=== PATIENT | male | born 1970 | race African-American/Black ===

== ENCOUNTER 2021-01-07 22:30 | Emergency (ER) | payer MEDICAID, SELFPAY ==
--- NOTE | ~2021-01-07 | XR_ITS ---
EXAMINATION: XR ABDOMEN KUB CLINICAL INDICATION: Fecal impaction status post disimpaction COMPARISON: None TECHNIQUE: AP view of the abdomen. FINDINGS: Nonobstructive bowel gas pattern. There is a large amount of stool throughout the colon extending to the rectum. Stool significantly distends the rectum. No suspicious calcifications. No acute osseous abnormality. Ossification seen adjacent to the right acetabulum and greater trochanter. XR/XR KUB IMPRESSION: Large colonic stool burden with stool significantly distending the rectum.
[2021-01-07 22:39] VITALS: BP 112/64; BP 120/78; PULSE 93; PULSE 97; RESP 20; TEMP 37; O2SAT 98; O2SAT 99; BMI 33.0
--- NOTE | 2021-01-07 22:41 | ED_ITS ---
HPI - General Adult General Chief complaint: General Medical Stated complaint: failure to thrive Time Seen by Provider: 01/07/21 22:41 Source: RN notes reviewed Mode of arrival: EMS Limitations: altered mental status History of Present Illness HPI narrative: [facility] of schizophrenia encephalopathy generalized weakness and chronic constipation taking antibiotic Augmentin for UTI for last 5 days constipated not moving his bowels for last 4 days did the KUB x-ray today and showed lots of air and stool no vomiting no fever patient is at baseline patient is full code Related Data Previous Rx's Medication Instructions Recorded polyethylene glycol 3350 [Miralax] 17 g PO DAILY #510 g 01/08/21 Allergies Allergy/AdvReac Type Severity Reaction Status Date / Time No Known Allergies Allergy Verified 01/07/21 22:39 [No Known Allergies*] wool Allergy Unknown Unknown Uncoded 01/07/21 22:39 Review of Systems Review of Systems: Yes Unobtainable due to mental status Neurologic: Reports confusion Psychiatric: Psychiatric: Reports confusion PMFSH Past Medical History Medical History Chronic constipation Depressive disorder Encephalopathy Hyperlipidemia Hypertension Muscle weakness Parkinson disease Schizophrenia Seizures Toxic encephalitis Social History Social History Alcohol intake: never Smoking Status: Never smoker Use of substances other than those prescribed or required for medical reasons: No Advance Directives: No Advance Directives Information Provided: No Physical Exam Vital Signs: Vital Signs: Last Vital Signs Temp 98.5 F 01/08/21 01:16 Pulse 87 01/08/21 01:16 Resp 18 01/08/21 01:16 BP 134/83 01/08/21 01:16 Pulse Ox 100 01/08/21 01:16 Body Mass Index 33.0 Const: General: no acute distress and confusion Nutritional Appearance: thin Orientation/consciousness: oriented to person and confusion HENMT: Head: Yes normocephalic and Yes atraumatic Eyes: General: appearance normal, both eyes and all related structures Neck: Neck: Yes normal visual inspection Resp: Effort & Inspection: normal respiratory effort Auscultation: clear to auscultation bilaterally, no crackles, no rales and no rhonchi Cardio: Palpation: normal PMI Rate: regular rate Rhythm: regular rhythm Heart sounds: S1 normal heart sound present and S2 normal heart sound present Peripheral pulses: Peripheral pulses 2+ throughout GI: Inspection: Yes distended (Gaseous) Palpation (GI): Soft to palpation, no guarding and not rigid Auscultation: normal bowel sounds Rectal Exam - Male: Yes Abnormal stool present and Yes fecal impaction Skin: General skin exam: no rashes or lesions noted Neuro: Other: Limited movements of all 4 extremities with involuntary tremors in upper extremity General: oriented to person, moves all extremities and confusion Medical Decision Making MDM Narrative Medical decision making narrative: Patient with chronic constipation with fecal impaction, manual disimpaction was done will start him on soapsuds enema . Patient had a good bowel movement after soapsuds enema repeat KUB was done which showed still lots of stool without any obstruction per RN at correction patient not eating drinking much lately. Will give him IV fluids p.o. Mag citrate and Dulcolax and watch for some time if patient unable to have good bowel movement in the ER will admit Imaging Data Abdominal x-ray: Attestation: I personally reviewed and interpreted this imaging study as follows: Radiologist's impression: [address] [id number] ReportSigned Patient: Edson HinkleMR#: [id number]: [id number]:[id number]/Sex: 50 / MADM Date: 01/08/21Loc: HO.EDAttending Dr: Ordering Physician: Sidney Santillan MD Date of Service: 01/08/21 Procedure(s): XR KUB Accession Number(s): [id number] cc: Sidney Santillan MD~ EXAMINATION: XR ABDOMEN KUB CLINICAL INDICATION: Fecal impaction status post disimpaction COMPARISON: None TECHNIQUE: AP view of the abdomen. FINDINGS: Nonobstructive bowel gas pattern. There is a large amount of stool throughout the colon extending to the rectum. Stool significantly distends the rectum. No suspicious calcifications. No acute osseous abnormality. Ossification seen adjacent to the right acetabulum and greater trochanter. XR/XR KUB IMPRESSION: Large colonic stool burden with stool significantly distending the rectum. Discharge Plan Discharge Clinical Impression: Fecal impaction Additional Instructions: Drink plenty of fluid take MiraLax daily along with Dulcolax Prescriptions: New polyethylene glycol 3350 [Miralax] 17 gram/dose powder 17 g PO DAILY Qty: 510 RF: 0
[2021-01-07 22:45] VITALS: BP 118/86; PULSE 93; RESP 18; TEMP 36.9; O2SAT 99
[2021-01-07 23:37] VITALS: BP 121/79; PULSE 91; RESP 18; TEMP 36.6; O2SAT 100
[2021-01-08 01:16] VITALS: BP 134/83; PULSE 87; RESP 18; TEMP 36.9; O2SAT 100
[2021-01-08] MEDS: 0.9 % Sodium Chloride 1,000 ML 999 ML IVCONT (01:19)
[2021-01-08] MEDS: bisacodyL 5 MG TABLET.DR 10 MG PO (01:48)
[2021-01-08] MEDS: Magnesium Citrate 300 ML SOLUTION PO (01:49)
[2021-01-08 02:04] LABS: MANUAL DIFF FLAG NO
[2021-01-08 02:17] LABS: Basophils Absolute Auto 0.1 X10*3/uL (0.0-0.2); Basophils Percent Auto 0.7 % (0-2); Eosinophils Absolute Auto 0.3 X10*3/uL (0.0-0.4); Eosinophils Percent Auto 3.1 % (0-4); Hematocrit 45.7 % (42-52); Hemoglobin 14.4 g/dl (14.0-18.0); Imm Gran Abs Auto 0.04 X10*3/uL (0.00-0.03); Imm Gran Pct Auto 0.4 % (0.0-0.4); Lymphocytes Absolute Auto 1.9 X10*3/uL (1.2-4.9); Lymphocytes Percent Auto 19.7 % (20-40); Mean Corpuscular HGB Conc 31.5 g/dl (31.0-36.0); Mean Corpuscular Hemoglobin 28.2 pg (27.0-33.0); Mean Corpuscular Volume 89.6 fL (80-98); Mean Platelet Volume 11.6 fL (9.4-12.4); Monocytes Absolute Auto 0.8 X10*3/uL (0.1-1.2); Monocytes Percent Auto 7.7 % (2-11); Neutrophils Absolute Auto 6.7 X10*3/uL (2.0-8.3); Neutrophils Percent Auto 68.4 % (45-73); Platelet Count 272 X10*3/uL (160-400); Red Cell Distribution Width 14.6 % (11.0-16.0); White Blood Count 9.7 X10*3/uL (4.8-10.8)
[2021-01-08 02:23] LABS: COVID-19 Test Negative (Negative); IDNOW Serial# 9DD0AD1C
[2021-01-08 03:56] LABS: Alanine Aminotransferase 9 U/L (0-40); Albumin Level 3.5 g/dL (3.5-5.0); Alkaline Phosphatase 77 U/L (39-117); Anion Gap 12 (12-20); Aspartate Amino Transferase 20 U/L (5-37); Bilirubin Direct 0.2 mg/dL (0.0-0.5); Bilirubin Total 0.5 mg/dL (0.0-1.0); Blood Urea Nitrogen 20 mg/dL (9-16); Calcium 8.8 mg/dL (8.4-10.2); Carbon Dioxide 24 mmol/L (22-29); Chloride 113 mmol/L (96-108); Creatinine Clr Calc Pharmacy 100.8; Estimated Glomerular Filt Rate > 60; Glucose Random 89 mg/dL (60-115); Potassium 4.4 mmol/L (3.3-5.1); Sodium 145 mmol/L (135-145); Total Protein 6.9 g/dL (6.5-8.0)
[2021-01-08 04:00] VITALS: BP 130/84; PULSE 75; RESP 15; TEMP 36.9; O2SAT 100
[2021-01-08 06:06] VITALS: BP 128/82; PULSE 84; RESP 15
== END 2021-01-08 07:03 | disposition other institution (70) ==
PROVIDERS: Emergency Medicine; Emergency Provider Internal Medicine; PCP Hospitalist
DX: K56.41 Fecal impaction (principal); Z79.2 Long term (current) use of antibiotics; Z79.899 Other long term (current) drug therapy; Z20.822 Contact with and (suspected) exposure to COVID-19
CPT/HCPCS: 36415; 74018; 80048; 80076; 85025; 87635; 99284

== ENCOUNTER 2021-01-09 12:35 | Emergency (ER) | payer MEDICAID, SELFPAY ==
--- NOTE | ~2021-01-09 | CT_ITS ---
EXAMINATION: HEAD CT AND CERVICAL SPINE CT WITHOUT CONTRAST CLINICAL INFORMATION: Unwitnessed falls COMPARISON: Previous CT and brain MRI August 2015 TECHNIQUE: Axial images through the head and cervical spine without contrast. Sagittal and coronal reconstructions on the technologist workstation were performed. Patient dose 720+3 4 6 mg/cm. This CT examination was performed using dose optimization techniques as appropriate, variously including the following: *Automated exposure control *Adjustment of mA and/or kV according to patient size (this includes techniques or standardized protocols for targeted exams where dose is matched to indication/reason for exam; i.e. extremities or head) *Use of iterative reconstruction technique FINDINGS: Head CT: There is no evidence of an extra-axial collection. There is no evidence of intra-axial or extra-axial hemorrhage. The ventricles and extra-axial CSF spaces are prominent suggestive of generalized atrophy. There is nonspecific periventricular white matter disease. No mass, mass effect or infarct is seen. Review of bone windows is normal. No skull fracture is seen. Visualized paranasal sinuses, mastoid air cells and middle ears are clear. Cervical spine: Bone alignment is normal. No fracture or dislocation is seen. There is evidence of multilevel degenerative spondylosis and degenerative disc disease from C3-C4 to C6-C7. Prevertebral soft tissues are normal. There is evidence of paraseptal emphysema. CT/CT head/brain wo con IMPRESSION: Head CT: No acute findings. Generalized atrophy and nonspecific periventricular white matter disease. Cervical spine: Degenerative changes. No fracture seen.
--- NOTE | ~2021-01-09 | CT_ITS ---
EXAMINATION: HEAD CT AND CERVICAL SPINE CT WITHOUT CONTRAST CLINICAL INFORMATION: Unwitnessed falls COMPARISON: Previous CT and brain MRI August 2015 TECHNIQUE: Axial images through the head and cervical spine without contrast. Sagittal and coronal reconstructions on the technologist workstation were performed. Patient dose 720+3 4 6 mg/cm. This CT examination was performed using dose optimization techniques as appropriate, variously including the following: *Automated exposure control *Adjustment of mA and/or kV according to patient size (this includes techniques or standardized protocols for targeted exams where dose is matched to indication/reason for exam; i.e. extremities or head) *Use of iterative reconstruction technique FINDINGS: Head CT: There is no evidence of an extra-axial collection. There is no evidence of intra-axial or extra-axial hemorrhage. The ventricles and extra-axial CSF spaces are prominent suggestive of generalized atrophy. There is nonspecific periventricular white matter disease. No mass, mass effect or infarct is seen. Review of bone windows is normal. No skull fracture is seen. Visualized paranasal sinuses, mastoid air cells and middle ears are clear. Cervical spine: Bone alignment is normal. No fracture or dislocation is seen. There is evidence of multilevel degenerative spondylosis and degenerative disc disease from C3-C4 to C6-C7. Prevertebral soft tissues are normal. There is evidence of paraseptal emphysema. CT/CT cervical spine wo con IMPRESSION: Head CT: No acute findings. Generalized atrophy and nonspecific periventricular white matter disease. Cervical spine: Degenerative changes. No fracture seen.
--- NOTE | 2021-01-09 12:40 | ECG_ITS ---
Test Reason : GENERAL MEDICAL Blood Pressure : / mmHG Vent. Rate : 090 BPM Atrial Rate : 090 BPM P-R Int : 134 ms QRS Dur : 090 ms QT Int : 388 ms P-R-T Axes : 077 049 025 degrees QTc Int : 474 ms Normal sinus rhythm Nonspecific T wave abnormality Abnormal ECG When compared with ECG of 12-SEP-2015 16:33, T wave inversion now evident in Inferior leads Nonspecific T wave abnormality now evident in Lateral leads QT has lengthened Referred By: Shauna Chapman Electronically Signed By:VAMSI PAYAN MD
[2021-01-09 12:50] VITALS: BP 115/71; BP 123/79; PULSE 77; PULSE 84; RESP 18; TEMP 37.2; O2SAT 100; O2SAT 98; BMI 19.0
--- NOTE | 2021-01-09 13:08 | ED_ITS ---
HPI - General Adult General Chief complaint: General Medical <GALO Sinha - Last Filed: 01/09/21 17:00> Stated complaint: WEAKNESS W/3 FALLS IN PAST WEEK <GALO Sinha - Last Filed: 01/09/21 17:00> Time Seen by Provider: 01/09/21 12:39 <GALO Sinha - Last Filed: 01/09/21 17:00> Source: patient, EMS, RN notes reviewed and old records reviewed <GALO Sinha - Last Filed: 01/09/21 17:00> Mode of arrival: EMS <GALO Sinha - Last Filed: 01/09/21 17:00> Limitations: altered mental status <GALO Sinha - Last Filed: 01/09/21 17:00> History of Present Illness HPI narrative: 50 y/o male with history of schizophrenia, seizures, encephalitis, Parkinson's disease, hemiplegia, bilateral cataracts, HTN, HLD, autonomic dysfunction, anemia, hx recent UTI currently on Augmentin with recent visit here for fecal impaction on 01/07 who [facility] worsening weakness, increase in altered mental status, and 3 reported unwitnessed falls this week. Patient was reportedly hypotensive there 80/50. He reportedly had fixed pupils but was oriented to self. He was normotensive for EMS. He offers no complaints on arrival, denies any pain. He is exhibiting bilateral UE spastic movements, liekly chronic with his hx Parkinson's and known hx of extra pyramadial symptoms. <GALO Sinha - Last Filed: 01/09/21 17:00> MD complaint: multiple falls <GALO Sinha - Last Filed: 01/09/21 17:00> Onset (ago): day(s) <GALO Sinha - Last Filed: 01/09/21 17:00> Associated symptoms: denies other symptoms <GALO Sinha - Last Filed: 01/09/21 17:00> Treatments prior to arrival: none <GALO Sinha Last Filed: 01/09/21 17:00> Related Data Home medications: Home Medications Medication Instructions Recorded Confirmed Lorazepam 2 Mg/Ml 1 mg IM Q5M PRN MDD 2 01/09/21 acetaminophen 650 mg PO Q4H PRN 01/09/21 01/09/21 ascorbic acid (vitamin C) [Vitamin 500 mg PO DAILY 01/09/21 01/09/21 C] aspirin 81 mg PO DAILY 01/09/21 01/09/21 benztropine 1 mg PO BID 01/09/21 01/09/21 bisacodyl 10 mg MI DAILY 01/09/21 01/09/21 dantrolene 50 mg PO BID 01/09/21 01/09/21 docusate sodium 100 mg PO BEDTIME 01/09/21 01/09/21 docusate sodium 200 mg PO DAILY 01/09/21 01/09/21 ferrous sulfate 325 mg PO DAILY 01/09/21 01/09/21 lithium carbonate 300 mg PO BEDTIME 01/09/21 01/09/21 multivitamin 1 tab PO DAILY 01/09/21 01/09/21 sennosides [senna] 8.6 mg PO DAILY PRN 01/09/21 01/09/21 sennosides [senna] 17.2 mg PO BEDTIME 01/09/21 01/09/21 simvastatin 20 mg PO BEDTIME 01/09/21 01/09/21 trihexyphenidyl 2 mg PO BID 01/09/21 01/09/21 vitamin E 800 unit PO BID 01/09/21 01/09/21 Previous Rx's Medication Instructions Recorded polyethylene glycol 3350 [Miralax] 17 g PO DAILY #510 g 01/08/21 cefuroxime axetil 500 mg PO Q12H 7 Days #14 tab 01/09/21 <GAOL Sinha - Last Filed: 01/09/21 17:00> Allergies/adverse reactions: Allergies Allergy/AdvReac Type Severity Reaction Status Date / Time No Known Allergies Allergy Verified 01/07/21 22:39 [No Known Allergies*] wool Allergy Unknown Unknown Uncoded 01/07/21 22:39 <GALO Sinha - Last Filed: 01/09/21 17:00> Review of Systems Review of Systems: Yes Unobtainable due to mental condition and Unobtainable due to mental status <GAOL Sinha - Last Filed: 01/09/21 17:00> [facility] Past Medical History Attestation statement: The following information was validated with the patient. <GALO Sinha - Last Filed: 01/09/21 17:00> Medical History: Medical History Anemia Astigmatism, bilateral Bilateral cataracts Chronic constipation Depressive disorder Disorder of the autonomic nervous system, unspecified Dysarthria and anarthria Encephalopathy Essential (primary) hypertension Extrapyramidal and movement disorder Hemiplegia Hyperlipidemia Hypertension MDD (major depressive disorder) Muscle weakness Myopia, bilateral Parkinson disease Presbyopia Schizophrenia Seizures Toxic encephalitis Toxic encephalopathy <GALO Sinha - Last Filed: 01/09/21 17:00> Social History Social History: Social History Alcohol intake: never Smoking Status: Never smoker Smoked in Last 30 Days: No Use of substances other than those prescribed or required for medical reasons: No Advance Directives: No Advance Directives Information Provided: No <GALO Sinha - Last Filed: 01/09/21 17:00> Physical Exam Vital Signs: Vital Signs: Last Vital Signs Temp 98.9 F 01/09/21 12:50 Pulse 96 01/09/21 18:07 Resp 01/09/21 20:24 BP 106/69 01/09/21 18:07 Pulse Ox 100 01/09/21 18:07 Body Mass Index 19.0 Appearance: Alert. Oriented X1. No acute distress. Upper extremity spastic movements. Eyes: Pupils equal, round and non-reactive to light. ENT: poor dentition throughout Neck: Normal inspection. Neck supple. CVS: Normal heart rate and rhythm. Pulses normal. Respiratory: No respiratory distress. Breath sounds normal. Abdomen: Softly distended and nontender. +BS x4 Skin: Skin warm and dry. Normal skin color. Normal skin turgor. No rashes. Extremities: No lower extremity edema. Neuro: Oriented X 1. Upper extremity involuntary movements, <GALO Sinha - Last Filed: 01/09/21 17:00> Vital Signs: Last Vital Signs Temp 98.9 F 01/09/21 12:50 Pulse 96 01/09/21 18:07 Resp 17 01/09/21 20:24 BP 106/69 01/09/21 18:07 Pulse Ox 100 01/09/21 18:07 Body Mass Index 19.0 <Car Broussard MD - Last Filed: 01/31/21 06:47> Course Course Course Narrative: 50 y/o male with multiple comorbidities presenting from [facility] with 3 unwitnessed falls, reports of increased weakness and altered mental status. Given reports of hypotension will get septic workup and cultures. Will check lithium level, basic labs to assess for metabolic derangements as well as CT head given falls. <GALO Sinha - Last Filed: 01/09/21 17:00> I have reviewed the chart <Car Broussard MD - Last Filed: 01/31/21 06:47> Reevaluation(s) Reevaluation #1: Lab workup shows mild hypernatremia with sodium 147, normal renal function. CT head showed no acute findings. UA is pending. Staff member who also works at [facility] assessed the patient and states this is his baseline mental status. He reportedly has been declining for the last few months and has had several falls due to his Parkinsonism and movement disorder. <GALO Sinha - Last Filed: 01/09/21 17:00> Reevaluation #2: COVID/Flu/RSV negative. UA is the only thing pending and then he can be discharged back to [facility]. Signed out to Lindsay DE LEON who will f/u pending results and coordinate d/c back to SNF. <GALO Sinha - Last Filed: 01/09/21 17:00> Medical Decision Making Lab Data Result diagrams: : 01/09/21 14:31 01/09/21 14:31 <GALO Sinha - Last Filed: 01/09/21 17:00> Labs: Lab Results 01/09/21 01/09/21 01/09/21 Range/Units 14:31 14:31 14:31 WBC 10.0 (4.8-10.8) X10*3/uL RBC 5.07 (4.60-5.80) X10*6/uL Hgb 14.3 (14.0-18.0) g/dl Hct 46.1 (42-52) % MCV 90.9 (80-98) fL MCH 28.2 (27.0-33.0) pg MCHC 31.0 (31.0-36.0) g/dl RDW 15.0 (11.0-16.0) % Plt Count 268 (160-400) X10*3/uL MPV 12.0 (9.4-12.4) fL Immature Gran % (Auto) 0.4 (0.0-0.4) % Neut % (Auto) 73.3 H (45-73) % Lymph % (Auto) 17.8 L (20-40) % [place] % (Auto) 4.9 (2-11) % Eos % (Auto) 3.0 (0-4) % Baso % (Auto) 0.6 (0-2) % Lymph # (Auto) 1.8 (1.2-4.9) X10*3/uL [place] # (Auto) 0.5 (0.1-1.2) X10*3/uL Eos # (Auto) 0.3 (0.0-0.4) X10*3/uL Baso # (Auto) 0.1 (0.0-0.2) X10*3/uL Abs Immat Gran (auto) 0.04 H (0.00-0.03) X10*3/uL Absolute Neuts (auto) 7.3 (2.0-8.3) X10*3/uL Absolute Nucleated RBC 0.000 (0.0-0.012) X10*3/uL Nucleated RBC % (auto) 0.0 (0.0-0.2) /100WBC Hold Blue Top SEE NOTE Sodium 147 H (135-145) mmol/L Potassium 4.1 (3.3-5.1) mmol/L Chloride 111 H (96-108) mmol/L Carbon Dioxide 24 (22-29) mmol/L Anion Gap 16 (12-20) BUN 18 H (9-16) mg/dL Creatinine 1.12 (0.5-1.4) mg/dL Estim Creat Clear Calc 67.0 Estimated GFR > 60 Random Glucose 85 (60-115) mg/dL Lactic Acid (0.5-2.0) mmol/L Calcium 9.8 D (8.4-10.2) mg/dL Magnesium 2.3 (1.6-2.6) mg/dL Total Bilirubin 0.5 (0.0-1.0) mg/dL Direct Bilirubin 0.2 (0.0-0.5) mg/dL AST 18 (5-37) U/L ALT 14 (0-40) U/L Alkaline Phosphatase 113 D (39-117) U/L Ammonia (13-55) umol/L Troponin I High Sens (<3.5-35.0) ng/L Total Protein 8.5 H D (6.5-8.0) g/dL Albumin 4.4 D (3.5-5.0) g/dL Procalcitonin ng/mL Urine Color Urine Appearance Urine pH (5.0-8.0) Ur Specific [place] (1.005-1.025) Urine Protein (NEG-TRACE) MG/DL Urine Glucose (UA) (NEG) MG/DL Urine Ketones (NEG) MG/DL Urine Blood (NEG) Urine Nitrite (NEG) Ur Leukocyte Esterase (NEG) Urine RBC (0) /HPF Urine WBC (0-4) /HPF Ur Squamous Epith Cells /LPF Urine Bacteria /LPF Urine Opiates Screen (Not Detect) Ur Barbiturates Screen (Not Detect) Ur Phencyclidine Scrn (Not Detect) Ur Amphetamines Screen (Not Detect) U Benzodiazepines Scrn (Not Detect) [place] Urine Cocaine Screen (Not Detect) U Marijuana (THC) Screen (Not Detect) Ethyl Alcohol mg/dL Coronavirus (PCR) (Negative) Influenza Type A (PCR) (Negative) Influenza Type B (PCR) (Negative) RSV RNA Qual (PCR) (Negative) 01/09/21 01/09/21 01/09/21 Range/Units 14:31 14:31 14:31 WBC (4.8-10.8) X10*3/uL RBC (4.60-5.80) X10*6/uL Hgb (14.0-18.0) g/dl Hct (42-52) % MCV (80-98) fL MCH (27.0-33.0) pg MCHC (31.0-36.0) g/dl RDW (11.0-16.0) % Plt Count (160-400) X10*3/uL MPV (9.4-12.4) fL Immature Gran % (Auto) (0.0-0.4) % Neut % (Auto) (45-73) % Lymph % (Auto) (20-40) % [place] % (Auto) (2-11) % Eos % (Auto) (0-4) % Baso % (Auto) (0-2) % Lymph # (Auto) (1.2-4.9) X10*3/uL [place] # (Auto) (0.1-1.2) X10*3/uL Eos # (Auto) (0.0-0.4) X10*3/uL Baso # (Auto) (0.0-0.2) X10*3/uL Abs Immat Gran (auto) (0.00-0.03) X10*3/uL Absolute Neuts (auto) (2.0-8.3) X10*3/uL Absolute Nucleated RBC (0.0-0.012) X10*3/uL Nucleated RBC % (auto) (0.0-0.2) /100WBC Hold Blue Top Sodium (135-145) mmol/L Potassium (3.3-5.1) mmol/L Chloride (96-108) mmol/L Carbon Dioxide (22-29) mmol/L Anion Gap (12-20) BUN (9-16) mg/dL Creatinine (0.5-1.4) mg/dL Estim Creat Clear Calc Estimated GFR Random Glucose (60-115) mg/dL Lactic Acid 0.8 (0.5-2.0) mmol/L Calcium (8.4-10.2) mg/dL Magnesium (1.6-2.6) mg/dL Total Bilirubin (0.0-1.0) mg/dL Direct Bilirubin (0.0-0.5) mg/dL AST (5-37) U/L ALT (0-40) U/L Alkaline Phosphatase (39-117) U/L Ammonia 22 (13-55) umol/L Troponin I High Sens (<3.5-35.0) ng/L Total Protein (6.5-8.0) g/dL Albumin (3.5-5.0) g/dL Procalcitonin ng/mL Urine Color Urine Appearance Urine pH (5.0-8.0) Ur Specific [place] (1.005-1.025) Urine Protein (NEG-TRACE) MG/DL Urine Glucose (UA) (NEG) MG/DL Urine Ketones (NEG) MG/DL Urine Blood (NEG) Urine Nitrite (NEG) Ur Leukocyte Esterase (NEG) Urine RBC (0) /HPF Urine WBC (0-4) /HPF Ur Squamous Epith Cells /LPF Urine Bacteria /LPF Urine Opiates Screen (Not Detect) Ur Barbiturates Screen (Not Detect) Ur Phencyclidine Scrn (Not Detect) Ur Amphetamines Screen (Not Detect) U Benzodiazepines Scrn (Not Detect) [place] Urine Cocaine Screen (Not Detect) U Marijuana (THC) Screen (Not Detect) Ethyl Alcohol < 10 mg/dL Coronavirus (PCR) (Negative) Influenza Type A (PCR) (Negative) Influenza Type B (PCR) (Negative) RSV RNA Qual (PCR) (Negative) 01/09/21 01/09/21 01/09/21 Range/Units 14:31 14:31 15:37 WBC (4.8-10.8) X10*3/uL RBC (4.60-5.80) X10*6/uL Hgb (14.0-18.0) g/dl Hct (42-52) % MCV (80-98) fL MCH (27.0-33.0) pg MCHC (31.0-36.0) g/dl RDW (11.0-16.0) % Plt Count (160-400) X10*3/uL MPV (9.4-12.4) fL Immature Gran % (Auto) (0.0-0.4) % Neut % (Auto) (45-73) % Lymph % (Auto) (20-40) % [place] % (Auto) (2-11) % Eos % (Auto) (0-4) % Baso % (Auto) (0-2) % Lymph # (Auto) (1.2-4.9) X10*3/uL [place] # (Auto) (0.1-1.2) X10*3/uL Eos # (Auto) (0.0-0.4) X10*3/uL Baso # (Auto) (0.0-0.2) X10*3/uL Abs Immat Gran (auto) (0.00-0.03) X10*3/uL Absolute Neuts (auto) (2.0-8.3) X10*3/uL Absolute Nucleated RBC (0.0-0.012) X10*3/uL Nucleated RBC % (auto) (0.0-0.2) /100WBC Hold Blue Top Sodium (135-145) mmol/L Potassium (3.3-5.1) mmol/L Chloride (96-108) mmol/L Carbon Dioxide (22-29) mmol/L Anion Gap (12-20) BUN (9-16) mg/dL Creatinine (0.5-1.4) mg/dL Estim Creat Clear Calc Estimated GFR Random Glucose (60-115) mg/dL Lactic Acid (0.5-2.0) mmol/L Calcium (8.4-10.2) mg/dL Magnesium (1.6-2.6) mg/dL Total Bilirubin (0.0-1.0) mg/dL Direct Bilirubin (0.0-0.5) mg/dL AST (5-37) U/L ALT (0-40) U/L Alkaline Phosphatase (39-117) U/L Ammonia (13-55) umol/L Troponin I High Sens < 3.5 (<3.5-35.0) ng/L Total Protein (6.5-8.0) g/dL Albumin (3.5-5.0) g/dL Procalcitonin 0.02 ng/mL Urine Color Urine Appearance Urine pH (5.0-8.0) Ur Specific [place] (1.005-1.025) Urine Protein (NEG-TRACE) MG/DL Urine Glucose (UA) (NEG) MG/DL Urine Ketones (NEG) MG/DL Urine Blood (NEG) Urine Nitrite (NEG) Ur Leukocyte Esterase (NEG) Urine RBC (0) /HPF Urine WBC (0-4) /HPF Ur Squamous Epith Cells /LPF Urine Bacteria /LPF Urine Opiates Screen (Not Detect) Ur Barbiturates Screen (Not Detect) Ur Phencyclidine Scrn (Not Detect) Ur Amphetamines Screen (Not Detect) U Benzodiazepines Scrn (Not Detect) [place] Urine Cocaine Screen (Not Detect) U Marijuana (THC) Screen (Not Detect) Ethyl Alcohol mg/dL Coronavirus (PCR) NEGATIVE (Negative) Influenza Type A (PCR) NEGATIVE (Negative) Influenza Type B (PCR) NEGATIVE (Negative) RSV RNA Qual (PCR) NEGATIVE (Negative) 01/09/21 01/09/21 01/09/21 Range/Units 16:41 16:41 Unknown WBC (4.8-10.8) X10*3/uL RBC (4.60-5.80) X10*6/uL Hgb (14.0-18.0) g/dl Hct (42-52) % MCV (80-98) fL MCH (27.0-33.0) pg MCHC (31.0-36.0) g/dl RDW (11.0-16.0) % Plt Count (160-400) X10*3/uL MPV (9.4-12.4) fL Immature Gran % (Auto) (0.0-0.4) % Neut % (Auto) (45-73) % Lymph % (Auto) (20-40) % [place] % (Auto) (2-11) % Eos % (Auto) (0-4) % Baso % (Auto) (0-2) % Lymph # (Auto) (1.2-4.9) X10*3/uL [place] # (Auto) (0.1-1.2) X10*3/uL Eos # (Auto) (0.0-0.4) X10*3/uL Baso # (Auto) (0.0-0.2) X10*3/uL Abs Immat Gran (auto) (0.00-0.03) X10*3/uL Absolute Neuts (auto) (2.0-8.3) X10*3/uL Absolute Nucleated RBC (0.0-0.012) X10*3/uL Nucleated RBC % (auto) (0.0-0.2) /100WBC Hold Blue Top Sodium (135-145) mmol/L Potassium (3.3-5.1) mmol/L Chloride (96-108) mmol/L Carbon Dioxide (22-29) mmol/L Anion Gap (12-20) BUN (9-16) mg/dL Creatinine (0.5-1.4) mg/dL Estim Creat Clear Calc Estimated GFR Random Glucose (60-115) mg/dL Lactic Acid (0.5-2.0) mmol/L Calcium (8.4-10.2) mg/dL Magnesium (1.6-2.6) mg/dL Total Bilirubin (0.0-1.0) mg/dL Direct Bilirubin (0.0-0.5) mg/dL AST (5-37) U/L ALT (0-40) U/L Alkaline Phosphatase (39-117) U/L Ammonia (13-55) umol/L Troponin I High Sens (<3.5-35.0) ng/L Total Protein (6.5-8.0) g/dL Albumin (3.5-5.0) g/dL Procalcitonin ng/mL Urine Color YELLOW Urine Appearance CLOUDY Urine pH 6.5 (5.0-8.0) Ur Specific [place] 1.025 (1.005-1.025) Urine Protein 2+ H (NEG-TRACE) MG/DL Urine Glucose (UA) NEG (NEG) MG/DL Urine Ketones 5 (NEG) MG/DL Urine Blood 2+ H (NEG) Urine Nitrite NEG (NEG) Ur Leukocyte Esterase 1+ H (NEG) Urine RBC 30-49 H (0) /HPF Urine WBC 50-75 H (0-4) /HPF Ur Squamous Epith Cells TRACE /LPF Urine Bacteria NONE /LPF Urine Opiates Screen Not Detected (Not Detect) Ur Barbiturates Screen Not Detected (Not Detect) Ur Phencyclidine Scrn Not Detected (Not Detect) Ur Amphetamines Screen Not Detected (Not Detect) U Benzodiazepines Scrn Not Detected (Not Detect) [place] Cancelled Urine Cocaine Screen Not Detected (Not Detect) U Marijuana (THC) Screen Not Detected (Not Detect) Ethyl Alcohol mg/dL Coronavirus (PCR) (Negative) Influenza Type A (PCR) (Negative) Influenza Type B (PCR) (Negative) RSV RNA Qual (PCR) (Negative) <GALO Sinha - Last Filed: 01/09/21 17:00> Lab Results 01/09/21 01/09/21 01/09/21 Range/Units 14:31 14:31 14:31 WBC 10.0 (4.8-10.8) X10*3/uL RBC 5.07 (4.60-5.80) X10*6/uL Hgb 14.3 (14.0-18.0) g/dl Hct 46.1 (42-52) % MCV 90.9 (80-98) fL MCH 28.2 (27.0-33.0) pg MCHC 31.0 (31.0-36.0) g/dl RDW 15.0 (11.0-16.0) % Plt Count 268 (160-400) X10*3/uL MPV 12.0 (9.4-12.4) fL Immature Gran % (Auto) 0.4 (0.0-0.4) % Neut % (Auto) 73.3 H (45-73) % Lymph % (Auto) 17.8 L (20-40) % [place] % (Auto) 4.9 (2-11) % Eos % (Auto) 3.0 (0-4) % Baso % (Auto) 0.6 (0-2) % Lymph # (Auto) 1.8 (1.2-4.9) X10*3/uL [place] # (Auto) 0.5 (0.1-1.2) X10*3/uL Eos # (Auto) 0.3 (0.0-0.4) X10*3/uL Baso # (Auto) 0.1 (0.0-0.2) X10*3/uL Abs Immat Gran (auto) 0.04 H (0.00-0.03) X10*3/uL Absolute Neuts (auto) 7.3 (2.0-8.3) X10*3/uL Absolute Nucleated RBC 0.000 (0.0-0.012) X10*3/uL Nucleated RBC % (auto) 0.0 (0.0-0.2) /100WBC Hold Blue Top SEE NOTE Sodium 147 H (135-145) mmol/L Potassium 4.1 (3.3-5.1) mmol/L Chloride 111 H (96-108) mmol/L Carbon Dioxide 24 (22-29) mmol/L Anion Gap 16 (12-20) BUN 18 H (9-16) mg/dL Creatinine 1.12 (0.5-1.4) mg/dL Estim Creat Clear Calc 67.0 Estimated GFR > 60 Random Glucose 85 (60-115) mg/dL Lactic Acid (0.5-2.0) mmol/L Calcium 9.8 D (8.4-10.2) mg/dL Magnesium 2.3 (1.6-2.6) mg/dL Total Bilirubin 0.5 (0.0-1.0) mg/dL Direct Bilirubin 0.2 (0.0-0.5) mg/dL AST 18 (5-37) U/L ALT 14 (0-40) U/L Alkaline Phosphatase 113 D (39-117) U/L Ammonia (13-55) umol/L Troponin I High Sens (<3.5-35.0) ng/L Total Protein 8.5 H D (6.5-8.0) g/dL Albumin 4.4 D (3.5-5.0) g/dL Procalcitonin ng/mL Urine Color Urine Appearance Urine pH (5.0-8.0) Ur Specific [place] (1.005-1.025) Urine Protein (NEG-TRACE) MG/DL Urine Glucose (UA) (NEG) MG/DL Urine Ketones (NEG) MG/DL Urine Blood (NEG) Urine Nitrite (NEG) Ur Leukocyte Esterase (NEG) Urine RBC (0) /HPF Urine WBC (0-4) /HPF Ur Squamous Epith Cells /LPF Urine Bacteria /LPF Urine Opiates Screen (Not Detect) Ur Barbiturates Screen (Not Detect) Ur Phencyclidine Scrn (Not Detect) Ur Amphetamines Screen (Not Detect) U Benzodiazepines Scrn (Not Detect) [place] Urine Cocaine Screen (Not Detect) U Marijuana (THC) Screen (Not Detect) Ethyl Alcohol mg/dL Coronavirus (PCR) (Negative) Influenza Type A (PCR) (Negative) Influenza Type B (PCR) (Negative) RSV RNA Qual (PCR) (Negative) 01/09/21 01/09/21 01/09/21 Range/Units 14:31 14:31 14:31 WBC (4.8-10.8) X10*3/uL RBC (4.60-5.80) X10*6/uL Hgb (14.0-18.0) g/dl Hct (42-52) % MCV (80-98) fL MCH (27.0-33.0) pg MCHC (31.0-36.0) g/dl RDW (11.0-16.0) % Plt Count (160-400) X10*3/uL MPV (9.4-12.4) fL Immature Gran % (Auto) (0.0-0.4) % Neut % (Auto) (45-73) % Lymph % (Auto) (20-40) % [place] % (Auto) (2-11) % Eos % (Auto) (0-4) % Baso % (Auto) (0-2) % Lymph # (Auto) (1.2-4.9) X10*3/uL [place] # (Auto) (0.1-1.2) X10*3/uL Eos # (Auto) (0.0-0.4) X10*3/uL Baso # (Auto) (0.0-0.2) X10*3/uL Abs Immat Gran (auto) (0.00-0.03) X10*3/uL Absolute Neuts (auto) (2.0-8.3) X10*3/uL Absolute Nucleated RBC (0.0-0.012) X10*3/uL Nucleated RBC % (auto) (0.0-0.2) /100WBC Hold Blue Top Sodium (135-145) mmol/L Potassium (3.3-5.1) mmol/L Chloride (96-108) mmol/L Carbon Dioxide (22-29) mmol/L Anion Gap (12-20) BUN (9-16) mg/dL Creatinine (0.5-1.4) mg/dL Estim Creat Clear Calc Estimated GFR Random Glucose (60-115) mg/dL Lactic Acid 0.8 (0.5-2.0) mmol/L Calcium (8.4-10.2) mg/dL Magnesium (1.6-2.6) mg/dL Total Bilirubin (0.0-1.0) mg/dL Direct Bilirubin (0.0-0.5) mg/dL AST (5-37) U/L ALT (0-40) U/L Alkaline Phosphatase (39-117) U/L Ammonia 22 (13-55) umol/L Troponin I High Sens (<3.5-35.0) ng/L Total Protein (6.5-8.0) g/dL Albumin (3.5-5.0) g/dL Procalcitonin ng/mL Urine Color Urine Appearance Urine pH (5.0-8.0) Ur Specific [place] (1.005-1.025) Urine Protein (NEG-TRACE) MG/DL Urine Glucose (UA) (NEG) MG/DL Urine Ketones (NEG) MG/DL Urine Blood (NEG) Urine Nitrite (NEG) Ur Leukocyte Esterase (NEG) Urine RBC (0) /HPF Urine WBC (0-4) /HPF Ur Squamous Epith Cells /LPF Urine Bacteria /LPF Urine Opiates Screen (Not Detect) Ur Barbiturates Screen (Not Detect) Ur Phencyclidine Scrn (Not Detect) Ur Amphetamines Screen (Not Detect) U Benzodiazepines Scrn (Not Detect) [place] Urine Cocaine Screen (Not Detect) U Marijuana (THC) Screen (Not Detect) Ethyl Alcohol < 10 mg/dL Coronavirus (PCR) (Negative) Influenza Type A (PCR) (Negative) Influenza Type B (PCR) (Negative) RSV RNA Qual (PCR) (Negative) 01/09/21 01/09/21 01/09/21 Range/Units 14:31 14:31 15:37 WBC (4.8-10.8) X10*3/uL RBC (4.60-5.80) X10*6/uL Hgb (14.0-18.0) g/dl Hct (42-52) % MCV (80-98) fL MCH (27.0-33.0) pg MCHC (31.0-36.0) g/dl RDW (11.0-16.0) % Plt Count (160-400) X10*3/uL MPV (9.4-12.4) fL Immature Gran % (Auto) (0.0-0.4) % Neut % (Auto) (45-73) % Lymph % (Auto) (20-40) % [place] % (Auto) (2-11) % Eos % (Auto) (0-4) % Baso % (Auto) (0-2) % Lymph # (Auto) (1.2-4.9) X10*3/uL [place] # (Auto) (0.1-1.2) X10*3/uL Eos # (Auto) (0.0-0.4) X10*3/uL Baso # (Auto) (0.0-0.2) X10*3/uL Abs Immat Gran (auto) (0.00-0.03) X10*3/uL Absolute Neuts (auto) (2.0-8.3) X10*3/uL Absolute Nucleated RBC (0.0-0.012) X10*3/uL Nucleated RBC % (auto) (0.0-0.2) /100WBC Hold Blue Top Sodium (135-145) mmol/L Potassium (3.3-5.1) mmol/L Chloride (96-108) mmol/L Carbon Dioxide (22-29) mmol/L Anion Gap (12-20) BUN (9-16) mg/dL Creatinine (0.5-1.4) mg/dL Estim Creat Clear Calc Estimated GFR Random Glucose (60-115) mg/dL Lactic Acid (0.5-2.0) mmol/L Calcium (8.4-10.2) mg/dL Magnesium (1.6-2.6) mg/dL Total Bilirubin (0.0-1.0) mg/dL Direct Bilirubin (0.0-0.5) mg/dL AST (5-37) U/L ALT (0-40) U/L Alkaline Phosphatase (39-117) U/L Ammonia (13-55) umol/L Troponin I High Sens < 3.5 (<3.5-35.0) ng/L Total Protein (6.5-8.0) g/dL Albumin (3.5-5.0) g/dL Procalcitonin 0.02 ng/mL Urine Color Urine Appearance Urine pH (5.0-8.0) Ur Specific [place] (1.005-1.025) Urine Protein (NEG-TRACE) MG/DL Urine Glucose (UA) (NEG) MG/DL Urine Ketones (NEG) MG/DL Urine Blood (NEG) Urine Nitrite (NEG) Ur Leukocyte Esterase (NEG) Urine RBC (0) /HPF Urine WBC (0-4) /HPF Ur Squamous Epith Cells /LPF Urine Bacteria /LPF Urine Opiates Screen (Not Detect) Ur Barbiturates Screen (Not Detect) Ur Phencyclidine Scrn (Not Detect) Ur Amphetamines Screen (Not Detect) U Benzodiazepines Scrn (Not Detect) [place] Urine Cocaine Screen (Not Detect) U Marijuana (THC) Screen (Not Detect) Ethyl Alcohol mg/dL Coronavirus (PCR) NEGATIVE (Negative) Influenza Type A (PCR) NEGATIVE (Negative) Influenza Type B (PCR) NEGATIVE (Negative) RSV RNA Qual (PCR) NEGATIVE (Negative) 01/09/21 01/09/21 01/09/21 Range/Units 16:41 16:41 Unknown WBC (4.8-10.8) X10*3/uL RBC (4.60-5.80) X10*6/uL Hgb (14.0-18.0) g/dl Hct (42-52) % MCV (80-98) fL MCH (27.0-33.0) pg MCHC (31.0-36.0) g/dl RDW (11.0-16.0) % Plt Count (160-400) X10*3/uL MPV (9.4-12.4) fL Immature Gran % (Auto) (0.0-0.4) % Neut % (Auto) (45-73) % Lymph % (Auto) (20-40) % [place] % (Auto) (2-11) % Eos % (Auto) (0-4) % Baso % (Auto) (0-2) % Lymph # (Auto) (1.2-4.9) X10*3/uL [place] # (Auto) (0.1-1.2) X10*3/uL Eos # (Auto) (0.0-0.4) X10*3/uL Baso # (Auto) (0.0-0.2) X10*3/uL Abs Immat Gran (auto) (0.00-0.03) X10*3/uL Absolute Neuts (auto) (2.0-8.3) X10*3/uL Absolute Nucleated RBC (0.0-0.012) X10*3/uL Nucleated RBC % (auto) (0.0-0.2) /100WBC Hold Blue Top Sodium (135-145) mmol/L Potassium (3.3-5.1) mmol/L Chloride (96-108) mmol/L Carbon Dioxide (22-29) mmol/L Anion Gap (12-20) BUN (9-16) mg/dL Creatinine (0.5-1.4) mg/dL Estim Creat Clear Calc Estimated GFR Random Glucose (60-115) mg/dL Lactic Acid (0.5-2.0) mmol/L Calcium (8.4-10.2) mg/dL Magnesium (1.6-2.6) mg/dL Total Bilirubin (0.0-1.0) mg/dL Direct Bilirubin (0.0-0.5) mg/dL AST (5-37) U/L ALT (0-40) U/L Alkaline Phosphatase (39-117) U/L Ammonia (13-55) umol/L Troponin I High Sens (<3.5-35.0) ng/L Total Protein (6.5-8.0) g/dL Albumin (3.5-5.0) g/dL Procalcitonin ng/mL Urine Color YELLOW Urine Appearance CLOUDY Urine pH 6.5 (5.0-8.0) Ur Specific [place] 1.025 (1.005-1.025) Urine Protein 2+ H (NEG-TRACE) MG/DL Urine Glucose (UA) NEG (NEG) MG/DL Urine Ketones 5 (NEG) MG/DL Urine Blood 2+ H (NEG) Urine Nitrite NEG (NEG) Ur Leukocyte Esterase 1+ H (NEG) Urine RBC 30-49 H (0) /HPF Urine WBC 50-75 H (0-4) /HPF Ur Squamous Epith Cells TRACE /LPF Urine Bacteria NONE /LPF Urine Opiates Screen Not Detected (Not Detect) Ur Barbiturates Screen Not Detected (Not Detect) Ur Phencyclidine Scrn Not Detected (Not Detect) Ur Amphetamines Screen Not Detected (Not Detect) U Benzodiazepines Scrn Not Detected (Not Detect) [place] Cancelled Urine Cocaine Screen Not Detected (Not Detect) U Marijuana (THC) Screen Not Detected (Not Detect) Ethyl Alcohol mg/dL Coronavirus (PCR) (Negative) Influenza Type A (PCR) (Negative) Influenza Type B (PCR) (Negative) RSV RNA Qual (PCR) (Negative) <Car Broussard MD - Last Filed: 01/31/21 06:47> ECG Data Attestation: I personally reviewed and interpreted this ECG as follows: <GALO Sinha - Last Filed: 01/09/21 17:00> Interpretation: normal sinus rhythm, HR 91 bpm, normal MI interval, normal QTc, artifact present <GALO Sinha Last Filed: 01/09/21 17:00> Discharge Plan Discharge Clinical Impression: Falls, Hypernatremia <GALO Sinha - Last Filed: 01/09/21 17:00> Patient Disposition: Xfer SNF <GALO Sinha - Last Filed: 01/09/21 17:00> Instructions: Fall Prevention (ED), Hypernatremia (ED) <GALO Sinha - Last Filed: 01/09/21 17:00> Additional Instructions: Your CT scan of your head and neck were unremarkable. Your sodium level was very mildly elevated - recommend increasing your water intake. Recommend only getting up with assistance to help prevent future falls. Please discontinue your Augmentin. Start cefuroxime 500 mg by mouth every 12 hours for the next 7 days. Repeat urinalysis in 10 days. Thank you for choosing this emergency department for evaluation. Please follow-up with primary care physician as needed. Return to the emergency department for any new, concerning, or worsening symptoms. <GALO Sinha - Last Filed: 01/09/21 17:00> Prescriptions: New cefuroxime axetil 500 mg tablet 500 mg PO Q12H 7 Days Qty: 14 RF: 0 No Action polyethylene glycol 3350 [Miralax] 17 gram/dose powder 17 g PO DAILY Qty: 510 RF: 0 sennosides [senna] 8.6 mg Tablet 8.6 mg PO DAILY PRN (Reason: Constipation) RF: 0 Lorazepam 2 Mg/Ml 2 mg/ml 1 mg IM Q5M MDD 2 PRN (Reason: TONIC CLONIC SEIZURE > 5 MIN) RF: 0 acetaminophen 325 mg Tablet 650 mg PO Q4H PRN (Reason: Fever Or Pain) RF: 0 bisacodyl 10 mg Suppository 10 mg MI DAILY RF: 0 vitamin E 400 unit Capsule 800 unit PO BID RF: 0 dantrolene 50 mg Capsule 50 mg PO BID RF: 0 trihexyphenidyl 2 mg Tablet 2 mg PO BID RF: 0 ascorbic acid (vitamin C) [Vitamin C] 500 mg Tablet 500 mg PO DAILY RF: 0 benztropine 1 mg Tablet 1 mg PO BID RF: 0 multivitamin Tablet 1 tab PO DAILY RF: 0 sennosides [senna] 8.6 mg Tablet 17.2 mg PO BEDTIME RF: 0 simvastatin 20 mg Tablet 20 mg PO BEDTIME RF: 0 aspirin 81 mg Tablet,Delayed Release (Dr/Ec) 81 mg PO DAILY RF: 0 docusate sodium 100 mg Capsule 100 mg PO BEDTIME RF: 0 docusate sodium 100 mg Capsule 200 mg PO DAILY RF: 0 ferrous sulfate 325 mg (65 mg iron) Tablet 325 mg PO DAILY RF: 0 lithium carbonate 300 mg Capsule 300 mg PO BEDTIME RF: 0 <GALO Sinha - Last Filed: 01/09/21 17:00> Interventions: ED Discharge Assessment Last Done: 01/09/21 20:35 <GALO Sinha - Last Filed: 01/09/21 17:00> Discharge Date/Time: 01/09/21 20:43 <GALO Sinha - Last Filed: 01/09/21 17:00>
[2021-01-09 14:38] LABS: MANUAL DIFF FLAG NO
[2021-01-09 14:40] LABS: Basophils Absolute Auto 0.1 X10*3/uL (0.0-0.2); Basophils Percent Auto 0.6 % (0-2); Eosinophils Absolute Auto 0.3 X10*3/uL (0.0-0.4); Hematocrit 46.1 % (42-52); Hemoglobin 14.3 g/dl (14.0-18.0); Imm Gran Abs Auto 0.04 X10*3/uL (0.00-0.03); Imm Gran Pct Auto 0.4 % (0.0-0.4); Lymphocytes Absolute Auto 1.8 X10*3/uL (1.2-4.9); Lymphocytes Percent Auto 17.8 % (20-40); Mean Corpuscular Hemoglobin 28.2 pg (27.0-33.0); Mean Corpuscular Volume 90.9 fL (80-98); Monocytes Absolute Auto 0.5 X10*3/uL (0.1-1.2); Monocytes Percent Auto 4.9 % (2-11); Neutrophils Absolute Auto 7.3 X10*3/uL (2.0-8.3); Neutrophils Percent Auto 73.3 % (45-73); Platelet Count 268 X10*3/uL (160-400); Red Blood Count 5.07 X10*6/uL (4.60-5.80)
[2021-01-09 14:55] LABS: Ammonia 22 umol/L (13-55)
[2021-01-09 14:58] LABS: Lactic Acid 0.8 mmol/L (0.5-2.0)
[2021-01-09 15:05] LABS: Ethanol < 10 mg/dL
--- NOTE | 2021-01-09 15:05 | PC.NURSE ---
labs were drawn, iv infiltrated- will notify provider, staff will attempt new site via ultrasound.
[2021-01-09 15:06] LABS: Alanine Aminotransferase 14 U/L (0-40); Albumin Level 4.4 g/dL (3.5-5.0); Alkaline Phosphatase 113 U/L (39-117); Anion Gap 16 (12-20); Aspartate Amino Transferase 18 U/L (5-37); Bilirubin Direct 0.2 mg/dL (0.0-0.5); Bilirubin Total 0.5 mg/dL (0.0-1.0); Blood Urea Nitrogen 18 mg/dL (9-16); Calcium 9.8 mg/dL (8.4-10.2); Carbon Dioxide 24 mmol/L (22-29); Chloride 111 mmol/L (96-108); Estimated Glomerular Filt Rate > 60; Glucose Random 85 mg/dL (60-115); Magnesium 2.3 mg/dL (1.6-2.6); Potassium 4.1 mmol/L (3.3-5.1); Sodium 147 mmol/L (135-145); Total Protein 8.5 g/dL (6.5-8.0)
[2021-01-09 15:09] LABS: Troponin-I High Sensitivity < 3.5 ng/L (<3.5-35.0)
[2021-01-09 15:24] LABS: Procalcitonin 0.02 ng/mL
--- NOTE | 2021-01-09 15:41 | PC.NURSE ---
NS not given to patient as iv site infiltrated, no new access could be obtained with US, provider is aware
[2021-01-09 16:21] LABS: Influenza A PCR NEGATIVE (Negative); Influenza B PCR NEGATIVE (Negative); Resp Syncy Virus RNA Qual PCR NEGATIVE (Negative); SARS COV2 PCR INHOUSE NEGATIVE (Negative)
[2021-01-09 16:51] LABS: Glucose Urine UA NEG (NEG); Leukocyte Esterase Urine 1+ (NEG); Nitrite Urine NEG (NEG); PH 6.5 (5.0-8.0); Specific Gravity - Urine 1.025 (1.005-1.025); UACC Culture Trigger YES; Urine Blood 2+ (NEG); Urine Ketones 5 MG/DL (NEG); Urine Protein 2+ MG/DL (NEG-TRACE)
[2021-01-09 16:52] LABS: Appearance Urine CLOUDY; Color Urine YELLOW
[2021-01-09 17:05] LABS: RBC Urine 30-49 /HPF (0); Squamous Epithelial Cell Urine TRACE /LPF; WBC Urine 50-75 /HPF (0-4)
[2021-01-09 17:21] LABS: Amphetamine Screen Urine Not Detected (Not Detect); Barbiturates, Urine Not Detected (Not Detect); Cannabinoid Screen Urine Not Detected (Not Detect); Cocaine Screen Urine Not Detected (Not Detect); Opiate Screen Urine Not Detected (Not Detect); Phencyclidine Screen Urine Not Detected (Not Detect)
[2021-01-09 17:25] LABS: Benzodiazepines Screen Urine Not Detected (Not Detect)
[2021-01-09 18:07] VITALS: BP 106/69; PULSE 96; RESP 18; O2SAT 100
--- NOTE | 2021-01-09 18:25 | PC.NURSE ---
patient medicated per order, vss, will continue to monitor.
[2021-01-09 20:24] VITALS: RESP 17
--- NOTE | 2021-01-09 20:25 | PC.NURSE ---
patient currently sleeping, awaiting ambulance to transport [facility] to [facility], report was called to jade at [facility].
== END 2021-01-09 20:43 | disposition skilled nursing facility (03) ==
PROVIDERS: Physician Assistant; Emergency Provider Emergency Medicine; PCP Hospitalist
DX: E87.0 Hyperosmolality and hypernatremia (principal); G20 Parkinson's disease; I10 Essential (primary) hypertension; Z87.440 Personal history of urinary (tract) infections; Z20.822 Contact with and (suspected) exposure to COVID-19; Z91.81 History of falling
CPT/HCPCS: 0241U; 36415; 70450; 72125; 80048; 80076; 80307; 80320; 81001; 81003; 82140; 83605; 83735; 84145; 84484; 85025; 87040; 87086; 93005; 96360; 99284

== ENCOUNTER 2021-04-19 18:49 | Inpatient (IN) | payer MEDICAID, SELFPAY ==
--- NOTE | ~2021-04-19 | CT_ITS ---
EXAMINATION: CT HEAD WITHOUT CONTRAST CLINICAL INFORMATION: Encephalopathy, seizure and fever COMPARISON: None TECHNIQUE: Contiguous axial imaging was performed from the skull base to vertex without intravenous administration of contrast. This CT examination was performed using dose optimization techniques as appropriate, variously including the following: *Automated exposure control *Adjustment of mA and/or kV according to patient size (this includes techniques or standardized protocols for targeted exams where dose is matched to indication/reason for exam; i.e. extremities or head) *Use of iterative reconstruction technique DLP: 673 mGy-cm FINDINGS: There is no evidence of acute intracranial hemorrhage or territorial infarction. No abnormal mass effect or midline shift is seen. Deleon to white matter differentiation is well preserved. No extra-axial fluid collections are identified. The lateral ventricles are enlarged and so are the cortical sulci. There is mild periventricular hypodensity in both cerebral hemispheres. The osseous structures and soft tissues are normal. The mastoid air cells and visualized portions of the paranasal sinuses are well aerated. CT/CT head/brain wo con IMPRESSION: No acute intracranial process seen. 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
--- NOTE | ~2021-04-19 | CT_ITS ---
EXAMINATION: CT ABDOMEN AND PELVIS WITHOUT CONTRAST CLINICAL INFORMATION: Sepsis COMPARISON: 11/11/2016 TECHNIQUE: Multidetector volumetric imaging was performed from the superior aspect of the liver through the pubic symphysis. Sagittal and coronal reformatted images were obtained on the technologist's workstation. This CT examination was performed using dose optimization techniques as appropriate, variously including the following: *Automated exposure control *Adjustment of mA and/or kV according to patient size (this includes techniques or standardized protocols for targeted exams where dose is matched to indication/reason for exam; i.e. extremities or head) *Use of iterative reconstruction technique DLP: 858 mGy-cm FINDINGS: Suboptimal assessment in some regions due to motion artifact. LUNG BASES: The visualized lung bases demonstrate dependent opacities suggesting atelectasis. LIVER, GALLBLADDER, AND BILIARY TREE: Suboptimal assessment of the liver without intravenous contrast. Small hypodensity near the junction of the right and left hepatic lobes is too small to characterize. No appreciable intrahepatic biliary ductal dilatation. The gallbladder is grossly unremarkable. PANCREAS: Grossly unremarkable though not well assessed. SPLEEN: Unremarkable. ADRENAL GLANDS: Unremarkable. KIDNEYS AND URETERS: The kidneys are normal in size, shape, and attenuation. No hydronephrosis, hydroureter, or calculi seen. No perinephric stranding. BLADDER: Mildly distended and grossly unremarkable. GASTROINTESTINAL TRACT: Large amount of stool is present in the colon and especially in the rectum which is significantly distended and demonstrates some associated wall thickening concerning for stercoral colitis. No significant small bowel dilation is seen, though assessment is suboptimal given the paucity of intra-abdominal fat. Small focus of intraluminal gas in the right lower quadrant on image 67/113 may represent the appendix. There is suggestion of trace free fluid in the anterior left lower quadrant. No free air is seen. ABDOMINAL WALL: No significant hernia is appreciated. LYMPH NODES: No lymphadenopathy is identified, though assessment is limited in the absence of intravenous contrast. VASCULAR: Scattered vascular calcifications noted. PELVIC VISCERA: Grossly unremarkable. OSSEOUS STRUCTURES: Unremarkable. CT/CT abdomen pelvis wo con IMPRESSION: Limited evaluation due to motion artifact, lack of intravenous contrast, and paucity of intra-abdominal fat. Large volume of stool is present in the colon and rectum, and there is associated rectal wall thickening which is concerning for stercoral colitis in this setting.
--- NOTE | ~2021-04-19 | XR_ITS ---
EXAMINATION: XR CHEST CLINICAL INFORMATION: Fever. COMPARISON: Chest x-ray 09/12/2015 TECHNIQUE: Frontal view of the chest was obtained. 8:02 PM FINDINGS: No significant abnormality is noted involving the heart, lungs, mediastinum, bony thorax or soft tissues. XR/XR chest 1V IMPRESSION: Unremarkable examination.
--- NOTE | ~2021-04-19 | XR_ITS ---
EXAMINATION: XR CHEST CLINICAL INFORMATION: Pneumonia, follow-up. COMPARISON: 04/19/2021 portable chest. TECHNIQUE: 2 views of the chest were obtained. FINDINGS: There is minimal blunting of the left costophrenic angle and sulcus. The lungs otherwise clear. The heart and mediastinal structures are unremarkable. XR/XR chest 2V IMPRESSION: Minimal blunting of the left costophrenic angle and sulcus suggests the very small left pleural effusion. No definitive infiltrate.
--- NOTE | 2021-04-19 07:38 | ECG_ITS ---
Test Reason : OD Blood Pressure : / mmHG Vent. Rate : 106 BPM Atrial Rate : 106 BPM P-R Int : 108 ms QRS Dur : 088 ms QT Int : 310 ms P-R-T Axes : 010 023 077 degrees QTc Int : 411 ms Sinus tachycardia with short WA Nonspecific T wave abnormality Abnormal ECG When compared with ECG of 09-JAN-2021 13:18, Non-specific change in ST segment in Lateral leads Nonspecific T wave abnormality, worse in Lateral leads QT has shortened Referred By: Sidney Santillan Electronically Signed By:Logan Toure
[2021-04-19 19:15] VITALS: BP 134/88; PULSE 110
[2021-04-19 19:17] VITALS: BP 138/86; PULSE 109; RESP 22; TEMP 39.1; O2SAT 98; BMI 21.7
--- NOTE | 2021-04-19 19:51 | ED_ITS ---
HPI - General Adult General Chief complaint: Weakness Stated complaint: SEPSIS ALERT Time Seen by Provider: 04/19/21 19:51 Source: EMS Mode of arrival: EMS Limitations: language barrier History of Present Illness HPI narrative: Patient with history of schizophrenia, encephalitis extrapyramidal movement disorder nonambulatory sent from [facility] for fever temperature of 99.6 degrees increased lethargic and pain in right leg. On arrival patient temperature was 102.4 rectally pulse rate 109 respiratory rate 22 patient is alert with poor communication Related Data Home Medications Medication Instructions Recorded Confirmed Lorazepam 2 Mg/Ml 1 mg IM Q5M PRN MDD 2 01/09/21 acetaminophen 650 mg PO Q4H PRN 01/09/21 01/09/21 ascorbic acid (vitamin C) [Vitamin 500 mg PO DAILY 01/09/21 01/09/21 C] aspirin 81 mg PO DAILY 01/09/21 01/09/21 benztropine 1 mg PO BID 01/09/21 01/09/21 bisacodyl 10 mg MD DAILY 01/09/21 01/09/21 dantrolene 50 mg PO BID 01/09/21 01/09/21 docusate sodium 100 mg PO BEDTIME 01/09/21 01/09/21 docusate sodium 200 mg PO DAILY 01/09/21 01/09/21 ferrous sulfate 325 mg PO DAILY 01/09/21 01/09/21 lithium carbonate 300 mg PO BEDTIME 01/09/21 01/09/21 multivitamin 1 tab PO DAILY 01/09/21 01/09/21 sennosides [senna] 8.6 mg PO DAILY PRN 01/09/21 01/09/21 sennosides [senna] 17.2 mg PO BEDTIME 01/09/21 01/09/21 simvastatin 20 mg PO BEDTIME 01/09/21 01/09/21 trihexyphenidyl 2 mg PO BID 01/09/21 01/09/21 vitamin E 800 unit PO BID 01/09/21 01/09/21 Previous Rx's Medication Instructions Recorded polyethylene glycol 3350 [Miralax] 17 g PO DAILY #510 g 01/08/21 cefuroxime axetil 500 mg PO Q12H 7 Days #14 tab 01/09/21 Allergies Allergy/AdvReac Type Severity Reaction Status Date / Time wool Allergy Unknown Unknown Uncoded 04/19/21 23:44 Review of Systems Review of Systems: Yes Unobtainable due to mental condition [facility] Past Medical History Medical History Anemia Astigmatism, bilateral Bilateral cataracts Chronic constipation Depressive disorder Disorder of the autonomic nervous system, unspecified Dysarthria and anarthria Encephalopathy Essential (primary) hypertension Extrapyramidal and movement disorder Hemiplegia Hyperlipidemia Hypertension MDD (major depressive disorder) Muscle weakness Myopia, bilateral Parkinson disease Presbyopia Schizophrenia Seizures Toxic encephalitis Toxic encephalopathy Social History Social History Alcohol intake: unknown Patient Tobacco Use Status: Tobacco use Unknown Use of substances other than those prescribed or required for medical reasons: Unknown Advance Directives: No Physical Exam Vital Signs: Vital Signs: Last Vital Signs Temp 99.6 F 04/19/21 23:08 Pulse 91 04/19/21 22:29 Resp 18 04/19/21 22:29 BP 153/61 H 04/19/21 22:29 Pulse Ox 96 04/19/21 22:29 Oxygen Flow Rate 2 04/19/21 19:17 Body Mass Index 21.7 Const: General: no acute distress Nutritional Appearance: thin Orientation/consciousness: oriented to person HENMT: Head: Yes normocephalic and Yes atraumatic Eyes: General: appearance normal, both eyes and all related structures Neck: Neck: Yes normal visual inspection, Yes full ROM and No midline deformity Chest: Chest palpation & inspection: normal inspection of the chest Resp: Effort & Inspection: normal respiratory effort Auscultation: clear to auscultation bilaterally, no crackles, no rales and no rhonchi Cardio: Palpation: normal PMI Rate: regular rate Rhythm: regular rhythm Heart sounds: S1 normal heart sound present and S2 normal heart sound present GI: Inspection: Yes normal to inspection Palpation (GI): Soft to palpation Percussion: Yes normal to percussion Auscultation: normal bowel sounds : General: Yes no CVA tenderness Back/Spine/Pelvis: Back: no CVA tenderness Thoracic/Lumbar Spine: thoracic and lumbar spine normal to inspection Skin: Other: Superficially cube right gluteal area without significant pus discharge /redness or swelling Neuro: General: oriented to person and moves all extremities Extrem: Other: Contracted lower extremity Medical Decision Making MDM Narrative Medical decision making narrative: Patient tachycardia fever lethargic increased RR with leukocytosis meeting the criteria for SIRS without a source of infection right gluteal decubitus ulcer is very superficial no deep induration Lab Data Lab results reviewed: Yes I reviewed the patient's lab results. Result diagrams: 04/19/21 20:42 04/19/21 20:42 Labs: Lab Results 04/19/21 04/19/21 04/19/21 Range/Units 20:42 20:42 20:42 WBC 13.9 H (4.8-10.8) X10*3/uL RBC 4.49 L (4.60-5.80) X10*6/uL Hgb 12.9 L (14.0-18.0) g/dl Hct 40.4 L (42-52) % MCV 90.0 (80-98) fL MCH 28.7 (27.0-33.0) pg MCHC 31.9 (31.0-36.0) g/dl RDW 13.3 (11.0-16.0) % Plt Count 141 L D (160-400) X10*3/uL MPV 12.0 (9.4-12.4) fL Immature Gran % (Auto) 0.4 (0.0-0.4) % Neut % (Auto) 84.8 H (45-73) % Lymph % (Auto) 8.3 L (20-40) % [facility] % (Auto) 6.1 (2-11) % Eos % (Auto) 0.1 (0-4) % Baso % (Auto) 0.3 (0-2) % Lymph # (Auto) 1.2 (1.2-4.9) X10*3/uL [facility] # (Auto) 0.9 (0.1-1.2) X10*3/uL Eos # (Auto) 0.0 (0.0-0.4) X10*3/uL Baso # (Auto) 0.0 (0.0-0.2) X10*3/uL Abs Immat Gran (auto) 0.06 H (0.00-0.03) X10*3/uL Absolute Neuts (auto) 11.8 H (2.0-8.3) X10*3/uL Absolute Nucleated RBC 0.000 (0.0-0.012) X10*3/uL Nucleated RBC % (auto) 0.0 (0.0-0.2) /100WBC ESR (0-15) MM/HR PT 16.1 H (10.8-13.0) SEC INR 1.4 H (0.9-1.1) APTT 35.8 (24.1-38.0) SEC Sodium 138 (135-145) mmol/L Potassium 3.8 (3.3-5.1) mmol/L Chloride 106 (96-108) mmol/L Carbon Dioxide 23 (22-29) mmol/L Anion Gap 13 (12-20) BUN 16 (9-16) mg/dL Creatinine 0.87 (0.5-1.4) mg/dL Estim Creat Clear Calc 92.9 Estimated GFR > 60 Random Glucose 107 (60-115) mg/dL Lactic Acid (0.5-2.0) mmol/L Calcium 9.5 (8.4-10.2) mg/dL Total Bilirubin 0.4 (0.0-1.0) mg/dL Direct Bilirubin 0.2 (0.0-0.5) mg/dL AST 12 (5-37) U/L ALT 12 (0-40) U/L Alkaline Phosphatase 106 (39-117) U/L C-Reactive Protein 9.61 H (< or = 0.50) mg/dL Total Protein 7.8 (6.5-8.0) g/dL Albumin 3.9 (3.5-5.0) g/dL Urine Color Urine Appearance Urine pH (5.0-8.0) Ur Specific [place] (1.005-1.025) Urine Protein (NEG-TRACE) MG/DL Urine Glucose (UA) (NEG) MG/DL Urine Ketones (NEG) MG/DL Urine Blood (NEG) Urine Nitrite (NEG) Ur Leukocyte Esterase (NEG) COVID-19 (VINICIO) (Negative) COVID-19 Clin Com 04/19/21 04/19/21 04/19/21 Range/Units 20:42 20:45 21:12 WBC (4.8-10.8) X10*3/uL RBC (4.60-5.80) X10*6/uL Hgb (14.0-18.0) g/dl Hct (42-52) % MCV (80-98) fL MCH (27.0-33.0) pg MCHC (31.0-36.0) g/dl RDW (11.0-16.0) % Plt Count (160-400) X10*3/uL MPV (9.4-12.4) fL Immature Gran % (Auto) (0.0-0.4) % Neut % (Auto) (45-73) % Lymph % (Auto) (20-40) % [facility] % (Auto) (2-11) % Eos % (Auto) (0-4) % Baso % (Auto) (0-2) % Lymph # (Auto) (1.2-4.9) X10*3/uL [facility] # (Auto) (0.1-1.2) X10*3/uL Eos # (Auto) (0.0-0.4) X10*3/uL Baso # (Auto) (0.0-0.2) X10*3/uL Abs Immat Gran (auto) (0.00-0.03) X10*3/uL Absolute Neuts (auto) (2.0-8.3) X10*3/uL Absolute Nucleated RBC (0.0-0.012) X10*3/uL Nucleated RBC % (auto) (0.0-0.2) /100WBC ESR 54 H (0-15) MM/HR PT (10.8-13.0) SEC INR (0.9-1.1) APTT (24.1-38.0) SEC Sodium (135-145) mmol/L Potassium (3.3-5.1) mmol/L Chloride (96-108) mmol/L Carbon Dioxide (22-29) mmol/L Anion Gap (12-20) BUN (9-16) mg/dL Creatinine (0.5-1.4) mg/dL Estim Creat Clear Calc Estimated GFR Random Glucose (60-115) mg/dL Lactic Acid 0.7 (0.5-2.0) mmol/L Calcium (8.4-10.2) mg/dL Total Bilirubin (0.0-1.0) mg/dL Direct Bilirubin (0.0-0.5) mg/dL AST (5-37) U/L ALT (0-40) U/L Alkaline Phosphatase (39-117) U/L C-Reactive Protein (< or = 0.50) mg/dL Total Protein (6.5-8.0) g/dL Albumin (3.5-5.0) g/dL Urine Color Urine Appearance Urine pH (5.0-8.0) Ur Specific [place] (1.005-1.025) Urine Protein (NEG-TRACE) MG/DL Urine Glucose (UA) (NEG) MG/DL Urine Ketones (NEG) MG/DL Urine Blood (NEG) Urine Nitrite (NEG) Ur Leukocyte Esterase (NEG) COVID-19 (VINICIO) Negative (Negative) COVID-19 Clin Com See Note 04/19/21 Range/Units 22:29 WBC (4.8-10.8) X10*3/uL RBC (4.60-5.80) X10*6/uL Hgb (14.0-18.0) g/dl Hct (42-52) % MCV (80-98) fL MCH (27.0-33.0) pg MCHC (31.0-36.0) g/dl RDW (11.0-16.0) % Plt Count (160-400) X10*3/uL MPV (9.4-12.4) fL Immature Gran % (Auto) (0.0-0.4) % Neut % (Auto) (45-73) % Lymph % (Auto) (20-40) % [facility] % (Auto) (2-11) % Eos % (Auto) (0-4) % Baso % (Auto) (0-2) % Lymph # (Auto) (1.2-4.9) X10*3/uL [facility] # (Auto) (0.1-1.2) X10*3/uL Eos # (Auto) (0.0-0.4) X10*3/uL Baso # (Auto) (0.0-0.2) X10*3/uL Abs Immat Gran (auto) (0.00-0.03) X10*3/uL Absolute Neuts (auto) (2.0-8.3) X10*3/uL Absolute Nucleated RBC (0.0-0.012) X10*3/uL Nucleated RBC % (auto) (0.0-0.2) /100WBC ESR (0-15) MM/HR PT (10.8-13.0) SEC INR (0.9-1.1) APTT (24.1-38.0) SEC Sodium (135-145) mmol/L Potassium (3.3-5.1) mmol/L Chloride (96-108) mmol/L Carbon Dioxide (22-29) mmol/L Anion Gap (12-20) BUN (9-16) mg/dL Creatinine (0.5-1.4) mg/dL Estim Creat Clear Calc Estimated GFR Random Glucose (60-115) mg/dL Lactic Acid (0.5-2.0) mmol/L Calcium (8.4-10.2) mg/dL Total Bilirubin (0.0-1.0) mg/dL Direct Bilirubin (0.0-0.5) mg/dL AST (5-37) U/L ALT (0-40) U/L Alkaline Phosphatase (39-117) U/L C-Reactive Protein (< or = 0.50) mg/dL Total Protein (6.5-8.0) g/dL Albumin (3.5-5.0) g/dL Urine Color YELLOW Urine Appearance CLEAR Urine pH 5.5 (5.0-8.0) Ur Specific [place] 1.025 (1.005-1.025) Urine Protein TRACE (NEG-TRACE) MG/DL Urine Glucose (UA) NEG (NEG) MG/DL Urine Ketones 15 (NEG) MG/DL Urine Blood NEG (NEG) Urine Nitrite NEG (NEG) Ur Leukocyte Esterase NEG (NEG) COVID-19 (VINICIO) (Negative) COVID-19 Clin Com Discharge Plan Discharge Clinical Impression: SIRS (systemic inflammatory response syndrome) Fever Qualifiers: Fever type: unspecified Qualified Code(s): R50.9 - Fever, unspecified Patient Disposition: Admitted As Inpatient
[2021-04-19 20:00] VITALS: PULSE 98; RESP 19; TEMP 38.6
[2021-04-19] MEDS: Acetaminophen 325 MG TABLET 650 MG PO (20:17)
[2021-04-19] MEDS: cefTRIAXone sodium 1 GM in 0.9 % Sodium Chloride 50 ML IV (20:19)
[2021-04-19] MEDS: 0.9 % Sodium Chloride 2,000 ML 2000 ML IV (20:26)
--- NOTE | 2021-04-19 20:43 | PC.NURSE ---
Delay in labs due to patient being a difficult stick. Blood cultures were able to be obtained by staff but multiple staff members failed at obtaining the remaining labs ordered. Phlebotomy to bedside to draw patient with success.
[2021-04-19 20:49] LABS: Basophils Percent Auto 0.3 % (0-2); Eosinophils Percent Auto 0.1 % (0-4); Hematocrit 40.4 % (42-52); Hemoglobin 12.9 g/dl (14.0-18.0); Imm Gran Abs Auto 0.06 X10*3/uL (0.00-0.03); Imm Gran Pct Auto 0.4 % (0.0-0.4); Lymphocytes Absolute Auto 1.2 X10*3/uL (1.2-4.9); Lymphocytes Percent Auto 8.3 % (20-40); Mean Corpuscular HGB Conc 31.9 g/dl (31.0-36.0); Mean Corpuscular Hemoglobin 28.7 pg (27.0-33.0); Monocytes Absolute Auto 0.9 X10*3/uL (0.1-1.2); Monocytes Percent Auto 6.1 % (2-11); Neutrophils Absolute Auto 11.8 X10*3/uL (2.0-8.3); Neutrophils Percent Auto 84.8 % (45-73); Platelet Count 141 X10*3/uL (160-400); Red Blood Count 4.49 X10*6/uL (4.60-5.80); Red Cell Distribution Width 13.3 % (11.0-16.0); White Blood Count 13.9 X10*3/uL (4.8-10.8)
[2021-04-19 20:54] LABS: INTERNATIONAL NORM RATIO 1.4 (0.9-1.1); Prothrombin Time 16.1 SEC (10.8-13.0)
[2021-04-19 20:56] LABS: Partial Thromboplastin Time 35.8 SEC (24.1-38.0)
[2021-04-19 20:57] LABS: MANUAL DIFF FLAG NO
[2021-04-19 21:17] LABS: Lactic Acid 0.7 mmol/L (0.5-2.0)
[2021-04-19 21:21] LABS: Alanine Aminotransferase 12 U/L (0-40); Albumin Level 3.9 g/dL (3.5-5.0); Alkaline Phosphatase 106 U/L (39-117); Anion Gap 13 (12-20); Aspartate Amino Transferase 12 U/L (5-37); Bilirubin Direct 0.2 mg/dL (0.0-0.5); Bilirubin Total 0.4 mg/dL (0.0-1.0); Blood Urea Nitrogen 16 mg/dL (9-16); Calcium 9.5 mg/dL (8.4-10.2); Carbon Dioxide 23 mmol/L (22-29); Chloride 106 mmol/L (96-108); Creatinine Clr Calc Pharmacy 92.9; Estimated Glomerular Filt Rate > 60; Glucose Random 107 mg/dL (60-115); Potassium 3.8 mmol/L (3.3-5.1); Sodium 138 mmol/L (135-145); Total Protein 7.8 g/dL (6.5-8.0)
[2021-04-19 21:32] LABS: COVID-19 Test Negative (Negative)
--- NOTE | 2021-04-19 21:32 | PC.NURSE ---
Patient was incontinent upon arrival to the ED. Pt has not urinated since then despite having a [place] catheter. This RN bladder scanned the patient with a result of <100mL in the bladder.
[2021-04-19 22:00] VITALS: BP 137/76; PULSE 89; RESP 15
[2021-04-19] MEDS: Ketorolac Tromethamine 30 MG/ML VIAL IVPUSH (22:06)
[2021-04-19 22:29] VITALS: BP 153/61; PULSE 91; RESP 18; O2SAT 96
[2021-04-19 22:34] LABS: Appearance Urine CLEAR; Color Urine YELLOW; Glucose Urine UA NEG (NEG); Leukocyte Esterase Urine NEG (NEG); Nitrite Urine NEG (NEG); PH 5.5 (5.0-8.0); Specific Gravity - Urine 1.025 (1.005-1.025); Urine Blood NEG (NEG); Urine Ketones 15 MG/DL (NEG); Urine Protein TRACE MG/DL (NEG-TRACE)
[2021-04-19 23:08] VITALS: TEMP 37.6
[2021-04-19 23:34] LABS: C Reactive Protein 9.61 mg/dL (< or = 0.50)
[2021-04-20] VITALS (10 sets, daily range): BP systolic 110–140; BP diastolic 66–75; PULSE 76–110; RESP 14–20; TEMP 37.1–37.9; O2SAT 96–99; BMI 21.7
--- NOTE | 2021-04-20 | PM.IMHP ---
History of Present Illness Date of Service: 04/19/21 Chief Complaint: weakness This is a 50-year-old male with a past medical history of HTN, HLD, Parkinson's, schizophrenia, seizure disorder, toxic encephalopathy, among others who presents to the hospital from retirement for fever and tachycardia. Patient was awake but refusing to open his eyes for me, refusing to answer any of my questions, I asked the nurse to help me talk to him but he has also been refusing to talk to the nurses and the ED physician. Unable to obtain any review of systems patient is not responding or being cooperative On arrival to the ED to have a temperature of 102.4?, heart rate of 109, respiratory rate of 22, blood pressure of 138/86 Labs are significant for hemoglobin of 12.9, PT of 16, INR of 1.4, CRP of 9.61, ESR of 54, UA negative for any infection Chest x-ray shows unremarkable exam, abdominal CT limited by motion artifact, there is large volume of stool present in the colon and rectum, there is also concerning stercoral colitis Review of Systems Review of Systems: Yes Unobtainable due to mental status [facility] Medical History Anemia Astigmatism, bilateral Bilateral cataracts Chronic constipation Depressive disorder Disorder of the autonomic nervous system, unspecified Dysarthria and anarthria Encephalopathy Essential (primary) hypertension Extrapyramidal and movement disorder Hemiplegia Hyperlipidemia Hypertension MDD (major depressive disorder) Muscle weakness Myopia, bilateral Parkinson disease Presbyopia Schizophrenia Seizures Toxic encephalitis Toxic encephalopathy Social History Household Members: Other Housing: Skilled Nursing Do you presently have visiting nurse or other home services: No Alcohol intake: unknown Patient Tobacco Use Status: Current everyday Tobacco user Tobacco use type: Cigarette Cigarettes Per Day: 20 Smoked in Last 30 Days: No Patient Interested in Nicotine Replacement: No Use of substances other than those prescribed or required for medical reasons: No Have you been hit, kicked, punched, or otherwise hurt by someone within the past year? If so, by whom?: No Do you feel safe in your current relationship?: Yes Is there a partner from a previous relationship who is making you feel unsafe now?: No Are you made to feel afraid or neglected: No Advance Directives: No Do you have thoughts of harming others: None Do you have a plan to hurt others: No Plan Recently lost weight without trying: No Nutrition Risks: Difficulty chewing Poor oral hygiene: No Meds Allergies Allergy/AdvReac Type Severity Reaction Status Date / Time wool Allergy Unknown Unknown Uncoded 04/19/21 23:44 Home Medications Medication Instructions Recorded Confirmed Last Taken Type acetaminophen 650 mg PO Q4H PRN 01/09/21 04/20/21 Unknown History ascorbic acid (vitamin C) [Vitamin 500 mg PO DAILY 01/09/21 04/20/21 04/19/21 History C] aspirin 81 mg PO DAILY 01/09/21 04/20/21 04/19/21 History benztropine 1 mg PO BID 01/09/21 04/20/21 04/19/21 History bisacodyl 10 mg SD DAILY 01/09/21 04/20/21 04/19/21 History dantrolene 50 mg PO BID 01/09/21 04/20/21 04/19/21 History docusate sodium 100 mg PO BEDTIME 01/09/21 04/20/21 04/18/21 History docusate sodium 200 mg PO DAILY 01/09/21 04/20/21 04/19/21 History ferrous sulfate 325 mg PO DAILY 01/09/21 04/20/21 04/19/21 History lithium carbonate 300 mg PO BEDTIME 01/09/21 04/20/21 04/18/21 History multivitamin 1 tab PO DAILY 01/09/21 04/20/21 04/19/21 History sennosides [senna] 8.6 mg PO DAILY PRN 01/09/21 04/20/21 01/07/21 History sennosides [senna] 17.2 mg PO BEDTIME 01/09/21 04/20/21 04/18/21 History simvastatin 20 mg PO BEDTIME 01/09/21 04/20/21 04/18/21 History trihexyphenidyl 2 mg PO BID 01/09/21 04/20/21 04/19/21 History vitamin E 800 unit PO BID 01/09/21 04/20/21 04/19/21 History lanolin [id number]-ke-u.pet-ceres 1 appl TOPICAL QPM 04/20/21 04/20/21 04/18/21 History [Minerin Creme] sodium phosphates [Fleet Enema] 118 ml SD DAILY PRN 04/20/21 04/20/21 Unknown History zinc oxide-vitamin B5-vit E 1 appl TOPICAL Q8H 04/20/21 04/20/21 04/19/21 History [Balmex Adult Care] Physical Exam Vital Signs and Narrative: Vital Signs: Last Vital Signs Temp 99.6 F 04/19/21 23:08 Pulse 91 04/19/21 22:29 Resp 18 04/19/21 22:29 BP 153/61 H 04/19/21 22:29 Pulse Ox 96 04/19/21 22:29 Oxygen Flow Rate 2 04/19/21 19:17 Body Mass Index 21.7 Const: Other: awake, but not cooperating General: no acute distress Eyes: General: appearance normal, both eyes and all related structures Resp: Effort & Inspection: normal respiratory effort and able to speak in complete sentences Cardio: Rate: regular rate Rhythm: regular rhythm GI: Palpation (GI): Soft to palpation Auscultation: normal bowel sounds Skin: Other: Has a 5 cm skin lesion in the lateral right decubitus area, no erythema, no drainage, clean base, with no evidence of infection, no other skin infection or ulcers Neuro: Cognition (Neuro): normal cognition Extrem: General: Yes normal to inspection and Yes no pedal edema Results Labs CBC and Chem 7: 04/19/21 20:42 04/19/21 20:42 Labs: Laboratory Results - last 24 hr 04/19/21 04/19/21 04/19/21 20:42 20:42 20:42 MCV 90.0 MCH 28.7 MCHC 31.9 RDW 13.3 Plt Count 141 L D MPV 12.0 Immature Gran % (Auto) 0.4 Neut % (Auto) 84.8 H Lymph % (Auto) 8.3 L [place] % (Auto) 6.1 Eos % (Auto) 0.1 Baso % (Auto) 0.3 Lymph # (Auto) 1.2 [place] # (Auto) 0.9 Eos # (Auto) 0.0 Baso # (Auto) 0.0 Abs Immat Gran (auto) 0.06 H Absolute Neuts (auto) 11.8 H Absolute Nucleated RBC 0.000 Nucleated RBC % (auto) 0.0 PT 16.1 H INR 1.4 H APTT 35.8 Anion Gap 13 Estim Creat Clear Calc 92.9 Estimated GFR > 60 Random Glucose 107 Lactic Acid Calcium 9.5 Total Bilirubin 0.4 Direct Bilirubin 0.2 AST 12 ALT 12 Alkaline Phosphatase 106 C-Reactive Protein 9.61 H Total Protein 7.8 Albumin 3.9 Urine Color Urine Appearance Urine pH Ur Specific Neal Urine Protein Urine Glucose (UA) Urine Ketones Urine Blood Urine Nitrite Ur Leukocyte Esterase COVID-19 (VINICOI) COVID-19 Clin Com 04/19/21 04/19/21 04/19/21 20:42 21:12 22:29 MCV MCH MCHC RDW Plt Count MPV Immature Gran % (Auto) Neut % (Auto) Lymph % (Auto) [place] % (Auto) Eos % (Auto) Baso % (Auto) Lymph # (Auto) [place] # (Auto) Eos # (Auto) Baso # (Auto) Abs Immat Gran (auto) Absolute Neuts (auto) Absolute Nucleated RBC Nucleated RBC % (auto) PT INR APTT Anion Gap Estim Creat Clear Calc Estimated GFR Random Glucose Lactic Acid 0.7 Calcium Total Bilirubin Direct Bilirubin AST ALT Alkaline Phosphatase C-Reactive Protein Total Protein Albumin Urine Color YELLOW Urine Appearance CLEAR Urine pH 5.5 Ur Specific [place] 1.025 Urine Protein TRACE Urine Glucose (UA) NEG Urine Ketones 15 Urine Blood NEG Urine Nitrite NEG Ur Leukocyte Esterase NEG COVID-19 (VINICIO) Negative COVID-19 Clin Com See Note Imaging Radiologist's Impressions: Impressions Chest X-Ray 04/19/21 19:52 IMPRESSION: Unremarkable examination. Assessment and Plan (1) SIRS (systemic inflammatory response syndrome): Status: Acute (2) Constipation: Status: Acute this is a 50 yo m with hx as mentioned above found to have fever, and sirs with no source # sepsis - has tachycardia, tachypnea, fever, leukocytosis - unable to find any source - CXR, UA and Abd negative - no evidence of soft tissue infection - will cover with broad-spectrum antibiotics - follow cultures - consulting Infectious Disease # constipation - start him on Fleet enema - MiraLax, senna, as well as Colace All other chronic meds will be resumed DVT prophylaxis:heparin subq
[2021-04-20 00:04] LABS: Erythrocyte Sedimentation Rate 54 MM/HR (0-15)
[2021-04-20] MEDS: Heparin Sodium,Porcine 5,000 UNIT/ML VIAL 5000 UNIT SUBCUT ×2 (04:53→17:27)
[2021-04-20] MEDS: cefEPime HCl 1 GM in 0.9 % Sodium Chloride 50 ML IV ×2 (04:53→14:17)
[2021-04-20] MEDS: 0.9 % Sodium Chloride Flush 3 ML SYRINGE IVFLUSH ×4 (04:54→20:26)
[2021-04-20] MEDS: vancomycin HCL 1,000 MG in 0.9 % Sodium Chloride 250 ML 270 MG IV ×2 (06:05→17:29)
[2021-04-20] MEDS: Sodium Phosphate,Mono-Dibasic 133 ML ENEMA 118 ML PR (07:12)
[2021-04-20 07:15] LABS: MANUAL DIFF FLAG NO
[2021-04-20 07:21] LABS: Basophils Percent Auto 0.3 % (0-2); Eosinophils Absolute Auto 0.1 X10*3/uL (0.0-0.4); Eosinophils Percent Auto 0.8 % (0-4); Hematocrit 36.7 % (42-52); Hemoglobin 11.5 g/dl (14.0-18.0); Imm Gran Abs Auto 0.04 X10*3/uL (0.00-0.03); Imm Gran Pct Auto 0.3 % (0.0-0.4); Lymphocytes Absolute Auto 2.3 X10*3/uL (1.2-4.9); Lymphocytes Percent Auto 19.2 % (20-40); Mean Corpuscular HGB Conc 31.3 g/dl (31.0-36.0); Mean Corpuscular Hemoglobin 27.9 pg (27.0-33.0); Mean Corpuscular Volume 89.1 fL (80-98); Mean Platelet Volume 11.6 fL (9.4-12.4); Monocytes Percent Auto 8.5 % (2-11); Neutrophils Absolute Auto 8.4 X10*3/uL (2.0-8.3); Neutrophils Percent Auto 70.9 % (45-73); Platelet Count 211 X10*3/uL (160-400); Red Blood Count 4.12 X10*6/uL (4.60-5.80); Red Cell Distribution Width 13.3 % (11.0-16.0); White Blood Count 11.8 X10*3/uL (4.8-10.8)
[2021-04-20 08:02] LABS: Anion Gap 12 (12-20); Blood Urea Nitrogen 15 mg/dL (9-16); Carbon Dioxide 22 mmol/L (22-29); Chloride 110 mmol/L (96-108); Creatinine Clr Calc Pharmacy 106.4; Estimated Glomerular Filt Rate > 60; Glucose Random 90 mg/dL (60-115); Potassium 3.9 mmol/L (3.3-5.1); Sodium 140 mmol/L (135-145)
[2021-04-20 08:13] LABS: Calcium 8.6 mg/dL (8.4-10.2)
[2021-04-20] MEDS: Aspirin Enteric Coated 81 MG TABLET.DR PO (09:16)
[2021-04-20] MEDS: Trihexyphenidyl HCL 2 MG TABLET PO ×2 (09:16→20:26)
[2021-04-20] MEDS: Multivitamin TABLET 1 TAB PO (09:17)
[2021-04-20] MEDS: Benztropine Mesylate 1 MG TABLET PO ×2 (09:56→20:25)
--- NOTE | 2021-04-20 10:18 | MHC.CM.PN ---
MALE 50 DX SEPSIS He lives at [facility]. He is dependent ADLs. HCP and Guardianship on file from a previous visit.DP return to [facility] via BLS.
--- NOTE | 2021-04-20 11:57 | W.PM.IDCN ---
History of Present Illness Data of Consult Service Date: 04/20/21 Requesting physician: [facility] Primary Care Provider: Edson Meredith DO HPI Reason for consult: fever of unknown origin He presents to hospital from [facility] with fever and lethargy and tachycardia. He has increased respiratory rate No one else is ill there He has no COVID positivity He has small gluteal ulcer Review of Systems Review of Systems: Yes Unobtainable due to mental status PMFSH Past Medical History Medical History (Updated 04/20/21 @ 12:02 by Mily Zhong MD) Anemia Astigmatism, bilateral Bilateral cataracts Chronic constipation Depressive disorder Disorder of the autonomic nervous system, unspecified Dysarthria and anarthria Encephalopathy Essential (primary) hypertension Extrapyramidal and movement disorder Fever Hemiplegia Hyperlipidemia Hypertension MDD (major depressive disorder) Muscle weakness Myopia, bilateral Parkinson disease Presbyopia Schizophrenia Seizures Toxic encephalitis Toxic encephalopathy Social History Social History Household Members: Other Housing: Intermediate Do you presently have visiting nurse or other home services: No Alcohol intake: unknown Patient Tobacco Use Status: Current everyday Tobacco user Tobacco use type: Cigarette Cigarettes Per Day: 20 Smoked in Last 30 Days: No Patient Interested in Nicotine Replacement: No Use of substances other than those prescribed or required for medical reasons: No Have you been hit, kicked, punched, or otherwise hurt by someone within the past year? If so, by whom?: No Do you feel safe in your current relationship?: Yes Is there a partner from a previous relationship who is making you feel unsafe now?: No Are you made to feel afraid or neglected: No Advance Directives: No Do you have thoughts of harming others: None Do you have a plan to hurt others: No Plan Recently lost weight without trying: No Nutrition Risks: Difficulty chewing Poor oral hygiene: No service: No Current occupational status: disabled Meds Allergies Allergy/AdvReac Type Severity Reaction Status Date / Time wool Allergy Unknown Unknown Uncoded 04/19/21 23:44 Active Medications: Current Medications Generic Name Dose Route Start Last Admin Trade Name Freq PRN Reason Stop Dose Admin Acetaminophen 650 mg 04/20/21 02:51 Acetaminophen 325 Mg Tablet PO Q6H PRN Pain, Mild (Pain Scale 1-3) Aspirin 81 mg 04/20/21 09:00 06/03/21 09:16 Aspirin Enteric Coated 81 Mg Tablet.Dr PO 81 mg DAILY CHRISTELLE Administration Atorvastatin Calcium 10 mg 04/20/21 21:00 Atorvastatin Calcium 10 Mg Tablet PO BEDTIME [facility] Benztropine Mesylate 1 mg 04/20/21 09:00 04/20/21 09:56 Benztropine Mesylate 1 Mg Tablet PO 1 mg BID CHRISTELLE Administration Bisacodyl 10 mg 04/20/21 09:00 04/20/21 09:17 Bisacodyl 10 Mg Supp.Rect PA Not Given DAILY [facility] Docusate Sodium 100 mg 04/20/21 21:00 Docusate Sodium 100 Mg Capsule PO BEDTIME [facility] Docusate Sodium 200 mg 04/20/21 09:00 04/20/21 09:17 Docusate Sodium 100 Mg Capsule PO Not Given DAILY [facility] Heparin Sodium (Porcine) 5,000 unit 04/20/21 04:00 04/20/21 04:53 Heparin Sodium,Porcine 5,000 Unit/Ml Vial SUBCUT 5,000 unit Q12H [facility] Administration Vancomycin HCl 1,000 mg/ 270 mls @ 270 mls/hr 04/20/21 18:00 Sodium Chloride IV Q12H CHRISTELLE Cefepime HCl 1 gm/ Sodium 50 mls @ 100 mls/hr 04/20/21 14:00 Chloride IV Q8H [facility] Jermyn Carbonate 300 mg 04/20/21 21:00 [place] Carbonate 300 Mg Capsule PO BEDTIME [facility] Multivitamins/Vitamin C 1 tab 04/20/21 09:00 04/20/21 09:17 Multivitamin Tablet PO 1 tab DAILY [facility] Administration Ondansetron HCl 4 mg 04/20/21 02:51 Ondansetron Hcl 4 Mg/2 Ml Vial IVPUSH Q8H PRN Nausea and Vomiting Pharmacy Consult 1 each 04/20/21 02:51 Consult Rx Vancomycin Dosing MISCELLANE DAILY PRN Consult order Polyethylene Glycol 17 gm 04/20/21 09:00 04/20/21 09:17 Polyethylene Glycol 3350 17 Gm Powd.Pack PO Not Given DAILY [facility] Senna 17.2 mg 04/20/21 21:00 Sennosides 8.6 Mg Tablet PO BEDTIME [facility] Sodium Biphosphate/Sodium Phosphate 118 ml 04/20/21 02:51 04/20/21 07:12 Sodium Phosphate,[place]-Dibasic 133 Ml Enema PA 118 ml DAILY PRN Administration Constipation Sodium Chloride 3 ml 04/20/21 02:51 04/20/21 09:16 0.9 % Sodium Chloride Flush 3 Ml Syringe IVFLUSH 3 ml QSHIFT CHRISTELLE Administration Trihexyphenidyl HCl 2 mg 04/20/21 09:00 04/20/21 09:16 Trihexyphenidyl Hcl 2 Mg Tablet PO 2 mg BID CHRISTELLE Administration Home Medications Medication Instructions Recorded Confirmed Last Taken Type acetaminophen 650 mg PO Q4H PRN 01/09/21 04/20/21 Unknown History ascorbic acid (vitamin C) [Vitamin 500 mg PO DAILY 01/09/21 04/20/21 04/19/21 History C] aspirin 81 mg PO DAILY 01/09/21 04/20/21 04/19/21 History benztropine 1 mg PO BID 01/09/21 04/20/21 04/19/21 History bisacodyl 10 mg PA DAILY 01/09/21 04/20/21 04/19/21 History dantrolene 50 mg PO BID 01/09/21 04/20/21 04/19/21 History docusate sodium 100 mg PO BEDTIME 01/09/21 04/20/21 04/18/21 History docusate sodium 200 mg PO DAILY 01/09/21 04/20/21 04/19/21 History ferrous sulfate 325 mg PO DAILY 01/09/21 04/20/21 04/19/21 History lithium carbonate 300 mg PO BEDTIME 01/09/21 04/20/21 04/18/21 History multivitamin 1 tab PO DAILY 01/09/21 04/20/21 04/19/21 History sennosides [senna] 8.6 mg PO DAILY PRN 01/09/21 04/20/21 01/07/21 History sennosides [senna] 17.2 mg PO BEDTIME 01/09/21 04/20/21 04/18/21 History simvastatin 20 mg PO BEDTIME 01/09/21 04/20/21 04/18/21 History trihexyphenidyl 2 mg PO BID 01/09/21 04/20/21 04/19/21 History vitamin E 800 unit PO BID 01/09/21 04/20/21 04/19/21 History lanolin ksljnsb-es-h.pet-ceres 1 appl TOPICAL QPM 04/20/21 04/20/21 04/18/21 History [Minerin Creme] sodium phosphates [Fleet Enema] 118 ml PA DAILY PRN 04/20/21 04/20/21 Unknown History zinc oxide-vitamin B5-vit E 1 appl TOPICAL Q8H 04/20/21 04/20/21 04/19/21 History [Balmex Adult Care] Physical Exam Vital Signs: Vital Signs: Last Vital Signs Temp 99.8 F 04/20/21 11:03 Pulse 94 04/20/21 11:03 Resp 19 04/20/21 11:03 BP 121/75 04/20/21 11:03 Pulse Ox 97 04/20/21 11:03 Oxygen Flow Rate 2 04/19/21 19:17 Body Mass Index 21.7 Const: General: cooperative HENMT: Head: Yes normal to inspection Mouth: Normal oral and palatal mucosa present Resp: Effort & Inspection: normal respiratory effort Cardio: Rate: regular rate Rhythm: regular rhythm GI: Palpation (GI): Soft to palpation and nontender : General: Yes no CVA tenderness Back/Spine/Pelvis: Back: no CVA tenderness Skin: General skin exam: no rashes or lesions noted Neuro: Other: chronic spasticity and facial grimacing Extrem: General: Yes normal to inspection Results Labs CBC & Chem 7: 04/20/21 06:29 04/20/21 06:29 Labs: Short CBC 04/19/21 04/20/21 Range/Units 20:42 06:29 WBC 13.9 H 11.8 H (4.8-10.8) X10*3/uL Hgb 12.9 L 11.5 L (14.0-18.0) g/dl Hct 40.4 L 36.7 L (42-52) % Plt Count 141 L D 211 D (160-400) X10*3/uL BMP 04/19/21 04/20/21 20:42 06:29 Sodium 138 140 Potassium 3.8 3.9 Chloride 106 110 H Carbon Dioxide 23 22 BUN 16 15 Creatinine 0.87 0.76 Calcium 9.5 8.6 D Liver Function 04/19/21 Range/Units 20:42 Total Bilirubin 0.4 (0.0-1.0) mg/dL Direct Bilirubin 0.2 (0.0-0.5) mg/dL AST 12 (5-37) U/L ALT 12 (0-40) U/L Alkaline Phosphatase 106 (39-117) U/L Albumin 3.9 (3.5-5.0) g/dL Urine 04/19/21 Range/Units 22:29 Urine Color YELLOW Urine Appearance CLEAR Urine pH 5.5 (5.0-8.0) Ur Specific [place] 1.025 (1.005-1.025) Urine Protein TRACE (NEG-TRACE) MG/DL Urine Glucose (UA) NEG (NEG) MG/DL Assessment and Plan (1) Fever: Qualifiers: Fever type: unspecified Qualified Code(s): R50.9 - Fever, unspecified Status: Acute He has fever and unremarkable urine He has blood cultures pending He has possible bacteremia,doubt osteomyelitis or pneumonia developing but possible Also there is possible viral syndrome Would continue Vancomycin and Cefepime for now awaiting above. Await cultures
--- NOTE | 2021-04-20 13:22 | MHC.CM.PN ---
Received a phone call from [employer]. Update provided. CM will follow.
--- NOTE | 2021-04-20 13:59 | HO.PM.IMPN ---
Subjective Subjective Date of Service: 04/20/21 <GALO Lopez - Last Filed: 04/20/21 14:19> 04/20/21 <Victorino Corona MD - Last Filed: 04/20/21 18:35> Interval History: awake and alert this morning, answer questions appropriately no complaints at this time <GALO Lopez - Last Filed: 04/20/21 14:19> Review of Systems Review of Systems: Yes all other systems are reviewed and are negative <GALO Lopez - Last Filed: 04/20/21 14:19> Constitutional Constitutional: Denies chills and Denies fever(s) <GALO Lopez - Last Filed: 04/20/21 14:19> Cardiovascular Cardiovascular: Denies chest pain <GALO Lopez - Last Filed: 04/20/21 14:19> Respiratory Respiratory: Denies cough <GALO Lopez - Last Filed: 04/20/21 14:19> Gastrointestinal Gastrointestinal: Denies abdominal pain <GALO Lopez - Last Filed: 04/20/21 14:19> Physical Exam Vital Signs: Vital Signs: Last Vital Signs Temp 99.8 F 04/20/21 11:03 Pulse 94 04/20/21 11:03 Resp 19 04/20/21 11:03 BP 121/75 04/20/21 11:03 Pulse Ox 97 04/20/21 11:03 Oxygen Flow Rate 2 04/19/21 19:17 Body Mass Index 21.7 <GALO Lopez - Last Filed: 04/20/21 14:19> Const: General: comfortable, no acute distress and alert <GALO Lopez - Last Filed: 04/20/21 14:19> Nutritional Appearance: well nourished <GALO Lopez - Last Filed: 04/20/21 14:19> HENMT: Head: Yes normocephalic and Yes atraumatic <GALO Lopez - Last Filed: 04/20/21 14:19> Eyes: Sclerae: sclerae normal <GALO Lopez - Last Filed: 04/20/21 14:19> Resp: Effort & Inspection: normal respiratory effort and no respiratory distress <AGLO Lopez - Last Filed: 04/20/21 14:19> Cardio: Rate: regular rate <GALO Lopez - Last Filed: 04/20/21 14:19> Rhythm: regular rhythm <GALO Lopez - Last Filed: 04/20/21 14:19> GI: Palpation (GI): Soft to palpation and nontender <GALO Lopez - Last Filed: 04/20/21 14:19> Skin: Other: <GALO Lopez - Last Filed: 04/20/21 14:19> Neuro: Cranial nerves: Yes CN's II-XII intact bilaterally and Yes Bilaterally intact EOM present <GALO Lopez Last Filed: 04/20/21 14:19> Objective Data Current Medications Generic Name Dose Route Start Last Admin Trade Name Liuq PRN Reason Stop Dose Admin Acetaminophen 650 mg 04/20/21 02:51 Acetaminophen 325 Mg Tablet PO Q6H PRN Pain, Mild (Pain Scale 1-3) Aspirin 81 mg 04/20/21 09:00 04/20/21 09:16 Aspirin Enteric Coated 81 Mg Tablet.Dr PO 81 mg DAILY CHRISTELLE Administration Atorvastatin Calcium 10 mg 04/20/21 21:00 Atorvastatin Calcium 10 Mg Tablet PO BEDTIME [facility] Benztropine Mesylate 1 mg 04/20/21 09:00 04/20/21 09:56 Benztropine Mesylate 1 Mg Tablet PO 1 mg BID CHRISTELLE Administration Bisacodyl 10 mg 04/20/21 09:00 04/20/21 09:17 Bisacodyl 10 Mg Supp.Rect SD Not Given DAILY [facility] Docusate Sodium 100 mg 04/20/21 21:00 Docusate Sodium 100 Mg Capsule PO BEDTIME [facility] Docusate Sodium 200 mg 04/20/21 09:00 04/20/21 09:17 Docusate Sodium 100 Mg Capsule PO Not Given DAILY [facility] Heparin Sodium (Porcine) 5,000 unit 04/20/21 04:00 04/20/21 04:53 Heparin Sodium,Porcine 5,000 Unit/Ml Vial SUBCUT 5,000 unit Q12H CHRISTELLE Administration Vancomycin HCl 1,000 mg/ 270 mls @ 270 mls/hr 04/20/21 18:00 Sodium Chloride IV Q12H CHRISTELLE Cefepime HCl 1 gm/ Sodium 50 mls @ 100 mls/hr 04/20/21 14:00 Chloride IV Q8H CHRISTELLE [place] Carbonate 300 mg 04/20/21 21:00 [place] Carbonate 300 Mg Capsule PO BEDTIME CHRISTELLE Multivitamins/Vitamin C 1 tab 04/20/21 09:00 04/20/21 09:17 Multivitamin Tablet PO 1 tab DAILY [facility]RISTELLE Administration Ondansetron HCl 4 mg 04/20/21 02:51 Ondansetron Hcl 4 Mg/2 Ml Vial IVPUSH Q8H PRN Nausea and Vomiting Pharmacy Consult 1 each 04/20/21 02:51 Consult Rx Vancomycin Dosing MISCELLANE DAILY PRN Consult order Polyethylene Glycol 17 gm 04/20/21 09:00 04/20/21 09:17 Polyethylene Glycol 3350 17 Gm Powd.Pack PO Not Given DAILY CHRISTELLE Senna 17.2 mg 04/20/21 21:00 Sennosides 8.6 Mg Tablet PO BEDTIME CHRISTELLE Sodium Biphosphate/Sodium Phosphate 118 ml 04/20/21 02:51 04/20/21 07:12 Sodium Phosphate,[place]-Dibasic 133 Ml Enema SD 118 ml DAILY PRN Administration Constipation Sodium Chloride 3 ml 04/20/21 02:51 04/20/21 09:16 0.9 % Sodium Chloride Flush 3 Ml Syringe IVFLUSH 3 ml QSHIFT CHRISTELLE Administration Trihexyphenidyl HCl 2 mg 04/20/21 09:00 04/20/21 09:16 Trihexyphenidyl Hcl 2 Mg Tablet PO 2 mg BID CHRISTELLE Administration <GALO Lopez - Last Filed: 04/20/21 14:19> Labs CBC & Chem 7: : 04/20/21 06:29 04/20/21 06:29 <GALO Lopez - Last Filed: 04/20/21 14:19> Assessment and Plan (1) Fever: Status: Acute <GALO Lopez Last Filed: 04/20/21 14:19> (2) Constipation: Status: Acute <GALO Lopez Last Filed: 04/20/21 14:19> (3) SIRS (systemic inflammatory response syndrome): Status: Acute <GALO Lopez - Last Filed: 04/20/21 14:19> Assessment and Plan: this is a 50 yo m from [facility] who presents with fever found to have SIRS, no source of infection identified SIRS tachycardia, tachypnea, fever,l leukocytosis on admission. leukocytosis trending down No obvious source of infection. CXR, UA and Abdominal CT negative & no evidence of soft tissue infection - continue broad-spectrum antibiotics for now - follow blood cultures - ID following constipation Good effect with fleet enema - Continue MiraLax, senna, as well as Colace Coccyx Ulcer. POA -does not appear to be infected -continue local wound care HLD -continue atorvastatin Mood/parkinsons -continue lithium, Cogentin, artane DVT prophylaxis:heparin subq Attending. Dr. Corona <GALO Lopez - Last Filed: 04/20/21 14:19> I have seen and evaluated this patient. I have discussed the case and its management with the PA and I agree with the findings and plan as documented in the PA's note--Has SIRS no source of infection to make it sepsis, decub ulcer doesn't look infected, continue empric Abx for now and await cultures. <Victorino Corona MD - Last Filed: 04/20/21 18:35>
[2021-04-20] MEDS: Acetaminophen 325 MG TABLET 650 MG PO (17:35)
[2021-04-20] MEDS: Atorvastatin Calcium 10 MG TABLET PO (20:25)
[2021-04-20] MEDS: Lithium Carbonate 300 MG CAPSULE PO (20:25)
[2021-04-20] MEDS: Docusate Sodium 100 MG CAPSULE PO (20:25)
[2021-04-20] MEDS: Sennosides 8.6 MG TABLET 17.2 MG PO (20:26)
[2021-04-21] VITALS (7 sets, daily range): BP systolic 123–132; BP diastolic 64–79; PULSE 96–104; RESP 18–20; TEMP 36.6–38.7; O2SAT 95–98
[2021-04-21] MEDS: Heparin Sodium,Porcine 5,000 UNIT/ML VIAL 5000 UNIT SUBCUT ×2 (03:39→16:36)
[2021-04-21] MEDS: cefEPime HCl 1 GM in 0.9 % Sodium Chloride 50 ML IV ×2 (05:39)
[2021-04-21 07:01] LABS: Hematocrit 35.7 % (42-52); Hemoglobin 11.5 g/dl (14.0-18.0); Mean Corpuscular HGB Conc 32.2 g/dl (31.0-36.0); Mean Corpuscular Hemoglobin 28.7 pg (27.0-33.0); Mean Platelet Volume 11.8 fL (9.4-12.4); Platelet Count 206 X10*3/uL (160-400); Red Blood Count 4.01 X10*6/uL (4.60-5.80); Red Cell Distribution Width 13.4 % (11.0-16.0); White Blood Count 10.2 X10*3/uL (4.8-10.8)
[2021-04-21] MEDS: vancomycin HCL 1,000 MG in 0.9 % Sodium Chloride 250 ML 270 MG IV (07:18)
[2021-04-21 07:20] LABS: Anion Gap 11 (12-20); Blood Urea Nitrogen 16 mg/dL (9-16); Calcium 8.5 mg/dL (8.4-10.2); Carbon Dioxide 23 mmol/L (22-29); Chloride 111 mmol/L (96-108); Creatinine Clr Calc Pharmacy 103.6; Estimated Glomerular Filt Rate > 60; Glucose Random 92 mg/dL (60-115); Potassium 3.8 mmol/L (3.3-5.1); Sodium 141 mmol/L (135-145)
[2021-04-21] MEDS: Benztropine Mesylate 1 MG TABLET PO ×2 (08:28→19:58)
[2021-04-21] MEDS: Multivitamin TABLET 1 TAB PO (08:28)
[2021-04-21] MEDS: Docusate Sodium 100 MG CAPSULE 200 MG PO (08:28)
[2021-04-21] MEDS: Aspirin Enteric Coated 81 MG TABLET.DR PO (08:28)
[2021-04-21] MEDS: Trihexyphenidyl HCL 2 MG TABLET PO ×2 (08:28→19:57)
[2021-04-21] MEDS: polyethylene glycoL 3350 17 GM POWD.PACK PO (08:28)
--- NOTE | 2021-04-21 12:20 | P.PNIM_ITS ---
Subjective Subjective Date of Service: 04/21/21 <GALO Lopez - Last Filed: 04/21/21 12:38> 04/21/21 <Victorino Corona MD - Last Filed: 04/21/21 17:56> Interval History: seen and examined this morning. Resting in bed comfortably, offers no complaints <GALO Lopez - Last Filed: 04/21/21 12:38> Review of Systems Review of Systems: Yes all other systems are reviewed and are negative <GALO Lopez - Last Filed: 04/21/21 12:38> Constitutional Constitutional: Denies chills and Denies fever(s) <GALO Lopez - Last Filed: 04/21/21 12:38> Cardiovascular Cardiovascular: Denies chest pain <GALO Lopez - Last Filed: 04/21/21 12:38> Respiratory Respiratory: Denies cough <GALO Lopez - Last Filed: 04/21/21 12:38> Gastrointestinal Gastrointestinal: Denies abdominal pain <GALO Lopez - Last Filed: 04/21/21 12:38> Physical Exam Vital Signs: Vital Signs: Last Vital Signs Temp 98 F 04/21/21 11:13 Pulse 98 04/21/21 11:13 Resp 20 04/21/21 11:13 BP 132/64 04/21/21 11:13 Pulse Ox 96 04/21/21 11:13 Oxygen Flow Rate 2 04/19/21 19:17 Body Mass Index 21.7 <GALO Lopez - Last Filed: 04/21/21 12:38> Const: General: comfortable, no acute distress and alert <GALO Lopez - Last Filed: 04/21/21 12:38> Nutritional Appearance: well nourished <GALO Lopez - Last Filed: 04/21/21 12:38> HENMT: Head: Yes normocephalic and Yes atraumatic <GALO Lopez Last Filed: 04/21/21 12:38> Eyes: Sclerae: sclerae normal <GALO Lopez Last Filed: 03/08 12:38> Resp: Effort & Inspection: normal respiratory effort and no respiratory distress <GALO Lopez Last Filed: 04/21/21 12:38> Cardio: Rate: regular rate <GALO Lopez Last Filed: 04/21/21 12:38> Rhythm: regular rhythm <GALO Lopez Last Filed: 04/21/21 12:38> GI: Palpation (GI): Soft to palpation and nontender <GALO Lopez Last Filed: 04/21/21 12:38> Skin: Other: no change from yesterday. coccyx wound with no erythema <GALO Lopez Last Filed: 04/21/21 12:38> Neuro: Cranial nerves: Yes CN's II-XII intact bilaterally and Yes Bilaterally intact EOM present <GALO Lopez Last Filed: 04/21/21 12:38> Objective Data Current Medications Generic Name Dose Route Start Last Admin Trade Name Freq PRN Reason Stop Dose Admin Acetaminophen 650 mg 04/20/21 02:51 04/20/21 17:35 Acetaminophen 325 Mg Tablet PO 650 mg Q6H PRN Administration Pain, Mild (Pain Scale 1-3) Aspirin 81 mg 04/20/21 09:00 04/21/21 08:28 Aspirin Enteric Coated 81 Mg Tablet.Dr PO 81 mg DAILY [facility]ELLE Administration Atorvastatin Calcium 10 mg 04/20/21 21:00 04/20/21 20:25 Atorvastatin Calcium 10 Mg Tablet PO 10 mg BEDTIME [facility]ELLE Administration Benztropine Mesylate 1 mg 04/20/21 09:00 04/21/21 08:28 Benztropine Mesylate 1 Mg Tablet PO 1 mg BID [facility]STELLE Administration Bisacodyl 10 mg 04/20/21 09:00 04/21/21 08:28 Bisacodyl 10 Mg Supp.Rect OK Not Given DAILY [facility]STELLE Docusate Sodium 100 mg 04/20/21 21:00 04/20/21 20:25 Docusate Sodium 100 Mg Capsule PO 100 mg BEDTIME CH[facility]STELLE Administration Docusate Sodium 200 mg 04/20/21 09:00 04/21/21 08:28 Docusate Sodium 100 Mg Capsule PO 200 mg DAILY [facility]STELLE Administration Heparin Sodium (Porcine) 5,000 unit 04/20/21 04:00 04/21/21 03:39 Heparin Sodium,Porcine 5,000 Unit/Ml Vial SUBCUT 5,000 unit Q12H [facility] Administration Vancomycin HCl 1,000 mg/ 270 mls @ 270 mls/hr 04/20/21 18:00 04/21/21 08:21 Sodium Chloride IV Infused Q12H [facility] Infusion Cefepime HCl 1 gm/ Sodium 50 mls @ 100 mls/hr 04/20/21 14:00 04/21/21 07:19 Chloride IV Infused Q8H [facility] Infusion [place] Carbonate 300 mg 04/20/21 21:00 04/20/21 20:25 [place] Carbonate 300 Mg Capsule PO 300 mg BEDTIME [facility]STELLE Administration Multivitamins/Vitamin C 1 tab 04/20/21 09:00 04/21/21 08:28 Multivitamin Tablet PO 1 tab DAILY [facility]ELLE Administration Ondansetron HCl 4 mg 04/20/21 02:51 Ondansetron Hcl 4 Mg/2 Ml Vial IVPUSH Q8H PRN Nausea and Vomiting Pharmacy Consult 1 each 04/20/21 02:51 Consult Rx Vancomycin Dosing MISCELLANE DAILY PRN Consult order Polyethylene Glycol 17 gm 04/20/21 09:00 04/21/21 08:28 Polyethylene Glycol 3350 17 Gm Powd.Pack PO 17 gm DAILY [facility]ELLE Administration Senna 17.2 mg 04/20/21 21:00 04/20/21 20:26 Sennosides 8.6 Mg Tablet PO 17.2 mg BEDTIME [facility]STELLE Administration Sodium Biphosphate/Sodium Phosphate 118 ml 04/20/21 02:51 04/20/21 07:12 Sodium Phosphate,[place]-Dibasic 133 Ml Enema [place] 118 ml DAILY PRN Administration Constipation Sodium Chloride 3 ml 04/20/21 02:51 04/21/21 07:30 0.9 % Sodium Chloride Flush 3 Ml Syringe IVFLUSH Not Given QSHIFT [facility] Trihexyphenidyl HCl 2 mg 04/20/21 09:00 04/21/21 08:28 Trihexyphenidyl Hcl 2 Mg Tablet PO 2 mg BID CH[facility]STELLE Administration <GALO Lopez - Last Filed: 04/21/21 12:38> Labs CBC & Chem 7: : 04/21/21 05:11 04/21/21 05:12 <GALO Lopez - Last Filed: 04/21/21 12:38> Microbiology Microbiology Results: Microbiology 04/19/21 20:06 Blood - Venous Blood Culture - Preliminary No growth after 24 hours. 04/19/21 19:56 Blood - Venous Blood Culture - Preliminary No growth after 24 hours. <GALO Lopez - Last Filed: 04/21/21 12:38> Assessment and Plan (1) Fever: Status: Acute <GALO Lopez - Last Filed: 04/21/21 12:38> (2) Constipation: Status: Acute <GALO Lopez - Last Filed: 04/21/21 12:38> (3) Encephalopathy: Status: Acute <GALO Lopez - Last Filed: 04/21/21 12:38> Assessment and Plan: this is a 50 yo m from [facility] who presents with fever found to have SIRS, no source of infection identified SIRS tachycardia, tachypnea, fever, leukocytosis on admission. leukocytosis resolved. still intermittent low-grade fever No obvious source of infection. CXR, UA and Abdominal CT negative - continue cefepime/vanco for now - BCx negative x 24 hours - ID following constipation Good effect with fleet enema, bowel regimen - Continue MiraLax, senna, as well as Colace Coccyx Ulcer. POA -does not appear to be infected -continue local wound care HLD -continue atorvastatin Mood/parkinsons -continue lithium, Cogentin, artane Disposition: [facility] when medically stable DVT prophylaxis:heparin subq Attending. Dr. Corona <GALO Lopez - Last Filed: 04/21/21 12:38> Seen and examined, discussed with GALO and Keyanna with above, periods of unrepsonsiveness, concerning for seizures with posti ictal state and possibly causing transient aspiration causing fever. Start Keppra, EEG, Neuro eval <Victorino Corona MD - Last Filed: 04/21/21 17:56>
[2021-04-21] MEDS: levETIRAcetam 500 MG TABLET PO ×2 (14:44→19:57)
--- NOTE | 2021-04-21 15:39 | P.CNNE_ITS ---
History of Present Illness Data of Consult Service Date: 04/21/21 Primary Care Provider: Edson Meredith, DO HPI Reason for consult: Altered mental status , ? SZ This is a 50-year-old male [place] resident with a history of HTN, HLD, Parkinson's, schizophrenia, seizure disorder, toxic encephalopathy, presented to the hospital from assisted for fever and tachycardia. Patient was awake but uncooperative, refusing to open his eyes, refusing to answer any of my questions Review of Systems Eyes: Eyes: Reports no additional eye complaints ENT: Reports system reviewed and no additional complaints, except as documented Cardiovascular: Cardiovascular: Reports no additional cardiovascular complaints Respiratory: Respiratory: Reports no additional respiratory complaints Gastrointestinal: Gastrointestinal: Reports no additional gastrointestinal complaints Genitourinary: Genitourinary: Reports no additional male genitourinary c omplaints Musculoskeletal: Musculoskeletal: Reports no additional musculoskeletal complaints Integumentary/Breasts: Skin/Breast: Reports system reviewed and no additional complaints, except as docu Neurologic: Reports as per HPI Psychiatric: Psychiatric: Reports as per HPI Endocrine: Endocrine: Reports no additional endocrine complaints Hematologic/Lymphatic: Hematologic/Lymphatic: Reports no additional hematologic/lymphatic complaints Allergic/Immunologic: Allergic/Immunologic: Reports no additional allergic/immunologic complaints PMF Past Medical History Medical History (Updated 04/21/21 @ 15:47 by Yassine Dean MD) Anemia Astigmatism, bilateral Bilateral cataracts Chronic constipation Depressive disorder Disorder of the autonomic nervous system, unspecified Dysarthria and anarthria Encephalopathy Essential (primary) hypertension Extrapyramidal and movement disorder Fever Hemiplegia Hyperlipidemia Hypertension MDD (major depressive disorder) Muscle weakness Myopia, bilateral Parkinson disease Presbyopia Schizophrenia Seizures Toxic encephalitis Toxic encephalopathy Social History Social History Household Members: Other Housing: [facility] Do you presently have visiting nurse or other home services: No Alcohol intake: unknown Patient Tobacco Use Status: Current everyday Tobacco user Tobacco use type: Cigarette Cigarettes Per Day: 20 Smoked in Last 30 Days: No Patient Interested in Nicotine Replacement: No Use of substances other than those prescribed or required for medical reasons: No Currently Displaying Signs/Symptoms of Drug Intoxication Withdrawal: No Have you been hit, kicked, punched, or otherwise hurt by someone within the past year? If so, by whom?: No Do you feel safe in your current relationship?: Yes Is there a partner from a previous relationship who is making you feel unsafe now?: No Are you made to feel afraid or neglected: No Advance Directives: No Do you have thoughts of harming others: None Do you have a plan to hurt others: No Plan Recently lost weight without trying: No Nutrition Risks: Difficulty chewing Poor oral hygiene: No service: No Current occupational status: disabled Meds Allergies Allergy/AdvReac Type Severity Reaction Status Date / Time wool Allergy Unknown Unknown Uncoded 04/19/21 23:44 Active Medications: Current Medications Generic Name Dose Route Start Last Admin Trade Name Freq PRN Reason Stop Dose Admin Acetaminophen 650 mg 04/20/21 02:51 04/20/21 17:35 Acetaminophen 325 Mg Tablet PO 650 mg Q6H PRN Administration Pain, Mild (Pain Scale 1-3) Amoxicillin/Clavulanate Potassium 875 mg 04/21/21 21:23 Amoxicillin/Potassium Clav 875 Mg Tablet PO Q12H [facility] Aspirin 81 mg 04/20/21 09:00 04/21/21 08:28 Aspirin Enteric Coated 81 Mg Tablet.Dr PO 81 mg DAILY CHRISTELLE Administration Atorvastatin Calcium 10 mg 04/20/21 21:00 04/20/21 20:25 Atorvastatin Calcium 10 Mg Tablet PO 10 mg BEDTIME CHRISTELLE Administration Benztropine Mesylate 1 mg 04/20/21 09:00 04/21/21 08:28 Benztropine Mesylate 1 Mg Tablet PO 1 mg BID CHRISTELLE Administration Bisacodyl 10 mg 04/20/21 09:00 04/21/21 08:28 Bisacodyl 10 Mg Supp.Rect IN Not Given DAILY [facility] Docusate Sodium 100 mg 04/20/21 21:00 04/20/21 20:25 Docusate Sodium 100 Mg Capsule PO 100 mg BEDTIME CHRISTELLE Administration Docusate Sodium 200 mg 04/20/21 09:00 04/21/21 08:28 Docusate Sodium 100 Mg Capsule PO 200 mg DAILY [facility] Administration Doxycycline Hyclate 100 mg 04/21/21 20:45 Doxycycline Hyclate 100 Mg Tablet PO Q12H [facility] Heparin Sodium (Porcine) 5,000 unit 04/20/21 04:00 04/21/21 03:39 Heparin Sodium,Porcine 5,000 Unit/Ml Vial SUBCUT 5,000 unit Q12H [facility] Administration Levetiracetam 500 mg 04/21/21 13:45 04/21/21 14:44 Levetiracetam 500 Mg Tablet PO 500 mg BID CHRISTELLE Administration [place] Carbonate 300 mg 04/20/21 21:00 04/20/21 20:25 [place] Carbonate 300 Mg Capsule PO 300 mg BEDTIME CHRISTELLE Administration Multivitamins/Vitamin C 1 tab 04/20/21 09:00 04/21/21 08:28 Multivitamin Tablet PO 1 tab DAILY [facility]STELLE Administration Ondansetron HCl 4 mg 04/20/21 02:51 Ondansetron Hcl 4 Mg/2 Ml Vial IVPUSH Q8H PRN Nausea and Vomiting Polyethylene Glycol 17 gm 04/20/21 09:00 04/21/21 08:28 Polyethylene Glycol 3350 17 Gm Powd.Pack PO 17 gm DAILY [facility]STELLE Administration Senna 17.2 mg 04/20/21 21:00 04/20/21 20:26 Sennosides 8.6 Mg Tablet PO 17.2 mg BEDTIME CHRISTELLE Administration Sodium Biphosphate/Sodium Phosphate 118 ml 04/20/21 02:51 04/20/21 07:12 Sodium Phosphate,[place]-Dibasic 133 Ml Enema [place] 118 ml DAILY PRN Administration Constipation Sodium Chloride 3 ml 04/20/21 02:51 04/21/21 07:30 0.9 % Sodium Chloride Flush 3 Ml Syringe IVFLUSH Not Given QSHIFT [facility] Trihexyphenidyl HCl 2 mg 04/20/21 09:00 04/21/21 08:28 Trihexyphenidyl Hcl 2 Mg Tablet PO 2 mg BID CHRISTELLE Administration Home Medications Medication Instructions Recorded Confirmed Last Taken Type acetaminophen 650 mg PO Q4H PRN 01/09/21 04/20/21 Unknown History ascorbic acid (vitamin C) [Vitamin 500 mg PO DAILY 01/09/21 04/20/21 04/19/21 History C] aspirin 81 mg PO DAILY 01/09/21 04/20/21 04/19/21 History benztropine 1 mg PO BID 01/09/21 04/20/21 04/19/21 History bisacodyl 10 mg IN DAILY 01/09/21 04/20/21 04/19/21 History dantrolene 50 mg PO BID 01/09/21 04/20/21 04/19/21 History docusate sodium 100 mg PO BEDTIME 01/09/21 04/20/21 04/18/21 History docusate sodium 200 mg PO DAILY 01/09/21 04/20/21 04/19/21 History ferrous sulfate 325 mg PO DAILY 01/09/21 04/20/21 04/19/21 History lithium carbonate 300 mg PO BEDTIME 01/09/21 04/20/21 04/18/21 History multivitamin 1 tab PO DAILY 01/09/21 04/20/21 04/19/21 History sennosides [senna] 8.6 mg PO DAILY PRN 01/09/21 04/20/21 01/07/21 History sennosides [senna] 17.2 mg PO BEDTIME 01/09/21 04/20/21 04/18/21 History simvastatin 20 mg PO BEDTIME 01/09/21 04/20/21 04/18/21 History trihexyphenidyl 2 mg PO BID 01/09/21 04/20/21 04/19/21 History vitamin E 800 unit PO BID 01/09/21 04/20/21 04/19/21 History lanolin [id number] 1 appl TOPICAL QPM 04/20/21 04/20/21 04/18/21 History [Minerin Creme] sodium phosphates [Fleet Enema] 118 ml IN DAILY PRN 04/20/21 04/20/21 Unknown History zinc oxide-vitamin B5-vit E 1 appl TOPICAL Q8H 04/20/21 04/20/21 04/19/21 History [Balmex Adult [facility]] Physical Exam Vital Signs: Vital Signs: Last Vital Signs Temp 98.9 F 04/21/21 15:16 Pulse 100 04/21/21 15:16 Resp 20 04/21/21 15:16 BP 130/73 04/21/21 15:16 Pulse Ox 95 04/21/21 15:16 Oxygen Flow Rate 2 04/19/21 19:17 Body Mass Index 21.7 Const: General: no acute distress and awake Nutritional Appearance: well nourished Orientation/consciousness: oriented to person Limitations: no limitations HENMT: Head: Yes normal to inspection, Yes normocephalic and Yes atraumatic Ears: hearing grossly normal bilaterally General nose exam: Normal external nose present Face and sinus: Yes normal facial exam Eyes: General: appearance normal, both eyes and all related structures Alignment and Position: alignment normal Periorbital: periorbital findings normal Eyelids: Yes eyelids normal Conjunctivae: conjunctivae normal Sclerae: sclerae normal Corneas: corneas normal Pupils: Equal, round and reactive pupils present and Pupil accommodation reflex normal EOM: EOMs intact bilaterally Direct Ophthalmoscopy: normal light reflex Neck: Neck: Yes normal visual inspection, Yes full ROM and Yes no meningeal signs Thyroid: Thyroid normal Carotids: normal carotid upstroke and bounding pulses Chest: Chest palpation & inspection: normal inspection of the chest Resp: Effort & Inspection: normal respiratory effort Cardio: Rate: regular rate Rhythm: regular rhythm Heart sounds: S1 normal heart sound present and S2 normal heart sound present Peripheral pulses: Peripheral pulses 2+ throughout GI: Inspection: Yes normal to inspection Percussion: Yes normal to percussion Auscultation: normal bowel sounds Rectal Exam - Male: Yes deferred Back/Spine/Pelvis: Cervical Spine: normal cervical lordosis and cervical ROM normal Thoracic/Lumbar Spine: thoracic and lumbar spine normal to inspection Skin: General skin exam: no rashes or lesions noted Neuro: General: oriented to person, moves all extremities, no meningeal signs, no focal motor deficits, CN's II-XI intact bilaterally and deep tendon reflexes 2+ bilaterally Cranial nerves: Yes CN's II-XII intact bilaterally, Yes Equal, round and reactive pupils present, Yes Nystagmus not present and Yes Normal facial strength present Speech: Other speech findings present (Neuro) Motor exam (neuro): no tremor noted, no asterixis, Motor fasciculations not present, Normal motor muscle tone present throughout and Motor abnormalities not present Deep tendon reflexes (DTR's): Right triceps reflex intensity grade: 1+, Left triceps reflex intensity grade: 1+, Rt Biceps (C5, C6): 1+, Left biceps reflex intensity grade: 1+, Right brachioradialis reflex intensity grade: 1+, Left brachioradialis reflex intensity grade: 1+, Right patellar reflex intensity grade: 1+, Left patellar reflex intensity grade: 1+, Right ankle reflex intensity grade: 1+ and Left ankle reflex intensity grade: 1+ Plantar Reflex Responses: downgoing: right, left and bilateral Pupils: Normal pupillary reactivity/response: bilateral Extrem: General: Yes normal to inspection, Yes normal exam except as noted and Yes no pedal edema Psych: Appearance: grossly normal Mental Status: mental status grossly norm al Speech and movement: Normal speech and movement present and Clear speech present Affect: normal affect Attitude: cooperative Thought process: Normal thought process present Results Labs CBC & Chem 7: 04/21/21 05:11 04/21/21 05:12 Labs: Short CBC 04/21/21 Range/Units 05:11 WBC 10.2 (4.8-10.8) X10*3/uL Hgb 11.5 L (14.0-18.0) g/dl Hct 35.7 L (42-52) % Plt Count 206 (160-400) X10*3/uL BMP 04/21/21 05:12 Sodium 141 Potassium 3.8 Chloride 111 H Carbon Dioxide 23 BUN 16 Creatinine 0.78 Calcium 8.5 Microbiology Microbiology Results: Microbiology 04/19/21 20:06 Blood - Venous Blood Culture - Preliminary No growth after 24 hours. 04/19/21 19:56 Blood - Venous Blood Culture - Preliminary No growth after 24 hours. Assessment and Plan (1) Seizure: Status: Acute Repeat CT brain , EEG, Check for infections and metabolic abnormalities (2) Encephalopathy: Status: Acute Procedures Date of Service Date of Service: 04/21/21
--- NOTE | 2021-04-21 15:49 | P.CNNE_ITS ---
History of Present Illness Data of Consult Primary Care Provider: Edson Meredith DO [facility] Past Medical History Medical History (Updated 04/21/21 @ 15:47 by Yassine Dean MD) Anemia Astigmatism, bilateral Bilateral cataracts Chronic constipation Depressive disorder Disorder of the autonomic nervous system, unspecified Dysarthria and anarthria Encephalopathy Essential (primary) hypertension Extrapyramidal and movement disorder Fever Hemiplegia Hyperlipidemia Hypertension MDD (major depressive disorder) Muscle weakness Myopia, bilateral Parkinson disease Presbyopia Schizophrenia Seizures Toxic encephalitis Toxic encephalopathy Social History Social History Household Members: Other Housing: [facility] Do you presently have visiting nurse or other home services: No Alcohol intake: unknown Patient Tobacco Use Status: Current everyday Tobacco user Tobacco use type: Cigarette Cigarettes Per Day: 20 Smoked in Last 30 Days: No Patient Interested in Nicotine Replacement: No Use of substances other than those prescribed or required for medical reasons: No Currently Displaying Signs/Symptoms of Drug Intoxication Withdrawal: No Have you been hit, kicked, punched, or otherwise hurt by someone within the past year? If so, by whom?: No Do you feel safe in your current relationship?: Yes Is there a partner from a previous relationship who is making you feel unsafe now?: No Are you made to feel afraid or neglected: No Advance Directives: No Do you have thoughts of harming others: None Do you have a plan to hurt others: No Plan Recently lost weight without trying: No Nutrition Risks: Difficulty chewing Poor oral hygiene: No service: No Current occupational status: disabled Meds Allergies Allergy/AdvReac Type Severity Reaction Status Date / Time wool Allergy Unknown Unknown Uncoded 04/19/21 23:44 Active Medications: Current Medications Generic Name Dose Route Start Last Admin Trade Name Freq PRN Reason Stop Dose Admin Acetaminophen 650 mg 04/20/21 02:51 04/20/21 17:35 Acetaminophen 325 Mg Tablet PO 650 mg Q6H PRN Administration Pain, Mild (Pain Scale 1-3) Amoxicillin/Clavulanate Potassium 875 mg 04/21/21 21:23 Amoxicillin/Potassium Clav 875 Mg Tablet PO Q12H CHRISTELLE Aspirin 81 mg 04/20/21 09:00 04/21/21 08:28 Aspirin Enteric Coated 81 Mg Tablet. PO 81 mg DAILY CHRISTELLE Administration Atorvastatin Calcium 10 mg 04/20/21 21:00 04/20/21 20:25 Atorvastatin Calcium 10 Mg Tablet PO 10 mg BEDTIME CHRISTELLE Administration Benztropine Mesylate 1 mg 04/20/21 09:00 04/21/21 08:28 Benztropine Mesylate 1 Mg Tablet PO 1 mg BID CHRISTELLE Administration Bisacodyl 10 mg 04/20/21 09:00 04/21/21 08:28 Bisacodyl 10 Mg Supp.Rect MI Not Given DAILY CHRISTELLE Docusate Sodium 100 mg 04/20/21 21:00 04/20/21 20:25 Docusate Sodium 100 Mg Capsule PO 100 mg BEDTIME CHRISTELLE Administration Docusate Sodium 200 mg 04/20/21 09:00 04/21/21 08:28 Docusate Sodium 100 Mg Capsule PO 200 mg DAILY CHRISTELLE Administration Doxycycline Hyclate 100 mg 04/21/21 20:45 Doxycycline Hyclate 100 Mg Tablet PO Q12H [facility] Heparin Sodium (Porcine) 5,000 unit 04/20/21 04:00 04/21/21 03:39 Heparin Sodium,Porcine 5,000 Unit/Ml Vial SUBCUT 5,000 unit Q12H CHRISTELLE Administration Levetiracetam 500 mg 04/21/21 13:45 04/21/21 14:44 Levetiracetam 500 Mg Tablet PO 500 mg BID CHRISTELLE Administration [place] Carbonate 300 mg 04/20/21 21:00 04/20/21 20:25 [place] Carbonate 300 Mg Capsule PO 300 mg BEDTIME CHRISTELLE Administration Multivitamins/Vitamin C 1 tab 04/20/21 09:00 04/21/21 08:28 Multivitamin Tablet PO 1 tab DAILY CHRISTELLE Administration Ondansetron HCl 4 mg 04/20/21 02:51 Ondansetron Hcl 4 Mg/2 Ml Vial IVPUSH Q8H PRN Nausea and Vomiting Polyethylene Glycol 17 gm 04/20/21 09:00 04/21/21 08:28 Polyethylene Glycol 3350 17 Gm Powd.Pack PO 17 gm DAILY CHRISTELLE Administration Senna 17.2 mg 04/20/21 21:00 04/20/21 20:26 Sennosides 8.6 Mg Tablet PO 17.2 mg BEDTIME CHRISTELLE Administration Sodium Biphosphate/Sodium Phosphate 118 ml 04/20/21 02:51 04/20/21 07:12 Sodium Phosphate,[place]-Dibasic 133 Ml Enema [place] 118 ml DAILY PRN Administration Constipation Sodium Chloride 3 ml 04/20/21 02:51 04/21/21 07:30 0.9 % Sodium Chloride Flush 3 Ml Syringe IVFLUSH Not Given QSHIFT CHRISTELLE Trihexyphenidyl HCl 2 mg 04/20/21 09:00 04/21/21 08:28 Trihexyphenidyl Hcl 2 Mg Tablet PO 2 mg BID CHRISTELLE Administration Home Medications Medication Instructions Recorded Confirmed Last Taken Type acetaminophen 650 mg PO Q4H PRN 01/09/21 04/20/21 Unknown History ascorbic acid (vitamin C) [Vitamin 500 mg PO DAILY 01/09/21 04/20/21 04/19/21 History C] aspirin 81 mg PO DAILY 01/09/21 04/20/21 04/19/21 History benztropine 1 mg PO BID 01/09/21 04/20/21 04/19/21 History bisacodyl 10 mg [place] DAILY 01/09/21 04/20/21 04/19/21 History dantrolene 50 mg PO BID 01/09/21 04/20/21 04/19/21 History docusate sodium 100 mg PO BEDTIME 01/09/21 04/20/21 04/18/21 History docusate sodium 200 mg PO DAILY 01/09/21 04/20/21 04/19/21 History ferrous sulfate 325 mg PO DAILY 01/09/21 04/20/21 04/19/21 History lithium carbonate 300 mg PO BEDTIME 01/09/21 04/20/21 04/18/21 History multivitamin 1 tab PO DAILY 01/09/21 04/20/21 04/19/21 History sennosides [senna] 8.6 mg PO DAILY PRN 01/09/21 04/20/21 01/07/21 History sennosides [senna] 17.2 mg PO BEDTIME 01/09/21 04/20/21 04/18/21 History simvastatin 20 mg PO BEDTIME 01/09/21 04/20/21 04/18/21 History trihexyphenidyl 2 mg PO BID 01/09/21 04/20/21 04/19/21 History vitamin E 800 unit PO BID 01/09/21 04/20/21 04/19/21 History lanolin [id number]-[id number]-r.pet-ceres 1 appl TOPICAL QPM 04/20/21 04/20/21 04/18/21 History [Minerin Creme] sodium phosphates [Fleet Enema] 118 ml [place] DAILY PRN 04/20/21 04/20/21 Unknown History zinc oxide-vitamin B5-vit E 1 appl TOPICAL Q8H 04/20/21 04/20/21 04/19/21 Hi story [[facility]] Physical Exam Vital Signs: Vital Signs: Last Vital Signs Temp 98.9 F 04/21/21 15:16 Pulse 100 04/21/21 15:16 Resp 20 04/21/21 15:16 BP 130/73 04/21/21 15:16 Pulse Ox 95 04/21/21 15:16 Oxygen Flow Rate 2 04/19/21 19:17 Body Mass Index 21.7 Results Labs CBC & Chem 7: 04/21/21 05:11 04/21/21 05:12 Labs: Short CBC 04/21/21 Range/Units 05:11 WBC 10.2 (4.8-10.8) X10*3/uL Hgb 11.5 L (14.0-18.0) g/dl Hct 35.7 L (42-52) % Plt Count 206 (160-400) X10*3/uL BMP 04/21/21 05:12 Sodium 141 Potassium 3.8 Chloride 111 H Carbon Dioxide 23 BUN 16 Creatinine 0.78 Calcium 8.5 Microbiology Microbiology Results: Microbiology 04/19/21 20:06 Blood - Venous Blood Culture - Preliminary No growth after 24 hours. 04/19/21 19:56 Blood - Venous Blood Culture - Preliminary No growth after 24 hours.
--- NOTE | 2021-04-21 16:31 | PM.IDPN ---
Subjective Subjective Date of Service: 04/21/21 Critical Care Time (minutes): 15 Comment: he is alert and oriented today he tells me he has seizure history Objective Data Labs CBC & Chem 7: 04/21/21 05:11 04/21/21 05:12 Labs: Laboratory Results - last 24 hr 04/21/21 04/21/21 05:11 05:12 WBC 10.2 RBC 4.01 L Hgb 11.5 L Hct 35.7 L MCV 89.0 MCH 28.7 MCHC 32.2 RDW 13.4 Plt Count 206 MPV 11.8 Absolute Nucleated RBC 0.000 Nucleated RBC % (auto) 0.0 Sodium 141 Potassium 3.8 Chloride 111 H Carbon Dioxide 23 Anion Gap 11 L BUN 16 Creatinine 0.78 Estim Creat Clear Calc 103.6 Estimated GFR > 60 Random Glucose 92 Calcium 8.5 Microbiology Microbiology Results: Microbiology 04/19/21 20:06 Blood - Venous Blood Culture - Preliminary No growth after 24 hours. 04/19/21 19:56 Blood - Venous Blood Culture - Preliminary No growth after 24 hours. Physical Exam Vital Signs: Vital Signs: Last Vital Signs Temp 98.9 F 04/21/21 15:16 Pulse 100 04/21/21 15:16 Resp 20 04/21/21 15:16 BP 130/73 04/21/21 15:16 Pulse Ox 95 04/21/21 15:16 Oxygen Flow Rate 2 04/19/21 19:17 Body Mass Index 21.7 Const: General: cooperative HENMT: Head: Yes normal to inspection Mouth: Normal oral and palatal mucosa present Resp: Effort & Inspection: normal respiratory effort Cardio: Rate: regular rate Rhythm: regular rhythm GI: Palpation (GI): Soft to palpation and nontender Skin: General skin exam: no rashes or lesions noted Assessment and Plan Assessment and plan (1) Encephalopathy: Problem details: Encephalopathy with seizure history concern over seizure ?postictal Status: Acute Assessment and Plan: Would get EEG and involve Neurology Cover possible aspiration pneumonia with Doxycycline and Augmentin for a week (2) Fever: Status: Acute Time Spent With Patient Time: Total time spent is greater than 50% in coordination of care (as documented) at patient's floor/unit and/or counseling patient: Time with patient: 15 - 24 minutes
[2021-04-21] MEDS: 0.9 % Sodium Chloride Flush 3 ML SYRINGE IVFLUSH ×2 (16:36→19:58)
[2021-04-21 17:22] LABS: Vancomycin Trough 10.1 mcg/mL (10.0-20.0)
[2021-04-21] MEDS: Amoxicillin/Potassium Clav 875 MG TABLET PO (19:56)
[2021-04-21] MEDS: Atorvastatin Calcium 10 MG TABLET PO (19:57)
[2021-04-21] MEDS: Lithium Carbonate 300 MG CAPSULE PO (19:57)
[2021-04-21] MEDS: Docusate Sodium 100 MG CAPSULE PO (19:57)
[2021-04-21] MEDS: Sennosides 8.6 MG TABLET 17.2 MG PO (19:57)
[2021-04-21] MEDS: Acetaminophen 325 MG TABLET 650 MG PO (19:58)
[2021-04-22 03:15] VITALS: BP 134/79; PULSE 97; RESP 20; TEMP 36.5; O2SAT 96
[2021-04-22] MEDS: Heparin Sodium,Porcine 5,000 UNIT/ML VIAL 5000 UNIT SUBCUT ×2 (05:03→16:18)
[2021-04-22 07:10] VITALS: BP 122/64; PULSE 72; RESP 18; TEMP 36.1; O2SAT 96
[2021-04-22] MEDS: 0.9 % Sodium Chloride Flush 3 ML SYRINGE IVFLUSH ×3 (08:18→20:42)
[2021-04-22] MEDS: Amoxicillin/Potassium Clav 875 MG TABLET PO ×2 (08:18→20:42)
[2021-04-22] MEDS: Docusate Sodium 100 MG CAPSULE 200 MG PO (08:19)
[2021-04-22] MEDS: levETIRAcetam 500 MG TABLET PO ×2 (08:19→20:42)
[2021-04-22] MEDS: Trihexyphenidyl HCL 2 MG TABLET PO ×2 (08:19→20:42)
[2021-04-22] MEDS: Aspirin Enteric Coated 81 MG TABLET.DR PO (08:20)
[2021-04-22] MEDS: Benztropine Mesylate 1 MG TABLET PO ×2 (08:20→20:42)
[2021-04-22] MEDS: Multivitamin TABLET 1 TAB PO (08:20)
[2021-04-22] MEDS: polyethylene glycoL 3350 17 GM POWD.PACK PO (08:20)
[2021-04-22 09:14] LABS: C Reactive Protein 14.33 mg/dL (< or = 0.50)
[2021-04-22 10:15] LABS: Lithium 0.33 mmol/L (0.60-1.20)
[2021-04-22 10:59] VITALS: BP 133/86; PULSE 98; RESP 19; TEMP 36; O2SAT 96
--- NOTE | 2021-04-22 14:21 | P.PNIM_ITS ---
Subjective Subjective Date of Service: 04/22/21 Interval History: Fever of 101.2 yesterday evening Pt denies headache, neck stiffness, cough, abd pain, or diarrhea Physical Exam Vital Signs: Vital Signs: Last Vital Signs Temp 96.8 F 04/22/21 10:59 Pulse 98 04/22/21 10:59 Resp 19 04/22/21 10:59 BP 133/86 04/22/21 10:59 Pulse Ox 96 04/22/21 10:59 Oxygen Flow Rate 2 04/19/21 19:17 Body Mass Index 21.7 Gen: in no acute distress, orobuccolingual tardive dyskinesia present HEENT: sclera anicteric, moist mucus membranes Neck: supple Lungs: clear to auscultation bilaterally Heart: regular rate and rhythm, no murmurs Abd: soft, non-tender, non-distended Ext: no edema Skin: warm/well-perfused Neuro: alert Psych: impaired insight Objective Data Current Medications Generic Name Dose Route Start Last Admin Trade Name Freq PRN Reason Stop Dose Admin Acetaminophen 650 mg 04/20/21 02:51 04/21/21 19:58 Acetaminophen 325 Mg Tablet PO 650 mg Q6H PRN Administration Pain, Mild (Pain Scale 1-3) Amoxicillin/Clavulanate Potassium 875 mg 04/21/21 21:23 04/22/21 08:18 Amoxicillin/Potassium Clav 875 Mg Tablet PO 875 mg Q12H [facility]STELLE Administration Aspirin 81 mg 04/20/21 09:00 04/22/21 08:20 Aspirin Enteric Coated 81 Mg Tablet.Dr PO 81 mg DAILY CHRISTELLE Administration Atorvastatin Calcium 10 mg 04/20/21 21:00 04/21/21 19:57 Atorvastatin Calcium 10 Mg Tablet PO 10 mg BEDTIME CH[facility]STELLE Administration Benztropine Mesylate 1 mg 04/20/21 09:00 04/22/21 08:20 Benztropine Mesylate 1 Mg Tablet PO 1 mg BID CH[facility]STELLE Administration Bisacodyl 10 mg 04/20/21 09:00 04/22/21 09:21 Bisacodyl 10 Mg Supp.Rect CA Not Given DAILY CHRISTELLE Docusate Sodium 100 mg 04/20/21 21:00 04/21/21 19:57 Docusate Sodium 100 Mg Capsule PO 100 mg BEDTIME CH[facility]STELLE Administration Docusate Sodium 200 mg 04/20/21 09:00 04/22/21 08:19 Docusate Sodium 100 Mg Capsule PO 200 mg DAILY CHRISTELLE Administration Doxycycline Hyclate 100 mg 04/21/21 20:45 04/22/21 08:18 Doxycycline Hyclate 100 Mg Tablet PO 100 mg Q12H [facility]ELLE Administration Heparin Sodium (Porcine) 5,000 unit 04/20/21 04:00 04/22/21 05:03 Heparin Sodium,Porcine 5,000 Unit/Ml Vial SUBCUT 5,000 unit Q12H [facility]STELLE Administration Levetiracetam 500 mg 04/21/21 13:45 04/22/21 08:19 Levetiracetam 500 Mg Tablet PO 500 mg BID CHRISTELLE Administration [place] Carbonate 300 mg 04/20/21 21:00 04/21/21 19:57 [place] Carbonate 300 Mg Capsule PO 300 mg BEDTIME CHRISTELLE Administration Multivitamins/Vitamin C 1 tab 04/20/21 09:00 04/22/21 08:20 Multivitamin Tablet PO 1 tab DAILY CH[facility]STELLE Administration Ondansetron HCl 4 mg 04/20/21 02:51 Ondansetron Hcl 4 Mg/2 Ml Vial IVPUSH Q8H PRN Nausea and Vomiting Polyethylene Glycol 17 gm 04/20/21 09:00 04/22/21 08:20 Polyethylene Glycol 3350 17 Gm Powd.Pack PO 17 gm DAILY CHRISTELLE Administration Senna 17.2 mg 04/20/21 21:00 04/21/21 19:57 Sennosides 8.6 Mg Tablet PO 17.2 mg BEDTIME CH[facility]STELLE Administration Sodium Biphosphate/Sodium Phosphate 118 ml 04/20/21 02:51 04/20/21 07:12 Sodium Phosphate,[place]-Dibasic 133 Ml Enema [place] 118 ml DAILY PRN Administration Constipation Sodium Chloride 3 ml 04/20/21 02:51 04/22/21 08:18 0.9 % Sodium Chloride Flush 3 Ml Syringe IVFLUSH 3 ml QSHIFT CHRISTELLE Administration Trihexyphenidyl HCl 2 mg 04/20/21 09:00 04/22/21 08:19 Trihexyphenidyl Hcl 2 Mg Tablet PO 2 mg BID CHRISTELLE Administration Labs CBC & Chem 7: 04/21/21 05:11 04/21/21 05:12 Labs: Laboratory Results - last 24 hr 04/21/21 04/21/21 04/22/21 05:12 16:35 09:49 C-Reactive Protein 14.33 H Vancomycin Trough 10.1 [place] 0.[address] 04/22/21 09:35 IMPRESSION: No acute intracranial process seen. 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 Microbiology Microbiology Results: Microbiology 04/19/21 20:06 Blood - Venous Blood Culture - Preliminary No growth after 48 hours. 04/19/21 19:56 Blood - Venous Blood Culture - Preliminary No growth after 48 hours. Assessment and Plan (1) Encephalopathy: Status: Acute Assessment and Plan: hospital d#3 50yo M [facility] resident sent in with fever/SIRS, unclear source of infection # SIRS/sepsis - UA negative, BCx negative, COVID-19 negative - per ID treat for aspiration pneumonia, doxycycline + amox/clav d#2 [was previously on cefepime + vanco] - will check CXR, PCT, HIV, Lyme # question of seizure - Neurology consulted, EEG pending, continue levetiracetam # constipation - continue MiraLax, senna, docusate, bisacodyl # coccyx ulcer POA - not infected, continue local wound care # HLD - continue atrovastatin # schizoaffective disorder - continue trihexyphenidyl, lithium [check level], benztropine # HLD - continue statin # VTE ppx - UFH
[2021-04-22 15:01] LABS: Procalcitonin 0.05 ng/mL
--- NOTE | 2021-04-22 15:23 | P.PNID_ITS ---
Subjective Subjective Date of Service: 04/22/21 Interval History: he had first fever in 2 calendar days,101 overnight he has just had CXR Critical Care Time (minutes): 15 Objective Data Labs CBC & Chem 7: 04/21/21 05:11 04/21/21 05:12 Labs: Laboratory Results - last 24 hr 04/21/21 04/21/21 04/22/21 05:12 16:35 09:49 C-Reactive Protein 14.33 H Procalcitonin Vancomycin Trough 10.1 [place] 0.33 L 04/22/21 09:49 C-Reactive Protein Procalcitonin 0.05 Vancomycin Trough [place] Microbiology Microbiology Results: Microbiology 04/19/21 20:06 Blood - Venous Blood Culture - Preliminary No growth after 48 hours. 04/19/21 19:56 Blood - Venous Blood Culture - Preliminary No growth after 48 hours. Physical Exam Vital Signs: Vital Signs: Last Vital Signs Temp 96.8 F 04/22/21 10:59 Pulse 98 04/22/21 10:59 Resp 19 04/22/21 10:59 BP 133/86 04/22/21 10:59 Pulse Ox 96 04/22/21 10:59 Oxygen Flow Rate 2 04/19/21 19:17 Body Mass Index 21.7 Const: General: cooperative Resp: Effort & Inspection: normal respiratory effort Cardio: Rate: regular rate Rhythm: regular rhythm GI: Palpation (GI): nontender Assessment and Plan Assessment and plan (1) Encephalopathy: Problem details: Encephalopathy with seizure history concern over seizure ?postictal CXR some air bronchograms right middle/lower lobe,maybe bronchiectasis as well Status: Acute Assessment and Plan: Continue antibiotics Await Neurology eval If fever again consider LP ?HSV encephalitis (2) Fever: Status: Acute Time Spent With Patient Time: Total time spent is greater than 50% in coordination of care (as documented) at patient's floor/unit and/or counseling patient: Time with patient: less than 15 minutes
[2021-04-22 15:36] VITALS: BP 126/78; PULSE 100; RESP 18; TEMP 36.7; O2SAT 96
[2021-04-22 20:00] VITALS: BP 134/84; PULSE 100; RESP 18; TEMP 37.2; O2SAT 95
[2021-04-22] MEDS: Lithium Carbonate 300 MG CAPSULE PO (20:42)
[2021-04-22] MEDS: Atorvastatin Calcium 10 MG TABLET PO (20:42)
[2021-04-22] MEDS: Docusate Sodium 100 MG CAPSULE PO (20:42)
[2021-04-22] MEDS: Sennosides 8.6 MG TABLET 17.2 MG PO (20:42)
[2021-04-23] VITALS (7 sets, daily range): BP systolic 122–151; BP diastolic 58–90; PULSE 88–110; RESP 16–19; TEMP 36–37.5; O2SAT 93–100
[2021-04-23] MEDS: Heparin Sodium,Porcine 5,000 UNIT/ML VIAL 5000 UNIT SUBCUT ×2 (04:25→17:07)
[2021-04-23 07:22] LABS: Hematocrit 36.6 % (42-52); Hemoglobin 11.8 g/dl (14.0-18.0); Mean Corpuscular HGB Conc 32.2 g/dl (31.0-36.0); Mean Corpuscular Hemoglobin 28.6 pg (27.0-33.0); Mean Corpuscular Volume 88.6 fL (80-98); Mean Platelet Volume 10.9 fL (9.4-12.4); Platelet Count 190 X10*3/uL (160-400); Red Blood Count 4.13 X10*6/uL (4.60-5.80); Red Cell Distribution Width 13.2 % (11.0-16.0); White Blood Count 9.3 X10*3/uL (4.8-10.8)
[2021-04-23 07:48] LABS: Anion Gap 14 (12-20); Blood Urea Nitrogen 17 mg/dL (9-16); Carbon Dioxide 23 mmol/L (22-29); Chloride 108 mmol/L (96-108); Creatinine Clr Calc Pharmacy 110.7; Estimated Glomerular Filt Rate > 60; Glucose Random 91 mg/dL (60-115); Potassium 3.7 mmol/L (3.3-5.1); Sodium 141 mmol/L (135-145)
[2021-04-23] MEDS: Amoxicillin/Potassium Clav 875 MG TABLET PO ×2 (08:26→21:06)
[2021-04-23] MEDS: Multivitamin TABLET 1 TAB PO (08:26)
[2021-04-23] MEDS: Trihexyphenidyl HCL 2 MG TABLET PO ×2 (08:27→21:06)
[2021-04-23] MEDS: Docusate Sodium 100 MG CAPSULE 200 MG PO (08:27)
[2021-04-23] MEDS: Benztropine Mesylate 1 MG TABLET PO ×2 (08:27→21:06)
[2021-04-23] MEDS: Aspirin Enteric Coated 81 MG TABLET.DR PO (08:27)
[2021-04-23] MEDS: levETIRAcetam 500 MG TABLET PO ×2 (08:27→21:06)
[2021-04-23] MEDS: polyethylene glycoL 3350 17 GM POWD.PACK PO (08:28)
[2021-04-23] MEDS: 0.9 % Sodium Chloride Flush 3 ML SYRINGE IVFLUSH ×3 (08:40→21:07)
--- NOTE | 2021-04-23 13:10 | HO.PM.IMPN ---
Subjective Subjective Date of Service: 04/23/21 Interval History: Fever resolved No complaints Physical Exam Vital Signs: Vital Signs: Last Vital Signs Temp 97 F 04/23/21 11:09 Pulse 110 H 04/23/21 11:09 Resp 18 04/23/21 11:09 BP 142/78 H 04/23/21 11:09 Pulse Ox 96 04/23/21 11:09 Oxygen Flow Rate 2 04/19/21 19:17 Body Mass Index 21.7 Gen: in no acute distress, orobuccolingual tardive dyskinesia present HEENT: sclera anicteric, moist mucus membranes Neck: supple Lungs: clear to auscultation bilaterally Heart: regular rate and rhythm, no murmurs Abd: soft, non-tender, non-distended Ext: no edema Skin: warm/well-perfused Neuro: alert Psych: impaired insight Objective Data Current Medications Generic Name Dose Route Start Last Admin Trade Name Freq PRN Reason Stop Dose Admin Acetaminophen 650 mg 04/20/21 02:51 04/21/21 19:58 Acetaminophen 325 Mg Tablet PO 650 mg Q6H PRN Administration Pain, Mild (Pain Scale 1-3) Amoxicillin/Clavulanate Potassium 875 mg 04/21/21 21:23 04/23/21 08:26 Amoxicillin/Potassium Clav 875 Mg Tablet PO 875 mg Q12H CHRISTELLE Administration Aspirin 81 mg 04/20/21 09:00 04/23/21 08:27 Aspirin Enteric Coated 81 Mg Tablet.Dr PO 81 mg DAILY CHRISTELLE Administration Atorvastatin Calcium 10 mg 04/20/21 21:00 04/22/21 20:42 Atorvastatin Calcium 10 Mg Tablet PO 10 mg BEDTIME CHRISTELLE Administration Benztropine Mesylate 1 mg 04/20/21 09:00 04/23/21 08:27 Benztropine Mesylate 1 Mg Tablet PO 1 mg BID CHRISTELLE Administration Bisacodyl 10 mg 04/20/21 09:00 04/23/21 08:27 Bisacodyl 10 Mg Supp.Rect SD Not Given DAILY CHRISTELLE Docusate Sodium 100 mg 04/20/21 21:00 04/22/21 20:42 Docusate Sodium 100 Mg Capsule PO 100 mg BEDTIME CHRISTELLE Administration Docusate Sodium 200 mg 04/20/21 09:00 04/23/21 08:27 Docusate Sodium 100 Mg Capsule PO 200 mg DAILY CHRISTELLE Administration Doxycycline Hyclate 100 mg 04/21/21 20:45 04/23/21 08:26 Doxycycline Hyclate 100 Mg Tablet PO 100 mg Q12H CH[facility]STELLE Administration Heparin Sodium (Porcine) 5,000 unit 04/20/21 04:00 04/23/21 04:25 Heparin Sodium,Porcine 5,000 Unit/Ml Vial SUBCUT 5,000 unit Q12H CH[facility]STELLE Administration Levetiracetam 500 mg 04/21/21 13:45 04/23/21 08:27 Levetiracetam 500 Mg Tablet PO 500 mg BID CHRISTELLE Administration [place] Carbonate 300 mg 04/20/21 21:00 04/22/21 20:42 [place] Carbonate 300 Mg Capsule PO 300 mg BEDTIME CHRISTELLE Administration Multivitamins/Vitamin C 1 tab 04/20/21 09:00 04/23/21 08:26 Multivitamin Tablet PO 1 tab DAILY [facility]STELLE Administration Ondansetron HCl 4 mg 04/20/21 02:51 Ondansetron Hcl 4 Mg/2 Ml Vial IVPUSH Q8H PRN Nausea and Vomiting Polyethylene Glycol 17 gm 04/20/21 09:00 04/23/21 08:28 Polyethylene Glycol 3350 17 Gm Powd.Pack PO 17 gm DAILY CHRISTELLE Administration Senna 17.2 mg 04/20/21 21:00 04/22/21 20:42 Sennosides 8.6 Mg Tablet PO 17.2 mg BEDTIME CHRISTELLE Administration Sodium Biphosphate/Sodium Phosphate 118 ml 04/20/21 02:51 04/20/21 07:12 Sodium Phosphate,[place]-Dibasic 133 Ml Enema [place] 118 ml DAILY PRN Administration Constipation Sodium Chloride 3 ml 04/20/21 02:51 04/23/21 08:40 0.9 % Sodium Chloride Flush 3 Ml Syringe IVFLUSH 3 ml QSHIFT CHRISTELLE Administration Trihexyphenidyl HCl 2 mg 04/20/21 09:00 04/23/21 08:27 Trihexyphenidyl Hcl 2 Mg Tablet PO 2 mg BID CHRISTELLE Administration Labs CBC & Chem 7: 04/23/21 06:58 04/23/21 06:58 Labs: Laboratory Results - last 24 hr 04/22/21 04/23/21 04/23/21 09:49 06:58 06:58 WBC 9.3 RBC 4.13 L Hgb 11.8 L Hct 36.6 L MCV 88.6 MCH 28.6 MCHC 32.2 RDW 13.2 Plt Count 190 MPV 10.9 Absolute Nucleated RBC 0.000 Nucleated RBC % (auto) 0.0 Sodium 141 Potassium 3.7 Chloride 108 Carbon Dioxide 23 Anion Gap 14 BUN 17 H Creatinine 0.73 Estim Creat Clear Calc 110.7 Estimated GFR > 60 Random Glucose 91 Calcium 9.0 Procalcitonin 0.05 Microbiology Microbiology Results: Microbiology 04/19/21 20:06 Blood - Venous Blood Culture - Preliminary No growth after 48 hours. 04/19/21 19:56 Blood - Venous Blood Culture - Preliminary No growth after 48 hours. Assessment and Plan (1) Encephalopathy: Status: Acute Assessment and Plan: hospital d#4 50yo M [facility] resident sent in with fever/SIRS, unclear source of infection # SIRS/sepsis - UA negative, BCx negative, COVID-19 negative - per ID treat for aspiration pneumonia, doxycycline + amox/clav d#3 [was previously on cefepime + vanco]; however, if fever recurs, will perform LP and r/o HSV encephalitis. Last fever 04/21/21 at 19:12 - HIV + Lyme pending # question of seizure - Neurology consulted, EEG pending, continue levetiracetam in the meanwhile # constipation - continue MiraLax, senna, docusate, bisacodyl # coccyx ulcer POA - not infected, continue local wound care # HLD - continue atrovastatin # schizoaffective disorder - continue trihexyphenidyl, lithium, benztropine # HLD - continue statin # VTE ppx - UFH # dispo - eventual return to [facility]
[2021-04-23] MEDS: Lithium Carbonate 300 MG CAPSULE PO (21:06)
[2021-04-23] MEDS: Docusate Sodium 100 MG CAPSULE PO (21:06)
[2021-04-23] MEDS: Atorvastatin Calcium 10 MG TABLET PO (21:07)
[2021-04-23] MEDS: Sennosides 8.6 MG TABLET 17.2 MG PO (21:07)
--- NOTE | 2021-04-24 | EEG_ITS ---
This is a 16-channel EEG with an EKG lead. The patient is reported awake and restless during the tracing. Background EEG rhythm is contaminated by movement and muscle artifact. When it was better seen, it was medium amplitude mixed theta and beta with no obvious asymmetry or paroxysmal tendency. Photic stimulation does not produce any significant abnormality. Hyperventilation is not performed. No obvious sharp wave spikes or paroxysmal tendencies noted. No asymmetry noted. Cardiac lead did not reveal any significant abnormality. IMPRESSION: No significant abnormality noted on this EEG to suggest seizure disorder. MD ALVIN Wilkerson/DEBORAH / [phone]
[2021-04-24 03:00] VITALS: BP 129/80; PULSE 91; RESP 18; TEMP 36.9; O2SAT 98
[2021-04-24] MEDS: Heparin Sodium,Porcine 5,000 UNIT/ML VIAL 5000 UNIT SUBCUT ×2 (04:21→16:00)
[2021-04-24 06:14] LABS: Hematocrit 35.1 % (42-52); Hemoglobin 11.4 g/dl (14.0-18.0); Mean Corpuscular HGB Conc 32.5 g/dl (31.0-36.0); Mean Corpuscular Hemoglobin 28.7 pg (27.0-33.0); Mean Corpuscular Volume 88.4 fL (80-98); Platelet Count 218 X10*3/uL (160-400); Red Blood Count 3.97 X10*6/uL (4.60-5.80); White Blood Count 8.1 X10*3/uL (4.8-10.8)
[2021-04-24 06:42] LABS: Anion Gap 13 (12-20); Blood Urea Nitrogen 19 mg/dL (9-16); C Reactive Protein 8.24 mg/dL (< or = 0.50); Carbon Dioxide 23 mmol/L (22-29); Chloride 110 mmol/L (96-108); Creatinine Clr Calc Pharmacy 112.3; Estimated Glomerular Filt Rate > 60; Glucose Random 96 mg/dL (60-115); Potassium 4.1 mmol/L (3.3-5.1); Sodium 142 mmol/L (135-145)
[2021-04-24 07:00] LABS: Procalcitonin 0.04 ng/mL
[2021-04-24 08:00] VITALS: BP 113/57; PULSE 93; RESP 20; TEMP 37; O2SAT 96
[2021-04-24 08:32] LABS: HIV AB/AG Nonreactive (Nonreactive); HIV Num 1 0.05 S/CO (0.00-0.99)
[2021-04-24] MEDS: Multivitamin TABLET 1 TAB PO (09:00)
[2021-04-24] MEDS: Docusate Sodium 100 MG CAPSULE 200 MG PO (09:00)
[2021-04-24] MEDS: levETIRAcetam 500 MG TABLET PO ×2 (09:01→20:43)
[2021-04-24] MEDS: Benztropine Mesylate 1 MG TABLET PO ×2 (09:01→20:43)
[2021-04-24] MEDS: polyethylene glycoL 3350 17 GM POWD.PACK PO (09:01)
[2021-04-24] MEDS: Aspirin Enteric Coated 81 MG TABLET.DR PO (09:01)
[2021-04-24] MEDS: 0.9 % Sodium Chloride Flush 3 ML SYRINGE IVFLUSH ×3 (09:01→20:44)
[2021-04-24] MEDS: Trihexyphenidyl HCL 2 MG TABLET PO ×2 (09:01→20:43)
[2021-04-24] MEDS: Amoxicillin/Potassium Clav 875 MG TABLET PO ×2 (09:01→20:43)
[2021-04-24 12:00] VITALS: BP 156/70; PULSE 93; RESP 18; TEMP 37; O2SAT 95
--- NOTE | 2021-04-24 12:09 | MHC.CM.PN ---
Male 50 DX Fever work up in progross DP return to [facility] via BLS.
--- NOTE | 2021-04-24 15:08 | HO.PM.IMPN ---
Subjective Subjective Date of Service: 04/24/21 Interval History: Offers no acute complaints, no issues overnight, had low-grade fever 99.5 otherwise no significant fevers since April 21. GEN no chills no fevers RESP cough no sputum GI no nausea, no vomiting. Skin no rash Physical Exam Vital Signs: Vital Signs: Last Vital Signs Temp 98.6 F 04/24/21 12:00 Pulse 93 04/24/21 12:00 Resp 18 04/24/21 12:00 BP 156/70 H 04/24/21 12:00 Pulse Ox 95 04/24/21 12:00 Oxygen Flow Rate 2 04/19/21 19:17 Body Mass Index 21.7 Gen: in no acute distress, orobuccolingual tardive dyskinesia present Neck: supple Lungs: clear to auscultation bilaterally Heart: regular rate and rhythm, no murmurs Abd: soft, non-tender, bowel sounds audible, non-distended Ext: no edema, right lower extremity flexed at hip and knee Skin: right buttock ulcer not infected Neuro: alert Psych: impaired insight Objective Data Current Medications Generic Name Dose Route Start Last Admin Trade Name Freq PRN Reason Stop Dose Admin Acetaminophen 650 mg 04/20/21 02:51 04/21/21 19:58 Acetaminophen 325 Mg Tablet PO 650 mg Q6H PRN Administration Pain, Mild (Pain Scale 1-3) Amoxicillin/Clavulanate Potassium 875 mg 04/21/21 21:23 04/24/21 09:01 Amoxicillin/Potassium Clav 875 Mg Tablet PO 875 mg Q12H CHRISTELLE Administration Aspirin 81 mg 04/20/21 09:00 04/24/21 09:01 Aspirin Enteric Coated 81 Mg Tablet.Dr PO 81 mg DAILY CHRISTELLE Administration Atorvastatin Calcium 10 mg 04/20/21 21:00 04/23/21 21:07 Atorvastatin Calcium 10 Mg Tablet PO 10 mg BEDTIME CHRISTELLE Administration Benztropine Mesylate 1 mg 04/20/21 09:00 04/24/21 09:01 Benztropine Mesylate 1 Mg Tablet PO 1 mg BID CHRISTELLE Administration Bisacodyl 10 mg 04/20/21 09:00 04/24/21 09:01 Bisacodyl 10 Mg Supp.Rect WV Not Given DAILY CHRISTELLE Docusate Sodium 100 mg 04/20/21 21:00 04/23/21 21:06 Docusate Sodium 100 Mg Capsule PO 100 mg BEDTIME CHRISTELLE Administration Docusate Sodium 200 mg 04/20/21 09:00 04/24/21 09:00 Docusate Sodium 100 Mg Capsule PO 200 mg DAILY CHRISTELLE Administration Doxycycline Hyclate 100 mg 04/21/21 20:45 04/24/21 09:00 Doxycycline Hyclate 100 Mg Tablet PO 100 mg Q12H CHRISTELLE Administration Heparin Sodium (Porcine) 5,000 unit 04/20/21 04:00 04/24/21 04:21 Heparin Sodium,Porcine 5,000 Unit/Ml Vial SUBCUT 5,000 unit Q12H CHRISTELLE Administration Levetiracetam 500 mg 04/21/21 13:45 04/24/21 09:01 Levetiracetam 500 Mg Tablet PO 500 mg BID CHRISTELLE Administration [place] Carbonate 300 mg 04/20/21 21:00 04/23/21 21:06 [place] Carbonate 300 Mg Capsule PO 300 mg BEDTIME CHRISTELLE Administration Multivitamins/Vitamin C 1 tab 04/20/21 09:00 04/24/21 09:00 Multivitamin Tablet PO 1 tab DAILY CHRISTELLE Administration Ondansetron HCl 4 mg 04/20/21 02:51 Ondansetron Hcl 4 Mg/2 Ml Vial IVPUSH Q8H PRN Nausea and Vomiting Polyethylene Glycol 17 gm 04/20/21 09:00 04/24/21 09:01 Polyethylene Glycol 3350 17 Gm Powd.Pack PO 17 gm DAILY CHRISTELLE Administration Senna 17.2 mg 04/20/21 21:00 04/23/21 21:07 Sennosides 8.6 Mg Tablet PO 17.2 mg BEDTIME CHRISTELLE Administration Sodium Biphosphate/Sodium Phosphate 118 ml 04/20/21 02:51 04/20/21 07:12 Sodium Phosphate,[place]-Dibasic 133 Ml Enema [place] 118 ml DAILY PRN Administration Constipation Sodium Chloride 3 ml 04/20/21 02:51 04/24/21 09:01 0.9 % Sodium Chloride Flush 3 Ml Syringe IVFLUSH 3 ml QSHIFT CHRISTELLE Administration Trihexyphenidyl HCl 2 mg 04/20/21 09:00 04/24/21 09:01 Trihexyphenidyl Hcl 2 Mg Tablet PO 2 mg BID CHRISTELLE Administration Labs CBC & Chem 7: 04/24/21 05:34 04/24/21 05:34 Microbiology Microbiology Results: Microbiology 04/19/21 20:06 Blood - Venous Blood Culture - Preliminary No growth after 48 hours. 04/19/21 19:56 Blood - Venous Blood Culture - Preliminary No growth after 48 hours. Assessment and Plan (1) SIRS (systemic inflammatory response syndrome): Status: Acute (2) Fever: Status: Acute (3) Seizure: Status: Acute (4) Constipation: Status: Acute Assessment and Plan: 50yo M [facility] resident sent in with fever/SIRS, unclear source of infection # SIRS/sepsis UA negative, BCx negative, COVID-19 negative - spoke with Dr. Zhong she rec to treat for aspiration pneumonia, doxycycline + amox/clav d# 02/22 [was previously on cefepime + vanco] no recurrent fevers will hold further w/u # question of seizure - Neurology consulted, no seizure noted since admit ,continue levetiracetam ,follow eeg # constipation - continue MiraLax, senna, docusate, and bisacodyl # coccyx ulcer POA - not infected, continue local wound care # HLD - continue atrovastatin # schizoaffective disorder - continue trihexyphenidyl, lithium, and benztropine # HLD - continue statin # VTE ppx - UFH # dispo - return to [facility] in next 24 hrs
[2021-04-24 16:00] VITALS: BP 123/79; PULSE 93; RESP 18; TEMP 37.3; O2SAT 93
[2021-04-24 17:27] LABS: Lyme Abs Screen <0.90 index
[2021-04-24 20:00] VITALS: BP 119/68; PULSE 72; RESP 18; TEMP 37; O2SAT 100
[2021-04-24] MEDS: Lithium Carbonate 300 MG CAPSULE PO (20:43)
[2021-04-24] MEDS: Atorvastatin Calcium 10 MG TABLET PO (20:43)
[2021-04-24] MEDS: Sennosides 8.6 MG TABLET 17.2 MG PO (20:43)
[2021-04-24] MEDS: Docusate Sodium 100 MG CAPSULE PO (20:43)
[2021-04-24 23:12] VITALS: BP 138/81; PULSE 109; RESP 18; TEMP 36.8; O2SAT 97
[2021-04-25 03:34] VITALS: BP 137/79; PULSE 95; RESP 18; TEMP 36; O2SAT 99
[2021-04-25] MEDS: Heparin Sodium,Porcine 5,000 UNIT/ML VIAL 5000 UNIT SUBCUT (03:56)
[2021-04-25 07:49] VITALS: BP 133/86; PULSE 104; RESP 18; TEMP 37.2; O2SAT 97
[2021-04-25] MEDS: polyethylene glycoL 3350 17 GM POWD.PACK PO (08:25)
[2021-04-25] MEDS: Docusate Sodium 100 MG CAPSULE 200 MG PO (08:25)
[2021-04-25] MEDS: 0.9 % Sodium Chloride Flush 3 ML SYRINGE IVFLUSH (08:26)
[2021-04-25] MEDS: Multivitamin TABLET 1 TAB PO (08:26)
[2021-04-25] MEDS: levETIRAcetam 500 MG TABLET PO (08:26)
[2021-04-25] MEDS: Trihexyphenidyl HCL 2 MG TABLET PO (08:26)
[2021-04-25] MEDS: Amoxicillin/Potassium Clav 875 MG TABLET PO (08:26)
[2021-04-25] MEDS: Benztropine Mesylate 1 MG TABLET PO (08:26)
[2021-04-25] MEDS: Aspirin Enteric Coated 81 MG TABLET.DR PO (08:26)
--- NOTE | 2021-04-25 09:21 | MHC.CDI.CONC ---
CDI Concurrent Query Service Date: 04/25/21 Documentation Clarification: Please clarify if you are treating a probable/suspected/likely or confirmed: Clarity of documentation within medical record: Sepsis treat, rule out, POA, resolved Please specify if known Provider Response: Other Other Diagnosis: Sepsis present on admission due to aspiration pneumonia PLEASE DO NOT DELETE/MODIFY EXISTING CONTENT Additional information is needed in order to code to the highest accuracy and appropriate Severity of Illness (SOI). Please clarify the information noted below in your progress notes and discharge summary. Risk Factors/Clinical Indicators/Treatments ED triage: from [facility], pt at baseline neuro's according to facility, been lethargic, fever and tachycardic, open area right glute. Temp 102.4 HR 109 RR 22 BP 138/86 WBC 13.9 PN: SIRS/SEPSIS - UA neg, Bcx neg, Covid neg, no obvious source of infection. ID: Recommends treatment for aspiration pneumonia with Doxycycline and Amoxcillin. CDS: Geri Morales CCS, CDIS Contact Number: [phone] Please Review the information above and exercise your independent professional judgment in responding to the query. If you concur, pleas document in the PROGRESS NOTES and DISCHARGE SUMMARY. If you do not agree with the query, please document in the query above. THIS QUERY IS PART OF THE PERMANENT MEDICAL RECORD
[2021-04-25 11:15] VITALS: BP 110/68; PULSE 106; RESP 18; TEMP 37.3; O2SAT 95
--- NOTE | 2021-04-25 14:23 | MHC.CLN ---
F/U PO INTAKE VARIABLE DIET RX: REGULAR-APPROPRIATE PT RECEIVING ENSURE BID AND GIO TO PROMOTE WOUND HEALING SUPPLEMENT PROVIDES 860KCALS, 45G PROTEIN MONITOR PO INTAKE CLOSELY
--- NOTE | 2021-04-25 14:42 | P.DS_ITS ---
DS: Providers Provider Date of Service: 04/25/21 Date of admission: 04/20/21 02:30 Primary care physician: Edson Meredith DO Consults: 04/20/21 06:22 Consult to Infectious Diseases Routine Consulting Provider: Mily Zhong Reason for consultation: Sepsis, no source Has provider been notified: No 04/21/21 12:59 Consult to Neurology Routine Consulting Provider: [facility] Reason for consultation: ?seizures; h/o seizures, not currently on meds Has provider been notified: No DS: Diagnosis Discharge Diagnosis (1) SIRS (systemic inflammatory response syndrome): Status: Acute (2) Fever: Status: Acute (3) Seizure: Status: Acute (4) Constipation: Status: Acute DS: Medications Discharge Medications Home Medications: Home Medications Medication Instructions Recorded Confirmed acetaminophen 650 mg PO Q4H PRN 01/09/21 04/20/21 ascorbic acid (vitamin C) [Vitamin 500 mg PO DAILY 01/09/21 04/20/21 C] aspirin 81 mg PO DAILY 01/09/21 04/20/21 benztropine 1 mg PO BID 01/09/21 04/20/21 bisacodyl 10 mg GA DAILY 01/09/21 04/20/21 dantrolene 50 mg PO BID 01/09/21 04/20/21 docusate sodium 100 mg PO BEDTIME 01/09/21 04/20/21 docusate sodium 200 mg PO DAILY 01/09/21 04/20/21 ferrous sulfate 325 mg PO DAILY 01/09/21 04/20/21 lithium carbonate 300 mg PO BEDTIME 01/09/21 04/20/21 multivitamin 1 tab PO DAILY 01/09/21 04/20/21 sennosides [senna] 8.6 mg PO DAILY PRN 01/09/21 04/20/21 sennosides [senna] 17.2 mg PO BEDTIME 01/09/21 04/20/21 simvastatin 20 mg PO BEDTIME 01/09/21 04/20/21 trihexyphenidyl 2 mg PO BID 01/09/21 04/20/21 vitamin E 800 unit PO BID 01/09/21 04/20/21 Balmex Adult Care 1 appl TOPICAL Q8H 04/20/21 04/20/21 Fleet Enema 118 ml GA DAILY PRN 04/20/21 04/20/21 Minerin Creme 1 appl TOPICAL QPM 04/20/21 04/20/21 Previous Rx's Medication Instructions Recorded polyethylene glycol 3350 [Miralax] 17 g PO DAILY #510 g 01/08/21 amoxicillin-pot clavulanate 875 mg PO Q12H #5 tab 04/25/21 doxycycline hyclate 100 mg PO Q12H #5 tab 04/25/21 levetiracetam 500 mg PO BID #60 tab 04/25/21 DS: Summary Hospital Course Hospital Course: Date of Service: 04/19/21 Chief Complaint: weakness This is a 50-year-old male with a past medical history of HTN, HLD, Parkinson's, schizophrenia, seizure disorder, toxic encephalopathy, among others who presents to the hospital from [facility] for fever and tachycardia. Patient was awake but refusing to open his eyes for me, refusing to answer any of my questions, I asked the nurse to help me talk to him but he has also been refusing to talk to the nurses and the ED physician. Unable to obtain any review of systems patient is not responding or being cooperative On arrival to the ED to have a temperature of 102.4?, heart rate of 109, respiratory rate of 22, blood pressure of 138/86 Labs are significant for hemoglobin of 12.9, PT of 16, INR of 1.4, CRP of 9.61, ESR of 54, UA negative for any infection Chest x-ray shows unremarkable exam, abdominal CT limited by motion artifact, there is large volume of stool present in the colon and rectum, there is also concerning stercoral colitis Past medical history Anemia Astigmatism, bilateral Bilateral cataracts Chronic constipation Depressive disorder Disorder of the autonomic nervous system, unspecified Dysarthria and anarthria Encephalopathy Essential (primary) hypertension Extrapyramidal and movement disorder Hemiplegia Hyperlipidemia Hypertension MDD (major depressive disorder) Muscle weakness Myopia, bilateral Parkinson disease Presbyopia Schizophrenia Seizures Toxic encephalitis Toxic encephalopathy Hospital course 50yo M [facility] resident sent in with fever/SIRS, on admission patient was noted to be septic with concern for aspiration pneumonia, initially treated with IV vancomycin and cefepime subsequently antibiotic downgraded to doxycycline and Augmentin, blood cultures and urine cultures remain negative ,COVID-19 is negative, patient is now being discharged to rehab facility to finish total 7 day course of antibiotic, there was concern that patient might be having seizures since noted to be intermittently lethargic likely contributing to aspiration, therefore EEG obtained that showed no seizure-like activity however patient placed on Keppra 500 b.i.d. and since then patient has been more awake alert no confusion noted. In regard to right buttock ulcer POA patient has been continued with local wound care In regard to chronic medical conditions including hyperlipidemia and schizoaffective disorder will continue home medication Time Spent with Patient Time attestation: Total time spent providing and/or coordinating discharge se rvices: Discharge coordination time: Greater than 30 minutes Quality: Stroke Does the patient have a stroke diagnosis?: No Physical Exam Vital Signs: Vital Signs: Last Vital Signs Temp 99.2 F 04/25/21 11:15 Pulse 106 H 04/25/21 11:15 Resp 18 04/25/21 11:15 BP 110/68 04/25/21 11:15 Pulse Ox 95 04/25/21 11:15 Oxygen Flow Rate 2 04/19/21 19:17 Body Mass Index 21.7 Gen: in no acute distress, orobuccolingual tardive dyskinesia present Neck: supple Lungs: clear to auscultation bilaterally Heart: regular rate and rhythm, no murmurs Abd: soft, non-tender, bowel sounds audible, non-distended Ext: no edema, right lower extremity flexed at hip and knee Skin: right buttock ulcer not infected, small ulcer noted on left leg Neuro: alert Psych: impaired insight DS: Data Data Completed and Pending Labs on day of discharge: Laboratory Results - last 24 hr 04/23/21 06:58 Lyme Screen IgG & IgM <0.90 Lyme Progressive Test TNP Discharge Plan Discharge Patient Disposition: Xfer SNF Discharge Diagnosis: Sepsis Aspiration pneumonia Hyperlipidemia Seizure disorder Referrals: Edson Meredith DO [Primary Care Provider] - 1 Week Discharge Medications: New doxycycline hyclate 100 mg Tablet 100 mg PO Q12H Qty: 5 RF: 0 amoxicillin-pot clavulanate 875-125 mg Tablet 875 mg PO Q12H Qty: 5 RF: 0 levetiracetam 500 mg Tablet 500 mg PO BID Qty: 60 RF: 0 Continued polyethylene glycol 3350 [Miralax] 17 gram/dose powder 17 g PO DAILY Qty: 510 RF: 0 sennosides [senna] 8.6 mg Tablet 8.6 mg PO DAILY PRN (Reason: Constipation) RF: 0 acetaminophen 325 mg Tablet 650 mg PO Q4H PRN (Reason: Fever Or Pain) RF: 0 bisacodyl 10 mg Suppository 10 mg GA DAILY RF: 0 vitamin E 400 unit Capsule 800 unit PO BID RF: 0 dantrolene 50 mg Capsule 50 mg PO BID RF: 0 trihexyphenidyl 2 mg Tablet 2 mg PO BID RF: 0 ascorbic acid (vitamin C) [Vitamin C] 500 mg Tablet 500 mg PO DAILY RF: 0 benztropine 1 mg Tablet 1 mg PO BID RF: 0 multivitamin Tablet 1 tab PO DAILY RF: 0 sennosides [senna] 8.6 mg Tablet 17.2 mg PO BEDTIME RF: 0 simvastatin 20 mg Tablet 20 mg PO BEDTIME RF: 0 aspirin 81 mg Tablet,Delayed Release (Dr/Ec) 81 mg PO DAILY RF: 0 docusate sodium 100 mg Capsule 100 mg PO BEDTIME RF: 0 docusate sodium 100 mg Capsule 200 mg PO DAILY RF: 0 ferrous sulfate 325 mg (65 mg iron) Tablet 325 mg PO DAILY RF: 0 lithium carbonate 300 mg Capsule 300 mg PO BEDTIME RF: 0 Fleet Enema 19-7 gram/118 mL Enema 118 ml GA DAILY PRN (Reason: Constipation) RF: 0 Balmex Adult Care 11.3 % Cream 1 appl TOPICAL Q8H RF: 0 Minerin Creme Cream 1 appl TOPICAL QPM RF: 0 Discharge Orders: Discharge Order (Routine); Ordered 04/25/21 Ordered By: Michele Beckett Diet: regular diet Activity on Discharge: As tolerated Stand Alone Forms: Patient Portal Discharge page Care Plan Goals: Toxic encephalopathy resolved likely due to infection, EEG showed no seizure like activity, but since patient has history of seizure therefore placed on Keppra 500 twice daily, due to periods of unresponsiveness concerning for post ictal state, although no seizure-like activity noted. Health Concerns: Fever improved, has right buttock decubiti ulcer need frequent position change and daily dressing Plan of Treatment: Continue all previous medications as prescribed, follow-up with PCP Assessment: As above
[2021-04-25 16:12] LABS: COVID-19 Test Negative (Negative)
== END 2021-04-25 17:00 | disposition skilled nursing facility (03) | DRG 720 ==
LOC: HO.ED 04-20 00:08 → HO.IMC 04-20 04:09
PROVIDERS: Family Medicine; Physician Assistant Medical; Admitting Provider Internal Medicine; Emergency Provider Internal Medicine; PCP Hospitalist; Visit Provider Hospitalist
DX: A41.9 Sepsis, unspecified organism (principal); J69.0 Pneumonitis due to inhalation of food and vomit; G20 Parkinson's disease; L89.159 Pressure ulcer of sacral region, unspecified stage; F20.9 Schizophrenia, unspecified; F17.210 Nicotine dependence, cigarettes, uncomplicated; G40.909 Epilepsy, unspecified, not intractable, without status epilepticus; K59.00 Constipation, unspecified; Z20.822 Contact with and (suspected) exposure to COVID-19; Z71.6 Tobacco abuse counseling; Z79.899 Other long term (current) drug therapy
CPT/HCPCS: 36415; 70450; 71045; 71046; 74176; 80048; 80076; 80178; 80202; 81003; 83605; 84145; 85025; 85027; 85610; 85652; 85730; 86140; 86617; 86618; 87040; 87389; 87635; 93005; 95816; 99285; J0692; J0696; J1885; J3370

== ENCOUNTER 2021-04-26 11:03 | Outpatient (REF) | payer MEDICAID, SELFPAY ==
--- NOTE | ~2021-04-26 | XR_ITS ---
EXAMINATION: XR RIGHT FEMUR XR TIBIA AND FIBULA CLINICAL INFORMATION: Right leg pain with decreased range of motion for one week. COMPARISON: None. TECHNIQUE: AP and lateral views of the right femur and right tibia and fibula. FINDINGS: AP and lateral views of the right femur demonstrate what appears to be an old healed right subcapital impacted fracture. There is also dystrophic calcifications about the left iliac bone and greater trochanter consistent with previous right gluteus muscle or tendon injury. There is some spurring of the right hip joint with some bowing inferiorly. No definite acute fractures appreciated. No right knee effusion is appreciated. No significant degenerative change of the right knee is appreciated. No acute fracture or dislocation of the right tibia or fibula is identified. No destructive bony lesion identified. XR/XR tibia fibula RT 2V IMPRESSION: Evidence for previous right femoral subcapital fracture. Calcification consistent with previous gluteus muscle injury and dystrophic calcifications. No significant bony abnormality of the right tibia or fibula..
--- NOTE | ~2021-04-26 | XR_ITS ---
EXAMINATION: XR RIGHT FEMUR XR TIBIA AND FIBULA CLINICAL INFORMATION: Right leg pain with decreased range of motion for one week. COMPARISON: None. TECHNIQUE: AP and lateral views of the right femur and right tibia and fibula. FINDINGS: AP and lateral views of the right femur demonstrate what appears to be an old healed right subcapital impacted fracture. There is also dystrophic calcifications about the left iliac bone and greater trochanter consistent with previous right gluteus muscle or tendon injury. There is some spurring of the right hip joint with some bowing inferiorly. No definite acute fractures appreciated. No right knee effusion is appreciated. No significant degenerative change of the right knee is appreciated. No acute fracture or dislocation of the right tibia or fibula is identified. No destructive bony lesion identified. XR/XR femur RT 2V IMPRESSION: Evidence for previous right femoral subcapital fracture. Calcification consistent with previous gluteus muscle injury and dystrophic calcifications. No significant bony abnormality of the right tibia or fibula..
== END 2021-04-26 11:04 | disposition home or self-care (01) ==
LOC: HO.XRAY 11:03
PROVIDERS: PCP Hospitalist; Visit Provider Hospitalist
DX: M79.604 Pain in right leg (principal)
CPT/HCPCS: 73552; 73590

== ENCOUNTER 2021-04-29 12:20 | Emergency (ER) | payer MEDICAID, SELFPAY ==
--- NOTE | ~2021-04-29 | CT_ITS ---
EXAMINATION: CT PELVIS WITHOUT CONTRAST CLINICAL INFORMATION: Bilateral hip pain COMPARISON: None TECHNIQUE: Helical scanning was performed with submillimeter collimation through the pelvis. Sagittal and coronal multiplanar 2-D reconstructions were obtained. This CT examination was performed using dose optimization techniques as appropriate, variously including the following: *Automated exposure control *Adjustment of mA and/or kV according to patient size (this includes techniques or standardized protocols for targeted exams where dose is matched to indication/reason for exam; i.e. extremities or head) *Use of iterative reconstruction technique DLP: 298 mGy-cm FINDINGS: PELVIS: The bladder is nondistended. There is large amount of stool, diverticuli in the rectum and the sigmoid colon consistent with constipation. There is moderate thickening of the rectal and sigmoid wall likely proctitis. No free air seen on this limited exam. There is no free fluid OSSEOUS STRUCTURES: There is no visible acute fracture, dislocation or subluxation. SI joints are normal. 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 The left hip joint is normal. No focal lytic process seen. The soft tissues are normal. CT/CT bony pelvis IMPRESSION: Severe constipation with a proctitis. No free air or free fluid seen. Acute anterior medial deformity of the right hip joint with hypertrophic bony changes along the right lateral hip joint. No fracture seen involving the hip joints or the pelvis at this time.
[2021-04-29 12:28] VITALS: BP 125/72; PULSE 130; RESP 18; TEMP 36.9; O2SAT 93; BMI 23.3
[2021-04-29] MEDS: oxyCODONE HCl Immed Release 5 MG TABLET PO (15:03)
--- NOTE | 2021-04-29 16:06 | ED_ITS ---
HPI - Extremity Problem General Chief complaint: Extremity Injury, Lower Stated complaint: leg pain Time Seen by Provider: 04/29/21 13:26 Source: patient, EMS and other ([facility]) Mode of arrival: EMS Limitations: physical limitation History of Present Illness HPI Narrative: 50 y/o male with history of schizophrenia, seizures, encephalitis, Parkinson's disease, hemiplegia, bilateral cataracts, HTN, HLD, autonomic dysfunction and anemia presented via EMS from [facility] where he currently resides with complaints of worsening right hip/right lower extremity and Dr. steinberg sent him in for a CT scan of his right hip and pelvis to evaluate for worsening fracture due to he has had a fracture in the past. Patient has not had any new injuries and he has not fallen. Patient denies any additional complaints or concerns at this time. Related Data Home Medications Medication Instructions Recorded Confirmed acetaminophen 650 mg PO Q4H PRN 01/09/21 04/20/21 ascorbic acid (vitamin C) [Vitamin 500 mg PO DAILY 01/09/21 04/20/21 C] aspirin 81 mg PO DAILY 01/09/21 04/20/21 benztropine 1 mg PO BID 01/09/21 04/20/21 bisacodyl 10 mg PA DAILY 01/09/21 04/20/21 dantrolene 50 mg PO BID 01/09/21 04/20/21 docusate sodium 100 mg PO BEDTIME 01/09/21 04/20/21 docusate sodium 200 mg PO DAILY 01/09/21 04/20/21 ferrous sulfate 325 mg PO DAILY 01/09/21 04/20/21 lithium carbonate 300 mg PO BEDTIME 01/09/21 04/20/21 multivitamin 1 tab PO DAILY 01/09/21 04/20/21 sennosides [senna] 8.6 mg PO DAILY PRN 01/09/21 04/20/21 sennosides [senna] 17.2 mg PO BEDTIME 01/09/21 04/20/21 simvastatin 20 mg PO BEDTIME 01/09/21 04/20/21 trihexyphenidyl 2 mg PO BID 01/09/21 04/20/21 vitamin E 800 unit PO BID 01/09/21 04/20/21 Balmex Adult Care 1 appl TOPICAL Q8H 04/20/21 04/20/21 Fleet Enema 118 ml PA DAILY PRN 04/20/21 04/20/21 Minerin Creme 1 appl TOPICAL QPM 04/20/21 04/20/21 Previous Rx's Medication Instructions Recorded polyethylene glycol 3350 [Miralax] 17 g PO DAILY #510 g 01/08/21 amoxicillin-pot clavulanate 875 mg PO Q12H #5 tab 04/25/21 doxycycline hyclate 100 mg PO Q12H #5 tab 04/25/21 levetiracetam 500 mg PO BID #60 tab 04/25/21 Allergies Allergy/AdvReac Type Severity Reaction Status Date / Time wool Allergy Unknown Unknown Uncoded 04/19/21 23:44 Review of Systems Review of Systems: Constitutional : No changes in activity, No lethargy, No recent prior head injury, No agitation, No increased fussiness ENT/Mouth : No Ear Pain, No Nasal discharge/drainage Eyes: No Eye Pain, No Swelling, No Redness, No Foreign Body, No Vision Changes Cardiovascular : No Chest Pain, No SOB Respiratory : No Cough Gastrointestinal : No Nausea, No Vomiting, No abdominal Pain Genitourinary : No Dysuria, No Urinary Frequency, No Urinary Incontinence, No Urgency, No Flank Pain Musculoskeletal : + joint pain, No neck stiffness, No back pain/injury Skin : No lacerations Neuro : No unsteady gait, No Paresthesias, No Loss of Consciousness, No altered mental status, No Headache Yes all other systems are reviewed and are negative [facility] Past Medical History Attestation statement: The following information was validated with the patient. Medical History Anemia Astigmatism, bilateral Bilateral cataracts Chronic constipation Depressive disorder Disorder of the autonomic nervous system, unspecified Dysarthria and anarthria Encephalopathy Essential (primary) hypertension Extrapyramidal and movement disorder Fever Hemiplegia Hyperlipidemia Hypertension MDD (major depressive disorder) Muscle weakness Myopia, bilateral Parkinson disease Presbyopia Schizophrenia Seizures Toxic encephalitis Toxic encephalopathy Social History Social History Household Members: Other Housing: Care Home Do you presently have visiting nurse or other home services: No Alcohol intake: never Patient Tobacco Use Status: Current everyday Tobacco user Tobacco use type: Cigarette Cigarettes Per Day: 20 Smoked in Last 30 Days: No Use of substances other than those prescribed or required for medical reasons: No Advance Directives: No Advance Directives Information Provided: Yes service: No Current occupational status: disabled Physical Exam Vital Signs: Vital Signs: Last Vital Signs Temp 98.4 F 04/29/21 12:28 Pulse 130 H 04/29/21 12:28 Resp 18 04/29/21 12:28 BP 125/72 04/29/21 12:28 Pulse Ox 93 04/29/21 12:28 Body Mass Index 23.3 vital signs have been reviewed as normal and appeared to be correct. Blood pressure normal. Heart rate normal. Respiration rate normal. Temperature normal. Oxygen saturation normal. Appearance: Alert. Oriented X1. No acute distress. Head: Normal external exam. Normocephalic. Eyes: PERRLA. EOMI. Conjunctiva and sclera normal. Eyelids normal. ENT: Pharynx normal. Uvula midline. Moist mucous membranes. No trismus noted. No drooling noted. No muffled voice noted. Neck: Normal inspection. Neck supple. FROM. No adenopathy. No meningeal signs. CVS: Normal heart rate and rhythm. Heart sound normal. No murmurs noted. Pulses normal throughout. Respiratory: No respiratory distress. Painless inspiration. Breath sounds normal. No wheezes/rales/rhonchi noted. Chest nontender. No accessory muscle usage noted or decreased air movement noted. Abdomen: Soft and nontender. Nondistended. No guarding. No rigidity. Bowel sounds normal in all 4 quadrants. No distention noted. No organomegaly noted. No visible injury noted. No rebound tenderness. Negative Rovsing sign. Negative obturator's sign. Negative psoas sign. Negative Chou sign. Back: Full range of motion noted. Skin: Skin warm and dry. Normal skin color. Normal skin turgor. No rashes/lesions/lacerations noted. Extremities: Patient has his right leg bent over his left leg and when I attempt to the pushes right leg back to a normal position patient reports he has pain although no obvious signs of infection or trauma. Neuro: Oriented X 1. Course Course Course Narrative: 50 y/o male with history of schizophrenia, seizures, encephalitis, Parkinson's disease, hemiplegia, bilateral cataracts, HTN, HLD, autonomic dysfunction and anemia presented via EMS from [facility] where he currently resides with complaints of worsening right hip/right lower extremity and Dr. steinberg sent him in for a CT scan of his right hip and pelvis to evaluate for worsening fracture due to he has had a fracture in the past. Patient has not had any new injuries and he has not fallen. Patient denies any additional complaints or concerns at this time. - therefore obtain a CT scan of his pelvis which included his hips and revealed severe constipation and acute anterior medial deformity of right hip joint with hypertrophic bony changes along the right lateral hip joint. No fracture seen involving the hip joints or the pelvis at this time. - therefore I consulted with Dr. steinberg and he reported that he will take care of the patient's constipation in the patient's pain and that the patient can be sent back to [facility] the patient does not need any labs or any additional care at this time. Therefore patient will be sent via EMS back to [facility]. Patient understands agrees with this plan. MDM - Extremity (Nontraumatic) Imaging Data CT scan of pelvis/bilateral hips: Attestation: I personally reviewed and interpreted this imaging study as follows: Radiologist's impression: FINDINGS: PELVIS: The bladder is nondistended. There is large amount of stool, diverticuli in the rectum and the sigmoid colon consistent with constipation. There is moderate thickening of the rectal and sigmoid wall likely proctitis. No free air seen on this limited exam. There is no free fluid OSSEOUS STRUCTURES: There is no visible acute fracture, dislocation or subluxation. SI joints are normal. 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 The left hip joint is normal. No focal lytic process seen. The soft tissues are normal. CT/CT bony pelvis IMPRESSION: Severe constipation with a proctitis. No free air or free fluid seen. Acute anterior medial deformity of the right hip joint with hypertrophic bony changes along the right lateral hip joint. No fracture seen involving the hip joints or the pelvis at this time. Discharge Plan Discharge Clinical Impression: Constipation, Calcification of muscle Patient Disposition: Home, Self-Care Instructions: Constipation (ED) Prescriptions: No Action polyethylene glycol 3350 [Miralax] 17 gram/dose powder 17 g PO DAILY Qty: 510 RF: 0 sennosides [senna] 8.6 mg Tablet 8.6 mg PO DAILY PRN (Reason: Constipation) RF: 0 acetaminophen 325 mg Tablet 650 mg PO Q4H PRN (Reason: Fever Or Pain) RF: 0 bisacodyl 10 mg Suppository 10 mg PA DAILY RF: 0 vitamin E 400 unit Capsule 800 unit PO BID RF: 0 dantrolene 50 mg Capsule 50 mg PO BID RF: 0 trihexyphenidyl 2 mg Tablet 2 mg PO BID RF: 0 ascorbic acid (vitamin C) [Vitamin C] 500 mg Tablet 500 mg PO DAILY RF: 0 benztropine 1 mg Tablet 1 mg PO BID RF: 0 multivitamin Tablet 1 tab PO DAILY RF: 0 sennosides [senna] 8.6 mg Tablet 17.2 mg PO BEDTIME RF: 0 simvastatin 20 mg Tablet 20 mg PO BEDTIME RF: 0 aspirin 81 mg Tablet,Delayed Release (Dr/Ec) 81 mg PO DAILY RF: 0 docusate sodium 100 mg Capsule 100 mg PO BEDTIME RF: 0 docusate sodium 100 mg Capsule 200 mg PO DAILY RF: 0 ferrous sulfate 325 mg (65 mg iron) Tablet 325 mg PO DAILY RF: 0 lithium carbonate 300 mg Capsule 300 mg PO BEDTIME RF: 0 Fleet Enema 19-7 gram/118 mL Enema 118 ml PA DAILY PRN (Reason: Constipation) RF: 0 Balmex Adult Care 11.3 % Cream 1 appl TOPICAL Q8H RF: 0 Minerin Creme Cream 1 appl TOPICAL QPM RF: 0 doxycycline hyclate 100 mg Tablet 100 mg PO Q12H Qty: 5 RF: 0 amoxicillin-pot clavulanate 875-125 mg Tablet 875 mg PO Q12H Qty: 5 RF: 0 levetiracetam 500 mg Tablet 500 mg PO BID Qty: 60 RF: 0 Referrals: Edson Steinberg DO [Primary Care Provider] - 2 days Print Language: Setswana
== END 2021-04-29 17:54 | disposition home or self-care (01) ==
PROVIDERS: Emergency Provider Emergency Medicine Emergency Medical Services; PCP Hospitalist
DX: M61.9 Calcification and ossification of muscle, unspecified (principal); M25.551 Pain in right hip; K59.00 Constipation, unspecified; G20 Parkinson's disease; I10 Essential (primary) hypertension; G81.90 Hemiplegia, unspecified affecting unspecified side; Z79.899 Other long term (current) drug therapy
CPT/HCPCS: 72192; 99284

== ENCOUNTER 2021-05-06 22:52 | Inpatient (IN) | payer MEDICAID, SELFPAY ==
--- NOTE | ~2021-05-06 | CT_ITS ---
EXAMINATION CT CHEST, ABDOMEN AND PELVIS WITH CONTRAST CLINICAL INFORMATION: Cough fever and abdominal pain. COMPARISON: 04/20/2021 TECHNIQUE: Multidetector volumetric CT imaging of the chest, abdomen and pelvis was obtained after the administration of 95 mL of intravenous Omnipaque 350 without immediate adverse reactions. Coronal and sagittal reformats were reviewed. This CT examination was performed using dose optimization techniques as appropriate, variously including the following: *Automated exposure control *Adjustment of mA and/or kV according to patient size (this includes techniques or standardized protocols for targeted exams where dose is matched to indication/reason for exam; i.e. extremities or head) *Use of iterative reconstruction technique DLP: 891 mGy-cm. FINDINGS: CHEST LUNGS/PLEURA: Secretions present within the right mainstem bronchus and lower lobe bronchials to the medial segment of the right lower lobe associated with atelectasis of the medial basal segment. Mild bronchial wall thickening within the lower lobes bilaterally. Stable 5 mm nodule within right upper lobe (series 7, image 155). There is no pleural effusion. No pleural mass or thickening. MEDIASTINUM/ESTEFANIA: Normal heart size. Coronary calcifications. No mediastinal or hilar adenopathy. CHEST WALL/AXILLA: Unremarkable. ABDOMEN/PELVIS HEPATOBILIARY: Liver normal in size, contour and morphology. There are scattered hepatic cysts predominantly within the left lobe of liver. There is a 1.8 cm focus of arterial enhancement within the right lobe of liver as seen on series 7, image [address] pulmonary angiogram, not evident on the portal venous phase suggestive of focal nodular hyperplasia or a small arterial portal shunt. There is a hemangioma within the anterior subcapsular aspect of the medial segment measuring 1.6 cm. No intra or extrahepatic biliary dilatation. Gallbladder unremarkable. PANCREAS: Unremarkable. SPLEEN: Unremarkable. ADRENAL GLANDS: Unremarkable. KIDNEYS, URETERS AND BLADDER: Kidneys normal in size, axis and morphology demonstrating symmetric enhancement. No suspicious renal cysts or masses. No hydronephrosis or urinary calculi. Ureters normal in course and caliber. Mild bladder wall thickening suspected GASTROINTESTINAL TRACT: Moderate constipation. Again seen is a large amount of stool within the rectum associated with rectal wall thickening suggestive of stercoral colitis. PELVIC VISCERA: Unremarkable. LYMPH NODES: No lymphadenopathy. PERITONEUM/BODY WALL: Unremarkable. VASCULAR STRUCTURES: Aorta is atherosclerotic but normal caliber. Patent venous structures. OSSEOUS STRUCTURES There is a calcification redemonstrated about the right hip joint. Small right hip joint effusion associated with synovial hyperenhancement/synovitis. Windswept pelvis. CT/CT abdomen pelvis w con IMPRESSION: CHEST: * Secretions present within the right mainstem bronchus associated with atelectasis of the medial basal segment of the right lower lobe. Recommend pulmonary lavage. * Mild lower lobe bronchial wall thickening without bronchiectasis. * Stable 4 mm nodule within right upper lobe. ABDOMEN/PELVIS: * Moderate constipation with large rectal stool burden and associated rectal wall thickening suggestive of stercoral colitis as seen previously. * Small right hip joint effusion associated with synovial thickening and hyperenhancement. This could be compatible with synovitis. No imaging evidence of osteomyelitis. * Questionable bladder wall thickening versus spurious thickening related to underdistention. Please correlate with urinalysis. * There are couple of hepatic lesions, one of which represents a hemangioma, the other less specific and favored to represent focal nodular hyperplasia or an arterioportal shunt as described.
--- NOTE | ~2021-05-06 | XR_ITS ---
EXAMINATION: XR CHEST CLINICAL INFORMATION: Follow-up pneumonia COMPARISON: Previous chest CT April 2021 and chest x-ray 04/22/2021 TECHNIQUE: 2 views of the chest were obtained. Exam is limited due to patient rotation, particularly the lateral view FINDINGS: The cardiac and mediastinal contours are stable. There is question of a small infiltrate at the right lung base on the AP view. This appears improved from previous exams. The lungs are otherwise clear. There is no pleural effusion or pneumothorax. Bony structures are unremarkable. XR/XR chest 2V IMPRESSION: Question small residual infiltrate at the right lung base. This appears improved compared to recent exams.
--- NOTE | ~2021-05-06 | FL_ITS ---
EXAMINATION: XR LUMBAR PUNCTURE CLINICAL INFORMATION: Fever encephalopathy. COMPARISON: None TECHNIQUE: Following explaining procedure, benefits and risk by phone to the [facility] a written consent was obtained on the day before the procedure in presence of [facility] nursing. Patient was placed in left lateral decubitus view and low back area was cleaned and draped in usual sterile manner. 1% lidocaine was injected at puncture site. A 22-gauge spinal needle was inserted from right para midline approach intrathecally at the L3-L4 disc level. Approximately 5.5 mm CSF was collected in 3 test tubes. Postprocedure needle with stylet was removed and complete hemostasis achieved at puncture site. Patient tolerated procedure extremely well. Simple banded was placed at the puncture site. FINDINGS: On the visualized images there is loss of L5-S1 disc height. The L4-L5 L3-L4 disc heights and the vertebral heights are maintained normal. Approximately 5.5 mL of clear CSF fluid was collected in 3 test tubes and sent to lab for further evaluation. FLUOROSCOPY TIME: 1.8 minutes DOSE AREA PRODUCT: 302 uGy-m2 (microgray-meter squared) FL/FL guided lumbar puncture LP IMPRESSION: Successful CT fluoroscopy-guided lumbar puncture performed in left lateral decubitus view.
[2021-05-06 23:17] VITALS: BP 116/97; PULSE 118; RESP 16; TEMP 36.9; O2SAT 96; BMI 23.8
[2021-05-07] VITALS (11 sets, daily range): BP systolic 125–155; BP diastolic 75–90; PULSE 102–114; RESP 16–18; TEMP 36.4–38.9; O2SAT 92–99
--- NOTE | 2021-05-07 | ECG_ITS ---
Test Reason : FAILURE TO THRIVE Blood Pressure : / mmHG Vent. Rate : 115 BPM Atrial Rate : 115 BPM P-R Int : 142 ms QRS Dur : 096 ms QT Int : 322 ms P-R-T Axes : 068 051 052 degrees QTc Int : 445 ms Sinus tachycardia Moderate voltage criteria for LVH, may be normal variant Nonspecific T wave abnormality Abnormal ECG When compared with ECG of 19-APR-2021 19:19, No significant changes seen Referred By: Taya Mills Electronically Signed By:MAMADOU CORONEL
--- NOTE | 2021-05-07 00:50 | ED.GENADULT ---
HPI - General Adult General Chief complaint: General Medical Stated complaint: IRRATIC BEHAVIOR,FEVER 99.6 Time Seen by Provider: 05/06/21 23:59 Source: patient and other Mode of arrival: EMS History of Present Illness HPI narrative: This is a 50-year-old male who arrives via ambulance from [facility] and there they are complaining that patient is not eating for 2-3 days since getting discharge from this facility. Patient is a poor historian and appears to be denying evidence of pain, although he is rubbing his abdomen. Related Data Home Medications Medication Instructions Recorded Confirmed acetaminophen 650 mg PO Q4H PRN 01/09/21 04/20/21 ascorbic acid (vitamin C) [Vitamin 500 mg PO DAILY 01/09/21 04/20/21 C] aspirin 81 mg PO DAILY 01/09/21 04/20/21 benztropine 1 mg PO BID 01/09/21 04/20/21 bisacodyl 10 mg MD DAILY 01/09/21 04/20/21 dantrolene 50 mg PO BID 01/09/21 04/20/21 docusate sodium 100 mg PO BEDTIME 01/09/21 04/20/21 docusate sodium 200 mg PO DAILY 01/09/21 04/20/21 ferrous sulfate 325 mg PO DAILY 01/09/21 04/20/21 lithium carbonate 300 mg PO BEDTIME 01/09/21 04/20/21 multivitamin 1 tab PO DAILY 01/09/21 04/20/21 sennosides [senna] 8.6 mg PO DAILY PRN 01/09/21 04/20/21 sennosides [senna] 17.2 mg PO BEDTIME 01/09/21 04/20/21 simvastatin 20 mg PO BEDTIME 01/09/21 04/20/21 trihexyphenidyl 2 mg PO BID 01/09/21 04/20/21 vitamin E 800 unit PO BID 01/09/21 04/20/21 Balmex Adult Care 1 appl TOPICAL Q8H 04/20/21 04/20/21 Fleet Enema 118 ml MD DAILY PRN 04/20/21 04/20/21 Minerin Creme 1 appl TOPICAL QPM 04/20/21 04/20/21 Previous Rx's Medication Instructions Recorded polyethylene glycol 3350 [Miralax] 17 g PO DAILY #510 g 01/08/21 amoxicillin-pot clavulanate 875 mg PO Q12H #5 tab 04/25/21 doxycycline hyclate 100 mg PO Q12H #5 tab 04/25/21 levetiracetam 500 mg PO BID #60 tab 04/25/21 Allergies Allergy/AdvReac Type Severity Reaction Status Date / Time wool Allergy Unknown Unknown Uncoded 04/19/21 23:44 Review of Systems Review of Systems: Yes Unobtainable due to mental condition PMFSH Past Medical History Source: nursing notes reviewed Medical History Anemia Astigmatism, bilateral Bilateral cataracts Chronic constipation Constipation Depressive disorder Disorder of the autonomic nervous system, unspecified Dysarthria and anarthria Encephalopathy Essential (primary) hypertension Extrapyramidal and movement disorder Fever Hemiplegia Hyperlipidemia Hypertension MDD (major depressive disorder) Muscle weakness Myopia, bilateral Parkinson disease Presbyopia Schizophrenia Seizure Seizures SIRS (systemic inflammatory response syndrome) Toxic encephalitis Toxic encephalopathy Social History Social History Household Members: Other Housing: Jail Do you presently have visiting nurse or other home services: No Alcohol intake: never Patient Tobacco Use Status: Current everyday Tobacco user Tobacco use type: Cigarette Cigarettes Per Day: 20 Advance Directives: No Advance Directives Information Provided: No service: No Current occupational status: disabled Physical Exam Vital Signs: Vital Signs: Last Vital Signs Temp 98.5 F 05/06/21 23:17 Pulse 118 H 05/06/21 23:17 Resp 16 05/06/21 23:17 BP 116/97 H 05/06/21 23:17 Pulse Ox 96 05/06/21 23:17 Body Mass Index 23.8 VITAL SIGNS: Reviewed. GENERAL: Well developed, well nourished, in no acute distress. HEAD: Normocephalic/atraumatic EYES: PERRLA, EOMI OROPHARYNX: no oral lesions noted, posterior pharynx clear, moist mucosa, gingival hyperplasia noted NECK: Supple, no adenopathy LUNGS: Normal breath sounds. No adventitious sounds or accessory muscle use. SpO2<96> CARDIOVASCULAR: Regular rate and rhythm without noted murmurs, no JVD or lower extremity edema. ABDOMEN: Soft, tenderness on palpation without rebound, non-distended with bowel sounds. SKIN: Inspection of the skin reveals no rashes, multiple sources appear to be secondary to pressure and contracture NEUROLOGIC: Alert, Patient with chronic contractures of the bilateral lower extremities Course Course Course Narrative: 2359: 50-year-old male with history and clinical presentation concerning for possible intra-abdominal cause for poor oral intake and given noticeable discomfort on palpation of the abdomen and is noted to have a 102 rectal temperature. On review of all investigations patient has sepsis with pulmonary changes with secretions in the right mainstem bronchus that are likely contributing to fever and leukocytosis as well as a small right hip joint effusion. Case was discussed with inpatient hospitalist who is accepting admission. Medical Decision Making Lab Data Result diagrams: 05/07/21 01:18 05/07/21 01:18 Labs: Lab Results 05/07/21 05/07/21 05/07/21 Range/Units 01:18 01:18 01:18 WBC 21.7 H (4.8-10.8) X10*3/uL RBC 4.91 D (4.60-5.80) X10*6/uL Hgb 13.7 L D (14.0-18.0) g/dl Hct 43.2 D (42-52) % MCV 88.0 (80-98) fL MCH 27.9 (27.0-33.0) pg MCHC 31.7 (31.0-36.0) g/dl RDW 13.3 (11.0-16.0) % Plt Count 370 D (160-400) X10*3/uL MPV 11.0 (9.4-12.4) fL Immature Gran % (Auto) 0.4 (0.0-0.4) % Neut % (Auto) 89.4 H (45-73) % Lymph % (Auto) 4.7 L (20-40) % [place] % (Auto) 5.4 (2-11) % Eos % (Auto) 0.0 (0-4) % Baso % (Auto) 0.1 (0-2) % Lymph # (Auto) 1.0 L (1.2-4.9) X10*3/uL [place] # (Auto) 1.2 (0.1-1.2) X10*3/uL Eos # (Auto) 0.0 (0.0-0.4) X10*3/uL Baso # (Auto) 0.0 (0.0-0.2) X10*3/uL Abs Immat Gran (auto) 0.09 H (0.00-0.03) X10*3/uL Absolute Neuts (auto) 19.4 H (2.0-8.3) X10*3/uL Absolute Nucleated RBC 0.000 (0.0-0.012) X10*3/uL Nucleated RBC % (auto) 0.0 (0.0-0.2) /100WBC Sodium 142 (135-145) mmol/L Potassium 4.3 (3.3-5.1) mmol/L Chloride 104 (96-108) mmol/L Carbon Dioxide 26 (22-29) mmol/L Anion Gap 16 (12-20) BUN 23 H (9-16) mg/dL Creatinine 0.93 (0.5-1.4) mg/dL Estim Creat Clear Calc 82.6 Estimated GFR > 60 Random Glucose 113 (60-115) mg/dL Lactic Acid (0.5-2.0) mmol/L Calcium 9.9 D (8.4-10.2) mg/dL Total Bilirubin 0.5 (0.0-1.0) mg/dL AST 17 D (5-37) U/L ALT 31 (0-40) U/L Alkaline Phosphatase 131 H D (39-117) U/L Ammonia 24 (13-55) umol/L Total Protein 8.7 H (6.5-8.0) g/dL Albumin 4.2 (3.5-5.0) g/dL Lipase (8-78) U/L Urine Color Urine Appearance Urine pH (5.0-8.0) Ur Specific [place] (1.005-1.025) Urine Protein (NEG-TRACE) MG/DL Urine Glucose (UA) (NEG) MG/DL Urine Ketones (NEG) MG/DL Urine Blood (NEG) Urine Nitrite (NEG) Ur Leukocyte Esterase (NEG) Urine RBC (0) /HPF Urine WBC (0-4) /HPF Ur Squamous Epith Cells /LPF Urine Bacteria /LPF Hyaline Casts /LPF Urine Mucus /LPF Urine Opiates Screen (Not Detect) Ur Barbiturates Screen (Not Detect) Ur Phencyclidine Scrn (Not Detect) Ur Amphetamines Screen (Not Detect) U Benzodiazepines Scrn (Not Detect) [place] (0.60-1.20) mmol/L Urine Cocaine Screen (Not Detect) U Marijuana (THC) Screen (Not Detect) Ethyl Alcohol mg/dL 05/07/21 05/07/21 05/07/21 Range/Units 01:18 01:18 01:18 WBC (4.8-10.8) X10*3/uL RBC (4.60-5.80) X10*6/uL Hgb (14.0-18.0) g/dl Hct (42-52) % MCV (80-98) fL MCH (27.0-33.0) pg MCHC (31.0-36.0) g/dl RDW (11.0-16.0) % Plt Count (160-400) X10*3/uL MPV (9.4-12.4) fL Immature Gran % (Auto) (0.0-0.4) % Neut % (Auto) (45-73) % Lymph % (Auto) (20-40) % [place] % (Auto) (2-11) % Eos % (Auto) (0-4) % Baso % (Auto) (0-2) % Lymph # (Auto) (1.2-4.9) X10*3/uL [place] # (Auto) (0.1-1.2) X10*3/uL Eos # (Auto) (0.0-0.4) X10*3/uL Baso # (Auto) (0.0-0.2) X10*3/uL Abs Immat Gran (auto) (0.00-0.03) X10*3/uL Absolute Neuts (auto) (2.0-8.3) X10*3/uL Absolute Nucleated RBC (0.0-0.012) X10*3/uL Nucleated RBC % (auto) (0.0-0.2) /100WBC Sodium (135-145) mmol/L Potassium (3.3-5.1) mmol/L Chloride (96-108) mmol/L Carbon Dioxide (22-29) mmol/L Anion Gap (12-20) BUN (9-16) mg/dL Creatinine (0.5-1.4) mg/dL Estim Creat Clear Calc Estimated GFR Random Glucose (60-115) mg/dL Lactic Acid (0.5-2.0) mmol/L Calcium (8.4-10.2) mg/dL Total Bilirubin (0.0-1.0) mg/dL AST (5-37) U/L ALT (0-40) U/L Alkaline Phosphatase (39-117) U/L Ammonia (13-55) umol/L Total Protein (6.5-8.0) g/dL Albumin (3.5-5.0) g/dL Lipase 4 L (8-78) U/L Urine Color Urine Appearance Urine pH (5.0-8.0) Ur Specific [place] (1.005-1.025) Urine Protein (NEG-TRACE) MG/DL Urine Glucose (UA) (NEG) MG/DL Urine Ketones (NEG) MG/DL Urine Blood (NEG) Urine Nitrite (NEG) Ur Leukocyte Esterase (NEG) Urine RBC (0) /HPF Urine WBC (0-4) /HPF Ur Squamous Epith Cells /LPF Urine Bacteria /LPF Hyaline Casts /LPF Urine Mucus /LPF Urine Opiates Screen (Not Detect) Ur Barbiturates Screen (Not Detect) Ur Phencyclidine Scrn (Not Detect) Ur Amphetamines Screen (Not Detect) U Benzodiazepines Scrn (Not Detect) [place] 0.29 L (0.60-1.20) mmol/L Urine Cocaine Screen (Not Detect) U Marijuana (THC) Screen (Not Detect) Ethyl Alcohol < 10 mg/dL 05/07/21 05/07/21 05/07/21 Range/Units 01:18 01:53 01:53 WBC (4.8-10.8) X10*3/uL RBC (4.60-5.80) X10*6/uL Hgb (14.0-18.0) g/dl Hct (42-52) % MCV (80-98) fL MCH (27.0-33.0) pg MCHC (31.0-36.0) g/dl RDW (11.0-16.0) % Plt Count (160-400) X10*3/uL MPV (9.4-12.4) fL Immature Gran % (Auto) (0.0-0.4) % Neut % (Auto) (45-73) % Lymph % (Auto) (20-40) % [place] % (Auto) (2-11) % Eos % (Auto) (0-4) % Baso % (Auto) (0-2) % Lymph # (Auto) (1.2-4.9) X10*3/uL [place] # (Auto) (0.1-1.2) X10*3/uL Eos # (Auto) (0.0-0.4) X10*3/uL Baso # (Auto) (0.0-0.2) X10*3/uL Abs Immat Gran (auto) (0.00-0.03) X10*3/uL Absolute Neuts (auto) (2.0-8.3) X10*3/uL Absolute Nucleated RBC (0.0-0.012) X10*3/uL Nucleated RBC % (auto) (0.0-0.2) /100WBC Sodium (135-145) mmol/L Potassium (3.3-5.1) mmol/L Chloride (96-108) mmol/L Carbon Dioxide (22-29) mmol/L Anion Gap (12-20) BUN (9-16) mg/dL Creatinine (0.5-1.4) mg/dL Estim Creat Clear Calc Estimated GFR Random Glucose (60-115) mg/dL Lactic Acid 1.2 (0.5-2.0) mmol/L Calcium (8.4-10.2) mg/dL Total Bilirubin (0.0-1.0) mg/dL AST (5-37) U/L ALT (0-40) U/L Alkaline Phosphatase (39-117) U/L Ammonia (13-55) umol/L Total Protein (6.5-8.0) g/dL Albumin (3.5-5.0) g/dL Lipase (8-78) U/L Urine Color ALETHEA Urine Appearance CLEAR Urine pH 6.0 (5.0-8.0) Ur Specific [place] >= 1.030 H (1.005-1.025) Urine Protein 1+ H (NEG-TRACE) MG/DL Urine Glucose (UA) NEG (NEG) MG/DL Urine Ketones 15 (NEG) MG/DL Urine Blood NEG (NEG) Urine Nitrite NEG (NEG) Ur Leukocyte Esterase NEG (NEG) Urine RBC 1-4 (0) /HPF Urine WBC 0-2 (0-4) /HPF Ur Squamous Epith Cells TRACE /LPF Urine Bacteria NONE /LPF Hyaline Casts 0-2 /LPF Urine Mucus 3+ /LPF Urine Opiates Screen Not Detected (Not Detect) Ur Barbiturates Screen Not Detected (Not Detect) Ur Phencyclidine Scrn Not Detected (Not Detect) Ur Amphetamines Screen Not Detected (Not Detect) U Benzodiazepines Scrn Not Detected (Not Detect) [place] (0.60-1.20) mmol/L Urine Cocaine Screen Not Detected (Not Detect) U Marijuana (THC) Screen Not Detected (Not Detect) Ethyl Alcohol mg/dL ECG Data Attestation: I personally reviewed and interpreted this ECG as follows: Prior ECG tracings: available for review (04/19/2021 ) Interpretation: Sinus tachycardia, HR -115, no evidence of acute ischemia, MD/QRS/QTC are within normal limits. Discharge Plan Discharge Clinical Impression: Sepsis, Pneumonia, Effusion of hip joint, right, Dehydration, Constipation Patient Disposition: Admitted As Inpatient Prescriptions: No Action polyethylene glycol 3350 [Miralax] 17 gram/dose powder 17 g PO DAILY Qty: 510 RF: 0 sennosides [senna] 8.6 mg Tablet 8.6 mg PO DAILY PRN (Reason: Constipation) RF: 0 acetaminophen 325 mg Tablet 650 mg PO Q4H PRN (Reason: Fever Or Pain) RF: 0 bisacodyl 10 mg Suppository 10 mg MD DAILY RF: 0 vitamin E 400 unit Capsule 800 unit PO BID RF: 0 dantrolene 50 mg Capsule 50 mg PO BID RF: 0 trihexyphenidyl 2 mg Tablet 2 mg PO BID RF: 0 ascorbic acid (vitamin C) [Vitamin C] 500 mg Tablet 500 mg PO DAILY RF: 0 benztropine 1 mg Tablet 1 mg PO BID RF: 0 multivitamin Tablet 1 tab PO DAILY RF: 0 sennosides [senna] 8.6 mg Tablet 17.2 mg PO BEDTIME RF: 0 simvastatin 20 mg Tablet 20 mg PO BEDTIME RF: 0 aspirin 81 mg Tablet,Delayed Release (Dr/Ec) 81 mg PO DAILY RF: 0 docusate sodium 100 mg Capsule 100 mg PO BEDTIME RF: 0 docusate sodium 100 mg Capsule 200 mg PO DAILY RF: 0 ferrous sulfate 325 mg (65 mg iron) Tablet 325 mg PO DAILY RF: 0 lithium carbonate 300 mg Capsule 300 mg PO BEDTIME RF: 0 Fleet Enema 19-7 gram/118 mL Enema 118 ml MD DAILY PRN (Reason: Constipation) RF: 0 Balmex Adult Care 11.3 % Cream 1 appl TOPICAL Q8H RF: 0 Minerin Creme Cream 1 appl TOPICAL QPM RF: 0 doxycycline hyclate 100 mg Tablet 100 mg PO Q12H Qty: 5 RF: 0 amoxicillin-pot clavulanate 875-125 mg Tablet 875 mg PO Q12H Qty: 5 RF: 0 levetiracetam 500 mg Tablet 500 mg PO BID Qty: 60 RF: 0
[2021-05-07 01:25] LABS: MANUAL DIFF FLAG NO
[2021-05-07 01:26] LABS: Basophils Percent Auto 0.1 % (0-2); Hematocrit 43.2 % (42-52); Hemoglobin 13.7 g/dl (14.0-18.0); Imm Gran Abs Auto 0.09 X10*3/uL (0.00-0.03); Imm Gran Pct Auto 0.4 % (0.0-0.4); Lymphocytes Percent Auto 4.7 % (20-40); Mean Corpuscular HGB Conc 31.7 g/dl (31.0-36.0); Mean Corpuscular Hemoglobin 27.9 pg (27.0-33.0); Monocytes Absolute Auto 1.2 X10*3/uL (0.1-1.2); Monocytes Percent Auto 5.4 % (2-11); Neutrophils Absolute Auto 19.4 X10*3/uL (2.0-8.3); Neutrophils Percent Auto 89.4 % (45-73); Platelet Count 370 X10*3/uL (160-400); Red Blood Count 4.91 X10*6/uL (4.60-5.80); Red Cell Distribution Width 13.3 % (11.0-16.0); White Blood Count 21.7 X10*3/uL (4.8-10.8)
[2021-05-07] MEDS: 0.9 % Sodium Chloride 2,000 ML 999 ML IV (01:40)
[2021-05-07] MEDS: Acetaminophen Supp 650 MG SUPP.RECT PR ×2 (01:40→19:52)
[2021-05-07] MEDS: Piperacillin Sodium/Tazobactam 3.375 GM in 0.9 % Sodium Chloride 50 ML IV (01:40)
[2021-05-07 01:42] LABS: Ammonia 24 umol/L (13-55)
[2021-05-07 01:43] LABS: Lithium 0.29 mmol/L (0.60-1.20)
[2021-05-07 01:48] LABS: Ethanol < 10 mg/dL; Lactic Acid 1.2 mmol/L (0.5-2.0)
[2021-05-07 01:51] LABS: Lipase 4 U/L (8-78)
[2021-05-07 01:53] LABS: Alanine Aminotransferase 31 U/L (0-40); Albumin Level 4.2 g/dL (3.5-5.0); Alkaline Phosphatase 131 U/L (39-117); Anion Gap 16 (12-20); Aspartate Amino Transferase 17 U/L (5-37); Bilirubin Total 0.5 mg/dL (0.0-1.0); Blood Urea Nitrogen 23 mg/dL (9-16); Calcium 9.9 mg/dL (8.4-10.2); Carbon Dioxide 26 mmol/L (22-29); Chloride 104 mmol/L (96-108); Creatinine Clr Calc Pharmacy 82.6; Estimated Glomerular Filt Rate > 60; Glucose Random 113 mg/dL (60-115); Potassium 4.3 mmol/L (3.3-5.1); Sodium 142 mmol/L (135-145); Total Protein 8.7 g/dL (6.5-8.0)
[2021-05-07 02:05] LABS: Glucose Urine UA NEG (NEG); Leukocyte Esterase Urine NEG (NEG); Nitrite Urine NEG (NEG); Specific Gravity - Urine >= 1.030 (1.005-1.025); Urine Blood NEG (NEG); Urine Ketones 15 MG/DL (NEG); Urine Protein 1+ MG/DL (NEG-TRACE)
[2021-05-07 02:06] LABS: Appearance Urine CLEAR; Color Urine AMBER
[2021-05-07] MEDS: iohexoL 350 MG/ML 100 ML INFUS..BTL 85 ML IV (02:30)
[2021-05-07 02:34] LABS: Mucus Urine 3+ /LPF; Squamous Epithelial Cell Urine TRACE /LPF; WBC Urine 0-2 /HPF (0-4)
[2021-05-07 02:35] LABS: Hyaline Casts Urine 0-2 /LPF
[2021-05-07 02:38] LABS: Amphetamine Screen Urine Not Detected (Not Detect); Barbiturates, Urine Not Detected (Not Detect); Benzodiazepines Screen Urine Not Detected (Not Detect); Cannabinoid Screen Urine Not Detected (Not Detect); Cocaine Screen Urine Not Detected (Not Detect); Opiate Screen Urine Not Detected (Not Detect); Phencyclidine Screen Urine Not Detected (Not Detect)
[2021-05-07 04:03] LABS: COVID-19 Test Negative (Negative); IDNOW Serial# 9DD0AD1C
--- NOTE | 2021-05-07 05:12 | MHC.MBSS ---
PT DENIES ANY COMPLAINTS AT THIS TIME. WILL CONTINUE TO MONITOR PT.
--- NOTE | 2021-05-07 05:52 | PM.IMHP ---
History of Present Illness Date of Service: 05/07/21 Chief Complaint: not eating 50-year-old male with past medical history of hypertension, hyperlipidemia, will Parkinson's disease, schizophrenia, as with toxic encephalopathy others abuse to the hospital from [facility] with complaints low oral intake. Patient is a poor historian, abdominal pain, no short new numbness tingling. of note patient has many frequent presentations to the hospital with a most recent discharge on 04/25 after being managed at that time for fever and tachycardia secondary to aspiration pneumonia. He was also found to have a fever on arrival of 102 rectally. On arrival today patient's vitals were significant for for temp of 102, heart rate of 130, respiratory rate of 18, blood pressure 125/72, satting 93% on room air Lab significant for WBC count 21.7, BUN of 23, creatinine of 0.93, alk-phos of 131, UA negative, UDS positive for lithium, with a low level of 0.29, CT of the chest shows secretions present within the right mainstem bronchus associated with atelectasis of the medial basal segment of the right lower lobe, mild lower lobe bronchial wall thickening without bronchiectasis Abdominal pelvic CT shows small right hip joint effusion associated with two view thickening and hyper enhancement which could be synovitis. Couple of hepatic lesions that could represent a hemangioma versus no drug hyperplasia, questionable bladder wall thickening. Moderate constipation with large rectal stool burden and associated rectal wall thickening suggestive of sterocoral colitis Given fever, tachycardia, leukocytosis patient will be admitted for further management and evaluation Review of Systems Review of Systems: Yes all other systems are reviewed and are negative [facility] Medical History Anemia Astigmatism, bilateral Bilateral cataracts Chronic constipation Constipation Depressive disorder Disorder of the autonomic nervous system, unspecified Dysarthria and anarthria Encephalopathy Essential (primary) hypertension Extrapyramidal and movement disorder Fever Hemiplegia Hyperlipidemia Hypertension MDD (major depressive disorder) Muscle weakness Myopia, bilateral Parkinson disease Presbyopia Schizophrenia Seizure Seizures SIRS (systemic inflammatory response syndrome) Toxic encephalitis Toxic encephalopathy Social History Household Members: Other Housing: Long-Term Do you presently have visiting nurse or other home services: No Alcohol intake: never Patient Tobacco Use Status: Current everyday Tobacco user Tobacco use type: Cigarette Cigarettes Per Day: 20 Advance Directives: No Advance Directives Information Provided: No service: No Current occupational status: disabled Meds Allergies Allergy/AdvReac Type Severity Reaction Status Date / Time wool Allergy Unknown Unknown Uncoded 04/19/21 23:44 Home Medications Medication Instructions Recorded Confirmed Last Taken Type acetaminophen 650 mg PO Q4H PRN 01/09/21 04/20/21 Unknown History ascorbic acid (vitamin C) [Vitamin 500 mg PO DAILY 01/09/21 04/20/21 04/19/21 History C] aspirin 81 mg PO DAILY 01/09/21 04/20/21 04/19/21 History benztropine 1 mg PO BID 01/09/21 04/20/21 04/19/21 History bisacodyl 10 mg MA DAILY 01/09/21 04/20/21 04/19/21 History dantrolene 50 mg PO BID 01/09/21 04/20/21 04/19/21 History docusate sodium 100 mg PO BEDTIME 01/09/21 04/20/21 04/18/21 History docusate sodium 200 mg PO DAILY 01/09/21 04/20/21 04/19/21 History ferrous sulfate 325 mg PO DAILY 01/09/21 04/20/21 04/19/21 History lithium carbonate 300 mg PO BEDTIME 01/09/21 04/20/21 04/18/21 History multivitamin 1 tab PO DAILY 01/09/21 04/20/21 04/19/21 History sennosides [senna] 8.6 mg PO DAILY PRN 01/09/21 04/20/21 01/07/21 History sennosides [senna] 17.2 mg PO BEDTIME 01/09/21 04/20/21 04/18/21 History simvastatin 20 mg PO BEDTIME 01/09/21 04/20/21 04/18/21 History trihexyphenidyl 2 mg PO BID 01/09/21 04/20/21 04/19/21 History vitamin E 800 unit PO BID 01/09/21 04/20/21 04/19/21 History Balmex [facility] 1 appl TOPICAL Q8H 04/20/21 04/20/21 04/19/21 History Fleet Enema 118 ml MA DAILY PRN 04/20/21 04/20/21 Unknown History Minerin Creme 1 appl TOPICAL QPM 04/20/21 04/20/21 04/18/21 History Physical Exam Vital Signs and Narrative: Vital Signs: Last Vital Signs Temp 98.5 F 05/06/21 23:17 Pulse 118 H 05/06/21 23:17 Resp 16 05/06/21 23:17 BP 116/97 H 05/06/21 23:17 Pulse Ox 96 05/06/21 23:17 Body Mass Index 23.8 Const: General: cooperative and no acute distress Eyes: General: appearance normal, both eyes and all related structures Resp: Effort & Inspection: normal respiratory effort Cardio: Rate: regular rate Rhythm: regular rhythm GI: Palpation (GI): Soft to palpation Auscultation: normal bowel sounds Skin: General skin exam: no rashes or lesions noted Neuro: Cognition (Neuro): normal cognition Extrem: Other: Chronic contractures General: Yes no pedal edema Results Labs CBC and Chem 7: 05/07/21 01:18 05/07/21 01:18 Labs: Laboratory Results - last 24 hr 05/07/21 05/07/21 05/07/21 01:18 01:18 01:18 MCV 88.0 MCH 27.9 MCHC 31.7 RDW 13.3 Plt Count 370 D MPV 11.0 Immature Gran % (Auto) 0.4 Neut % (Auto) 89.4 H Lymph % (Auto) 4.7 L [place] % (Auto) 5.4 Eos % (Auto) 0.0 Baso % (Auto) 0.1 Lymph # (Auto) 1.0 L [place] # (Auto) 1.2 Eos # (Auto) 0.0 Baso # (Auto) 0.0 Abs Immat Gran (auto) 0.09 H Absolute Neuts (auto) 19.4 H Absolute Nucleated RBC 0.000 Nucleated RBC % (auto) 0.0 Anion Gap 16 Estim Creat Clear Calc 82.6 Estimated GFR > 60 Random Glucose 113 Lactic Acid Calcium 9.9 D Total Bilirubin 0.5 AST 17 D ALT 31 Alkaline Phosphatase 131 H D Ammonia 24 Total Protein 8.7 H Albumin 4.2 Lipase Urine Color Urine Appearance Urine pH Ur Specific [place] Urine Protein Urine Glucose (UA) Urine Ketones Urine Blood Urine Nitrite Ur Leukocyte Esterase Urine RBC Urine WBC Ur Squamous Epith Cells Urine Bacteria Hyaline Casts Urine Mucus Urine Opiates Screen Ur Barbiturates Screen Ur Phencyclidine Scrn Ur Amphetamines Screen U Benzodiazepines Scrn [place] Urine Cocaine Screen U Marijuana (THC) Screen Ethyl Alcohol COVID-19 (VINICIO) COVID-19 [employer] 05/07/21 05/07/21 05/07/21 01:18 01:18 01:18 MCV MCH MCHC RDW Plt Count MPV Immature Gran % (Auto) Neut % (Auto) Lymph % (Auto) [place] % (Auto) Eos % (Auto) Baso % (Auto) Lymph # (Auto) [place] # (Auto) Eos # (Auto) Baso # (Auto) Abs Immat Gran (auto) Absolute Neuts (auto) Absolute Nucleated RBC Nucleated RBC % (auto) Anion Gap Estim Creat Clear Calc Estimated GFR Random Glucose Lactic Acid Calcium Total Bilirubin AST ALT Alkaline Phosphatase Ammonia Total Protein Albumin Lipase 4 L Urine Color Urine Appearance Urine pH Ur Specific [place] Urine Protein Urine Glucose (UA) Urine Ketones Urine Blood Urine Nitrite Ur Leukocyte Esterase Urine RBC Urine WBC Ur Squamous Epith Cells Urine Bacteria Hyaline Casts Urine Mucus Urine Opiates Screen Ur Barbiturates Screen Ur Phencyclidine Scrn Ur Amphetamines Screen U Benzodiazepines Scrn [place] 0.29 L Urine Cocaine Screen U Marijuana (THC) Screen Ethyl Alcohol < 10 COVID-19 (VINICIO) COVID-19 [employer] 05/07/21 05/07/21 05/07/21 01:18 01:53 01:53 MCV MCH MCHC RDW Plt Count MPV Immature Gran % (Auto) Neut % (Auto) Lymph % (Auto) [place] % (Auto) Eos % (Auto) Baso % (Auto) Lymph # (Auto) [place] # (Auto) Eos # (Auto) Baso # (Auto) Abs Immat Gran (auto) Absolute Neuts (auto) Absolute Nucleated RBC Nucleated RBC % (auto) Anion Gap Estim Creat Clear Calc Estimated GFR Random Glucose Lactic Acid 1.2 Calcium Total Bilirubin AST ALT Alkaline Phosphatase Ammonia Total Protein Albumin Lipase Urine Color ALETHEA Urine Appearance CLEAR Urine pH 6.0 Ur Specific [place] >= 1.030 H Urine Protein 1+ H Urine Glucose (UA) NEG Urine Ketones 15 Urine Blood NEG Urine Nitrite NEG Ur Leukocyte Esterase NEG Urine RBC 1-4 Urine WBC 0-2 Ur Squamous Epith Cells TRACE Urine Bacteria NONE Hyaline Casts 0-2 Urine Mucus 3+ Urine Opiates Screen Not Detected Ur Barbiturates Screen Not Detected Ur Phencyclidine Scrn Not Detected Ur Amphetamines Screen Not Detected U Benzodiazepines Scrn Not Detected [place] Urine Cocaine Screen Not Detected U Marijuana (THC) Screen Not Detected Ethyl Alcohol COVID-19 (VINICIO) COVID-19 Clin Com 05/07/21 03:37 MCV MCH MCHC RDW Plt Count MPV Immature Gran % (Auto) Neut % (Auto) Lymph % (Auto) [place] % (Auto) Eos % (Auto) Baso % (Auto) Lymph # (Auto) [place] # (Auto) Eos # (Auto) Baso # (Auto) Abs Immat Gran (auto) Absolute Neuts (auto) Absolute Nucleated RBC Nucleated RBC % (auto) Anion Gap Estim Creat Clear Calc Estimated GFR Random Glucose Lactic Acid Calcium Total Bilirubin AST ALT Alkaline Phosphatase Ammonia Total Protein Albumin Lipase Urine Color Urine Appearance Urine pH Ur Specific [place] Urine Protein Urine Glucose (UA) Urine Ketones Urine Blood Urine Nitrite Ur Leukocyte Esterase Urine RBC Urine WBC Ur Squamous Epith Cells Urine Bacteria Hyaline Casts Urine Mucus Urine Opiates Screen Ur Barbiturates Screen Ur Phencyclidine Scrn Ur Amphetamines Screen U Benzodiazepines Scrn [place] Urine Cocaine Screen U Marijuana (THC) Screen Ethyl Alcohol COVID-19 (VINICIO) Negative COVID-19 Clin Com See Note Imaging Radiologist's Impressions: Impressions Abdomen/Pelvis CT 05/07/21 01:04 IMPRESSION: CHEST: * Secretions present within the right mainstem bronchus associated with atelectasis of the medial basal segment of the right lower lobe. Recommend pulmonary lavage. * Mild lower lobe bronchial wall thickening without bronchiectasis. * Stable 4 mm nodule within right upper lobe. ABDOMEN/PELVIS: * Moderate constipation with large rectal stool burden and associated rectal wall thickening suggestive of stercoral colitis as seen previously. * Small right hip joint effusion associated with synovial thickening and hyperenhancement. This could be compatible with synovitis. No imaging evidence of osteomyelitis. * Questionable bladder wall thickening versus spurious thickening related to underdistention. Please correlate with urinalysis. * There are couple of hepatic lesions, one of which represents a hemangioma, the other less specific and favored to represent focal nodular hyperplasia or an arterioportal shunt as described. Chest CT 05/07/21 01:57 IMPRESSION: CHEST: * Secretions present within the right mainstem bronchus associated with atelectasis of the medial basal segment of the right lower lobe. Recommend pulmonary lavage. * Mild lower lobe bronchial wall thickening without bronchiectasis. * Stable 4 mm nodule within right upper lobe. ABDOMEN/PELVIS: * Moderate constipation with large rectal stool burden and associated rectal wall thickening suggestive of stercoral colitis as seen previously. * Small right hip joint effusion associated with synovial thickening and hyperenhancement. This could be compatible with synovitis. No imaging evidence of osteomyelitis. * Questionable bladder wall thickening versus spurious thickening related to underdistention. Please correlate with urinalysis. * There are couple of hepatic lesions, one of which represents a hemangioma, the other less specific and favored to represent focal nodular hyperplasia or an arterioportal shunt as described. Assessment and Plan (1) Fever: Status: Acute (2) Effusion of hip joint, right: Status: Acute (3) Constipation: Status: Acute (4) Leukocytosis: Status: Acute (5) Tachycardia: Status: Acute (6) Sepsis: Status: Acute This is a 50-year-old male with past medical history as mentioned above who presents to the hospital with reports of not eating well for the past 2-3 days found to have fever, tachycardia, leukocytosis # Sepsis Fever, leukocytosis, tachycardia - unclear etiology possibly secondary to synovitis versus mucous plugging in the setting of atelectasis - UA is negative, chest CT is showing secretions within the right mainstream? Unclear significance - at this time will start him on doxycycline and ceftriaxone - monitor for any recurrence of the fever - follow cultures # severe constipation - has a moderate constipation with large rectal stool burden - will treat with Fleet enema, bowel regimen # effusion of hip - concerning for synovitis - will consult orthopedic surgery Awaiting med rec consolidation by ED team DVT prophylaxis: Heparin subQ Quality Stroke Does the patient have a stroke diagnosis?: No VTE Prior VTE?: No VTE Risk Level:: Medical - moderate - high VTE Device Contraindication: Treatment Not Indicated VTE Drug Contraindication: N/A - Med Ordered
--- NOTE | 2021-05-07 06:50 | PC.NURSE ---
REPORT TO JAKE CHOE.
[2021-05-07] MEDS: cefTRIAXone sodium 1 GM in 0.9 % Sodium Chloride 50 ML IV (06:56)
--- NOTE | 2021-05-07 07:05 | PC.NURSE ---
PT MEDICATED PER EMAR. PT BEING ADMITTED FOR LEUKOCYTOSIS. NO CHG IN PT'S CONDITION. WILL CONTINUE TO MONITOR PT.
[2021-05-07] MEDS: Milk of Magnesia 30 ML ORAL.SUSP PO (07:30)
[2021-05-07] MEDS: Doxycycline Hyclate 100 MG in 0.9 % Sodium Chloride 250 ML 166.67 MG IV ×2 (07:30→18:00)
[2021-05-07] MEDS: Heparin Sodium,Porcine 5,000 UNIT/ML VIAL 5000 UNIT SUBCUT ×2 (07:30→18:01)
[2021-05-07] MEDS: 0.9 % Sodium Chloride Flush 3 ML SYRINGE IVFLUSH ×2 (07:38→16:56)
[2021-05-07 08:12] LABS: C Reactive Protein 13.72 mg/dL (< or = 0.50)
[2021-05-07 09:05] LABS: Procalcitonin 0.04 ng/mL
[2021-05-07] MEDS: polyethylene glycoL 3350 17 GM POWD.PACK PO (09:41)
[2021-05-07] MEDS: metroNIDAZOLE/NS 500 MG/100 ML PIGGYBACK 100 MG IV ×2 (09:42→16:53)
[2021-05-07] MEDS: Sodium Phosphate,Mono-Dibasic 133 ML ENEMA PR (09:43)
--- NOTE | 2021-05-07 15:11 | HO.PM.IMPN ---
Subjective Subjective Date of Service: 05/07/21 Interval History: Denies cough or dyspnea but does not seem to be a reliable historian. Physical Exam Vital Signs: Vital Signs: Last Vital Signs Temp 101.9 F H 05/07/21 14:31 Pulse 106 H 05/07/21 15:01 Resp 16 05/07/21 15:01 BP 144/76 H 05/07/21 15:01 Pulse Ox 99 05/07/21 15:01 Body Mass Index 23.8 Gen: alerst, conversant, in no acute distress, tardive dyskinesia present HEENT: sclera anicteric, moist mucus membranes Neck: supple Lungs: clear to auscultation bilaterally Heart: regular rate and rhythm, no murmurs Abd: soft, non-tender, non-distended Ext: no edema Skin: warm/well-perfused Neuro: alert Psych: impaired insight Objective Data Current Medications Generic Name Dose Route Start Last Admin Trade Name Freq PRN Reason Stop Dose Admin Acetaminophen 650 mg 05/07/21 06:51 Acetaminophen 325 Mg Tablet PO Q6H PRN Pain, Mild (Pain Scale 1-3) Docusate Sodium 100 mg 05/07/21 06:51 Docusate Sodium 100 Mg Capsule PO DAILY PRN Constipation Heparin Sodium (Porcine) 5,000 unit 05/07/21 06:51 05/07/21 07:30 Heparin Sodium,Porcine 5,000 Unit/Ml Vial SUBCUT 5,000 unit Q12H CHRISTELLE Administration Doxycycline Hyclate 100 mg/ 250 mls @ 166.67 mls/hr 05/07/21 06:15 05/07/21 09:15 Sodium Chloride IV Infused Q12H CHRISTELLE Infusion Ceftriaxone Sodium 1 gm/ 50 mls @ 100 mls/hr 05/07/21 06:15 05/07/21 07:25 Sodium Chloride IV Infused Q24H CHRISTELLE Infusion Metronidazole 500 mg in 100 mls @ 100 mls/hr 05/07/21 08:00 05/07/21 10:42 Flagyl IV Infused Q8H CHRISTELLE Infusion Ondansetron HCl 4 mg 05/07/21 06:51 Ondansetron Hcl 4 Mg/2 Ml Vial IVPUSH Q8H PRN Nausea and Vomiting Polyethylene Glycol 17 gm 05/07/21 09:00 05/07/21 09:41 Polyethylene Glycol 3350 17 Gm Powd.Pack PO 17 gm DAILY CHRISTELLE Administration Sodium Chloride 3 ml 05/07/21 08:00 05/07/21 07:38 0.9 % Sodium Chloride Flush 3 Ml Syringe IVFLUSH 3 ml QSHIFT CHRISTELLE Administration Labs CBC & Chem 7: 05/07/21 01:18 05/07/21 01:18 Labs: Laboratory Results - last 24 hr 05/07/21 05/07/21 05/07/21 01:18 01:18 01:18 WBC 21.7 H RBC 4.91 D Hgb 13.7 L D Hct 43.2 D MCV 88.0 MCH 27.9 MCHC 31.7 RDW 13.3 Plt Count 370 D MPV 11.0 Immature Gran % (Auto) 0.4 Neut % (Auto) 89.4 H Lymph % (Auto) 4.7 L [place] % (Auto) 5.4 Eos % (Auto) 0.0 Baso % (Auto) 0.1 Lymph # (Auto) 1.0 L [place] # (Auto) 1.2 Eos # (Auto) 0.0 Baso # (Auto) 0.0 Abs Immat Gran (auto) 0.09 H Absolute Neuts (auto) 19.4 H Absolute Nucleated RBC 0.000 Nucleated RBC % (auto) 0.0 Sodium 142 Potassium 4.3 Chloride 104 Carbon Dioxide 26 Anion Gap 16 BUN 23 H Creatinine 0.93 Estim Creat Clear Calc 82.6 Estimated GFR > 60 Random Glucose 113 Lactic Acid Calcium 9.9 D Total Bilirubin 0.5 AST 17 D ALT 31 Alkaline Phosphatase 131 H D Ammonia 24 C-Reactive Protein 13.72 H Total Protein 8.7 H Albumin 4.2 Lipase Procalcitonin Urine Color Urine Appearance Urine pH Ur Specific [place] Urine Protein Urine Glucose (UA) Urine Ketones Urine Blood Urine Nitrite Ur Leukocyte Esterase Urine RBC Urine WBC Ur Squamous Epith Cells Urine Bacteria Hyaline Casts Urine Mucus Urine Opiates Screen Ur Barbiturates Screen Ur Phencyclidine Scrn Ur Amphetamines Screen U Benzodiazepines Scrn [place] Urine Cocaine Screen U Marijuana (THC) Screen Ethyl Alcohol COVID-19 (VINICIO) COVID-19 Clin Com 05/07/21 05/07/21 05/07/21 01:18 01:18 01:18 WBC RBC Hgb Hct MCV MCH MCHC RDW Plt Count MPV Immature Gran % (Auto) Neut % (Auto) Lymph % (Auto) [place] % (Auto) Eos % (Auto) Baso % (Auto) Lymph # (Auto) [place] # (Auto) Eos # (Auto) Baso # (Auto) Abs Immat Gran (auto) Absolute Neuts (auto) Absolute Nucleated RBC Nucleated RBC % (auto) Sodium Potassium Chloride Carbon Dioxide Anion Gap BUN Creatinine Estim Creat Clear Calc Estimated GFR Random Glucose Lactic Acid Calcium Total Bilirubin AST ALT Alkaline Phosphatase Ammonia C-Reactive Protein Total Protein Albumin Lipase 4 L Procalcitonin Urine Color Urine Appearance Urine pH Ur Specific [place] Urine Protein Urine Glucose (UA) Urine Ketones Urine Blood Urine Nitrite Ur Leukocyte Esterase Urine RBC Urine WBC Ur Squamous Epith Cells Urine Bacteria Hyaline Casts Urine Mucus Urine Opiates Screen Ur Barbiturates Screen Ur Phencyclidine Scrn Ur Amphetamines Screen U Benzodiazepines Scrn [place] 0.29 L Urine Cocaine Screen U Marijuana (THC) Screen Ethyl Alcohol < 10 COVID-19 (VINICIO) COVID-[place] 05/07/21 05/07/21 05/07/21 01:18 01:18 01:53 WBC RBC Hgb Hct MCV MCH MCHC RDW Plt Count MPV Immature Gran % (Auto) Neut % (Auto) Lymph % (Auto) [place] % (Auto) Eos % (Auto) Baso % (Auto) Lymph # (Auto) [place] # (Auto) Eos # (Auto) Baso # (Auto) Abs Immat Gran (auto) Absolute Neuts (auto) Absolute Nucleated RBC Nucleated RBC % (auto) Sodium Potassium Chloride Carbon Dioxide Anion Gap BUN Creatinine Estim Creat Clear Calc Estimated GFR Random Glucose Lactic Acid 1.2 Calcium Total Bilirubin AST ALT Alkaline Phosphatase Ammonia C-Reactive Protein Total Protein Albumin Lipase Procalcitonin 0.04 Urine Color ALETHEA Urine Appearance CLEAR Urine pH 6.0 Ur Specific [place] >= 1.030 H Urine Protein 1+ H Urine Glucose (UA) NEG Urine Ketones 15 Urine Blood NEG Urine Nitrite NEG Ur Leukocyte Esterase NEG Urine RBC 1-4 Urine WBC 0-2 Ur Squamous Epith Cells TRACE Urine Bacteria NONE Hyaline Casts 0-2 Urine Mucus 3+ Urine Opiates Screen Ur Barbiturates Screen Ur Phencyclidine Scrn Ur Amphetamines Screen U Benzodiazepines Scrn [place] Urine Cocaine Screen U Marijuana (THC) Screen Ethyl Alcohol COVID-19 (VINICIO) COVID-[employer] 05/07/21 05/07/21 01:53 03:37 WBC RBC Hgb Hct MCV MCH MCHC RDW Plt Count MPV Immature Gran % (Auto) Neut % (Auto) Lymph % (Auto) [place] % (Auto) Eos % (Auto) Baso % (Auto) Lymph # (Auto) [place] # (Auto) Eos # (Auto) Baso # (Auto) Abs Immat Gran (auto) Absolute Neuts (auto) Absolute Nucleated RBC Nucleated RBC % (auto) Sodium Potassium Chloride Carbon Dioxide Anion Gap BUN Creatinine Estim Creat Clear Calc Estimated GFR Random Glucose Lactic Acid Calcium Total Bilirubin AST ALT Alkaline Phosphatase Ammonia C-Reactive Protein Total Protein Albumin Lipase Procalcitonin Urine Color Urine Appearance Urine pH Ur Specific [place] Urine Protein Urine Glucose (UA) Urine Ketones Urine Blood Urine Nitrite Ur Leukocyte Esterase Urine RBC Urine WBC Ur Squamous Epith Cells Urine Bacteria Hyaline Casts Urine Mucus Urine Opiates Screen Not Detected Ur Barbiturates Screen Not Detected Ur Phencyclidine Scrn Not Detected Ur Amphetamines Screen Not Detected U Benzodiazepines Scrn Not Detected [place] Urine Cocaine Screen Not Detected U Marijuana (THC) Screen Not Detected Ethyl Alcohol COVID-19 (VINICIO) Negative COVID-19 Clin Com See Note Quality Stroke Does the patient have a stroke diagnosis?: No VTE Prior VTE?: No VTE Risk Level:: Medical - moderate - high VTE Device Contraindication: Treatment Not Indicated VTE Drug Contraindication: N/A - Med Ordered Assessment and Plan (1) Sepsis: Status: Acute Assessment and Plan: 50yo M [facility] resident sent in poor PO intake and found to be septic. Recently admitted here 04/21-04/25/21 with sepsis attributed to aspiration pneumonia. This time, he has evidence of RLL secretions/atelectasis as well as possible R hip synovitis # sepsis, recurrent - ?synovitis ?pneumonia. ID consultation. last admission LP was considered but pt defervesced- will order for tomorrow # question of synovitis - Orthopedics consult # pneumonia, ?aspiration - started on doxycycline + ceftriaxone + metronidazole d#1, follow BCx/trend PCT, ANIMAL TECHNICIAN evaluation # severe constipation - enema, oral bowel regimen # seizure disorder - levetiracetam # coccyx ulcer POA - not infected, continue local wound care # schizoaffective disorder - continue trihexyphenidyl, lithium, benztropine # HLD - continue statin # VTE ppx - UFH # dispo - eventual return to [facility]
--- NOTE | 2021-05-07 17:38 | PC.NURSE ---
P patient refusing to take anything by mouth I Dr. Hunter notified E will start IV fluids as ordered
[2021-05-07] MEDS: Dextrose 5 % and 0.45 % NaCl 1,000 ML 100 ML IVCONT (19:36)
[2021-05-07] MEDS: Lithium Carbonate 300 MG CAPSULE PO (20:06)
[2021-05-07] MEDS: traMADoL HCL 50 MG TABLET PO (20:07)
[2021-05-07] MEDS: Benztropine Mesylate 1 MG TABLET PO (20:08)
[2021-05-07] MEDS: Atorvastatin Calcium 10 MG TABLET PO (20:08)
[2021-05-07] MEDS: Famotidine 20 MG TABLET 40 MG PO (20:08)
[2021-05-07] MEDS: levETIRAcetam 500 MG TABLET PO (20:09)
[2021-05-07] MEDS: Vitamin E (Dl,Tocopheryl Acet) 180 MG (400 UNIT) CAPSULE 360 MG PO (20:14)
[2021-05-08] MEDS: 0.9 % Sodium Chloride Flush 3 ML SYRINGE IVFLUSH ×3 (00:29→15:48)
[2021-05-08] MEDS: metroNIDAZOLE/NS 500 MG/100 ML PIGGYBACK 100 MG IV ×3 (00:29→15:48)
[2021-05-08 03:59] VITALS: BP 131/77; PULSE 116; RESP 16; TEMP 37.3; O2SAT 96
[2021-05-08] MEDS: Dextrose 5 % and 0.45 % NaCl 1,000 ML 100 ML IVCONT ×3 (04:14→22:34)
[2021-05-08] MEDS: cefTRIAXone sodium 1 GM in 0.9 % Sodium Chloride 50 ML IV (05:47)
[2021-05-08 06:20] LABS: MANUAL DIFF FLAG NO
[2021-05-08 06:40] LABS: Basophils Percent Auto 0.1 % (0-2); Eosinophils Absolute Auto 0.1 X10*3/uL (0.0-0.4); Eosinophils Percent Auto 0.3 % (0-4); Hemoglobin 11.5 g/dl (14.0-18.0); Imm Gran Abs Auto 0.33 X10*3/uL (0.00-0.03); Imm Gran Pct Auto 1.6 % (0.0-0.4); Lymphocytes Absolute Auto 1.8 X10*3/uL (1.2-4.9); Lymphocytes Percent Auto 8.9 % (20-40); Mean Corpuscular HGB Conc 31.9 g/dl (31.0-36.0); Mean Corpuscular Hemoglobin 27.9 pg (27.0-33.0); Mean Corpuscular Volume 87.4 fL (80-98); Mean Platelet Volume 11.5 fL (9.4-12.4); Monocytes Absolute Auto 1.3 X10*3/uL (0.1-1.2); Monocytes Percent Auto 6.2 % (2-11); Neutrophils Absolute Auto 16.8 X10*3/uL (2.0-8.3); Neutrophils Percent Auto 82.9 % (45-73); Platelet Count 295 X10*3/uL (160-400); Red Blood Count 4.12 X10*6/uL (4.60-5.80); Red Cell Distribution Width 13.4 % (11.0-16.0); White Blood Count 20.2 X10*3/uL (4.8-10.8)
[2021-05-08] MEDS: Heparin Sodium,Porcine 5,000 UNIT/ML VIAL 5000 UNIT SUBCUT (06:44)
[2021-05-08] MEDS: Doxycycline Hyclate 100 MG in 0.9 % Sodium Chloride 250 ML 166.67 MG IV ×2 (06:46→17:34)
[2021-05-08 06:50] LABS: Prothrombin Time 24.1 SEC (10.8-13.0)
[2021-05-08 06:53] LABS: Partial Thromboplastin Time 36.5 SEC (24.1-38.0)
[2021-05-08 06:58] LABS: Anion Gap 11 (12-20); Blood Urea Nitrogen 19 mg/dL (9-16); Calcium 8.8 mg/dL (8.4-10.2); Carbon Dioxide 25 mmol/L (22-29); Chloride 110 mmol/L (96-108); Creatinine Clr Calc Pharmacy 108.2; Estimated Glomerular Filt Rate > 60; Glucose Random 114 mg/dL (60-115); Potassium 3.7 mmol/L (3.3-5.1); Sodium 142 mmol/L (135-145)
[2021-05-08 08:00] VITALS: BP 145/90; PULSE 115; RESP 17; TEMP 37.3; O2SAT 99
[2021-05-08] MEDS: traMADoL HCL 50 MG TABLET PO ×2 (08:03→21:06)
[2021-05-08] MEDS: Ferrous Sulfate 324 MG TABLET.DR PO (08:04)
[2021-05-08] MEDS: Ascorbic Acid 500 MG TABLET PO (08:04)
[2021-05-08] MEDS: Vitamin E (Dl,Tocopheryl Acet) 180 MG (400 UNIT) CAPSULE 360 MG PO ×2 (08:04→21:06)
[2021-05-08] MEDS: Benztropine Mesylate 1 MG TABLET PO ×2 (08:04→21:06)
[2021-05-08] MEDS: levETIRAcetam 500 MG TABLET PO ×2 (08:04→22:32)
--- NOTE | 2021-05-08 08:20 | PM.CNOR ---
History of Present Illness HPI Consult date: 05/08/21 Consult reason: joint pain Chief complaint: fever Narrative: Patient is a resident from [facility] who presented to the ED for abdominal pain and right hip pain. He Has a prior history of right hip fracture, hemipalegia, schizophrenia, toxic encephalopathy, parkinson's disease, sepsis, and aspiration pneumonia. He appears to be nonverbal and cannot respond to commands or any questions. Review of Systems Review of Systems: Yes all other systems are reviewed and are negative PMFSH Past Medical History Medical History Anemia Astigmatism, bilateral Bilateral cataracts Chronic constipation Constipation Depressive disorder Disorder of the autonomic nervous system, unspecified Dysarthria and anarthria Encephalopathy Essential (primary) hypertension Extrapyramidal and movement disorder Fever Hemiplegia Hyperlipidemia Hypertension MDD (major depressive disorder) Muscle weakness Myopia, bilateral Parkinson disease Presbyopia Schizophrenia Seizure Seizures SIRS (systemic inflammatory response syndrome) Toxic encephalitis Toxic encephalopathy Social History Social History Household Members: Other Housing: Long Term Do you presently have visiting nurse or other home services: No Alcohol intake: never Patient Tobacco Use Status: Current everyday Tobacco user Tobacco use type: Cigarette Cigarettes Per Day: 20 Smoked in Last 30 Days: Yes Patient Interested in Nicotine Replacement: No Advance Directives: No Advance Directives Information Provided: No service: No Current occupational status: disabled Meds Allergies Allergy/AdvReac Type Severity Reaction Status Date / Time wool Allergy Unknown Unknown Uncoded 04/19/21 23:44 Active Medications: Current Medications Generic Name Dose Route Start Last Admin Trade Name Freq PRN Reason Stop Dose Admin Acetaminophen 650 mg 05/07/21 06:51 Acetaminophen 325 Mg Tablet PO Q6H PRN Pain, Mild (Pain Scale 1-3) Acetaminophen 650 mg 05/07/21 18:44 05/07/21 19:52 Acetaminophen Supp 650 Mg Supp.Rect [place] 650 mg Q6H PRN Administration fever/pain Ascorbic Acid 500 mg 05/08/21 09:00 Ascorbic Acid 500 Mg Tablet PO DAILY CHRISTELLE Atorvastatin Calcium 10 mg 05/07/21 21:00 05/07/21 20:08 Atorvastatin Calcium 10 Mg Tablet PO 10 mg BEDTIME CH[facility]STELLE Administration Benztropine Mesylate 1 mg 05/07/21 21:00 05/07/21 20:08 Benztropine Mesylate 1 Mg Tablet PO 1 mg BID CHRISTELLE Administration Docusate Sodium 100 mg 05/07/21 06:51 Docusate Sodium 100 Mg Capsule PO DAILY PRN Constipation Famotidine 40 mg 05/07/21 21:00 05/07/21 20:08 Famotidine 20 Mg Tablet PO 40 mg BEDTIME CHRISTELLE Administration Ferrous Sulfate 324 mg 05/08/21 09:00 Ferrous Sulfate 324 Mg Tablet. PO DAILY CHRISTELLE Heparin Sodium (Porcine) 5,000 unit 05/07/21 06:51 05/08/21 06:44 Heparin Sodium,Porcine 5,000 Unit/Ml Vial SUBCUT 5,000 unit Q12H CHRISTELLE Administration Doxycycline Hyclate 100 mg/ 250 mls @ 166.67 mls/hr 05/07/21 06:15 05/08/21 06:46 Sodium Chloride IV 166.67 mls/hr Q12H [facility]STELLE Administration Ceftriaxone Sodium 1 gm/ 50 mls @ 100 mls/hr 05/07/21 06:15 05/08/21 06:43 Sodium Chloride IV Infused Q24H [facility]STELLE Infusion Metronidazole 500 mg in 100 mls @ 100 mls/hr 05/07/21 08:00 05/08/21 01:31 Flagyl IV Infused Q8H [facility]ELLE Infusion Dextrose/Sodium Chloride 1,000 mls @ 100 mls/hr 05/07/21 17:15 05/08/21 06:53 D51/2ns IVCONT 0 mls/hr .Q10H [facility]ELLE Infusion Levetiracetam 500 mg 05/07/21 21:00 05/07/21 20:09 Levetiracetam 500 Mg Tablet PO 500 mg BID CH[facility]STELLE Administration [place] Carbonate 300 mg 05/07/21 21:00 05/07/21 20:06 [place] Carbonate 300 Mg Capsule PO 300 mg BEDTIME CHRISTELLE Administration Omeprazole 40 mg 05/08/21 06:00 05/08/21 06:53 Omeprazole 40 Mg Capsule. PO Not Given DAILY@0600 [facility]RISTELLE Ondansetron HCl 4 mg 05/07/21 06:51 Ondansetron Hcl 4 Mg/2 Ml Vial IVPUSH Q8H PRN Nausea and Vomiting Polyethylene Glycol 17 gm 05/07/21 09:00 05/07/21 09:41 Polyethylene Glycol 3350 17 Gm Powd.Pack PO 17 gm DAILY CHRISTELLE Administration Sodium Chloride 3 ml 05/07/21 08:00 05/08/21 00:29 0.9 % Sodium Chloride Flush 3 Ml Syringe IVFLUSH 3 ml QSHIFT [facility] Administration Tramadol HCl 50 mg 05/07/21 21:00 05/07/21 20:07 Tramadol Hcl 50 Mg Tablet PO 50 mg TID [facility] Administration Vitamin E 360 mg 05/07/21 21:00 05/07/21 20:14 Vitamin E (Dl,Tocopheryl Acet) 180 Mg (400 Unit) Capsule PO 360 mg BID CHRISTELLE Administration Home Medications Medication Instructions Recorded Confirmed Last Taken Type acetaminophen 650 mg PO Q4H PRN 01/09/21 05/07/21 Unknown History ascorbic acid (vitamin C) [Vitamin 500 mg PO DAILY 01/09/21 05/07/21 04/19/21 History C] aspirin 81 mg PO DAILY 01/09/21 05/07/21 04/19/21 History benztropine 1 mg PO BID 01/09/21 05/07/21 04/19/21 History bisacodyl 10 mg [place] DAILY 01/09/21 05/07/21 04/19/21 History docusate sodium 200 mg PO DAILY 01/09/21 05/07/21 04/19/21 History ferrous sulfate 325 mg PO DAILY 01/09/21 05/07/21 04/19/21 History lithium carbonate 300 mg PO BEDTIME 01/09/21 05/07/21 04/18/21 History sennosides [senna] 8.6 mg PO DAILY PRN 01/09/21 05/07/21 01/07/21 History sennosides [senna] 17.2 mg PO BEDTIME 01/09/21 04/20/21 04/18/21 History simvastatin 20 mg PO BEDTIME 01/09/21 05/07/21 04/18/21 History trihexyphenidyl 2 mg PO BID 01/09/21 05/07/21 04/19/21 History vitamin E 800 unit PO BID 01/09/21 05/07/21 04/19/21 History famotidine 40 mg PO BEDTIME 05/07/21 05/07/21 Unknown History omeprazole 40 mg PO DAILY 05/07/21 05/07/21 Unknown History tramadol 50 mg PO TID 05/07/21 05/07/21 Unknown History Physical Exam Vital Signs: Vital Signs: Last Vital Signs Temp 99.1 F 05/08/21 03:59 Pulse 116 H 05/08/21 03:59 Resp 16 05/08/21 03:59 BP 131/77 05/08/21 03:59 Pulse Ox 96 05/08/21 03:59 Body Mass Index 23.8 Const: General: no acute distress Resp: Effort & Inspection: normal respiratory effort Cardio: Rate: regular rate Peripheral pulses: Peripheral pulses 2+ throughout GI: Palpation (GI): Soft to palpation Skin: Lesions: no lesions Rashes: no rashes Extrem: Other: Right hip no ecchymosis, redness, or edema. Patient has a significant flexion contracture. Unable to actively move the right lower extremity. Unable to verbalize if he is able to feel sensation. Results Labs Result Diagrams: 05/08/21 05:52 05/08/21 05:52 Labs: Abnormal lab results 05/08/21 05/08/21 05/08/21 Range/Units 05:52 05:52 05:52 WBC 20.2 H (4.8-10.8) X10*3/uL RBC 4.12 L (4.60-5.80) X10*6/uL Hgb 11.5 L (14.0-18.0) g/dl Hct 36.0 L (42-52) % Immature Gran % (Auto) 1.6 H (0.0-0.4) % Neut % (Auto) 82.9 H (45-73) % Lymph % (Auto) 8.9 L (20-40) % [place] # (Auto) 1.3 H (0.1-1.2) X10*3/uL Abs Immat Gran (auto) 0.33 H (0.00-0.03) X10*3/uL Absolute Neuts (auto) 16.8 H (2.0-8.3) X10*3/uL PT 24.1 H D (10.8-13.0) SEC INR 2.0 H (0.9-1.1) Chloride 110 H (96-108) mmol/L Anion Gap 11 L (12-20) BUN 19 H (9-16) mg/dL H & H 05/07/21 05/08/21 Range/Units 01:18 05:52 Hgb 13.7 L D 11.5 L (14.0-18.0) g/dl Hct 43.2 D 36.0 L (42-52) % Coagulation 05/08/21 Range/Units 05:52 INR 2.0 H (0.9-1.1) All other labs normal. Assessment and Plan (1) Contracture, right hip: Status: Acute Mr. Hinkle is a 50 yo male who presented to the ED on 05/07/21 with abdominal pain. He has a significant PMH of hemipeligia, right hip fracture, schizophrenia, Parkinson's Disease, and toxic encephalopathy. CT of the abdomen and pelvis reveals synovitis of the right hip. Patient is unable to move the right lower extremity at baseline. There is no evidence of septic joint at this time. No additional orthopedic care needed at this time. Procedures Date of Service Date of Service: 05/08/21
[2021-05-08] MEDS: Phytonadione (Vit K1) 10 MG in 0.9 % Sodium Chloride 50 ML 50.5 MG IV (11:20)
--- NOTE | 2021-05-08 11:42 | MHC.SL.SWA ---
Speech Pathologist Impression: Risk of Aspiration Oralpharyngeal Dysphagia Risk of Aspiration Due to: Neurological Condition History of Pneumonia Poor PO Intake Reduced Cognition Dysphasia Diet Status: Liquid Consistency and Strategies for Safe Swallow: Liquid Intake Recommendation: Thin Liquid Intake Strategies: Small Sips Solid Food Consistency: Dietary Recommendations: TBD Oral Medication Intake: Crushed with Puree Compensatory Strategies and Precautions to be Taken for Safe Swallow: Small Bites and Sips Oral Check Supervision While Eating and Drinking for Safe Swallow: Total Assistance Swallowing Recommended Treatments: Compens. Strategy Educat. Recommendation for Speech: Further Testing Needed Inpatient Speech Therapy Comment: Further recommendations to follow when patient accepts solid PO. No overt s/s of aspiration when drinking thin liquid. HEATING WORKER will continue to follow. Plant Maintenance Mechanic Clinican/Clinical Fellow: No Supervisory Statement: I have reviewed and agree with the student/clinical fellow's documentation: N/A Speech Language Pathologist: Francine Funes M.A., CCC-HEATING WORKER
[2021-05-08 12:00] VITALS: BP 129/80; PULSE 107; RESP 18; TEMP 37.6; O2SAT 94
--- NOTE | 2021-05-08 13:11 | HO.PM.IMPN ---
Subjective Subjective Date of Service: 05/08/21 Interval History: febrile to 101.9 yesterday afternoon denies any complaints though insight is very poor Physical Exam Vital Signs: Vital Signs: Last Vital Signs Temp 99.6 F 05/08/21 12:00 Pulse 107 H 05/08/21 12:00 Resp 18 05/08/21 12:00 BP 129/80 05/08/21 12:00 Pulse Ox 94 05/08/21 12:00 Body Mass Index 23.8 Gen: alert, in no acute distress, tardive dyskinesia present, multiple contractures HEENT: sclera anicteric, moist mucus membranes Neck: supple Lungs: clear to auscultation bilaterally Heart: regular rate and rhythm, no murmurs Abd: soft, non-tender, non-distended Ext: no edema Skin: warm/well-perfused Neuro: alert Psych: impaired insight Objective Data Current Medications Generic Name Dose Route Start Last Admin Trade Name Freq PRN Reason Stop Dose Admin Acetaminophen 650 mg 05/07/21 06:51 Acetaminophen 325 Mg Tablet PO Q6H PRN Pain, Mild (Pain Scale 1-3) Acetaminophen 650 mg 05/07/21 18:44 05/07/21 19:52 Acetaminophen Supp 650 Mg Supp.Rect [place] 650 mg Q6H PRN Administration fever/pain Ascorbic Acid 500 mg 05/08/21 09:00 05/08/21 08:04 Ascorbic Acid 500 Mg Tablet PO 500 mg DAILY CHRISTELLE Administration Atorvastatin Calcium 10 mg 05/07/21 21:00 05/07/21 20:08 Atorvastatin Calcium 10 Mg Tablet PO 10 mg BEDTIME CHRISTELLE Administration Benztropine Mesylate 1 mg 05/07/21 21:00 05/08/21 08:04 Benztropine Mesylate 1 Mg Tablet PO 1 mg BID CHRISTELLE Administration Docusate Sodium 100 mg 05/07/21 06:51 Docusate Sodium 100 Mg Capsule PO DAILY PRN Constipation Famotidine 40 mg 05/07/21 21:00 05/07/21 20:08 Famotidine 20 Mg Tablet PO 40 mg BEDTIME CHRISTELLE Administration Ferrous Sulfate 324 mg 05/08/21 09:00 05/08/21 08:04 Ferrous Sulfate 324 Mg Tablet.Dr PO 324 mg DAILY CHRISTELLE Administration Doxycycline Hyclate 100 mg/ 250 mls @ 166.67 mls/hr 05/07/21 06:15 05/08/21 08:26 Sodium Chloride IV Infused Q12H CH[facility]STELLE Infusion Ceftriaxone Sodium 1 gm/ 50 mls @ 100 mls/hr 05/07/21 06:15 05/08/21 06:43 Sodium Chloride IV Infused Q24H CH[facility]STELLE Infusion Metronidazole 500 mg in 100 mls @ 100 mls/hr 05/07/21 08:00 05/08/21 10:48 Flagyl IV Infused Q8H CH[facility]STELLE Infusion Dextrose/Sodium Chloride 1,000 mls @ 100 mls/hr 05/07/21 17:15 05/08/21 10:47 D51/2ns IVCONT 100 mls/hr .Q10H [facility]STELLE Infusion Levetiracetam 500 mg 05/07/21 21:00 05/08/21 08:04 Levetiracetam 500 Mg Tablet PO 500 mg BID CHRISTELLE Administration [place] Carbonate 300 mg 05/07/21 21:00 05/07/21 20:06 [place] Carbonate 300 Mg Capsule PO 300 mg BEDTIME CHRISTELLE Administration Omeprazole 40 mg 05/08/21 06:00 05/08/21 06:53 Omeprazole 40 Mg Capsule.Dr PO Not Given DAILY@0600 [facility] Ondansetron HCl 4 mg 05/07/21 06:51 Ondansetron Hcl 4 Mg/2 Ml Vial IVPUSH Q8H PRN Nausea and Vomiting Polyethylene Glycol 17 gm 05/07/21 09:00 05/08/21 08:25 Polyethylene Glycol 3350 17 Gm Powd.Pack PO Not Given DAILY CHRISTELLE Sodium Chloride 3 ml 05/07/21 08:00 05/08/21 08:03 0.9 % Sodium Chloride Flush 3 Ml Syringe IVFLUSH 3 ml QSHIFT [facility]LE Administration Tramadol HCl 50 mg 05/07/21 21:00 05/08/21 08:03 Tramadol Hcl 50 Mg Tablet PO 50 mg TID CH[facility]STELLE Administration Vitamin E 360 mg 05/07/21 21:00 05/08/21 08:04 Vitamin E (Dl,Tocopheryl Acet) 180 Mg (400 Unit) Capsule PO 360 mg BID CHRISTELLE Administration Labs CBC & Chem 7: 05/08/21 05:52 05/08/21 05:52 Labs: Laboratory Results - last 24 hr 05/08/21 05/08/21 05/08/21 05:52 05:52 05:52 WBC 20.2 H RBC 4.12 L Hgb 11.5 L Hct 36.0 L MCV 87.4 MCH 27.9 MCHC 31.9 RDW 13.4 Plt Count 295 MPV 11.5 Immature Gran % (Auto) 1.6 H Neut % (Auto) 82.9 H Lymph % (Auto) 8.9 L [place] % (Auto) 6.2 Eos % (Auto) 0.3 Baso % (Auto) 0.1 Lymph # (Auto) 1.8 [place] # (Auto) 1.3 H Eos # (Auto) 0.1 Baso # (Auto) 0.0 Abs Immat Gran (auto) 0.33 H Absolute Neuts (auto) 16.8 H Absolute Nucleated RBC 0.000 Nucleated RBC % (auto) 0.0 PT 24.1 H D INR 2.0 H APTT 36.5 Sodium 142 Potassium 3.7 Chloride 110 H Carbon Dioxide 25 Anion Gap 11 L BUN 19 H Creatinine 0.71 Estim Creat Clear Calc 108.2 Estimated GFR > 60 Random Glucose 114 Calcium 8.8 D Microbiology Microbiology Results: Microbiology 05/07/21 01:17 Blood Culture - Preliminary Blood - Venous No growth after 24 hours. 05/07/21 01:17 Blood Culture - Preliminary Blood - Venous Quality Stroke Does the patient have a stroke diagnosis?: No VTE Prior VTE?: No VTE Risk Level:: Medical - moderate - high VTE Device Contraindication: Treatment Not Indicated VTE Drug Contraindication: N/A - Med Ordered Assessment and Plan (1) Sepsis: Status: Acute Assessment and Plan: hospital d#2 50yo M [facility] resident sent in poor PO intake and found to be septic. Recently admitted here 04/21-04/25/21 with sepsis attributed to aspiration pneumonia. This time, he has evidence of RLL secretions/atelectasis as well as possible R hip synovitis # sepsis, recurrent - ?synovitis ?pneumonia. 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 will give 10mg IV vit K and recheck in am # severe constipation - enema, oral bowel regimen # seizure disorder - levetiracetam, started on last admission # coccyx ulcer POA - not infected, continue local wound care # schizoaffective disorder - continue trihexyphenidyl, lithium, benztropine # HLD - continue statin # VTE ppx - UFH held for LP # dispo - eventual return to [facility]
--- NOTE | 2021-05-08 14:09 | MHC.CM.PN ---
nurse care mnaager note electronic medical record reviewed along with case discussed with staff nurse and on multiple disciplianry rounds , met with patient sleeping awakened to name only disorientated , spoke with roxanne at [facility] [phone] ext [phone] patient has been with them dfor some time up until two weeks ago he was a i assit with all adls and transfer mobility, toileting mostly wheelchair bound and independent in eating . she reported a decline in his health and now is requiring 2 assit with all the abouve except with eating, he normally is very conversational and able to respond to seimple commands a follow them , 9HE LIKES ALL SPORT ESPECIALLY THE [employer] AND LIKE PEANUTBUTTER AND JELLY SANDWICHES. HE HAS A HCP BUT NO DATE ON IT , HE ALSO HAS A ADVANCE DIRECTIVE UP LOADED TO [facility] AND IN CHART WELL GUARDIAN SHIP THIS WAS ALSO UPLOADED INTO CBIT A/SSCRIPT AND IN PATIENTS CHART . PATIENT PER DOCUMENTATION ( PATIENT WAS LAST HERE AT [facility] 04/25/21 FOR FEVER,TACHYCARDIA TO [facility] ON ADMISSION 05/08 DIAGNOSIS WAS RIGHT MAINSTEAM BRONBCHIS ATELECTASIS AND BRONCHIECTSIS PATIENT HAD A FEVER OF 102 , PULS 130 AND WBC 21,0 PATIENT HAS MANY DIATGNOSIS SEIZYURES, DISCHARGE PLAN RETUNR BACK TO [facility]IA TRANSPORT BY [facility] DEPRESSIVE BEHAVIOR DISORDER ,DISORDER OF THE AUTONMIC NERVOUS SYSTEM, ENCEPHALOPATHY, EXTRAPYRAMIDAL AND MOVEMENT DISORDER ,SCHIZOPHRENA , . ENCEPHALITIS ,PARKINSONS, HEMIPELEGOIA ,HTN)
[2021-05-08 14:22] VITALS: BMI 23.8
--- NOTE | 2021-05-08 14:28 | W.PM.IDCN ---
History of Present Illness Data of Consult Service Date: 05/08/21 Requesting physician: Rufus Hunter Primary Care Provider: Edson Meredith DO HPI Reason for consult: fever of unknown origin He presents to hospital from [facility] with temperature to 99 and lack of typical po intake for a day He has temperature 101 in hospital He has WBC of 20,[address] chest infiltrate right Review of Systems Review of Systems: Yes all other systems are reviewed and are negative PMFSH Past Medical History Medical History Anemia Astigmatism, bilateral Bilateral cataracts Chronic constipation Constipation Depressive disorder Disorder of the autonomic nervous system, unspecified Dysarthria and anarthria Encephalopathy Essential (primary) hypertension Extrapyramidal and movement disorder Fever Hemiplegia Hyperlipidemia Hypertension MDD (major depressive disorder) Muscle weakness Myopia, bilateral Parkinson disease Presbyopia Schizophrenia Seizure Seizures SIRS (systemic inflammatory response syndrome) Toxic encephalitis Toxic encephalopathy Social History Social History Household Members: Other Housing: [facility] Do you presently have visiting nurse or other home services: No Alcohol intake: never Patient Tobacco Use Status: Current everyday Tobacco user Tobacco use type: Cigarette Cigarettes Per Day: 20 Smoked in Last 30 Days: Yes Patient Interested in Nicotine Replacement: No Advance Directives: No Advance Directives Information Provided: No service: No Current occupational status: disabled Meds Allergies Allergy/AdvReac Type Severity Reaction Status Date / Time wool Allergy Unknown Unknown Uncoded 04/19/21 23:44 Active Medications: Current Medications Generic Name Dose Route Start Last Admin Trade Name Freq PRN Reason Stop Dose Admin Acetaminophen 650 mg 05/07/21 06:51 Acetaminophen 325 Mg Tablet PO Q6H PRN Pain, Mild (Pain Scale 1-3) Acetaminophen 650 mg 05/07/21 18:44 05/07/21 19:52 Acetaminophen Supp 650 Mg Supp.Rect [place] 650 mg Q6H PRN Administration fever/pain Ascorbic Acid 500 mg 05/08/21 09:00 05/08/21 08:04 Ascorbic Acid 500 Mg Tablet PO 500 mg DAILY CHRISTELLE Administration Atorvastatin Calcium 10 mg 05/07/21 21:00 05/07/21 20:08 Atorvastatin Calcium 10 Mg Tablet PO 10 mg BEDTIME CHRISTELLE Administration Benztropine Mesylate 1 mg 05/07/21 21:00 05/08/21 08:04 Benztropine Mesylate 1 Mg Tablet PO 1 mg BID CHRISTELLE Administration Docusate Sodium 100 mg 05/07/21 06:51 Docusate Sodium 100 Mg Capsule PO DAILY PRN Constipation Famotidine 40 mg 05/07/21 21:00 05/07/21 20:08 Famotidine 20 Mg Tablet PO 40 mg BEDTIME CHRISTELLE Administration Ferrous Sulfate 324 mg 05/08/21 09:00 05/08/21 08:04 Ferrous Sulfate 324 Mg Tablet. PO 324 mg DAILY CHRISTELLE Administration Doxycycline Hyclate 100 mg/ 250 mls @ 166.67 mls/hr 05/07/21 06:15 05/08/21 08:26 Sodium Chloride IV Infused Q12H CH[facility]STELLE Infusion Ceftriaxone Sodium 1 gm/ 50 mls @ 100 mls/hr 05/07/21 06:15 05/08/21 06:43 Sodium Chloride IV Infused Q24H CH[facility]STELLE Infusion Metronidazole 500 mg in 100 mls @ 100 mls/hr 05/07/21 08:00 05/08/21 10:48 Flagyl IV Infused Q8H CH[facility]STELLE Infusion Dextrose/Sodium Chloride 1,000 mls @ 100 mls/hr 05/07/21 17:15 05/08/21 14:18 D51/2ns IVCONT 100 mls/hr .Q10H CHRISTELLE Administration Levetiracetam 500 mg 05/07/21 21:00 05/08/21 08:04 Levetiracetam 500 Mg Tablet PO 500 mg BID CHRISTELLE Administration [place] Carbonate 300 mg 05/07/21 21:00 05/07/21 20:06 [place] Carbonate 300 Mg Capsule PO 300 mg BEDTIME CHRISTELLE Administration Omeprazole 40 mg 05/08/21 06:00 05/08/21 06:53 Omeprazole 40 Mg Capsule. PO Not Given DAILY@0600 [facility] Ondansetron HCl 4 mg 05/07/21 06:51 Ondansetron Hcl 4 Mg/2 Ml Vial IVPUSH Q8H PRN Nausea and Vomiting Polyethylene Glycol 17 gm 05/07/21 09:00 05/08/21 08:25 Polyethylene Glycol 3350 17 Gm Powd.Pack PO Not Given DAILY CHRISTELLE Sodium Chloride 3 ml 05/07/21 08:00 05/08/21 08:03 0.9 % Sodium Chloride Flush 3 Ml Syringe IVFLUSH 3 ml QSHIFT [facility]STELLE Administration Tramadol HCl 50 mg 05/07/21 21:00 05/08/21 14:23 Tramadol Hcl 50 Mg Tablet PO Not Given TID [facility] Vitamin E 360 mg 05/07/21 21:00 05/08/21 08:04 Vitamin E (Dl,Tocopheryl Acet) 180 Mg (400 Unit) Capsule PO 360 mg BID [facility] Administration Home Medications Medication Instructions Recorded Confirmed Last Taken Type acetaminophen 650 mg PO Q4H PRN 01/09/21 05/07/21 Unknown History ascorbic acid (vitamin C) [Vitamin 500 mg PO DAILY 01/09/21 05/07/21 04/19/21 History C] aspirin 81 mg PO DAILY 01/09/21 05/07/21 04/19/21 History benztropine 1 mg PO BID 01/09/21 05/07/21 04/19/21 History bisacodyl 10 mg [place] DAILY 01/09/21 05/07/21 04/19/21 History docusate sodium 200 mg PO DAILY 01/09/21 05/07/21 04/19/21 History ferrous sulfate 325 mg PO DAILY 01/09/21 05/07/21 04/19/21 History lithium carbonate 300 mg PO BEDTIME 01/09/21 05/07/21 04/18/21 History sennosides [senna] 8.6 mg PO DAILY PRN 01/09/21 05/07/21 01/07/21 History sennosides [senna] 17.2 mg PO BEDTIME 01/09/21 04/20/21 04/18/21 History simvastatin 20 mg PO BEDTIME 01/09/21 05/07/21 04/18/21 History trihexyphenidyl 2 mg PO BID 01/09/21 05/07/21 04/19/21 History vitamin E 800 unit PO BID 01/09/21 05/07/21 04/19/21 History famotidine 40 mg PO BEDTIME 05/07/21 05/07/21 Unknown History omeprazole 40 mg PO DAILY 05/07/21 05/07/21 Unknown History tramadol 50 mg PO TID 05/07/21 05/07/21 Unknown History Physical Exam Vital Signs: Vital Signs: Last Vital Signs Temp 99.6 F 05/08/21 12:00 Pulse 107 H 05/08/21 12:00 Resp 18 05/08/21 12:00 BP 129/80 05/08/21 12:00 Pulse Ox 94 05/08/21 12:00 Body Mass Index 23.8 Const: General: cooperative HENMT: Head: Yes normal to inspection Mouth: Normal oral and palatal mucosa present Resp: Effort & Inspection: normal respiratory effort Cardio: Rate: regular rate Rhythm: regular rhythm GI: Palpation (GI): Soft to palpation and nontender : General: Yes no CVA tenderness Back/Spine/Pelvis: Back: no CVA tenderness Skin: General skin exam: no rashes or lesions noted Extrem: General: Yes normal to inspection Results Labs CBC & Chem 7: 05/08/21 05:52 05/08/21 05:52 Labs: Short CBC 05/08/21 Range/Units 05:52 WBC 20.2 H (4.8-10.8) X10*3/uL Hgb 11.5 L (14.0-18.0) g/dl Hct 36.0 L (42-52) % Plt Count 295 (160-400) X10*3/uL BMP 05/08/21 05:52 Sodium 142 Potassium 3.7 Chloride 110 H Carbon Dioxide 25 BUN 19 H Creatinine 0.71 Calcium 8.8 D Microbiology Microbiology Results: Microbiology 05/07/21 01:17 Blood - Venous Blood Culture - Preliminary No growth after 24 hours. 05/07/21 01:17 Blood - Venous Blood Culture - Preliminary Assessment and Plan (1) Leukocytosis: Status: Acute I believe leukocytosis and fever related to pneumonia I do not see any signs of hip or bowel infection (stercoral colitis associated with constipation) Patient may have gram negative or gram positive infection recently in hospital Abreu looks clear at this time (2) Fever: Status: Acute Continue Doxycycline/Vancomycin and Ceftriaxone cover above likely now day 2/5-8 Nares MRSA Aspiration precautions ?feeding? upper endoscopy (3) Sepsis: Status: Acute
[2021-05-08 15:19] VITALS: BP 138/69; PULSE 107; RESP 16; TEMP 37.5; O2SAT 98
--- NOTE | 2021-05-08 16:06 | PC.NURSE ---
Skin assessment completed today. Stage 2 PU on bilateral legs are healed. No open areas or drainage. Keeping covered with foam for protection today. Stage 2 on right buttocks, EPC cream and foam applied. No other skin issues noted. Pt. had these on admission.
[2021-05-08 19:16] VITALS: BP 140/81; PULSE 116; RESP 16; TEMP 37.8; O2SAT 96
[2021-05-08] MEDS: Lithium Carbonate 300 MG CAPSULE PO (21:05)
[2021-05-08] MEDS: Atorvastatin Calcium 10 MG TABLET PO (21:05)
[2021-05-08] MEDS: Famotidine 20 MG TABLET 40 MG PO (21:06)
[2021-05-08 23:37] VITALS: BP 134/85; PULSE 115; RESP 16; TEMP 37.8; O2SAT 95
[2021-05-09] VITALS (8 sets, daily range): BP systolic 115–134; BP diastolic 74–88; PULSE 96–108; RESP 18–20; TEMP 36.9–38.4; O2SAT 97–100
[2021-05-09] MEDS: cefTRIAXone sodium 1 GM in 0.9 % Sodium Chloride 50 ML IV (05:27)
[2021-05-09] MEDS: Omeprazole 40 MG CAPSULE.DR PO (05:34)
[2021-05-09] MEDS: Doxycycline Hyclate 100 MG in 0.9 % Sodium Chloride 250 ML 166.67 MG IV ×2 (05:59→17:36)
[2021-05-09 06:09] LABS: MANUAL DIFF FLAG NO
[2021-05-09 06:12] LABS: Basophils Percent Auto 0.2 % (0-2); Eosinophils Absolute Auto 0.2 X10*3/uL (0.0-0.4); Eosinophils Percent Auto 1.3 % (0-4); Hematocrit 32.5 % (42-52); Hemoglobin 10.4 g/dl (14.0-18.0); Imm Gran Abs Auto 0.09 X10*3/uL (0.00-0.03); Imm Gran Pct Auto 0.6 % (0.0-0.4); Lymphocytes Absolute Auto 1.7 X10*3/uL (1.2-4.9); Lymphocytes Percent Auto 10.7 % (20-40); Mean Corpuscular Hemoglobin 28.1 pg (27.0-33.0); Mean Corpuscular Volume 87.8 fL (80-98); Mean Platelet Volume 10.6 fL (9.4-12.4); Monocytes Percent Auto 6.3 % (2-11); Neutrophils Absolute Auto 13.2 X10*3/uL (2.0-8.3); Neutrophils Percent Auto 80.9 % (45-73); Platelet Count 252 X10*3/uL (160-400); Red Cell Distribution Width 13.4 % (11.0-16.0); White Blood Count 16.3 X10*3/uL (4.8-10.8)
[2021-05-09 06:17] LABS: INTERNATIONAL NORM RATIO 1.6 (0.9-1.1)
[2021-05-09 06:43] LABS: Alanine Aminotransferase 15 U/L (0-40); Albumin Level 2.8 g/dL (3.5-5.0); Alkaline Phosphatase 92 U/L (39-117); Anion Gap 11 (12-20); Aspartate Amino Transferase 18 U/L (5-37); Bilirubin Total 0.4 mg/dL (0.0-1.0); Blood Urea Nitrogen 15 mg/dL (9-16); C Reactive Protein 17.97 mg/dL (< or = 0.50); Calcium 8.3 mg/dL (8.4-10.2); Carbon Dioxide 23 mmol/L (22-29); Chloride 110 mmol/L (96-108); Creatinine Clr Calc Pharmacy 116.4; Estimated Glomerular Filt Rate > 60; Glucose Random 108 mg/dL (60-115); Potassium 3.7 mmol/L (3.3-5.1); Sodium 140 mmol/L (135-145); Total Protein 5.8 g/dL (6.5-8.0)
[2021-05-09 07:28] LABS: Procalcitonin 0.09 ng/mL
[2021-05-09] MEDS: 0.9 % Sodium Chloride Flush 3 ML SYRINGE IVFLUSH ×2 (07:48→15:25)
[2021-05-09] MEDS: levETIRAcetam 500 MG TABLET PO ×2 (07:48→21:39)
[2021-05-09] MEDS: traMADoL HCL 50 MG TABLET PO ×3 (07:48→21:40)
[2021-05-09] MEDS: metroNIDAZOLE/NS 500 MG/100 ML PIGGYBACK 100 MG IV ×3 (07:48→15:18)
[2021-05-09] MEDS: Vitamin E (Dl,Tocopheryl Acet) 180 MG (400 UNIT) CAPSULE 360 MG PO ×2 (07:48→21:44)
[2021-05-09] MEDS: Ascorbic Acid 500 MG TABLET PO (07:49)
[2021-05-09] MEDS: Ferrous Sulfate 324 MG TABLET.DR PO (07:49)
[2021-05-09] MEDS: Benztropine Mesylate 1 MG TABLET PO ×2 (07:49→21:41)
[2021-05-09 08:51] LABS: MRSA Nasal PCR POSITIVE (Negative); SA Nasal PCR POSITIVE (Negative)
[2021-05-09] MEDS: Dextrose 5 % and 0.45 % NaCl 1,000 ML 100 ML IVCONT (09:44)
[2021-05-09] MEDS: Phytonadione (Vit K1) 10 MG in 0.9 % Sodium Chloride 50 ML 51 MG IV (09:44)
--- NOTE | 2021-05-09 12:55 | MHC.CM.PN ---
Addendum entered by Kristy Noyola 05/09/21 13:07: SPEECH SWALLOW EVAL -RECOMENDATIONS FOR SMALL BITES AND SIPS, CHECK ORAL CAVITY, 1;1 SUPERVISISON PATIENT HAS NOT BEEN EATING FOR 2 DAYS NOW PATIENT HAS BEEN AGAIN ADMITTED FOR ASPIRARTION PNEUMONIA, PATIENT WOULD NOT ACCEPT ORAL TRIALS FROM SPEECH THEARPIST RECOMENDATIONS FOR DIERTARY CONSULT DUE TO PATIENTS REFUSAL TO EAT Original Note: nurse care management specialist note electronic medical record reviewed, case discussed with staff nurse karen ALLEN ON MULTIPLE DISCIPLINARY ROUNDS. MET WITH PATIENT ALERT TO HIS NAME AND MINIMALLY RESPONDING TO QUESTIONS YES AND NO, PER DOCUMENTATION BREATH SOUNDS DIMINISHEDCURRENT PLAN CONTINUE WITH DOXYCLINE,VANCOMYCIN CEFTRIAXONE EVALUATED BY ID PHYSICIAN AND SPEECH EVAL FOR SWALLOWING, PATIENT IS ANTICIPAted to have a LP today LANDSCAPING SUPERVISOR TO CONTINUE TO FOLLOW T/C TO CARE MAUDE CARVER SPEAK WITH ROME [phone] TO KEEP HER U[PDATED
[2021-05-09 13:34] LABS: CSF Appearance Clear, Colorless; CSF Tube # 3
--- NOTE | 2021-05-09 13:42 | MHC.SLORD ---
Speech Language Pathology Order Status: BAKERY MACHINE MECHANIC SUPERVISOR spoke with RN. Patient was away at lumbar puncture this afternoon. Per RN, patient has been tolerating liquids, but continues to refuse solids. Patient reportedly tolerated pills with water. BAKERY MACHINE MECHANIC SUPERVISOR will continue to follow.
[2021-05-09 13:44] LABS: Glucose CSF 61 mg/dL; Total Protein CSF 38.8 mg/dL (15-45)
[2021-05-09 13:46] LABS: Appearance CSF CLEAR
[2021-05-09 13:47] LABS: CSF Monos 0 %; CSF Other Cells % 0 %; CSF Tube # 1; Color CSF COLORLESS; Lymphocytes CSF 100 %; Neutrophils CSF 0 %; Red Blood Cell CSF 444 MM*3; White Blood Cell CSF 4 MM*3
[2021-05-09] MEDS: polyethylene glycoL 3350 17 GM POWD.PACK PO (14:01)
--- NOTE | 2021-05-09 14:52 | P.PNIM_ITS ---
Subjective Subjective Date of Service: 05/09/21 Interval History: no complaints but not a reliable historian fever curve improving; Tmax 100.1 last 24 hr Physical Exam Vital Signs: Vital Signs: Last Vital Signs Temp 98.9 F 05/09/21 13:49 Pulse 108 H 05/09/21 13:49 Resp 18 05/09/21 13:49 BP 134/87 05/09/21 13:49 Pulse Ox 97 05/09/21 13:49 Body Mass Index 23.8 Gen: alert, in no acute distress, tardive dyskinesia present, multiple contractures HEENT: sclera anicteric, moist mucus membranes Neck: supple Lungs: clear to auscultation bilaterally Heart: regular rate and rhythm, no murmurs Abd: soft, non-tender, non-distended Ext: no edema Skin: warm/well-perfused Neuro: alert Psych: impaired insight Objective Data Current Medications Generic Name Dose Route Start Last Admin Trade Name Freq PRN Reason Stop Dose Admin Acetaminophen 650 mg 05/07/21 06:51 Acetaminophen 325 Mg Tablet PO Q6H PRN Pain, Mild (Pain Scale 1-3) Acetaminophen 650 mg 05/07/21 18:44 05/07/21 19:52 Acetaminophen Supp 650 Mg Supp.Rect [place] 650 mg Q6H PRN Administration fever/pain Ascorbic Acid 500 mg 05/08/21 09:00 05/09/21 07:49 Ascorbic Acid 500 Mg Tablet PO 500 mg DAILY CHRISTELLE Administration Atorvastatin Calcium 10 mg 05/07/21 21:00 05/08/21 21:05 Atorvastatin Calcium 10 Mg Tablet PO 10 mg BEDTIME CHRISTELLE Administration Benztropine Mesylate 1 mg 05/07/21 21:00 05/09/21 07:49 Benztropine Mesylate 1 Mg Tablet PO 1 mg BID CHRISTELLE Administration Docusate Sodium 100 mg 05/07/21 06:51 Docusate Sodium 100 Mg Capsule PO DAILY PRN Constipation Famotidine 40 mg 05/07/21 21:00 05/08/21 21:06 Famotidine 20 Mg Tablet PO 40 mg BEDTIME CHRISTELLE Administration Ferrous Sulfate 324 mg 05/08/21 09:00 05/09/21 07:49 Ferrous Sulfate 324 Mg Tablet.Dr PO 324 mg DAILY CHRISTELLE Administration Doxycycline Hyclate 100 mg/ 250 mls @ 166.67 mls/hr 05/07/21 06:15 05/09/21 07:49 Sodium Chloride IV Infused Q12H CHRISTELLE Infusion Ceftriaxone Sodium 1 gm/ 50 mls @ 100 mls/hr 05/07/21 06:15 05/09/21 06:11 Sodium Chloride IV Infused Q24H CHRISTELLE Infusion Metronidazole 500 mg in 100 mls @ 100 mls/hr 05/07/21 08:00 05/09/21 09:08 Flagyl IV Infused Q8H CHRISTELLE Infusion Dextrose/Sodium Chloride 1,000 mls @ 100 mls/hr 05/07/21 17:15 05/09/21 14:32 D51/2ns IVCONT 100 mls/hr .Q10H CHRISTELLE Infusion Levetiracetam 500 mg 05/07/21 21:00 05/09/21 07:48 Levetiracetam 500 Mg Tablet PO 500 mg BID CHRISTELLE Administration [place] Carbonate 300 mg 05/07/21 21:00 05/08/21 21:05 [place] Carbonate 300 Mg Capsule PO 300 mg BEDTIME CHRISTELLE Administration Omeprazole 40 mg 05/08/21 06:00 05/09/21 05:34 Omeprazole 40 Mg Capsule.Dr PO 40 mg DAILY@0600 CHRISTELLE Administration Ondansetron HCl 4 mg 05/07/21 06:51 Ondansetron Hcl 4 Mg/2 Ml Vial IVPUSH Q8H PRN Nausea and Vomiting Polyethylene Glycol 17 gm 05/07/21 09:00 05/09/21 14:01 Polyethylene Glycol 3350 17 Gm Powd.Pack PO 17 gm DAILY CHRISTELLE Administration Sodium Chloride 3 ml 05/07/21 08:00 05/09/21 07:48 0.9 % Sodium Chloride Flush 3 Ml Syringe IVFLUSH 3 ml QSHIFT CHRISTELLE Administration Tramadol HCl 50 mg 05/07/21 21:00 05/09/21 14:01 Tramadol Hcl 50 Mg Tablet PO 50 mg TID CHRISTELLE Administration Vitamin E 360 mg 05/07/21 21:00 05/09/21 07:48 Vitamin E (Dl,Tocopheryl Acet) 180 Mg (400 Unit) Capsule PO 360 mg BID CHRISTELLE Administration Labs CBC & Chem 7: 05/09/21 06:01 05/09/21 06:01 Labs: Laboratory Results - last 24 hr 05/07/21 05/07/21 05/08/21 Unknown Unknown 15:03 WBC RBC Hgb Hct MCV MCH MCHC RDW Plt Count MPV Immature Gran % (Auto) Neut % (Auto) Lymph % (Auto) Moody % (Auto) Eos % (Auto) Baso % (Auto) Lymph # (Auto) Moody # (Auto) Eos # (Auto) Baso # (Auto) Abs Immat Gran (auto) Absolute Neuts (auto) Absolute Nucleated RBC Nucleated RBC % (auto) PT INR Sodium Potassium Chloride Carbon Dioxide Anion Gap BUN Creatinine Estim Creat Clear Calc Estimated GFR Random Glucose Calcium Total Bilirubin AST ALT Alkaline Phosphatase C-Reactive Protein Total Protein Albumin Procalcitonin CSF Tube Number TNP TNP CSF Volume TNP TNP CSF Appearance TNP TNP CSF Color TNP TNP CSF WBC TNP TNP CSF RBC TNP TNP CSF Neutrophils CSF Lymphocytes CSF Monocytes % CSF Other Cells % CSF Appearance (b) CSF Glucose CSF Total Protein Nasal Screen MRSA (PCR) POSITIVE A Nasal S. aureus Screen POSITIVE A Nasal MRSA/S.aureus Interp SEE NOTE 05/09/21 05/09/21 05/09/21 06:01 06:01 06:01 WBC 16.3 H RBC 3.70 L Hgb 10.4 L Hct 32.5 L MCV 87.8 MCH 28.1 MCHC 32.0 RDW 13.4 Plt Count 252 MPV 10.6 Immature Gran % (Auto) 0.6 H Neut % (Auto) 80.9 H Lymph % (Auto) 10.7 L Moody % (Auto) 6.3 Eos % (Auto) 1.3 Baso % (Auto) 0.2 Lymph # (Auto) 1.7 Moody # (Auto) 1.0 Eos # (Auto) 0.2 Baso # (Auto) 0.0 Abs Immat Gran (auto) 0.09 H Absolute Neuts (auto) 13.2 H Absolute Nucleated RBC 0.000 Nucleated RBC % (auto) 0.0 PT 19.0 H D INR 1.6 H Sodium 140 Potassium 3.7 Chloride 110 H Carbon Dioxide 23 Anion Gap 11 L BUN 15 Creatinine 0.66 Estim Creat Clear Calc 116.4 Estimated GFR > 60 Random Glucose 108 Calcium 8.3 L Total Bilirubin 0.4 AST 18 ALT 15 Alkaline Phosphatase 92 D C-Reactive Protein 17.97 H Total Protein 5.8 L D Albumin 2.8 L D Procalcitonin CSF Tube Number CSF Volume CSF Appearance CSF Color CSF WBC CSF RBC CSF Neutrophils CSF Lymphocytes CSF Monocytes % CSF Other Cells % CSF Appearance (b) CSF Glucose CSF Total Protein Nasal Screen MRSA (PCR) Nasal S. aureus Screen Nasal MRSA/S.aureus Interp 05/09/21 05/09/21 05/09/21 06:01 12:00 12:00 WBC RBC Hgb Hct MCV MCH MCHC RDW Plt Count MPV Immature Gran % (Auto) Neut % (Auto) Lymph % (Auto) Moody % (Auto) Eos % (Auto) Baso % (Auto) Lymph # (Auto) Moody # (Auto) Eos # (Auto) Baso # (Auto) Abs Immat Gran (auto) Absolute Neuts (auto) Absolute Nucleated RBC Nucleated RBC % (auto) PT INR Sodium Potassium Chloride Carbon Dioxide Anion Gap BUN Creatinine Estim Creat Clear Calc Estimated GFR Random Glucose Calcium Total Bilirubin AST ALT Alkaline Phosphatase C-Reactive Protein Total Protein Albumin Procalcitonin 0.09 CSF Tube Number 3 1 CSF Volume 1.0 CSF Appearance CLEAR CSF Color COLORLESS CSF WBC 4 CSF RBC 444 CSF Neutrophils 0 CSF Lymphocytes 100 CSF Monocytes % 0 CSF Other Cells % 0 CSF Appearance (b) Clear, Colorless CSF Glucose 61 CSF Total Protein 38.8 Nasal Screen MRSA (PCR) Nasal S. aureus Screen Nasal MRSA/S.aureus Interp 05/09/21 12:00 WBC RBC Hgb Hct MCV MCH MCHC RDW Plt Count MPV Immature Gran % (Auto) Neut % (Auto) Lymph % (Auto) Moody % (Auto) Eos % (Auto) Baso % (Auto) Lymph # (Auto) Moody # (Auto) Eos # (Auto) Baso # (Auto) Abs Immat Gran (auto) Absolute Neuts (auto) Absolute Nucleated RBC Nucleated RBC % (auto) PT INR Sodium Potassium Chloride Carbon Dioxide Anion Gap BUN Creatinine Estim Creat Clear Calc Estimated GFR Random Glucose Calcium Total Bilirubin AST ALT Alkaline Phosphatase C-Reactive Protein Total Protein Albumin Procalcitonin CSF Tube Number Cancelled CSF Volume CSF Appearance CSF Color CSF WBC CSF RBC CSF Neutrophils CSF Lymphocytes CSF Monocytes % CSF Other Cells % CSF Appearance (b) Cancelled CSF Glucose CSF Total Protein Cancelled Nasal Screen MRSA (PCR) Nasal S. aureus Screen Nasal MRSA/S.aureus Interp Microbiology Microbiology Results: Microbiology 05/09/21 12:00 Gram Stain - Final Cerebrospinal Fluid CSF Examination - Final Fluid Description - Final 05/07/21 01:17 Blood Culture - Preliminary Blood - Venous Staphylococcus aureus 05/08/21 01:44 Blood Culture - Preliminary Blood - Venous No growth after 24 hours. 05/08/21 01:37 Blood Culture - Preliminary Blood - Venous No growth after 24 hours. 05/07/21 01:17 Blood Culture - Preliminary Blood - Venous No growth after 48 hours. Quality Stroke Does the patient have a stroke diagnosis?: No VTE Prior VTE?: No VTE Risk Level:: Medical - moderate - high VTE Device Contraindication: Treatment Not Indicated VTE Drug Contraindication: N/A - Med Ordered Assessment and Plan (1) Sepsis: Status: Acute Assessment and Plan: hospital d#3 50yo M [facility] resident with TBI + schizoaffective disorder sent in poor PO intake and found to be septic. Recently admitted here 04/21-04/25/21 with sepsis attributed to aspiration pneumonia. This time, he has evidence of RLL secretions/atelectasis as well as possible R hip synovitis # sepsis, recurrent - ?synovitis ?pneumonia. 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 given 10mg IV vit K yesterday and again today; recheck INR in am # severe constipation - enema, oral bowel regimen # seizure disorder - levetiracetam, started on last admission; LP as above # coccyx ulcer POA - not infected, continue local wound care # schizoaffective disorder - continue trihexyphenidyl, lithium, benztropine # HLD - continue statin # VTE ppx - UFH held for LP # dispo - eventual return to [facility]
[2021-05-09] MEDS: Acetaminophen 325 MG TABLET 650 MG PO (15:52)
--- NOTE | 2021-05-09 19:13 | PC.NURSE ---
1543- Pt temp 101.2, pulse 105, BP 119/78, RR 19, O2 98% RA. Pt given Tylenol PRN. Dr. Hunter made aware. No new orders. Reassessed temp hour later and was 99.3. Pt appears comfortable at this time.
[2021-05-09] MEDS: Lithium Carbonate 300 MG CAPSULE PO (21:40)
[2021-05-09] MEDS: Famotidine 20 MG TABLET 40 MG PO (21:40)
[2021-05-09] MEDS: Atorvastatin Calcium 10 MG TABLET PO (21:41)
[2021-05-10] VITALS (7 sets, daily range): BP systolic 112–127; BP diastolic 65–79; PULSE 93–108; RESP 16–19; TEMP 36.1–37.6; O2SAT 94–99
[2021-05-10] MEDS: metroNIDAZOLE/NS 500 MG/100 ML PIGGYBACK 100 MG IV ×3 (00:50→23:19)
[2021-05-10] MEDS: cefTRIAXone sodium 1 GM in 0.9 % Sodium Chloride 50 ML IV (06:00)
[2021-05-10] MEDS: Omeprazole 40 MG CAPSULE.DR PO (06:02)
[2021-05-10] MEDS: Doxycycline Hyclate 100 MG in 0.9 % Sodium Chloride 250 ML 166.67 MG IV ×2 (06:05→17:54)
--- NOTE | 2021-05-10 06:18 | PM.EVENT ---
Event Note Date of Service: 05/13/21 Event Note: Oral Thrush: Nystatin Swish and Swallow; Urinary retention: noted 715ml on bladder scan; straight Cath; UA ordered.
[2021-05-10 06:21] LABS: Hematocrit 30.3 % (42-52); Hemoglobin 9.7 g/dl (14.0-18.0); Mean Corpuscular Hemoglobin 27.6 pg (27.0-33.0); Mean Corpuscular Volume 86.3 fL (80-98); Mean Platelet Volume 11.1 fL (9.4-12.4); Platelet Count 248 X10*3/uL (160-400); Red Blood Count 3.51 X10*6/uL (4.60-5.80); Red Cell Distribution Width 13.3 % (11.0-16.0); White Blood Count 10.6 X10*3/uL (4.8-10.8)
[2021-05-10] MEDS: Dextrose 5 % and 0.45 % NaCl 1,000 ML 100 ML IVCONT (06:25)
[2021-05-10 06:27] LABS: INTERNATIONAL NORM RATIO 1.5 (0.9-1.1); Prothrombin Time 17.7 SEC (10.8-13.0)
--- NOTE | 2021-05-10 07:13 | PC.NURSE ---
pt was dry this am and no urine was in his bag attached to [place] cath . bladder scan for 715 ml and md notified ordered str. cath and collected 800 ml tea color urine. will monitor reported to day rn, also noted pt has white patches in his mouth md ordered nystatin we will monitor progress.
[2021-05-10] MEDS: Vitamin E (Dl,Tocopheryl Acet) 180 MG (400 UNIT) CAPSULE 360 MG PO ×2 (07:58→20:05)
[2021-05-10] MEDS: polyethylene glycoL 3350 17 GM POWD.PACK PO (07:58)
[2021-05-10] MEDS: levETIRAcetam 500 MG TABLET PO ×2 (07:58→20:05)
[2021-05-10] MEDS: Ferrous Sulfate 324 MG TABLET.DR PO (07:58)
[2021-05-10] MEDS: Benztropine Mesylate 1 MG TABLET PO ×2 (07:59→20:05)
[2021-05-10] MEDS: traMADoL HCL 50 MG TABLET PO ×3 (07:59→20:05)
[2021-05-10] MEDS: Ascorbic Acid 500 MG TABLET PO (08:00)
[2021-05-10] MEDS: Nystatin Oral Susp 500,000 UNIT/5 ML ORAL.SUSP 200000 UNIT PO ×2 (10:18→15:46)
--- NOTE | 2021-05-10 14:22 | MHC.CM.PN ---
nurse children's zoo caretaker note electronic medical record reviewed along with case discussed with staff nurse , met with patient he was more alert , responding with good eye contact to this commercial real estate underwriter muffled speech but addressing questions asked of him in more than yes /no response , his oral intake has increased over the last 24 hours per hospitalist abnticipate discharge 1-2 days . clin ical update called to the [facility] and informed them that i was faxing over some clinicals for the lasrt 24 also called and left message for administrator social welfare ramon [phone] discharge plan return back to the [facility] 1-2 ndays transportation via [facility] of note 05/10/21 documentation of oral thrus [id number] on nystatin swish and swaLLOW URNARY RETENTION NOTED 715 ML ON BLADDER ACAN REQUIRING STRAIGHT CATH, URINALYSIS SENT TO LAB
--- NOTE | 2021-05-10 14:39 | MHC.CLN ---
NUTRITION CONSULT/FOLLOW UP SEEN BY POLICE SHIFT COMMANDER AND DIET CONSISTENCY DOWNGRADED TO PUREE FROM NDD2. SUPPLEMENTS IN PLACE AND APPROPRIATE: ENSURE 240 CC TWO TIMES DAILY AND GIO ONE PACKET TWO TIMES DAILY. INTAKE CONTINUES POOR. NURSE CONFIRMED THAT LEG WOUNDS ARE HEALED. RIGHT BUTTOCKS WOUND PRESENT. PROVIDE FEEDING ASSISTANCE NEEDED/ACCEPTED BY PATIENT. CONTINUE TO FOLLOW PROGRESS WITH POLICE SHIFT COMMANDER.
--- NOTE | 2021-05-10 15:18 | HO.PM.IMPN ---
Subjective Subjective Date of Service: 05/10/21 Interval History: fever resolved has no complaints no apparent cough retaining urine noted to have thrush Physical Exam Vital Signs: Vital Signs: Last Vital Signs Temp 98.2 F 05/10/21 11:45 Pulse 108 H 05/10/21 11:45 Resp 16 05/10/21 11:45 BP 118/74 05/10/21 11:45 Pulse Ox 98 05/10/21 11:45 Body Mass Index 23.8 Gen: alert, in no acute distress, tardive dyskinesia present, multiple contractures HEENT: sclera anicteric, moist mucus membranes, oral thrush Neck: supple Lungs: clear to auscultation bilaterally Heart: regular rate and rhythm, no murmurs Abd: soft, non-tender, non-distended Ext: no edema Skin: warm/well-perfused Neuro: alert Psych: impaired insight Objective Data Current Medications Generic Name Dose Route Start Last Admin Trade Name Freq PRN Reason Stop Dose Admin Acetaminophen 650 mg 05/07/21 06:51 05/09/21 15:52 Acetaminophen 325 Mg Tablet PO 650 mg Q6H PRN Administration Pain, Mild (Pain Scale 1-3) Acetaminophen 650 mg 05/07/21 18:44 05/07/21 19:52 Acetaminophen Supp 650 Mg Supp.Rect [place] 650 mg Q6H PRN Administration fever/pain Ascorbic Acid 500 mg 05/08/21 09:00 05/10/21 08:00 Ascorbic Acid 500 Mg Tablet PO 500 mg DAILY CHRISTELLE Administration Atorvastatin Calcium 10 mg 05/07/21 21:00 05/09/21 21:41 Atorvastatin Calcium 10 Mg Tablet PO 10 mg BEDTIME CHRISTELLE Administration Benztropine Mesylate 1 mg 05/07/21 21:00 05/10/21 07:59 Benztropine Mesylate 1 Mg Tablet PO 1 mg BID CHRISTELLE Administration Docusate Sodium 100 mg 05/07/21 06:51 Docusate Sodium 100 Mg Capsule PO DAILY PRN Constipation Famotidine 40 mg 05/07/21 21:00 05/09/21 21:40 Famotidine 20 Mg Tablet PO 40 mg BEDTIME CHRISTELLE Administration Ferrous Sulfate 324 mg 05/08/21 09:00 05/10/21 07:58 Ferrous Sulfate 324 Mg Tablet. PO 324 mg DAILY CHRISTELLE Administration Doxycycline Hyclate 100 mg/ 250 mls @ 166.67 mls/hr 05/07/21 06:15 05/10/21 10:21 Sodium Chloride IV Infused Q12H CHRISTELLE Infusion Ceftriaxone Sodium 1 gm/ 50 mls @ 100 mls/hr 05/07/21 06:15 05/10/21 06:41 Sodium Chloride IV Infused Q24H CHRISTELLE Infusion Metronidazole 500 mg in 100 mls @ 100 mls/hr 05/07/21 08:00 05/10/21 10:15 Flagyl IV Not Given Q8H CHRISTELLE Levetiracetam 500 mg 05/07/21 21:00 05/10/21 07:58 Levetiracetam 500 Mg Tablet PO 500 mg BID CHRISTELLE Administration [place] Carbonate 300 mg 05/07/21 21:00 05/09/21 21:40 [place] Carbonate 300 Mg Capsule PO 300 mg BEDTIME CHRISTELLE Administration Nystatin 200,000 unit 05/10/21 09:00 05/10/21 14:50 Nystatin Oral Susp 500,000 Unit/5 Ml Oral.Susp PO Not Given QID [facility] Protocol Omeprazole 40 mg 05/08/21 06:00 05/10/21 06:02 Omeprazole 40 Mg Capsule. PO 40 mg DAILY@0600 CHRISTELLE Administration Ondansetron HCl 4 mg 05/07/21 06:51 Ondansetron Hcl 4 Mg/2 Ml Vial IVPUSH Q8H PRN Nausea and Vomiting Polyethylene Glycol 17 gm 05/07/21 09:00 05/10/21 07:58 Polyethylene Glycol 3350 17 Gm Powd.Pack PO 17 gm DAILY CHRISTELLE Administration Sodium Chloride 3 ml 05/07/21 08:00 05/10/21 08:00 0.9 % Sodium Chloride Flush 3 Ml Syringe IVFLUSH Not Given QSHIFT CHRISTELLE Tramadol HCl 50 mg 05/07/21 21:00 05/10/21 14:51 Tramadol Hcl 50 Mg Tablet PO Not Given TID CHRISTELLE Vitamin E 360 mg 05/07/21 21:00 05/10/21 07:58 Vitamin E (Dl,Tocopheryl Acet) 180 Mg (400 Unit) Capsule PO 360 mg BID CHRISTELLE Administration Labs CBC & Chem 7: 05/10/21 05:59 05/09/21 06:01 Labs: Laboratory Results - last 24 hr 05/10/21 05/10/21 05:59 05:59 WBC 10.6 RBC 3.51 L Hgb 9.7 L Hct 30.3 L MCV 86.3 MCH 27.6 MCHC 32.0 RDW 13.3 Plt Count 248 MPV 11.1 Absolute Nucleated RBC 0.000 Nucleated RBC % (auto) 0.0 PT 17.7 H INR 1.5 H Microbiology Microbiology Results: Microbiology 05/09/21 12:00 Gram Stain - Final Cerebrospinal Fluid CSF Examination - Final Fluid Description - Final CSF Culture - Preliminary No growth after 1 day 05/07/21 01:17 Blood Culture - Final Blood - Venous Methicillin Res Staph Aureus 05/08/21 01:44 Blood Culture - Preliminary Blood - Venous No growth after 48 hours. 05/08/21 01:37 Blood Culture - Preliminary Blood - Venous No growth after 48 hours. Quality Stroke Does the patient have a stroke diagnosis?: No VTE Prior VTE?: No VTE Risk Level:: Medical - moderate - high VTE Device Contraindication: Treatment Not Indicated VTE Drug Contraindication: N/A - Med Ordered Assessment and Plan (1) Sepsis: Status: Acute Assessment and Plan: hospital d#4 50yo M [facility] resident with TBI + schizoaffective disorder sent in poor PO intake and found to be septic. Recently admitted here 04/21-04/25/21 with sepsis attributed to aspiration pneumonia. This time, he has evidence of RLL secretions/atelectasis as well as possible R hip synovitis # sepsis, recurrent - ?synovitis ?pneumonia. 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 check FOBT, iron studies, retics, LDH, B12/FA # coagulopathy - ?nutritional. given 2 doses vitamin K, INR improved # severe constipation - enema, oral bowel regimen # seizure disorder - levetiracetam, started on last admission; LP as above # coccyx ulcer POA - not infected, continue local wound care # schizoaffective disorder - continue trihexyphenidyl, lithium, benztropine # HLD - continue statin # VTE ppx - UFH held for LP, SCDs placed # dispo - eventual return to [facility]
[2021-05-10] MEDS: 0.9 % Sodium Chloride Flush 3 ML SYRINGE IVFLUSH ×2 (15:46→23:20)
[2021-05-10] MEDS: Famotidine 20 MG TABLET 40 MG PO (20:05)
[2021-05-10] MEDS: Lithium Carbonate 300 MG CAPSULE PO (20:05)
[2021-05-10] MEDS: Atorvastatin Calcium 10 MG TABLET PO (20:06)
[2021-05-11 03:42] VITALS: BP 127/80; PULSE 101; RESP 18; TEMP 37.3; O2SAT 97
[2021-05-11] MEDS: cefTRIAXone sodium 1 GM in 0.9 % Sodium Chloride 50 ML IV (05:56)
[2021-05-11] MEDS: Doxycycline Hyclate 100 MG in 0.9 % Sodium Chloride 250 ML 166.67 MG IV ×2 (06:37→18:29)
[2021-05-11 06:56] LABS: Immature Retic Fraction 17.6 % (2.3-13.4); Retic HGB Equivalent 30.2 pg (30.0-35.0); Reticulocyte Percent 0.8 % (0.5-1.8); Reticulocytes Absolute 0.029 X10*6/uL (0.026-0.095)
[2021-05-11 06:57] LABS: Hematocrit 34.2 % (42-52); Hemoglobin 10.8 g/dl (14.0-18.0); Mean Corpuscular HGB Conc 31.6 g/dl (31.0-36.0); Mean Corpuscular Hemoglobin 27.3 pg (27.0-33.0); Mean Corpuscular Volume 86.6 fL (80-98); Mean Platelet Volume 11.9 fL (9.4-12.4); Platelet Count 247 X10*3/uL (160-400); Red Blood Count 3.95 X10*6/uL (4.60-5.80); Red Cell Distribution Width 13.2 % (11.0-16.0); White Blood Count 11.4 X10*3/uL (4.8-10.8)
[2021-05-11 07:25] LABS: C Reactive Protein 11.28 mg/dL (< or = 0.50); Iron 30 mcg/dL (45-160); Lactate Dehydrogenase 198 U/L (118-273); Percent Iron Saturation 19 % (15-50); Total Iron Binding Capacity 162 mcg/dL (228-428); Unsaturated Iron Binding 132 ug/dL
[2021-05-11 07:37] VITALS: BP 117/85; PULSE 110; RESP 16; TEMP 37.1; O2SAT 99
[2021-05-11] MEDS: polyethylene glycoL 3350 17 GM POWD.PACK PO (08:04)
[2021-05-11] MEDS: Vitamin E (Dl,Tocopheryl Acet) 180 MG (400 UNIT) CAPSULE 360 MG PO ×2 (08:05→20:00)
[2021-05-11] MEDS: Nystatin Oral Susp 500,000 UNIT/5 ML ORAL.SUSP 200000 UNIT PO (08:05)
[2021-05-11] MEDS: traMADoL HCL 50 MG TABLET PO (08:05)
[2021-05-11] MEDS: Ascorbic Acid 500 MG TABLET PO (08:05)
[2021-05-11] MEDS: levETIRAcetam 500 MG TABLET PO ×2 (08:05→20:01)
[2021-05-11] MEDS: Ferrous Sulfate 324 MG TABLET.DR PO (08:05)
[2021-05-11] MEDS: Benztropine Mesylate 1 MG TABLET PO ×2 (08:05→20:01)
[2021-05-11] MEDS: metroNIDAZOLE/NS 500 MG/100 ML PIGGYBACK 100 MG IV ×2 (08:10→15:26)
[2021-05-11 08:28] LABS: Ferritin 1933 ng/mL (20-250)
[2021-05-11 09:17] LABS: Procalcitonin 0.05 ng/mL
[2021-05-11 09:57] LABS: Folate 11.6 ng/mL (> or = 4.0); Vitamin B12 681 pg/mL (200-900)
--- NOTE | 2021-05-11 11:17 | P.PNIM_ITS ---
Subjective Subjective Date of Service: 05/11/21 Interval History: no fever no complaints- no dyspnea, no cough Physical Exam Vital Signs: Vital Signs: Last Vital Signs Temp 98.8 F 05/11/21 07:37 Pulse 110 H 05/11/21 07:37 Resp 16 05/11/21 07:37 BP 117/85 05/11/21 07:37 Pulse Ox 99 05/11/21 07:37 Body Mass Index 23.8 Gen: alert, in no acute distress, tardive dyskinesia present, multiple contractures HEENT: sclera anicteric, moist mucus membranes, oral thrush Neck: supple Lungs: clear to auscultation bilaterally Heart: regular rate and rhythm, no murmurs Abd: soft, non-tender, non-distended Ext: no edema Skin: warm/well-perfused Neuro: alert Psych: impaired insight Objective Data Current Medications Generic Name Dose Route Start Last Admin Trade Name Freq PRN Reason Stop Dose Admin Acetaminophen 650 mg 05/07/21 06:51 05/09/21 15:52 Acetaminophen 325 Mg Tablet PO 650 mg Q6H PRN Administration Pain, Mild (Pain Scale 1-3) Acetaminophen 650 mg 05/07/21 18:44 05/07/21 19:52 Acetaminophen Supp 650 Mg Supp.Rect [place] 650 mg Q6H PRN Administration fever/pain Ascorbic Acid 500 mg 05/08/21 09:00 05/11/21 08:05 Ascorbic Acid 500 Mg Tablet PO 500 mg DAILY CHRISTELLE Administration Atorvastatin Calcium 10 mg 05/07/21 21:00 05/10/21 20:06 Atorvastatin Calcium 10 Mg Tablet PO 10 mg BEDTIME CHRISTELLE Administration Benztropine Mesylate 1 mg 05/07/21 21:00 05/11/21 08:05 Benztropine Mesylate 1 Mg Tablet PO 1 mg BID CHRISTELLE Administration Docusate Sodium 100 mg 05/07/21 06:51 Docusate Sodium 100 Mg Capsule PO DAILY PRN Constipation Famotidine 40 mg 05/07/21 21:00 05/10/21 20:05 Famotidine 20 Mg Tablet PO 40 mg BEDTIME CHRISTELLE Administration Ferrous Sulfate 324 mg 05/08/21 09:00 05/11/21 08:05 Ferrous Sulfate 324 Mg Tablet.Dr PO 324 mg DAILY CHRISTELLE Administration Doxycycline Hyclate 100 mg/ 250 mls @ 166.67 mls/hr 05/07/21 06:15 05/11/21 08:16 Sodium Chloride IV Infused Q12H CHRISTELLE Infusion Ceftriaxone Sodium 1 gm/ 50 mls @ 100 mls/hr 05/07/21 06:15 05/11/21 06:37 Sodium Chloride IV Infused Q24H CHRISTELLE Infusion Metronidazole 500 mg in 100 mls @ 100 mls/hr 05/07/21 08:00 05/11/21 11:08 Flagyl IV Infused Q8H CHRISTELLE Infusion Levetiracetam 500 mg 05/07/21 21:00 05/11/21 08:05 Levetiracetam 500 Mg Tablet PO 500 mg BID CHRISTELLE Administration [place] Carbonate 300 mg 05/07/21 21:00 05/10/21 20:05 [place] Carbonate 300 Mg Capsule PO 300 mg BEDTIME CHRISTELLE Administration Nystatin 200,000 unit 05/10/21 09:00 05/11/21 08:05 Nystatin Oral Susp 500,000 Unit/5 Ml Oral.Susp PO 200,000 unit QID CHRISTELLE Administration Protocol Omeprazole 40 mg 05/08/21 06:00 05/11/21 05:58 Omeprazole 40 Mg Capsule. PO Not Given DAILY@0600 [facility] Ondansetron HCl 4 mg 05/07/21 06:51 Ondansetron Hcl 4 Mg/2 Ml Vial IVPUSH Q8H PRN Nausea and Vomiting Polyethylene Glycol 17 gm 05/07/21 09:00 05/11/21 08:04 Polyethylene Glycol 3350 17 Gm Powd.Pack PO 17 gm DAILY CHRISTELLE Administration Sodium Chloride 3 ml 05/07/21 08:00 05/11/21 11:09 0.9 % Sodium Chloride Flush 3 Ml Syringe IVFLUSH Not Given QSHIFT [facility] Tramadol HCl 50 mg 05/07/21 21:00 05/11/21 08:05 Tramadol Hcl 50 Mg Tablet PO 50 mg TID CHRISTELLE Administration Vitamin E 360 mg 05/07/21 21:00 05/11/21 08:05 Vitamin E (Dl,Tocopheryl Acet) 180 Mg (400 Unit) Capsule PO 360 mg BID CHRISTELLE Administration Labs CBC & Chem 7: 05/11/21 06:29 05/09/21 06:01 Labs: Laboratory Results - last 24 hr 05/09/21 05/11/21 05/11/21 Unknown 06:29 06:29 WBC 11.4 H RBC 3.95 L Hgb 10.8 L Hct 34.2 L MCV 86.6 MCH 27.3 MCHC 31.6 RDW 13.2 Plt Count 247 MPV 11.9 Absolute Nucleated RBC 0.000 Nucleated RBC % (auto) 0.0 Absolute Retic 0.029 Percent Retic 0.8 Immature Retic Fraction 17.6 H Retic Hgb Equivalent 30.2 Iron TIBC % Saturation Unsat Iron Binding Ferritin Lactate Dehydrogenase C-Reactive Protein Vitamin B12 Folate Procalcitonin CSF Mening/Enceph PCR SEE NOTE 05/11/21 05/11/21 05/11/21 06:29 06:29 06:29 WBC RBC Hgb Hct MCV MCH MCHC RDW Plt Count MPV Absolute Nucleated RBC Nucleated RBC % (auto) Absolute Retic Percent Retic Immature Retic Fraction Retic Hgb Equivalent Iron 30 L TIBC 162 L % Saturation 19 Unsat Iron Binding 132 Ferritin 1933 H Lactate Dehydrogenase 198 C-Reactive Protein 11.28 H Vitamin B12 681 Folate 11.6 Procalcitonin 0.05 CSF Mening/Enceph PCR Microbiology Microbiology Results: Microbiology 05/09/21 12:00 Gram Stain - Final Cerebrospinal Fluid CSF Examination - Final Fluid Description - Final CSF Culture - Preliminary No growth after 2 days 05/07/21 01:17 Blood Culture - Final Blood - Venous Methicillin Res Staph Aureus Quality Stroke Does the patient have a stroke diagnosis?: No VTE Prior VTE?: No VTE Risk Level:: Medical - moderate - high VTE Device Contraindication: Treatment Not Indicated VTE Drug Contraindication: N/A - Med Ordered Assessment and Plan (1) Sepsis: Status: Acute Assessment and Plan: hospital d#5 50yo M [facility] resident with TBI + schizoaffective disorder sent in poor PO intake and found to be septic. Recently admitted here 04/21-04/25/21 with sepsis attributed to aspiration pneumonia. This time, he has evidence of RLL secretions/atelectasis as well as possible R hip synovitis # sepsis, recurrent - ?synovitis ?pneumonia. 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 given 2 doses vitamin K, INR improved # severe constipation - enema, oral bowel regimen # seizure disorder - levetiracetam, started on last admission; LP as above negative PCR panel # coccyx ulcer POA - not infected, continue local wound care # schizoaffective disorder - continue trihexyphenidyl, lithium, benztropine # HLD - continue statin # VTE ppx - UFH held for LP, SCDs placed, resume UFH today # dispo - eventual return to [facility] possibly tomorrow
[2021-05-11 11:44] VITALS: BP 118/79; PULSE 99; RESP 17; TEMP 36.8; O2SAT 99
--- NOTE | 2021-05-11 12:02 | MHC.SL.SWA ---
Speech Pathologist Impression: Risk of Aspiration Oralpharyngeal Dysphagia Risk of Aspiration Due to: Neurological Condition History of Pneumonia Poor PO Intake Reduced Cognition Dysphasia Diet Status: Liquid Consistency and Strategies for Safe Swallow: Liquid Intake Recommendation: Thin Liquid Intake Strategies: Small Sips Solid Food Consistency: Dietary Recommendations: Pureed (NDD1) Oral Medication Intake: Crushed with Puree Compensatory Strategies and Precautions to be Taken for Safe Swallow: Sitting Upright (90 deg) Liquids from Cup Liquids from Straw Small Bites and Sips Alternate Liquids/Solids Supervision While Eating and Drinking for Safe Swallow: Total Assistance Swallowing Recommended Treatments: Compens. Strategy Educat. Recommendation for Speech: Further Testing Needed Inpatient Speech Therapy Business Process Coordinator Clinican/Clinical Fellow: No Supervisory Statement: I have reviewed and agree with the student/clinical fellow's documentation: N/A Speech Language Pathologist: Francine Funes M.A., CCC-PRODUCT DEVELOPMENT COORDINATOR
[2021-05-11] MEDS: Heparin Sodium,Porcine 5,000 UNIT/ML VIAL 5000 UNIT SUBCUT ×2 (12:46→19:59)
[2021-05-11] MEDS: 0.9 % Sodium Chloride Flush 3 ML SYRINGE IVFLUSH (15:29)
[2021-05-11 15:32] VITALS: BP 138/77; PULSE 106; RESP 16; TEMP 36.7; O2SAT 98
[2021-05-11 19:54] VITALS: BP 138/84; PULSE 109; RESP 16; TEMP 37.3; O2SAT 97
[2021-05-11] MEDS: Famotidine 20 MG TABLET 40 MG PO (20:01)
[2021-05-11] MEDS: Atorvastatin Calcium 10 MG TABLET PO (20:01)
[2021-05-11] MEDS: Lithium Carbonate 300 MG CAPSULE PO (20:01)
[2021-05-11 21:35] LABS: Glucose Urine UA NEG (NEG); Leukocyte Esterase Urine NEG (NEG); Nitrite Urine POS (NEG); Specific Gravity - Urine >= 1.030 (1.005-1.025); Urine Blood NEG (NEG); Urine Ketones 15 MG/DL (NEG); Urine Protein TRACE MG/DL (NEG-TRACE)
[2021-05-11 21:36] LABS: Appearance Urine CLEAR; Color Urine YELLOW
[2021-05-11 21:45] LABS: Bacteria Urine TRACE /LPF; WBC Urine 0 /HPF (0-4)
[2021-05-11 23:36] VITALS: BP 137/81; PULSE 98; RESP 16; TEMP 37.4; O2SAT 99
[2021-05-12 00:07] LABS: HSV 1 DNA, CSF Not Detected (Not Detected); HSV 2 DNA, CSF Not Detected (Not Detected); Specimen Source CSF
[2021-05-12] MEDS: metroNIDAZOLE/NS 500 MG/100 ML PIGGYBACK 100 MG IV ×4 (00:13→23:52)
[2021-05-12] MEDS: 0.9 % Sodium Chloride Flush 3 ML SYRINGE IVFLUSH ×4 (00:13→21:16)
[2021-05-12] MEDS: Heparin Sodium,Porcine 5,000 UNIT/ML VIAL 5000 UNIT SUBCUT ×3 (03:22→19:52)
[2021-05-12 03:52] VITALS: BP 120/65; PULSE 96; RESP 16; TEMP 37.3; O2SAT 98
[2021-05-12] MEDS: cefTRIAXone sodium 1 GM in 0.9 % Sodium Chloride 50 ML IV (05:34)
[2021-05-12] MEDS: Doxycycline Hyclate 100 MG in 0.9 % Sodium Chloride 250 ML 166.67 MG IV ×2 (06:14→18:55)
[2021-05-12 06:46] LABS: Hematocrit 32.2 % (42-52); Hemoglobin 10.3 g/dl (14.0-18.0); Mean Corpuscular Hemoglobin 27.6 pg (27.0-33.0); Mean Corpuscular Volume 86.3 fL (80-98); Mean Platelet Volume 11.5 fL (9.4-12.4); Platelet Count 250 X10*3/uL (160-400); Red Blood Count 3.73 X10*6/uL (4.60-5.80); Red Cell Distribution Width 13.2 % (11.0-16.0); White Blood Count 13.7 X10*3/uL (4.8-10.8)
[2021-05-12 07:08] LABS: INTERNATIONAL NORM RATIO 1.5 (0.9-1.1); Prothrombin Time 18.3 SEC (10.8-13.0)
[2021-05-12 07:12] LABS: Anion Gap 13 (12-20); Blood Urea Nitrogen 10 mg/dL (9-16); Calcium 8.2 mg/dL (8.4-10.2); Carbon Dioxide 23 mmol/L (22-29); Chloride 103 mmol/L (96-108); Creatinine Clr Calc Pharmacy 111.4; Estimated Glomerular Filt Rate > 60; Glucose Random 83 mg/dL (60-115); Potassium 4.2 mmol/L (3.3-5.1); Sodium 135 mmol/L (135-145)
[2021-05-12 07:51] VITALS: BP 105/77; PULSE 100; RESP 19; TEMP 37.2; O2SAT 98
[2021-05-12] MEDS: Ferrous Sulfate 324 MG TABLET.DR PO (08:26)
--- NOTE | 2021-05-12 10:24 | MHC.SLORD ---
Speech Language Pathology Order Status: BOWL TOPPER attempted to see patient for PO trials. Patient was encouraged to eat/drink, but continues to refuse. Patient is on PUREED (NDD1) solids and THIN liquids.
--- NOTE | 2021-05-12 11:02 | HO.PM.IMPN ---
Subjective Subjective Date of Service: 05/12/21 Interval History: Denies hip pain Denies fever No cough or dyspnea No BM since 05/08 Physical Exam Vital Signs: Vital Signs: Last Vital Signs Temp 98.9 F 05/12/21 07:51 Pulse 100 05/12/21 07:51 Resp 19 05/12/21 07:51 BP 105/77 05/12/21 07:51 Pulse Ox 98 05/12/21 07:51 Body Mass Index 23.8 Gen: alert, in no acute distress, tardive dyskinesia present, multiple contractures HEENT: sclera anicteric, moist mucus membranes, oral thrush Neck: supple Lungs: clear to auscultation bilaterally Heart: regular rate and rhythm, no murmurs : Abreu draining clear urine Abd: soft, non-tender, non-distended Ext: no edema Skin: warm/well-perfused Neuro: alert Psych: impaired insight Objective Data Current Medications Generic Name Dose Route Start Last Admin Trade Name Freq PRN Reason Stop Dose Admin Acetaminophen 650 mg 05/07/21 06:51 05/09/21 15:52 Acetaminophen 325 Mg Tablet PO 650 mg Q6H PRN Administration Pain, Mild (Pain Scale 1-3) Acetaminophen 650 mg 05/07/21 18:44 05/07/21 19:52 Acetaminophen Supp 650 Mg Supp.Rect TN 650 mg Q6H PRN Administration fever/pain Ascorbic Acid 500 mg 05/08/21 09:00 05/12/21 10:04 Ascorbic Acid 500 Mg Tablet PO Not Given DAILY CHRISTELLE Atorvastatin Calcium 10 mg 05/07/21 21:00 05/11/21 20:01 Atorvastatin Calcium 10 Mg Tablet PO 10 mg BEDTIME CHRISTELLE Administration Benztropine Mesylate 1 mg 05/07/21 21:00 05/12/21 10:04 Benztropine Mesylate 1 Mg Tablet PO Not Given BID CHRISTELLE Bisacodyl 10 mg 05/12/21 11:00 Bisacodyl 10 Mg Supp.Rect TN DAILY CHRISTELLE Docusate Sodium 100 mg 05/07/21 06:51 Docusate Sodium 100 Mg Capsule PO DAILY PRN Constipation Famotidine 40 mg 05/07/21 21:00 05/11/21 20:01 Famotidine 20 Mg Tablet PO 40 mg BEDTIME CHRISTELLE Administration Ferrous Sulfate 324 mg 05/08/21 09:00 05/12/21 08:26 Ferrous Sulfate 324 Mg Tablet. PO 324 mg DAILY CHRISTELLE Administration Heparin Sodium (Porcine) 5,000 unit 05/11/21 11:30 05/12/21 03:22 Heparin Sodium,Porcine 5,000 Unit/Ml Vial SUBCUT 5,000 unit Q8H CHRISTELLE Administration Doxycycline Hyclate 100 mg/ 250 mls @ 166.67 mls/hr 05/07/21 06:15 05/12/21 08:28 Sodium Chloride IV Infused Q12H CHRISTELLE Infusion Ceftriaxone Sodium 1 gm/ 50 mls @ 100 mls/hr 05/07/21 06:15 05/12/21 06:08 Sodium Chloride IV Infused Q24H CHRISTELLE Infusion Metronidazole 500 mg in 100 mls @ 100 mls/hr 05/07/21 08:00 05/12/21 09:31 Flagyl IV Infused Q8H CHRISTELLE Infusion Levetiracetam 500 mg 05/07/21 21:00 05/12/21 10:05 Levetiracetam 500 Mg Tablet PO Not Given BID [facility] [place] Carbonate 300 mg 05/07/21 21:00 05/11/21 20:01 [place] Carbonate 300 Mg Capsule PO 300 mg BEDTIME CHRISTELLE Administration Nystatin 200,000 unit 05/10/21 09:00 05/12/21 08:27 Nystatin Oral Susp 500,000 Unit/5 Ml Oral.Susp PO Not Given QID [facility] Protocol Omeprazole 40 mg 05/08/21 06:00 05/12/21 06:17 Omeprazole 40 Mg Capsule. PO Not Given DAILY@0600 [facility] Ondansetron HCl 4 mg 05/07/21 06:51 Ondansetron Hcl 4 Mg/2 Ml Vial IVPUSH Q8H PRN Nausea and Vomiting Polyethylene Glycol 17 gm 05/07/21 09:00 05/12/21 10:04 Polyethylene Glycol 3350 17 Gm Powd.Pack PO Not Given DAILY [facility] Senna/Docusate Sodium 2 tab 05/12/21 11:00 Sennosides/Docusate Sodium Tablet PO BID [facility] Sodium Chloride 3 ml 05/07/21 08:00 05/12/21 08:27 0.9 % Sodium Chloride Flush 3 Ml Syringe IVFLUSH 3 ml QSHIFT CHRISTELLE Administration Tramadol HCl 50 mg 05/07/21 21:00 05/12/21 10:04 Tramadol Hcl 50 Mg Tablet PO Not Given TID [facility] Vitamin E 360 mg 05/07/21 21:00 05/12/21 10:05 Vitamin E (Dl,Tocopheryl Acet) 180 Mg (400 Unit) Capsule PO Not Given BID [facility] Labs CBC & Chem 7: 05/12/21 06:09 05/12/21 06:09 Labs: Laboratory Results - last 24 hr 05/09/21 05/11/21 05/12/21 12:00 21:26 06:09 WBC 13.7 H RBC 3.73 L Hgb 10.3 L Hct 32.2 L MCV 86.3 MCH 27.6 MCHC 32.0 RDW 13.2 Plt Count 250 MPV 11.5 Absolute Nucleated RBC 0.000 Nucleated RBC % (auto) 0.0 PT INR Sodium Potassium Chloride Carbon Dioxide Anion Gap BUN Creatinine Estim Creat Clear Calc Estimated GFR Random Glucose Calcium Urine Color YELLOW Urine Appearance CLEAR Urine pH 6.0 Ur Specific [place] >= 1.030 H Urine Protein TRACE Urine Glucose (UA) NEG Urine Ketones 15 Urine Blood NEG Urine Nitrite POS H Ur Leukocyte Esterase NEG Urine RBC 1-4 Urine WBC 0 Ur Squamous Epith Cells NONE Urine Bacteria TRACE CSF Herpes I DNA (PCR) Not Detected CSF Herpes II DNA (PCR) Not Detected Body Source CSF 05/12/21 05/12/21 06:09 06:09 WBC RBC Hgb Hct MCV MCH MCHC RDW Plt Count MPV Absolute Nucleated RBC Nucleated RBC % (auto) PT 18.3 H INR 1.5 H Sodium 135 Potassium 4.2 Chloride 103 Carbon Dioxide 23 Anion Gap 13 BUN 10 Creatinine 0.69 Estim Creat Clear Calc 111.4 Estimated GFR > 60 Random Glucose 83 Calcium 8.2 L Urine Color Urine Appearance Urine pH Ur Specific [place] Urine Protein Urine Glucose (UA) Urine Ketones Urine Blood Urine Nitrite Ur Leukocyte Esterase Urine RBC Urine WBC Ur Squamous Epith Cells Urine Bacteria CSF Herpes I DNA (PCR) CSF Herpes II DNA (PCR) Body Source Microbiology Microbiology Results: Microbiology 05/09/21 12:00 Gram Stain - Final Cerebrospinal Fluid CSF Examination - Final Fluid Description - Final CSF Culture - Final No growth after 3 days. 05/07/21 01:17 Blood Culture - Final Blood - Venous No growth after 5 days. Quality Stroke Does the patient have a stroke diagnosis?: No VTE Prior VTE?: No VTE Risk Level:: Medical - moderate - high VTE Device Contraindication: Treatment Not Indicated VTE Drug Contraindication: N/A - Med Ordered Assessment and Plan (1) Sepsis: Status: Acute Assessment and Plan: hospital d#6 50yo M [facility] resident with TBI + schizoaffective disorder sent in poor PO intake and found to be septic. Recently admitted here 04/21-04/25/21 with sepsis attributed to aspiration pneumonia. This time, he has evidence of RLL secretions/atelectasis as well as possible R hip synovitis. 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 HIV negative. # normocytic anemia - due to infection/chronic disease, Hb stable; check FOBT # coagulopathy - ?nutritional. given 2 doses vitamin K, INR improved # severe constipation - senna/docusate, MiraLax, dulcolax TN # seizure disorder - levetiracetam, started on last admission; LP as above without infection # coccyx ulcer POA - not infected, continue local wound care # schizoaffective disorder - continue trihexyphenidyl, lithium, benztropine # HLD - continue statin # VTE ppx - UFH # dispo - 2 more days of IV ABX, then return to [facility]
[2021-05-12] MEDS: bisacodyL 10 MG SUPP.RECT PR (11:12)
--- NOTE | 2021-05-12 11:53 | MHC.CM.PN ---
NURSE CASE MNANAGER NOTE ELECTRONIC MEDICAL RECORD REVIEWED ALONG WITH CASE DISCUSSED WITH HOSPITLIST ON MULTIPLE DISCIPLINARY ROUNDS MET WITH PATIENT TODAY ALERT , AND ANSWERING SIMPLE QUESTIONS , PER HOSPITLAIST 1-2 MORE DAYS OF IV ABX AND THEN RETURN BACK TO [facility] [place] , SPOKE WITH Yordan MIMS, TODAY WITH UPDATE CLINICALS FAXED TO CARE FOR UPDATE WELL DISCHARGE PLAN RETURN BACK TO [facility] [place] VIA [facility] BLS GUARDIAN ID HATTIE MABEL
[2021-05-12 12:00] VITALS: BP 114/73; PULSE 101; RESP 21; TEMP 37.6; O2SAT 99
--- NOTE | 2021-05-12 13:30 | PM.IDPN ---
Subjective Subjective Date of Service: 05/12/21 Critical Care Time (minutes): 15 Comment: he is not on oxygen he has residual right base infiltrate Objective Data Labs CBC & Chem 7: 05/12/21 06:09 05/12/21 06:09 Labs: Laboratory Results - last 24 hr 05/09/21 05/11/21 05/12/21 12:00 21:26 06:09 WBC 13.7 H RBC 3.73 L Hgb 10.3 L Hct 32.2 L MCV 86.3 MCH 27.6 MCHC 32.0 RDW 13.2 Plt Count 250 MPV 11.5 Absolute Nucleated RBC 0.000 Nucleated RBC % (auto) 0.0 PT INR Sodium Potassium Chloride Carbon Dioxide Anion Gap BUN Creatinine Estim Creat Clear Calc Estimated GFR Random Glucose Calcium Urine Color YELLOW Urine Appearance CLEAR Urine pH 6.0 Ur Specific [place] >= 1.030 H Urine Protein TRACE Urine Glucose (UA) NEG Urine Ketones 15 Urine Blood NEG Urine Nitrite POS H Ur Leukocyte Esterase NEG Urine RBC 1-4 Urine WBC 0 Ur Squamous Epith Cells NONE Urine Bacteria TRACE CSF Herpes I DNA (PCR) Not Detected CSF Herpes II DNA (PCR) Not Detected Body Source CSF 05/12/21 05/12/21 06:09 06:09 WBC RBC Hgb Hct MCV MCH MCHC RDW Plt Count MPV Absolute Nucleated RBC Nucleated RBC % (auto) PT 18.3 H INR 1.5 H Sodium 135 Potassium 4.2 Chloride 103 Carbon Dioxide 23 Anion Gap 13 BUN 10 Creatinine 0.69 Estim Creat Clear Calc 111.4 Estimated GFR > 60 Random Glucose 83 Calcium 8.2 L Urine Color Urine Appearance Urine pH Ur Specific [place] Urine Protein Urine Glucose (UA) Urine Ketones Urine Blood Urine Nitrite Ur Leukocyte Esterase Urine RBC Urine WBC Ur Squamous Epith Cells Urine Bacteria CSF Herpes I DNA (PCR) CSF Herpes II DNA (PCR) Body Source Microbiology Microbiology Results: Microbiology 05/09/21 12:00 Cerebrospinal Fluid Gram Stain - Final 05/09/21 12:00 Cerebrospinal Fluid CSF Examination - Final 05/09/21 12:00 Cerebrospinal Fluid Fluid Description - Final 05/09/21 12:00 Cerebrospinal Fluid CSF Culture - Final No growth after 3 days. 05/07/21 01:17 Blood - Venous Blood Culture - Final No growth after 5 days. 05/07/21 01:17 Blood - Venous Blood Culture - Final Methicillin Res Staph Aureus 05/08/21 01:44 Blood - Venous Blood Culture - Preliminary No growth after 48 hours. 05/08/21 01:37 Blood - Venous Blood Culture - Preliminary No growth after 48 hours. Physical Exam Vital Signs: Vital Signs: Last Vital Signs Temp 99.7 F 05/12/21 12:00 Pulse 101 H 05/12/21 12:00 Resp 21 H 05/12/21 12:00 BP 114/73 05/12/21 12:00 Pulse Ox 99 05/12/21 12:00 Body Mass Index 23.8 Const: General: cooperative HENMT: Head: Yes normal to inspection Mouth: Normal oral and palatal mucosa present Resp: Effort & Inspection: normal respiratory effort Cardio: Rate: regular rate Rhythm: regular rhythm GI: Palpation (GI): Soft to palpation and nontender Assessment and Plan Assessment and plan (1) Leukocytosis: Status: Acute (2) Fever: Status: Acute (3) Pneumonia: Status: Acute (4) Sepsis: Problem details: He is doing better,on antibiotics Day 04/25 Doxycycline,Ceftriaxone and flagyl Needs two more days Status: Acute Time Spent With Patient Time: Total time spent is greater than 50% in coordination of care (as documented) at patient's floor/unit and/or counseling patient: Time with patient: 15 - 24 minutes
[2021-05-12 13:42] VITALS: BMI 23.8
--- NOTE | 2021-05-12 14:00 | MHC.CLN ---
NUTRITION FOLLOW UP PATIENT QUALIFIES MODERATE MALNUTRITION IN THE SETTING OF ACUTE ILLNESS/INJURY. BASED ON: ENERGY INTAKE LESS THAN 50% OF ESTIMATED NEEDS X >5 DAYS; MILD DEPLETION OF FAT OVERLYING RIBCAGE; MILD DEPLETION OF MUSCLE MASS OF CLAVICLES. [ End ]
[2021-05-12 15:23] VITALS: BP 110/72; PULSE 101; RESP 14; TEMP 37.1; O2SAT 98
[2021-05-12] MEDS: levETIRAcetam 500 MG TABLET PO ×2 (16:40→21:15)
--- NOTE | 2021-05-12 16:56 | PM.EVENT ---
Event Note Date of Service: 05/12/21 Event Note: This lyric writer received a psychiatric consult from Dr. Hunter regarding patient, stating that he is not taking his p.o. medications and is not eating. Patient is known to this hospital through previous admissions. He does have a history of schizoaffective disorder and TBI. He is a resident at [facility].
--- NOTE | 2021-05-12 17:00 | P.CNPS_ITS ---
History of Present Illness Date of Service: 05/12/21 Chief Complaint: fever Reason for Consult: Patient has history of TBI and schizoaffective disorder. Is not eating or taking PO medications. Requesting physician: Rufus Hunter Discussed with referring provider: Yes Sources of Information: patient interviewed and chart reviewed Additional Sources of Information: Patient's RN. Review of Systems Review of Systems Thin male, contractures appear to be present in right hip and lower limbs, appears to be resting comfortably in bed. Minimally conversant, able to answer in short 1 to 2 word replies. No overt distress noted. White patches around inner lips. Wearing hospital garb. Appropriately groomed. Yes Unobtainable due to mental condition (due to TBI and other health issues, unable to obtain a full ROS. ) [facility] Medical History Anemia Astigmatism, bilateral Bilateral cataracts Chronic constipation Constipation Depressive disorder Disorder of the autonomic nervous system, unspecified Dysarthria and anarthria Encephalopathy Essential (primary) hypertension Extrapyramidal and movement disorder Fever Hemiplegia Hyperlipidemia Hypertension MDD (major depressive disorder) Muscle weakness Myopia, bilateral Parkinson disease Presbyopia Schizophrenia Seizure Seizures SIRS (systemic inflammatory response syndrome) Toxic encephalitis Toxic encephalopathy Narrative: This staff writer received a psychiatric consult from Dr. Hunter regarding patient, stating that he is not taking his p.o. medications and is not eating. Patient is known to this hospital through previous admissions. He does have a history of schizoaffective disorder and TBI. He is a resident at [facility] in [place]. MAR shows that he did take his medications orally yesterday. However, he has refused them today. When this staff writer met with patient, he nodded his head no that he did not want anything to eat or drink. Patient is mostly nonverbal, however is able to respond to questions appropriately with 1-2 word answers. When asked if he would consider taking the Keppra due to help prevent a seizure, he stated yes. When asked if he wanted an ice cream, he shook his head no. When asked if he wanted it in pudding, he shook his head yes. Patient did excepting and swallow 1 dose of Keppra. Nurse then attempted to provide patient with tramadol dose. Patient refused to take it. Patient then agreed, stating yes when asked if he would please take his lithium tonight. Family History: None known Social History: Patient deemed incapacitated, has guardian. Lives in [facility] facility, in [place]. Substance History: Unknown Trauma History: Unknown Diagnostics Vital Signs (24Hr): Vital Signs - 24 hr 05/11/21 19:54 05/11/21 23:36 05/12/21 03:52 Temperature 99.2 F 99.4 F 99.2 F Pulse Rate 109 H 98 96 Respiratory Rate 16 16 16 Blood Pressure 138/84 137/81 120/65 Pulse Oximetry 97 99 98 05/12/21 07:51 05/12/21 12:00 05/12/21 15:23 Temperature 98.9 F 99.7 F 98.7 F Pulse Rate 100 101 H 101 H Respiratory Rate 19 21 H 14 Blood Pressure 105/77 114/73 110/72 Pulse Oximetry 98 99 98 Body Mass Index 23.8 Labs Results: 05/12/21 06:09 05/12/21 06:09 Labs: Laboratory Results - last 48 hr 05/09/21 05/09/21 05/11/21 12:00 Unknown 06:29 WBC 11.4 H RBC 3.95 L Hgb 10.8 L Hct 34.2 L MCV 86.6 MCH 27.3 MCHC 31.6 RDW 13.2 Plt Count 247 MPV 11.9 Absolute Nucleated RBC 0.000 Nucleated RBC % (auto) 0.0 Absolute Retic Percent Retic Immature Retic Fraction Retic Hgb Equivalent PT INR Sodium Potassium Chloride Carbon Dioxide Anion Gap BUN Creatinine Estim Creat Clear Calc Estimated GFR Random Glucose Calcium Iron TIBC % Saturation Unsat Iron Binding Ferritin Lactate Dehydrogenase C-Reactive Protein Vitamin B12 Folate Procalcitonin Urine Color Urine Appearance Urine pH Ur Specific [place] Urine Protein Urine Glucose (UA) Urine Ketones Urine Blood Urine Nitrite Ur Leukocyte Esterase Urine RBC Urine WBC Ur Squamous Epith Cells Urine Bacteria CSF Herpes I DNA (PCR) Not Detected CSF Herpes II DNA (PCR) Not Detected CSF Mening/Enceph PCR SEE NOTE Body Source CSF 05/11/21 05/11/21 05/11/21 06:29 06:29 06:29 WBC RBC Hgb Hct MCV MCH MCHC RDW Plt Count MPV Absolute Nucleated RBC Nucleated RBC % (auto) Absolute Retic 0.029 Percent Retic 0.8 Immature Retic Fraction 17.6 H Retic Hgb Equivalent 30.2 PT INR Sodium Potassium Chloride Carbon Dioxide Anion Gap BUN Creatinine Estim Creat Clear Calc Estimated GFR Random Glucose Calcium Iron 30 L TIBC 162 L % Saturation 19 Unsat Iron Binding 132 Ferritin 1933 H Lactate Dehydrogenase 198 C-Reactive Protein 11.28 H Vitamin B12 681 Folate 11.6 Procalcitonin Urine Color Urine Appearance Urine pH Ur Specific [place] Urine Protein Urine Glucose (UA) Urine Ketones Urine Blood Urine Nitrite Ur Leukocyte Esterase Urine RBC Urine WBC Ur Squamous Epith Cells Urine Bacteria CSF Herpes I DNA (PCR) CSF Herpes II DNA (PCR) CSF Mening/Enceph PCR Body Source 05/11/21 05/11/21 05/12/21 06:29 21:26 06:09 WBC 13.7 H RBC 3.73 L Hgb 10.3 L Hct 32.2 L MCV 86.3 MCH 27.6 MCHC 32.0 RDW 13.2 Plt Count 250 MPV 11.5 Absolute Nucleated RBC 0.000 Nucleated RBC % (auto) 0.0 Absolute Retic Percent Retic Immature Retic Fraction Retic Hgb Equivalent PT INR Sodium Potassium Chloride Carbon Dioxide Anion Gap BUN Creatinine Estim Creat Clear Calc Estimated GFR Random Glucose Calcium Iron TIBC % Saturation Unsat Iron Binding Ferritin Lactate Dehydrogenase C-Reactive Protein Vitamin B12 Folate Procalcitonin 0.05 Urine Color YELLOW Urine Appearance CLEAR Urine pH 6.0 Ur Specific [place] >= 1.030 H Urine Protein TRACE Urine Glucose (UA) NEG Urine Ketones 15 Urine Blood NEG Urine Nitrite POS H Ur Leukocyte Esterase NEG Urine RBC 1-4 Urine WBC 0 Ur Squamous Epith Cells NONE Urine Bacteria TRACE CSF Herpes I DNA (PCR) CSF Herpes II DNA (PCR) CSF Mening/Enceph PCR Body Source 05/12/21 05/12/21 06:09 06:09 WBC RBC Hgb Hct MCV MCH MCHC RDW Plt Count MPV Absolute Nucleated RBC Nucleated RBC % (auto) Absolute Retic Percent Retic Immature Retic Fraction Retic Hgb Equivalent PT 18.3 H INR 1.5 H Sodium 135 Potassium 4.2 Chloride 103 Carbon Dioxide 23 Anion Gap 13 BUN 10 Creatinine 0.69 Estim Creat Clear Calc 111.4 Estimated GFR > 60 Random Glucose 83 Calcium 8.2 L Iron TIBC % Saturation Unsat Iron Binding Ferritin Lactate Dehydrogenase C-Reactive Protein Vitamin B12 Folate Procalcitonin Urine Color Urine Appearance Urine pH Ur Specific [place] Urine Protein Urine Glucose (UA) Urine Ketones Urine Blood Urine Nitrite Ur Leukocyte Esterase Urine RBC Urine WBC Ur Squamous Epith Cells Urine Bacteria CSF Herpes I DNA (PCR) CSF Herpes II DNA (PCR) CSF Mening/Enceph PCR Body Source Imaging Radiology Impressions: ITS Impressions Abdomen/Pelvis CT 05/07/21 01:04 IMPRESSION: CHEST: * Secretions present within the right mainstem bronchus associated with atelectasis of the medial basal segment of the right lower lobe. Recommend pulmonary lavage. * Mild lower lobe bronchial wall thickening without bronchiectasis. * Stable 4 mm nodule within right upper lobe. ABDOMEN/PELVIS: * Moderate constipation with large rectal stool burden and associated rectal wall thickening suggestive of stercoral colitis as seen previously. * Small right hip joint effusion associated with synovial thickening and hyperenhancement. This could be compatible with synovitis. No imaging evidence of osteomyelitis. * Questionable bladder wall thickening versus spurious thickening related to underdistention. Please correlate with urinalysis. * There are couple of hepatic lesions, one of which represents a hemangioma, the other less specific and favored to represent focal nodular hyperplasia or an arterioportal shunt as described. Chest CT 05/07/21 01:57 IMPRESSION: CHEST: * Secretions present within the right mainstem bronchus associated with atelectasis of the medial basal segment of the right lower lobe. Recommend pulmonary lavage. * Mild lower lobe bronchial wall thickening without bronchiectasis. * Stable 4 mm nodule within right upper lobe. ABDOMEN/PELVIS: * Moderate constipation with large rectal stool burden and associated rectal wall thickening suggestive of stercoral colitis as seen previously. * Small right hip joint effusion associated with synovial thickening and hyperenhancement. This could be compatible with synovitis. No imaging evidence of osteomyelitis. * Questionable bladder wall thickening versus spurious thickening related to underdistention. Please correlate with urinalysis. * There are couple of hepatic lesions, one of which represents a hemangioma, the other less specific and favored to represent focal nodular hyperplasia or an arterioportal shunt as described. Lumbar Puncture Fluoroscopy 05/09/21 12:42 IMPRESSION: Successful CT fluoroscopy-guided lumbar puncture performed in left lateral decubitus view. Chest X-Ray 05/12/21 11:37 IMPRESSION: Question small residual infiltrate at the right lung base. This appears improved compared to recent exams. Mental Status Exam Mental Status Exam Patient Appearance: Appropriate Patient Orientation: Person Level of Consciousness: Awake Patient Behavior: Appropriate and Good Eye Contact Mood Description: Blunted Affect Description: Blunted Patient Cognition Impaired: Yes Ability to Follow Directions: Fair (Patient able to answer questions minimally in mostly yes or no, several other short phrases. Appears to be full assist at this time and unable to move about freely.) Speech Pattern: Difficulty Finding Words, No Speech (speech minimal, however he does reply when asked short, direct, yes or no questions. ) and Poor Articula tion Memory Description: Remote Impaired and Immediate Impaired Hallucinations: None (Patient did not appear to be responding to any type of internal stimuli.) Thought Process: Slowed Thinking Thought Content: positive for [place] and positive for Poverty of Content Judgement: Poor Judgement and Insight: Two 2 traumatic brain injury, judgment and insight appear poor. Patient has been deemed incapacitated, and has a legal guardian. Medications Medications Current Medications Generic Name Dose Route Start Last Admin Trade Name Freq PRN Reason Stop Dose Admin Acetaminophen 650 mg 05/07/21 06:51 05/09/21 15:52 Acetaminophen 325 Mg Tablet PO 650 mg Q6H PRN Administration Pain, Mild (Pain Scale 1-3) Acetaminophen 650 mg 05/07/21 18:44 05/07/21 19:52 Acetaminophen Supp 650 Mg Supp.Rect GA 650 mg Q6H PRN Administration fever/pain Ascorbic Acid 500 mg 05/08/21 09:00 05/12/21 10:04 Ascorbic Acid 500 Mg Tablet PO Not Given DAILY CHRISTELLE Atorvastatin Calcium 10 mg 05/07/21 21:00 05/11/21 20:01 Atorvastatin Calcium 10 Mg Tablet PO 10 mg BEDTIME CHRISTELLE Administration Benztropine Mesylate 1 mg 05/07/21 21:00 05/12/21 10:04 Benztropine Mesylate 1 Mg Tablet PO Not Given BID CHRISTELLE Bisacodyl 10 mg 05/12/21 11:00 05/12/21 11:12 Bisacodyl 10 Mg Supp.Rect GA 10 mg DAILY CHRISTELLE Administration Docusate Sodium 100 mg 05/07/21 06:51 Docusate Sodium 100 Mg Capsule PO DAILY PRN Constipation Famotidine 40 mg 05/07/21 21:00 05/11/21 20:01 Famotidine 20 Mg Tablet PO 40 mg BEDTIME CHRISTELLE Administration Ferrous Sulfate 324 mg 05/08/21 09:00 05/12/21 08:26 Ferrous Sulfate 324 Mg Tablet.Dr PO 324 mg DAILY CHRISTELLE Administration Heparin Sodium (Porcine) 5,000 unit 05/11/21 11:30 05/12/21 11:17 Heparin Sodium,Porcine 5,000 Unit/Ml Vial SUBCUT 5,000 unit Q8H CHRISTELLE Administration Doxycycline Hyclate 100 mg/ 250 mls @ 166.67 mls/hr 05/07/21 06:15 05/12/21 08:28 Sodium Chloride IV Infused Q12H CHRISTELLE Infusion Ceftriaxone Sodium 1 gm/ 50 mls @ 100 mls/hr 05/07/21 06:15 05/12/21 06:08 Sodium Chloride IV Infused Q24H CHRISTELLE Infusion Metronidazole 500 mg in 100 mls @ 100 mls/hr 05/07/21 08:00 05/12/21 16:49 Flagyl IV Infused Q8H CH[facility]STELLE Infusion Levetiracetam 500 mg 05/07/21 21:00 05/12/21 16:40 Levetiracetam 500 Mg Tablet PO 500 mg BID CHRISTELLE Administration [place] Carbonate 300 mg 05/07/21 21:00 05/11/21 20:01 [place] Carbonate 300 Mg Capsule PO 300 mg BEDTIME CHRISTELLE Administration Nystatin 200,000 unit 05/10/21 09:00 05/12/21 15:10 Nystatin Oral Susp 500,000 Unit/5 Ml Oral.Susp PO Not Given QID [facility] Protocol Omeprazole 40 mg 05/08/21 06:00 05/12/21 06:17 Omeprazole 40 Mg Capsule. PO Not Given DAILY@0600 [facility] Ondansetron HCl 4 mg 05/07/21 06:51 Ondansetron Hcl 4 Mg/2 Ml Vial IVPUSH Q8H PRN Nausea and Vomiting Polyethylene Glycol 17 gm 05/07/21 09:00 05/12/21 10:04 Polyethylene Glycol 3350 17 Gm Powd.Pack PO Not Given DAILY [facility] Polyethylene Glycol 17 gm 05/12/21 11:15 05/12/21 11:20 Polyethylene Glycol 3350 17 Gm Powd.Pack PO Not Given DAILY [facility] Senna/Docusate Sodium 2 tab 05/12/21 11:00 05/12/21 11:14 Sennosides/Docusate Sodium Tablet PO Not Given BID [facility] Sodium Chloride 3 ml 05/07/21 08:00 05/12/21 15:40 0.9 % Sodium Chloride Flush 3 Ml Syringe IVFLUSH 3 ml QSHIFT [facility] Administration Tramadol HCl 50 mg 05/07/21 21:00 05/12/21 15:09 Tramadol Hcl 50 Mg Tablet PO Not Given TID CHRISTELLE Vitamin E 360 mg 05/07/21 21:00 05/12/21 10:05 Vitamin E (Dl,Tocopheryl Acet) 180 Mg (400 Unit) Capsule PO Not Given BID CHRISTELLE Allergies Allergies Allergy/AdvReac Type Severity Reaction Status Date / Time wool Allergy Unknown Unknown Uncoded 04/19/21 23:44 Assessment & Plan Discussed with nurse and provider patient's lack of interest in eating and taking medications today. Recommend staff calling senior living to see if there particular foods he may be more willing to eat, as well as certain foods (if an y) used to help facilitate swallowing medications, such as a certain flavor pudding or ice cream, etc. At this point, I would be more focused on attempting to continue offering patient the medications for seizure disorder and shizoaffective disorder, such as keppra and lithium, so as to prevent further complications. Patient's antibiotics are currently via IV, so this is not a concern at this time. Suggest unit call his senior living for food suggestions. If patient continues with no p.o. intake and refusal of medications, provider may need to contact his guardian for recommendations going forward. TW did inform nurse that patient has agreed to take his lithium when due later this evening. These thoughts were conveyed to Dr. Hunter, via secure messaging. Greater than 50% of the session was spent on counseling and/or coordination of care Patient educated on: medical condition (Discussed seizure disorder and keppra. Pt did agree and took keppra, whole, in pudding. ) Guardian/Caregiver educated on: medication risk/benefits (dicussed with nurse, focusing on priority medications.) and therapeutic strategies (Discussed ways to encourage patient to take po meds with his nurse. ) Informed Consent: does not understand
[2021-05-12 19:40] VITALS: BP 118/71; PULSE 101; RESP 15; TEMP 36.8; O2SAT 98
[2021-05-12] MEDS: traMADoL HCL 50 MG TABLET PO (21:14)
[2021-05-12] MEDS: Lithium Carbonate 300 MG CAPSULE PO (21:15)
[2021-05-12 23:24] VITALS: BP 115/82; PULSE 106; RESP 18; TEMP 36.9; O2SAT 99
[2021-05-13] MEDS: Heparin Sodium,Porcine 5,000 UNIT/ML VIAL 5000 UNIT SUBCUT ×2 (03:16→20:57)
[2021-05-13 03:31] VITALS: BP 120/76; PULSE 112; RESP 18; TEMP 36.9; O2SAT 98
[2021-05-13] MEDS: cefTRIAXone sodium 1 GM in 0.9 % Sodium Chloride 50 ML IV (06:21)
[2021-05-13 07:12] LABS: Hematocrit 32.7 % (42-52); Hemoglobin 10.3 g/dl (14.0-18.0); Mean Corpuscular HGB Conc 31.5 g/dl (31.0-36.0); Mean Corpuscular Hemoglobin 27.3 pg (27.0-33.0); Mean Corpuscular Volume 86.7 fL (80-98); Mean Platelet Volume 11.2 fL (9.4-12.4); Platelet Count 281 X10*3/uL (160-400); Red Blood Count 3.77 X10*6/uL (4.60-5.80); Red Cell Distribution Width 13.3 % (11.0-16.0); White Blood Count 13.7 X10*3/uL (4.8-10.8)
[2021-05-13] MEDS: Doxycycline Hyclate 100 MG in 0.9 % Sodium Chloride 250 ML 166.67 MG IV ×2 (07:12→18:04)
[2021-05-13 07:29] LABS: Anion Gap 11 (12-20); Blood Urea Nitrogen 12 mg/dL (9-16); C Reactive Protein 11.98 mg/dL (< or = 0.50); Calcium 8.6 mg/dL (8.4-10.2); Carbon Dioxide 25 mmol/L (22-29); Chloride 104 mmol/L (96-108); Creatinine Clr Calc Pharmacy 118.2; Estimated Glomerular Filt Rate > 60; Glucose Random 86 mg/dL (60-115); Sodium 136 mmol/L (135-145)
[2021-05-13 07:41] VITALS: BP 110/68; PULSE 98; RESP 17; TEMP 36.8; O2SAT 99
[2021-05-13 07:51] LABS: Procalcitonin 0.07 ng/mL
[2021-05-13] MEDS: metroNIDAZOLE/NS 500 MG/100 ML PIGGYBACK 100 MG IV ×2 (08:53→15:23)
[2021-05-13] MEDS: 0.9 % Sodium Chloride Flush 3 ML SYRINGE IVFLUSH ×2 (08:53→15:26)
[2021-05-13] MEDS: traMADoL HCL 50 MG TABLET PO ×3 (08:58→20:58)
[2021-05-13] MEDS: levETIRAcetam 500 MG TABLET PO ×2 (08:58→20:58)
[2021-05-13] MEDS: Benztropine Mesylate 1 MG TABLET PO ×2 (08:59→20:58)
--- NOTE | 2021-05-13 11:59 | P.PNIM_ITS ---
Subjective Subjective Date of Service: 05/13/21 Interval History: Offers no acute complaints, saying no to breakfast, no other acute issues overnight. General no fevers, no chills Respiratory, say no to cough, no shortness breath GI, no nausea, no vomiting, no abdominal pain Physical Exam Vital Signs: Vital Signs: Last Vital Signs Temp 98.3 F 05/13/21 07:41 Pulse 98 05/13/21 07:41 Resp 17 05/13/21 07:41 BP 110/68 05/13/21 07:41 Pulse Ox 99 05/13/21 07:41 Body Mass Index 23.8 Gen: alert, no acute distress, tardive dyskinesia present no change, multiple contractures Neck: supple Lungs: clear to auscultation bilaterally Heart: regular rate and rhythm, no murmurs Abd: soft, non-tender, non-distended Ext: no edema Neuro: alert Psych: impaired insight Objective Data Current Medications Generic Name Dose Route Start Last Admin Trade Name Freq PRN Reason Stop Dose Admin Acetaminophen 650 mg 05/07/21 06:51 05/09/21 15:52 Acetaminophen 325 Mg Tablet PO 650 mg Q6H PRN Administration Pain, Mild (Pain Scale 1-3) Acetaminophen 650 mg 05/07/21 18:44 05/07/21 19:52 Acetaminophen Supp 650 Mg Supp.Rect [place] 650 mg Q6H PRN Administration fever/pain Ascorbic Acid 500 mg 05/08/21 09:00 05/13/21 09:08 Ascorbic Acid 500 Mg Tablet PO Not Given DAILY CHRISTELLE Atorvastatin Calcium 10 mg 05/07/21 21:00 05/12/21 21:20 Atorvastatin Calcium 10 Mg Tablet PO Not Given BEDTIME [facility]STELLE Benztropine Mesylate 1 mg 05/07/21 21:00 05/13/21 08:59 Benztropine Mesylate 1 Mg Tablet PO 1 mg BID [facility]ISETLLE Administration Bisacodyl 10 mg 05/12/21 11:00 05/13/21 09:00 Bisacodyl 10 Mg Supp.Rect IA Not Given DAILY CHRISTELLE Docusate Sodium 100 mg 05/07/21 06:51 Docusate Sodium 100 Mg Capsule PO DAILY PRN Constipation Famotidine 40 mg 05/07/21 21:00 05/12/21 21:20 Famotidine 20 Mg Tablet PO Not Given BEDTIME CHRISTELLE Ferrous Sulfate 324 mg 05/08/21 09:00 05/13/21 09:00 Ferrous Sulfate 324 Mg Tablet. PO Not Given DAILY [facility] Heparin Sodium (Porcine) 5,000 unit 05/11/21 11:30 05/13/21 03:16 Heparin Sodium,Porcine 5,000 Unit/Ml Vial SUBCUT 5,000 unit Q8H CH[facility]STELLE Administration Doxycycline Hyclate 100 mg/ 250 mls @ 166.67 mls/hr 05/07/21 06:15 05/13/21 08:44 Sodium Chloride IV Infused Q12H [facility]ELLE Infusion Ceftriaxone Sodium 1 gm/ 50 mls @ 100 mls/hr 05/07/21 06:15 05/13/21 07:08 Sodium Chloride IV Infused Q24H [facility]STELLE Infusion Metronidazole 500 mg in 100 mls @ 100 mls/hr 05/07/21 08:00 05/13/21 10:14 Flagyl IV Infused Q8H [facility] Infusion Levetiracetam 500 mg 05/07/21 21:00 05/13/21 08:58 Levetiracetam 500 Mg Tablet PO 500 mg BID CHRISTELLE Administration [place] Carbonate 300 mg 05/07/21 21:00 05/12/21 21:15 [place] Carbonate 300 Mg Capsule PO 300 mg BEDTIME CH[facility]STELLE Administration Nystatin 200,000 unit 05/10/21 09:00 05/13/21 09:07 Nystatin Oral Susp 500,000 Unit/5 Ml Oral.Susp PO Not Given QID [facility] Protocol Omeprazole 40 mg 05/08/21 06:00 05/13/21 06:21 Omeprazole 40 Mg Capsule. PO Not Given DAILY@0600 [facility] Ondansetron HCl 4 mg 05/07/21 06:51 Ondansetron Hcl 4 Mg/2 Ml Vial IVPUSH Q8H PRN Nausea and Vomiting Polyethylene Glycol 17 gm 05/07/21 09:00 05/13/21 09:00 Polyethylene Glycol 3350 17 Gm Powd.Pack PO Not Given DAILY [facility] Polyethylene Glycol 17 gm 05/12/21 11:15 05/13/21 09:00 Polyethylene Glycol 3350 17 Gm Powd.Pack PO Not Given DAILY [facility] Senna/Docusate Sodium 2 tab 05/12/21 11:00 05/13/21 09:00 Sennosides/Docusate Sodium Tablet PO Not Given BID [facility] Sodium Chloride 3 ml 05/07/21 08:00 05/13/21 08:53 0.9 % Sodium Chloride Flush 3 Ml Syringe IVFLUSH 3 ml QSHIFT [facility]STELLE Administration Tramadol HCl 50 mg 05/07/21 21:00 05/13/21 08:58 Tramadol Hcl 50 Mg Tablet PO 50 mg TID CHRISTELLE Administration Vitamin E 360 mg 05/07/21 21:00 05/13/21 09:01 Vitamin E (Dl,Tocopheryl Acet) 180 Mg (400 Unit) Capsule PO Not Given BID [facility] Labs CBC & Chem 7: 05/13/21 06:25 05/13/21 06:25 Labs: Laboratory Results - last 24 hr 05/13/21 05/13/21 05/13/21 06:25 06:25 06:25 WBC 13.7 H RBC 3.77 L Hgb 10.3 L Hct 32.7 L MCV 86.7 MCH 27.3 MCHC 31.5 RDW 13.3 Plt Count 281 MPV 11.2 Absolute Nucleated RBC 0.000 Nucleated RBC % (auto) 0.0 Sodium 136 Potassium 4.0 Chloride 104 Carbon Dioxide 25 Anion Gap 11 L BUN 12 Creatinine 0.65 Estim Creat Clear Calc 118.2 Estimated GFR > 60 Random Glucose 86 Calcium 8.6 C-Reactive Protein 11.98 H Procalcitonin 0.07 Microbiology Microbiology Results: Microbiology 05/08/21 01:44 Blood Culture - Final Blood - Venous No growth after 5 days. 05/08/21 01:37 Blood Culture - Final Blood - Venous No growth after 5 days. 05/09/21 12:00 Gram Stain - Final Cerebrospinal Fluid CSF Examination - Final Fluid Description - Final CSF Culture - Final No growth after 3 days. Quality Stroke Does the patient have a stroke diagnosis?: No VTE Prior VTE?: No VTE Risk Level:: Medical - moderate - high VTE Device Contraindication: Treatment Not Indicated VTE Drug Contraindication: N/A - Med Ordered Assessment and Plan (1) Pneumonia: Status: Acute (2) Sepsis: Status: Acute (3) Contracture, right hip: Status: Acute (4) Tachycardia: Status: Acute (5) Leukocytosis: Status: Acute (6) Fever: Status: Acute (7) Effusion of hip joint, right: Status: Acute Assessment and Plan: 50yo M [facility] resident with TBI + schizoaffective disorder sent in poor PO intake and found to be septic. Recently admitted here 04/21-04/25/21 with sepsis attributed to aspiration pneumonia. This time, he has evidence of RLL secretions/atelectasis as well as possible R hip synovitis. # sepsis, recurrent likely due to aspiration pneumonia - LP done 05/09/21- meningoencephalitis PCR panel negative + culture negative - ID consultation appreciated; likely pneumonia will continue doxycycline + ceftriaxone + metronidazole d# 05/25, BCx negative, HIV negative 04/25/21 - [employer]GER evaluation states 1:1 for all feeds, NDD1 solids, thin liquids, poor by mouth intake noted continue to encourage oral intake. # question of synovitis - Orthopedics consulted; not thought to have septic hip # thrush - nystatin swish + swallow. HIV negative. # normocytic anemia - due to infection/chronic disease, Hb stable # coagulopathy - ?nutritional. given 2 doses vitamin K, INR improved # severe constipation - senna/docusate, MiraLax, dulcolax IA, had an episode of incontinentence brown stool # seizure disorder - levetiracetam, started on last admission; LP as above without infection, no seizures noted # coccyx ulcer POA - not infected, continue local wound care # schizoaffective disorder - continue trihexyphenidyl, lithium, benztropine # HLD - continue statin # VTE ppx - UFH # dispo - 1 more days of IV ABX, then return to [facility]
[2021-05-13 12:00] VITALS: BP 122/76; PULSE 97; RESP 19; TEMP 36.5; O2SAT 99
[2021-05-13 16:00] VITALS: BP 129/83; PULSE 98; RESP 16; TEMP 37.4; O2SAT 98
[2021-05-13 19:30] VITALS: BP 121/88; PULSE 99; RESP 14; TEMP 37.2; O2SAT 97
[2021-05-13] MEDS: Nystatin Oral Susp 500,000 UNIT/5 ML ORAL.SUSP 200000 UNIT PO (20:57)
[2021-05-13] MEDS: Sennosides/Docusate Sodium TABLET 2 TAB PO (20:58)
[2021-05-13] MEDS: Famotidine 20 MG TABLET 40 MG PO (20:58)
[2021-05-13] MEDS: Vitamin E (Dl,Tocopheryl Acet) 180 MG (400 UNIT) CAPSULE 360 MG PO (20:58)
[2021-05-13] MEDS: Lithium Carbonate 300 MG CAPSULE PO (20:58)
[2021-05-13] MEDS: Atorvastatin Calcium 10 MG TABLET PO (20:59)
[2021-05-14] VITALS: BP 125/76; PULSE 99; RESP 18; TEMP 36.6; O2SAT 100
[2021-05-14] MEDS: metroNIDAZOLE/NS 500 MG/100 ML PIGGYBACK 100 MG IV ×2 (01:29→08:48)
[2021-05-14] MEDS: 0.9 % Sodium Chloride Flush 3 ML SYRINGE IVFLUSH ×2 (01:30→08:48)
[2021-05-14 03:57] VITALS: BP 93/65; PULSE 97; RESP 16; TEMP 36.5; O2SAT 99
[2021-05-14] MEDS: cefTRIAXone sodium 1 GM in 0.9 % Sodium Chloride 50 ML IV (05:53)
[2021-05-14] MEDS: Omeprazole 40 MG CAPSULE.DR PO (05:53)
[2021-05-14 08:00] VITALS: BP 124/75; PULSE 101; RESP 17; TEMP 36.8; O2SAT 99
[2021-05-14 08:50] LABS: COVID-19 Test Negative (Negative)
[2021-05-14] MEDS: levETIRAcetam 500 MG TABLET PO (08:52)
[2021-05-14] MEDS: Ascorbic Acid 500 MG TABLET PO (08:53)
[2021-05-14] MEDS: Benztropine Mesylate 1 MG TABLET PO (08:53)
[2021-05-14] MEDS: traMADoL HCL 50 MG TABLET PO (08:53)
[2021-05-14] MEDS: Vitamin E (Dl,Tocopheryl Acet) 180 MG (400 UNIT) CAPSULE 360 MG PO (08:54)
[2021-05-14] MEDS: Ferrous Sulfate 324 MG TABLET.DR PO (08:54)
[2021-05-14] MEDS: Sennosides/Docusate Sodium TABLET 2 TAB PO (08:54)
[2021-05-14] MEDS: polyethylene glycoL 3350 17 GM POWD.PACK PO (08:55)
--- NOTE | 2021-05-14 09:41 | MHC.CM.PN ---
NURSE GAS WELDING MACHINE OPERATOR NOTE ELECTRONIC MEDICAL RECORD REVIEWED ALONG WITH CASE DISCUSSED WITH HOSPITALIST AND STAFF NURSE SPOKE WITH PRACHI AT [facility] AND WILL FAX OVER TO THEM THE MEDICATION LIST LABS, D/C INSTRUCTIONS DISCHARGE PLAN TRANSFER TO [facility] WHERE PATIENT RESIDES SPOKE WITH PRACHI CONFIRMED TIME OF TRANSPORT FOR 1PM TODAY CONFIRMED WITH MICHAEL HUTCHINSON BLS RAFTSMAN AT [facility] ALL PAPERWORK COMPLETED INFORMED PATIENT HE WOULD BE GOING BACK TO [facility] TODAY SPOKE WITH PATIENTS GUARDIAN HATTIE BURGOS UPDATE A,D D/C REVIEWED WITH HER ALL PAPERWORK COMPLETED
[2021-05-14] MEDS: Doxycycline Hyclate 100 MG in 0.9 % Sodium Chloride 250 ML 166.67 MG IV (09:44)
--- NOTE | 2021-05-14 11:36 | PM.DS ---
DS: Providers Provider Date of Service: 05/14/21 Date of admission: 05/08/21 15:00 Primary care physician: Edson Meredith DO Consults: 05/07/21 06:51 Consult to Orthopedics Routine Consulting Provider: Berny Villalta Reason for consultation: hip synovitis? Has provider been notified: Christine 05/07/21 07:29 Consult to Infectious Diseases Routine Consulting Provider: Mily Zhong Reason for consultation: sepsis- aspiration PNA vs synovitis? 05/12/21 11:55 Consult to Psychiatry Routine Consulting Provider: Psych Covering Reason for consultation: [facility] pt with TBI/schizoaffective, refusing PO meds + food DS: Diagnosis Discharge Diagnosis (1) Pneumonia: Status: Acute (2) Sepsis: Status: Acute Problem details: He is doing better,on antibiotics Day 04/25 Doxycycline,Ceftriaxone and flagyl Needs two more days (3) Contracture, right hip: Status: Acute (4) Tachycardia: Status: Acute (5) Leukocytosis: Status: Acute (6) Fever: Status: Acute (7) Effusion of hip joint, right: Status: Acute DS: Medications Discharge Medications Home Medications: Home Medications Medication Instructions Recorded Confirmed acetaminophen 650 mg PO Q4H PRN 01/09/21 05/07/21 ascorbic acid (vitamin C) [Vitamin 500 mg PO DAILY 01/09/21 05/07/21 C] aspirin 81 mg PO DAILY 01/09/21 05/07/21 benztropine 1 mg PO BID 01/09/21 05/07/21 bisacodyl 10 mg DC DAILY 01/09/21 05/07/21 docusate sodium 200 mg PO DAILY 01/09/21 05/07/21 ferrous sulfate 325 mg PO DAILY 01/09/21 05/07/21 lithium carbonate 300 mg PO BEDTIME 01/09/21 05/07/21 sennosides [senna] 8.6 mg PO DAILY PRN 01/09/21 05/07/21 sennosides [senna] 17.2 mg PO BEDTIME 01/09/21 04/20/21 simvastatin 20 mg PO BEDTIME 01/09/21 05/07/21 trihexyphenidyl 2 mg PO BID 01/09/21 05/07/21 vitamin E 800 unit PO BID 01/09/21 05/07/21 famotidine 40 mg PO BEDTIME 05/07/21 05/07/21 omeprazole 40 mg PO DAILY 05/07/21 05/07/21 tramadol 50 mg PO TID 05/07/21 05/07/21 Previous Rx's Medication Instructions Recorded polyethylene glycol 3350 [Miralax] 17 g PO DAILY #510 g 01/08/21 levetiracetam 500 mg PO BID #60 tab 04/25/21 DS: Summary Hospital Course Hospital Course: history of presenting illness Chief Complaint: not eating 50-year-old male with past medical history of hypertension, hyperlipidemia, will Parkinson's disease, schizophrenia, as with toxic encephalopathy others abuse to the hospital from [facility] with complaints low oral intake. Patient is a poor historian, abdominal pain, no short new numbness tingling. of note patient has many frequent presentations to the hospital with a most recent discharge on 04/25 after being managed at that time for fever and tachycardia secondary to aspiration pneumonia. He was also found to have a fever on arrival of 102 rectally. On arrival today patient's vitals were significant for for temp of 102, heart rate of 130, respiratory rate of 18, blood pressure 125/72, satting 93% on room air Lab significant for WBC count 21.7, BUN of 23, creatinine of 0.93, alk-phos of 131, UA negative, UDS positive for lithium, with a low level of 0.29, CT of the chest shows secretions present within the right mainstem bronchus associated with atelectasis of the medial basal segment of the right lower lobe, mild lower lobe bronchial wall thickening without bronchiectasis Abdominal pelvic CT shows small right hip joint effusion associated with two view thickening and hyper enhancement which could be synovitis. Couple of hepatic lesions that could represent a hemangioma versus no drug hyperplasia, questionable bladder wall thickening. Moderate constipation with large rectal stool burden and associated rectal wall thickening suggestive of sterocoral colitis Given fever, tachycardia, leukocytosis patient will be admitted for further management and evaluation hospital course 50yo M [facility] resident with TBI + schizoaffective disorder sent in due to poor PO intake and found to be septic, patient was recently admitted from 04/21-04/25/21 with sepsis attributed to aspiration pneumonia, patient imaging studies again showed evidence of RLL secretions/atelectasis as well as possible R hip synovitis, patient was diagnosed to have sepsis,likely due to aspiration pneumonia due to recurrent admit patient underwent extensive workup including LP done 05/09/21 meningo-encephalitis PCR panel is negative, CSF culture negative, patient evaluated by orthopedic surgeon for question of synovitis of right hip, they ruled out septic arthritis, HIV negative 04/25/21,patient seen by Infectious Disease she recommend 8 days of doxycycline + ceftriaxone + metronidazole patient finished course of antibiotics, patient also evaluated by speech therapy due to recurrent aspiration pneumonia, they recommend 1:1 for all feeds, NDD1 solids, thin liquids, patient need to sit up for all meals, patient also noted to have moderate malnutrition therefore recommend Ensure supplements. Time Spent with Patient Time attestation: Total time spent providing and/or coordinating discharge services: Discharge coordination time: Greater than 30 minutes Quality: Stroke Does the patient have a stroke diagnosis?: No Physical Exam Vital Signs: Vital Signs: Last Vital Signs Temp 98.2 F 05/14/21 08:00 Pulse 101 H 05/14/21 08:00 Resp 17 05/14/21 08:00 BP 124/75 05/14/21 08:00 Pulse Ox 99 05/14/21 08:00 Body Mass Index 23.8 Gen: alert, no acute distress, tardive dyskinesia present no change, multiple contractures Neck: supple Lungs: clear to auscultation bilaterally Heart: regular rate and rhythm, no murmurs Abd: soft, non-tender, non-distended Ext: no edema Neuro: alert Psych: impaired insight DS: Data Data Completed and Pending Labs on day of discharge: Laboratory Results - last 24 hr 05/14/21 08:29 COVID-19 ([facility]) Negative COVID-19 Clin Com See Note Discharge Plan Discharge Patient Disposition: Xfer SNF Discharge Diagnosis: Sepsis likely due to aspiration pneumonia oral thrush dysphagia moderate malnutrition chronic coccyx ulcer [facility]errals: [facility] [Other] - 1 Day ([facility] he resides to be transported via [facility] at 1pm) Edson Meredith DO [Primary Care Provider] - 1 Week Discharge Medications: New nystatin 100,000 unit/mL Suspension 200,000 unit PO QID Qty: 400 RF: 0 Continued famotidine 40 mg Tablet 40 mg PO BEDTIME RF: 0 tramadol 50 mg Tablet 50 mg PO TID RF: 0 omeprazole 40 mg PO DAILY RF: 0 polyethylene glycol 3350 [Miralax] 17 gram/dose powder 17 g PO DAILY Qty: 510 RF: 0 sennosides [senna] 8.6 mg Tablet 8.6 mg PO DAILY PRN (Reason: Constipation) RF: 0 acetaminophen 325 mg Tablet 650 mg PO Q4H PRN (Reason: Fever Or Pain) RF: 0 bisacodyl 10 mg Suppository 10 mg DC DAILY RF: 0 vitamin E 400 unit Capsule 800 unit PO BID RF: 0 trihexyphenidyl 2 mg Tablet 2 mg PO BID RF: 0 ascorbic acid (vitamin C) [Vitamin C] 500 mg Tablet 500 mg PO DAILY RF: 0 benztropine 1 mg Tablet 1 mg PO BID RF: 0 sennosides [senna] 8.6 mg Tablet 17.2 mg PO BEDTIME RF: 0 simvastatin 20 mg Tablet 20 mg PO BEDTIME RF: 0 aspirin 81 mg Tablet,Delayed Release (Dr/Ec) 81 mg PO DAILY RF: 0 docusate sodium 100 mg Capsule 200 mg PO DAILY RF: 0 ferrous sulfate 325 mg (65 mg iron) Tablet 325 mg PO DAILY RF: 0 lithium carbonate 300 mg Capsule 300 mg PO BEDTIME RF: 0 levetiracetam 500 mg Tablet 500 mg PO BID Qty: 60 RF: 0 Discontinued doxycycline hyclate 100 mg Tablet 100 mg PO Q12H Qty: 5 RF: 0 amoxicillin-pot clavulanate 875-125 mg Tablet 875 mg PO Q12H Qty: 5 RF: 0 Discharge Orders: Discharge Order (Routine); Ordered 05/14/21 Ordered By: Michele Beckett Diet: advance to usual diet Activity on Discharge: As tolerated Stand Alone Forms: Patient Portal Discharge page Care Plan Goals: sepsis likely due to aspiration pneumonia seen by speech therapy recommended pureed solids and thin liquids has oropharyngeal dysphagia moderate malnutrition take Ensure 240 mL twice daily in [place] 1 packet 2 times daily, recommend to sit up with all meals, liquids from cup and straw small bites and sips alternate liquids with solids continued nystatin swish and swallow for 5 more days Health Concerns: dysphagia/malnutrition, seizure disorder Plan of Treatment: close outpatient follow-up with primary care physician Assessment: as above
[2021-05-14 11:37] VITALS: BP 120/59; PULSE 96; RESP 18; TEMP 36.6; O2SAT 100
--- NOTE | 2021-05-14 11:40 | MHC.INPTTRAN ---
pt alert and oriented to self and place, difficult to assess time. Pt not always verbal with responses. foam dsg to coccyx for stg II pressure injury CDI and bilateral inner knees for protection CDI. pt total care for incontinence and feeding. pt has been refusing meals/ drinks and meds at times. Legs contracted, non ambulatory. LSC clear, abd soft and + BS. VSS. Covid swab negative.
== END 2021-05-14 13:03 | disposition skilled nursing facility (03) | DRG 720 ==
LOC: HO.ED 05-07 03:25 → HO.EDOVER 05-07 06:20 → HO.S3 05-07 12:04
PROVIDERS: Family Medicine; Hospitalist; Internal Medicine; Radiology Diagnostic Radiology; Admitting Provider Internal Medicine; Emergency Provider Student in an Organized Health Care Education/Training Program; PCP Hospitalist; Visit Provider Hospitalist
PROC: 009U3ZZ Drainage of Spinal Canal, Percutaneous Approach (ICD-10-PCS; CPT 62270; principal; 2021-05-09 11:00)
DX: A41.9 Sepsis, unspecified organism (principal); J69.0 Pneumonitis due to inhalation of food and vomit; L89.159 Pressure ulcer of sacral region, unspecified stage; D68.9 Coagulation defect, unspecified; E44.0 Moderate protein-calorie malnutrition; F20.9 Schizophrenia, unspecified; B37.0 Candidal stomatitis; G20 Parkinson's disease; E86.0 Dehydration; I10 Essential (primary) hypertension; E78.5 Hyperlipidemia, unspecified; M65.9 Synovitis and tenosynovitis, unspecified; K59.00 Constipation, unspecified; G40.909 Epilepsy, unspecified, not intractable, without status epilepticus; R33.9 Retention of urine, unspecified; D64.9 Anemia, unspecified; Z20.822 Contact with and (suspected) exposure to COVID-19; F17.210 Nicotine dependence, cigarettes, uncomplicated; Z71.6 Tobacco abuse counseling; Z87.820 Personal history of traumatic brain injury; Z79.82 Long term (current) use of aspirin; Z79.891 Long term (current) use of opiate analgesic; Z79.899 Other long term (current) drug therapy; Z68.23 Body mass index [BMI] 23.0-23.9, adult
CPT/HCPCS: 36415; 62328; 71046; 71260; 74177; 80048; 80053; 80178; 80307; 81001; 82077; 82140; 82607; 82728; 82746; 82945; 83540; 83605; 83615; 83690; 84145; 84157; 85025; 85027; 85045; 85610; 85730; 86140; 87015; 87040; 87070; 87077; 87186; 87205; 87529; 87635; 87640; 87641; 89051; 92610; 93005; 99284; C1758; J0696; J2543; J3430; Q9967

== ENCOUNTER 2021-08-01 14:02 | Outpatient (REF) | payer MEDICAID, SELFPAY | END 2021-08-01 14:03 | disposition home or self-care (01) | LOC: HO.MRI 14:02 | PROVIDERS: PCP Hospitalist; Visit Provider Hospitalist | DX: Z13.89 Encounter for screening for other disorder (principal) ==

== ENCOUNTER 2022-08-03 10:55 | Emergency (ER) | payer MEDICAID, SELFPAY ==
--- NOTE | ~2022-08-03 | CT_ITS ---
EXAMINATION: CT ABDOMEN AND PELVIS WITH CONTRAST CLINICAL INFORMATION: Lethargy. Poor appetite. Abdominal pain. COMPARISON: Previous CT of the abdomen and pelvis most recent April 2021 TECHNIQUE: Multidetector volumetric images were obtained from the superior aspect of the liver through the pubic symphysis following administration 85 mL of Omnipaque 350 intravenous contrast. Sagittal and coronal reformatted images were obtained on the technologist's workstation. Oral contrast: Yes This CT examination was performed using dose optimization techniques as appropriate, variously including the following: *Automated exposure control *Adjustment of mA and/or kV according to patient size (this includes techniques or standardized protocols for targeted exams where dose is matched to indication/reason for exam; i.e. extremities or head) *Use of iterative reconstruction technique DLP: 560 mGy-cm FINDINGS: LUNG BASES: There is atelectasis at the lung bases, right greater than left. There is question of low-attenuation right infrahilar adenopathy and calcification axial image 11 series 3. There is a small 2 mm calcified right lower lobe nodule axial image 16 series 3. LIVER, GALLBLADDER, AND BILIARY TREE: There is a 1 cm enhancing lesion high in the dome of the liver axial image 9 series 3 measuring 1 cm. There are numerous small liver cysts. The gallbladder is upper normal in size. No gallstones are seen. There is no biliary duct dilatation. PANCREAS: Unremarkable. SPLEEN: Unremarkable. ADRENAL GLANDS: Unremarkable. KIDNEYS AND URETERS: There are small left renal cyst. The kidneys are otherwise normal. BLADDER: The bladder is not optimally distended. The bladder is displaced anteriorly by the large amount stool in the rectosigmoid colon. There may be mild bladder wall thickening. GASTROINTESTINAL TRACT: There is severe constipation/fecal impaction and secondary obstruction. The sigmoid colon measures up to 11 cm. The entire colon is dilated. The small bowel does not appear dilated. No free air is seen. ABDOMINAL WALL: No significant hernia is appreciated. LYMPH NODES: Normal. VASCULAR: Unremarkable. PELVIC VISCERA: Unremarkable. OSSEOUS STRUCTURES: The patient is contracted. There is evidence of old trauma right superior acetabulum.. Right femoral head is subluxed posteriorly and laterally with respect to the acetabulum is a new finding compared to 04/06/[address]/CT abdomen pelvis w IV con IMPRESSION: Severe constipation/fecal impaction and secondary large bowel obstruction. Abnormal appearance to the right hip joint with contraction, evidence of old trauma to the superior acetabulum and posterior lateral subluxation of the femoral head with respect to the acetabulum. Incidental findings of liver and left renal cysts and probable liver hemangioma. Question old granulomatous disease and right infrahilar lymphadenopathy at the lung bases. Fleischner guidelines were followed.
--- NOTE | ~2022-08-03 | XR_ITS ---
EXAMINATION: XR CHEST CLINICAL INFORMATION: Lethargy COMPARISON: Previous chest x-ray most recent April 2021 TECHNIQUE: 2 views of the chest were obtained. FINDINGS: The cardiac and mediastinal contours are stable. The lung volumes are low. The lungs are clear. There is no pleural effusion or pneumothorax. Visualized bony structures are normal. There are dilated loops of small and large bowel. XR/XR chest 2V IMPRESSION: Low lung volumes. No evidence for acute disease in the chest. Dilated loops of small and large bowel. Clinical correlation recommended.
--- NOTE | 2022-08-03 11:21 | ED.GENADULT ---
HPI - General Adult General Chief complaint: Weakness Stated complaint: AMS Time Seen by Provider: 08/03/22 11:09 Source: patient, EMS and RN notes reviewed Mode of arrival: EMS History of Present Illness HPI narrative: Patient presents to the emergency department via EMS from [facility]. Reported from staff that patient is lethargic from baseline, uncertain what baseline is for patient, or when this increased lethargy/altered mental status was noted. Nursing report indicates he has also had poor appetite. When asking patient why he is here he states that he does not feel well but is unable to elaborate in further detail. With past did ice headache, chest pain, cough, shortness of breath, nausea. Related Data Home Medications Medication Instructions Recorded Confirmed acetaminophen 325 mg tablet 650 mg PO Q4H PRN Fever Or Pain 01/09/21 05/07/21 ascorbic acid (vitamin C) 500 mg 500 mg PO DAILY 01/09/21 05/07/21 tablet (Vitamin C) aspirin 81 mg tablet,delayed 81 mg PO DAILY 01/09/21 05/07/21 release benztropine 1 mg tablet 1 mg PO BID 01/09/21 05/07/21 bisacodyl 10 mg rectal suppository 10 mg [place] DAILY 01/09/21 05/07/21 docusate sodium 100 mg capsule 200 mg PO DAILY 01/09/21 05/07/21 ferrous sulfate 325 mg (65 mg 325 mg PO DAILY 01/09/21 05/07/21 iron) tablet lithium carbonate 300 mg capsule 300 mg PO BEDTIME 01/09/21 05/07/21 sennosides 8.6 mg tablet (senna) 8.6 mg PO DAILY PRN Constipation 01/09/21 05/07/21 sennosides 8.6 mg tablet (senna) 17.2 mg PO BEDTIME 01/09/21 04/20/21 simvastatin 20 mg tablet 20 mg PO BEDTIME 01/09/21 05/07/21 trihexyphenidyl 2 mg tablet 2 mg PO BID 01/09/21 05/07/21 vitamin E 268 mg (400 unit) capsule 800 unit PO BID 01/09/21 05/07/21 famotidine 40 mg tablet 40 mg PO BEDTIME 05/07/21 05/07/21 omeprazole 40 mg PO DAILY 05/07/21 05/07/21 tramadol 50 mg tablet 50 mg PO TID 05/07/21 05/07/21 Previous Rx's Medication Instructions Recorded polyethylene glycol 3350 17 17 g PO DAILY #510 grams 01/08/21 gram/dose oral powder (Miralax) levetiracetam 500 mg tablet 500 mg PO BID #60 tabs 04/25/21 nystatin 100,000 unit/mL oral 200,000 unit PO QID #400 mL 05/14/21 suspension Allergies Allergy/AdvReac Type Severity Reaction Status Date / Time wool Allergy Unknown Unknown Uncoded 04/19/21 23:44 Review of Systems Review of Systems: Yes Unobtainable due to mental status [facility] Past Medical History Attestation statement: The following information was validated with the patient. Source: old records reviewed Medical History Anemia Astigmatism, bilateral Bilateral cataracts Chronic constipation Constipation Constipation Contracture, right hip Depressive disorder Disorder of the autonomic nervous system, unspecified Dysarthria and anarthria Encephalopathy Essential (primary) hypertension Extrapyramidal and movement disorder Fever Hemiplegia Hyperlipidemia Hypertension MDD (major depressive disorder) Muscle weakness Myopia, bilateral Parkinson disease Presbyopia Schizophrenia Seizure Seizures SIRS (systemic inflammatory response syndrome) Tachycardia Toxic encephalitis Toxic encephalopathy Social History Social History Household Members: Other Housing: Custodial Do you presently have visiting nurse or other home services: No Alcohol intake: unknown Patient Tobacco Use Status: Current everyday Tobacco user Tobacco use type: Cigarette Cigarettes Per Day: 20 Smoked in Last 30 Days: No Use of substances other than those prescribed or required for medical reasons: No Advance Directives: No service: No Current occupational status: disabled Physical Exam ED Vital Signs: Vital Signs - 24 hr 08/03/22 11:22 08/03/22 11:56 08/03/22 14:04 Temperature 98.4 F 98.5 F Pulse Rate 96 100 94 Respiratory Rate 16 20 18 Blood Pressure 131/97 H 138/96 H 128/86 Pulse Oximetry 94 99 99 Oxygen Delivery Method Room Air Room Air Room Air 08/03/22 14:36 Temperature Pulse Rate 94 Respiratory Rate 15 Blood Pressure 128/86 Pulse Oximetry 98 Oxygen Delivery Method Room Air BMI result Body Mass Index 20.8 Appearance: Alert.?Oriented to person. No acute distress.?Normal affect. Eyes: Pupils equal, round and reactive to light.? ENT: Pharynx normal.?? Neck: Normal inspection.? Neck supple.?? CVS: Heart sounds normal. Normal heart rate and rhythm.? Pulses normal.?? Respiratory: No respiratory distress.? Lung sounds diminished, poor inspiratory effort, faint crackles to the right lower lobe. Abdomen: Soft with diffuse tenderness upon palpation. Normoactive bowel sounds. No pulsatile mass.?? Skin: Skin warm and dry.? Normal skin color.? Extremities: No lower extremity edema.? Neuro: Moves all extremities spontaneously. Sensation intact bilaterally. No focal neurological deficits. Cranial nerves II-XII intact Course Course Course Narrative: Patient is a 51-year-old male with past history of anemia, depression, autonomic nervous system disorder, encephalopathy, hypertension, hemiplegia, hyperlipidemia, hypertension, Parkinson's, schizophrenia, seizures who presents emergency department for evaluation of poor appetite over the past 3 days, reporting feeling unwell and lethargy for staff. When asking questions he appears to be answering appropriately from able to engage in conversation, is alert, oriented to person. Patient did have a similar presentation on little over a year ago with poor appetite however was febrile at that time found to have pneumonia as well as a joint effusion. Will obtain CBC to evaluate for leukocytosis/ anemia, CMP and lipase to evaluate for abnormal electrolytes /abnormal renal function/ abnormal hepatic/biliary function, EKG and troponin to evaluate for ischemia/ACS. Chest x-ray to evaluate for consolidation/ infiltrate/ mass/ pulmonary congestion, CT abd and pelvis as he is diffusely tenderness upon palpation, and Urinalysis. Reevaluation(s) Reevaluation #1: EKG reviewed T-wave inversions in inferior and anterolateral leads which appear new when compared to prior EKG in April 2021, patient is a vague historian, however he denies chest pain when asked, vitals stable. Labs are pending at thistime, will continue to monitor. Time: 12:08 Reevaluation #2: Labs overall unremarkable, sodium is 146 BUN is mildly elevated at 21 suspect secondary to mild dehydration, patient to receive 1L NS. Troponin <3.5, discussed this case with ED attending, advise outpatient follow-up with PCP/cardiology regarding abnormal EKG finding. Reviewed CT ABD imaging, notable for significant bowel impaction. Digital disimpaction performed. tolerated well, no complications. Time: 14:24 Reevaluation #3: CT of the abdomen and pelvis reveals severe impaction with secondary large bowel obstruction. After manual disimpaction of very large amount of stool was passed followed by soft stool and flatulence. Abdomen is soft. Nontender. Patient cleared for discharge back to care home facility. Medical Decision Making Medical Records Medical records reviewed: Yes I reviewed the patient's medical records. Lab Data Lab results reviewed: Yes I reviewed the patient's lab results. Result diagrams: 08/03/22 12:23 08/03/22 12:23 Labs: Lab Results 08/03/22 08/03/22 08/03/22 Range/Units 12:23 12:23 12:23 WBC 9.2 (4.8-10.8) X10*3/uL RBC 4.90 (4.60-5.80) X10*6/uL Hgb 13.6 L (14.0-18.0) g/dl Hct 43.2 (42.0-52.0) % MCV 88.2 (80.0-98.0) fL MCH 27.8 (27.0-33.0) pg MCHC 31.5 (31.0-36.0) g/dl RDW 17.0 H (11.0-16.0) % Plt Count 255 (160-400) X10*3/uL MPV 11.1 (9.4-12.4) fL Immature Gran % (Auto) 0.4 (0.0-0.4) % Neut % (Auto) 74.6 H (45-73) % Lymph % (Auto) 16.8 L (20-40) % Nuckolls % (Auto) 7.1 (2-11) % Eos % (Auto) 0.8 (0-4) % Baso % (Auto) 0.3 (0-2) % Lymph # (Auto) 1.5 (1.2-4.9) X10*3/uL Nuckolls # (Auto) 0.7 (0.1-1.2) X10*3/uL Eos # (Auto) 0.1 (0.0-0.4) X10*3/uL Baso # (Auto) 0.0 (0.0-0.2) X10*3/uL Abs Immat Gran (auto) 0.04 H (0.00-0.03) X10*3/uL Absolute Neuts (auto) 6.9 (2.0-8.3) x10*3/uL Absolute Nucleated RBC 0.000 (0.0-0.012) X10*3/uL Nucleated RBC % (auto) 0.0 (0.0-0.2) /100WBC Sodium 146 H (135-145) mmol/L Potassium 3.7 (3.3-5.1) mmol/L Chloride 110 H (96-108) mmol/L Carbon Dioxide 23 (22-29) mmol/L Anion Gap 17 (12-20) BUN 21 H (9-16) mg/dL Creatinine 0.81 (0.5-1.4) mg/dL Estim Creat Clear Calc 86.8 Estimated GFR > 60 Random Glucose 100 (60-115) mg/dL Lactic Acid (0.5-2.0) mmol/L Calcium 9.7 D (8.4-10.2) mg/dL Magnesium 2.1 (1.6-2.6) mg/dL Total Bilirubin 0.3 (0.0-1.0) mg/dL AST 12 (5-37) U/L ALT 8 (0-40) U/L Alkaline Phosphatase 144 H D (39-117) U/L Troponin I High Sens < 3.5 (<3.5-35.0) ng/L Total Protein 8.0 D (6.5-8.0) g/dL Albumin 4.1 D (3.5-5.0) g/dL Lipase 7 L (8-78) U/L COVID-19 ([facility]) (Negative) COVID-19 Clin Com 08/03/22 08/03/22 Range/Units 12:23 12:23 WBC (4.8-10.8) X10*3/uL RBC (4.60-5.80) X10*6/uL Hgb (14.0-18.0) g/dl Hct (42.0-52.0) % MCV (80.0-98.0) fL MCH (27.0-33.0) pg MCHC (31.0-36.0) g/dl RDW (11.0-16.0) % Plt Count (160-400) X10*3/uL MPV (9.4-12.4) fL Immature Gran % (Auto) (0.0-0.4) % Neut % (Auto) (45-73) % Lymph % (Auto) (20-40) % Nuckolls % (Auto) (2-11) % Eos % (Auto) (0-4) % Baso % (Auto) (0-2) % Lymph # (Auto) (1.2-4.9) X10*3/uL Nuckolls # (Auto) (0.1-1.2) X10*3/uL Eos # (Auto) (0.0-0.4) X10*3/uL Baso # (Auto) (0.0-0.2) X10*3/uL Abs Immat Gran (auto) (0.00-0.03) X10*3/uL Absolute Neuts (auto) (2.0-8.3) x10*3/uL Absolute Nucleated RBC (0.0-0.012) X10*3/uL Nucleated RBC % (auto) (0.0-0.2) /100WBC Sodium (135-145) mmol/L Potassium (3.3-5.1) mmol/L Chloride (96-108) mmol/L Carbon Dioxide (22-29) mmol/L Anion Gap (12-20) BUN (9-16) mg/dL Creatinine (0.5-1.4) mg/dL Estim Creat Clear Calc Estimated GFR Random Glucose (60-115) mg/dL Lactic Acid 0.8 (0.5-2.0) mmol/L Calcium (8.4-10.2) mg/dL Magnesium (1.6-2.6) mg/dL Total Bilirubin (0.0-1.0) mg/dL AST (5-37) U/L ALT (0-40) U/L Alkaline Phosphatase (39-117) U/L Troponin I High Sens (<3.5-35.0) ng/L Total Protein (6.5-8.0) g/dL Albumin (3.5-5.0) g/dL Lipase (8-78) U/L COVID-19 ([facility]) Negative (Negative) COVID-19 Clin Com See Note Imaging Data Chest x-ray: Radiologist's impression: XR/XR chest 2V IMPRESSION: Low lung volumes. No evidence for acute disease in the chest. Dilated loops of small and large bowel. Clinical correlation recommended. CT scan - abdomen: Radiologist's impression: CT/CT abdomen pelvis w IV con IMPRESSION: Severe constipation/fecal impaction and secondary large bowel obstruction. Abnormal appearance to the right hip joint with contraction, evidence of old trauma to the superior acetabulum and posterior lateral subluxation of the femoral head with respect to the acetabulum. Incidental findings of liver and left renal cysts and probable liver hemangioma. Question old granulomatous disease and right infrahilar lymphadenopathy at the lung bases. ECG Data Attestation: I personally reviewed and interpreted this ECG as follows: Prior ECG tracings: available for review Interpretation: Rate: 95 Rhythm:? Normal sinus rhythm:? Normal P waves.? Normal BRAYAN.?? Normal QRS complex.?? ST T wave :??T-wave inversions in inferior and anterolateral leads which appear new when compared to prior EKG in April 2021 qTC: 437 prior studies:? April 2021 The study has been interpreted contemporaneously by me. Discharge Plan Discharge Clinical Impression: Fecal impaction, Abnormal EKG Patient Disposition: Xfer SNF Transfer Details: [facility] Prescriptions: No [facility] famotidine 40 mg Tablet 40 mg PO BEDTIME tramadol 50 mg Tablet 50 mg PO TID omeprazole 40 mg PO DAILY nystatin 100,000 unit/mL Suspension 200,000 unit PO QID Qty: 400 0RF Protocol: Apply to: Apply to: thrush polyethylene glycol 3350 [Miralax] 17 gram/dose powder 17 g PO DAILY Qty: 510 0RF sennosides [senna] 8.6 mg Tablet 8.6 mg PO DAILY PRN (Reason: Constipation) acetaminophen 325 mg Tablet 650 mg PO Q4H PRN (Reason: Fever Or Pain) bisacodyl 10 mg Suppository 10 mg [place] DAILY vitamin E 400 unit Capsule 800 unit PO BID trihexyphenidyl 2 mg Tablet 2 mg PO BID ascorbic acid (vitamin C) [Vitamin C] 500 mg Tablet 500 mg PO DAILY benztropine 1 mg Tablet 1 mg PO BID sennosides [senna] 8.6 mg Tablet 17.2 mg PO BEDTIME simvastatin 20 mg Tablet 20 mg PO BEDTIME aspirin 81 mg Tablet,Delayed Release (Dr/Ec) 81 mg PO DAILY docusate sodium 100 mg Capsule 200 mg PO DAILY ferrous sulfate 325 mg (65 mg iron) Tablet 325 mg PO DAILY lithium carbonate 300 mg Capsule 300 mg PO BEDTIME levetiracetam 500 mg Tablet 500 mg PO BID Qty: 60 0RF Referrals: David Titus MD [Physician] - (abnormal EKG, new from April 2021)
[2022-08-03 11:22] VITALS: BP 131/97; PULSE 96; RESP 16; TEMP 36.9; O2SAT 94
--- NOTE | 2022-08-03 11:32 | ECG_ITS ---
Test Reason : ams Blood Pressure : / mmHG Vent. Rate : 095 BPM Atrial Rate : 095 BPM P-R Int : 134 ms QRS Dur : 092 ms QT Int : 348 ms P-R-T Axes : 055 018 216 degrees QTc Int : 437 ms Normal sinus rhythm ST & T wave abnormality, consider inferior ischemia ST & T wave abnormality, consider anterolateral ischemia Abnormal ECG When compared with ECG of 07-MAY-2021 01:01, Non-specific change in ST segment in Anterior leads T wave inversion more evident in Inferior leads T wave inversion now evident in Anterolateral leads Referred By: Tete Warner Electronically Signed By:LUIZ SCHRADER
[2022-08-03 11:56] VITALS: BP 138/96; PULSE 100; RESP 20; TEMP 36.9; O2SAT 99; BMI 20.8
[2022-08-03 12:30] LABS: MANUAL DIFF FLAG NO
[2022-08-03 12:32] LABS: Basophils Percent Auto 0.3 % (0-2); Eosinophils Absolute Auto 0.1 X10*3/uL (0.0-0.4); Eosinophils Percent Auto 0.8 % (0-4); Hematocrit 43.2 % (42.0-52.0); Hemoglobin 13.6 g/dl (14.0-18.0); Imm Gran Abs Auto 0.04 X10*3/uL (0.00-0.03); Imm Gran Pct Auto 0.4 % (0.0-0.4); Lymphocytes Absolute Auto 1.5 X10*3/uL (1.2-4.9); Lymphocytes Percent Auto 16.8 % (20-40); Mean Corpuscular HGB Conc 31.5 g/dl (31.0-36.0); Mean Corpuscular Hemoglobin 27.8 pg (27.0-33.0); Mean Corpuscular Volume 88.2 fL (80.0-98.0); Mean Platelet Volume 11.1 fL (9.4-12.4); Monocytes Absolute Auto 0.7 X10*3/uL (0.1-1.2); Monocytes Percent Auto 7.1 % (2-11); Neutrophils Absolute Auto 6.9 x10*3/uL (2.0-8.3); Neutrophils Percent Auto 74.6 % (45-73); Platelet Count 255 X10*3/uL (160-400); White Blood Count 9.2 X10*3/uL (4.8-10.8)
[2022-08-03 12:44] LABS: Lactic Acid 0.8 mmol/L (0.5-2.0)
[2022-08-03 12:50] LABS: Alanine Aminotransferase 8 U/L (0-40); Albumin Level 4.1 g/dL (3.5-5.0); Alkaline Phosphatase 144 U/L (39-117); Anion Gap 17 (12-20); Aspartate Amino Transferase 12 U/L (5-37); Bilirubin Total 0.3 mg/dL (0.0-1.0); Blood Urea Nitrogen 21 mg/dL (9-16); Calcium 9.7 mg/dL (8.4-10.2); Carbon Dioxide 23 mmol/L (22-29); Chloride 110 mmol/L (96-108); Creatinine Clr Calc Pharmacy 86.8; Estimated Glomerular Filt Rate > 60; Glucose Random 100 mg/dL (60-115); Lipase 7 U/L (8-78); Magnesium 2.1 mg/dL (1.6-2.6); Potassium 3.7 mmol/L (3.3-5.1); Sodium 146 mmol/L (135-145)
[2022-08-03 12:52] LABS: COVID-19 Test Negative (Negative); IDNOW Serial# 16C4AD1C
[2022-08-03 12:54] LABS: Troponin-I High Sensitivity < 3.5 ng/L (<3.5-35.0)
[2022-08-03 14:04] VITALS: BP 128/86; PULSE 94; RESP 18; O2SAT 99
[2022-08-03] MEDS: 0.9 % Sodium Chloride 1,000 ML 999 ML IV (14:34)
[2022-08-03 14:36] VITALS: BP 128/86; PULSE 94; RESP 15; O2SAT 98
[2022-08-03] MEDS: iohexoL 350 MG/ML 100 ML INFUS..BTL IV (14:37)
--- NOTE | 2022-08-03 14:37 | PC.NURSE ---
Pt VS are stable, pt was connected on the telemetry and it shows NSR. RN assisted provider to complete manual fecal removal. Pt has numerous chronic pressure ulcer on his bottom. Pt was re-position after the disimpaction. Will continue to monitor.
--- NOTE | 2022-08-03 15:29 | PC.NURSE ---
Report given to [facility], pt is d/c and has stable VS.
== END 2022-08-03 17:13 | disposition skilled nursing facility (03) ==
PROVIDERS: Nurse Practitioner Family; Emergency Provider Internal Medicine; PCP Hospitalist
DX: K56.41 Fecal impaction (principal); R94.31 Abnormal electrocardiogram [ECG] [EKG]; R41.82 Altered mental status, unspecified; I10 Essential (primary) hypertension; E78.5 Hyperlipidemia, unspecified; G20 Parkinson's disease; F17.210 Nicotine dependence, cigarettes, uncomplicated; Z20.822 Contact with and (suspected) exposure to COVID-19; Z79.82 Long term (current) use of aspirin; Z79.899 Other long term (current) drug therapy; Z79.02 Long term (current) use of antithrombotics/antiplatelets
CPT/HCPCS: 36415; 71046; 74177; 80053; 83605; 83690; 83735; 84484; 85025; 87040; 87635; 93005; 99284; 99285; Q9967

== ENCOUNTER → 2022-12-31 10:36 | Outpatient (BNVA) | payer MEDICAID, SELFPAY | PROVIDERS: PCP Hospitalist; Visit Provider Internal Medicine Cardiovascular Disease | DX: R94.31 Abnormal electrocardiogram [ECG] [EKG] (principal); I10 Essential (primary) hypertension; G20 Parkinson's disease; G92.9 Unspecified toxic encephalopathy; G90.9 Disorder of the autonomic nervous system, unspecified; F17.210 Nicotine dependence, cigarettes, uncomplicated; Z99.3 Dependence on wheelchair | CPT/HCPCS: 93005; 99202 ==

== ENCOUNTER 2023-02-15 09:34 | Emergency (ER) | payer MEDICAID, SELFPAY ==
--- NOTE | ~2023-02-15 | CT_ITS ---
CT FACIAL BONES WITH CONTRAST CLINICAL INFORMATION: Left facial swelling. COMPARISON: None available. TECHNIQUE: Multidetector CT acquisition of the face is obtained following the administration of 85 mL of Omnipaque 350 intravenous contrast without complication. This CT examination was performed using dose optimization techniques as appropriate, variously including the following: *Automated exposure control *Adjustment of mA and/or kV according to patient size (this includes techniques or standardized protocols for targeted exams where dose is matched to indication/reason for exam; i.e. extremities or head) *Use of iterative reconstruction technique FINDINGS: There is soft tissue swelling involving the left greater than right upper lip and possibly the left greater then right perimandibular soft tissues with assessment limited by artifact. There is no discrete peripherally enhancing fluid collection to suggest a soft tissue abscess. There is periapical lucency surrounding the roots of the residual mandibular and maxillary dentition that should be correlated with dental exam to exclude a periapical abscess. Multiple dental caries as well. Intracranially is frontal lobe predominant cerebral volume loss and there is chronic microangiopathy. The tongue and floor of mouth are not well assessed due to motion artifact and soft tissue swelling in these areas would be difficult to exclude and should be correlated clinically. There is cervical spondylosis. Small retention cysts within the maxillary sinuses. Mild mucosal thickening within the ethmoid air cells. The paranasal sinuses otherwise remain well-aerated. Mastoid air cells are clear. The TMJs are normal. Elongated styloid processes bilaterally that can be correlated for clinical signs of [place] syndrome. CT/CT facial bones w IV con IMPRESSION: - There is soft tissue swelling involving the left greater than right upper lip and possibly the left greater then right perimandibular soft tissues with assessment limited by artifact. There is no discrete peripherally enhancing fluid collection to suggest a soft tissue abscess. There is periapical lucency surrounding the roots of the residual mandibular and maxillary dentition that should be correlated with dental exam to exclude a periapical abscess. Multiple dental caries as well. - The tongue and floor of mouth are not well assessed due to motion artifact and soft tissue swelling in these areas would be difficult to exclude and should be correlated clinically. - Elongated styloid processes bilaterally that can be correlated for clinical signs of [place] syndrome.
--- NOTE | ~2023-02-15 | XR_ITS ---
EXAMINATION: XR CHEST CLINICAL INFORMATION: Right PICC placement. COMPARISON: 08/03/2022 chest radiographs. TECHNIQUE: Frontal view of the chest was obtained. FINDINGS: Support devices: Right PICC with tip terminating at the junction of the right subclavian/brachiocephalic vein. Low lung volumes limit evaluation. There is mild elevation of the right hemidiaphragm. The heart and mediastinal structures are unremarkable. Prominent gaseous distention and stool are again seen in the visualized colon. XR/XR chest 1V IMPRESSION: 1. Right PICC with tip terminating at the junction of the right subclavian/brachiocephalic vein. 2. No acute cardiopulmonary process. 3. Prominent gaseous distention and stool in the visualized colon. This appears similar if not mildly increased compared to the previous study.
--- NOTE | ~2023-02-15 | CT_ITS ---
EXAMINATION: CT ABDOMEN AND PELVIS WITH CONTRAST CLINICAL INFORMATION: Abdominal pain and distention. COMPARISON: CT scans dating between August 03, 2022 and November 11, 2016. TECHNIQUE: Multidetector volumetric images were obtained from the superior aspect of the liver through the pubic symphysis following administration 85 mL of Omnipaque 350 intravenous contrast. Sagittal and coronal reformatted images were obtained on the technologist's workstation. Oral contrast: No This CT examination was performed using dose optimization techniques as appropriate, variously including the following: *Automated exposure control *Adjustment of mA and/or kV according to patient size (this includes techniques or standardized protocols for targeted exams where dose is matched to indication/reason for exam; i.e. extremities or head) *Use of iterative reconstruction technique DLP: 803 mGy-cm FINDINGS: Limited by paucity of intra-abdominal fat, lack of oral contrast, bolus timing, and anasarca. LUNG BASES: Trace bilateral pleural fluid with associated atelectasis. LIVER, GALLBLADDER, AND BILIARY TREE: No significant radiographic change in multiple (at least 15), approximately 1 cm or less, round, hypodense hepatic lesions compared with August 03, 2022, probably representing benign entities, such as simple cysts and/or hemangiomata. The liver otherwise appears grossly unremarkable in size, shape, and attenuation. No focal hepatic lesion or biliary ductal dilatation is appreciated. Unremarkable appearance of the gallbladder. PANCREAS: Unremarkable SPLEEN: Unremarkable ADRENAL GLANDS: Unremarkable KIDNEYS AND URETERS: Approximately 1 cm or less benign left simple renal cyst for which no further dedicated follow up imaging is indicated. The kidneys otherwise appear grossly unremarkable in size, shape, and attenuation. No hydronephrosis, hydroureter, or calculi seen. BLADDER: Collapsed, therefore poorly evaluated. GASTROINTESTINAL TRACT: Severe amount of stool within the rectal vault and colon, consistent with fecal impaction, similar compared with July 2022. PERITONEAL CAVITY: No evidence of free air or free intraperitoneal fluid. ABDOMINAL WALL: Anasarca, worse compared with July 2022. No significant hernia is appreciated. LYMPH NODES: No evidence of adenopathy by size criteria. VASCULAR: Unremarkable PELVIC VISCERA: Prostate poorly visualized. OSSEOUS STRUCTURES: Bilateral decubitus ulcers extending to the ischial tuberosities, with associated sclerosis in this region, similar compared with July 2022. No abscess identified. Question old fracture deformity of the right acetabulum. Chronic, severe subluxation of the right hip, with moderate amount of fluid in the right hip joint capsule. Associated arthritis. Degenerative changes of the left hip. CT/CT abdomen pelvis w IV con IMPRESSION: Limited study. Severe amount of stool within the rectal vault and colon, consistent with fecal impaction. Bilateral decubitus ulcers extending to the ischial tuberosities, with associated sclerosis in this region, similar compared with July 2022. No abscess identified. Question old fracture deformity of the right acetabulum. Chronic, severe subluxation of the right hip, with moderate amount of fluid in the right hip joint capsule. Associated arthritis. Anasarca. Trace bilateral pleural fluid with associated atelectasis. Additional findings, as above.
--- NOTE | 2023-02-15 09:39 | ED.FALL ---
HPI - Fall General Chief Complaint: General Medical Stated Complaint: From SNF, L side facial swell per EMS Time Seen by Provider: 02/15/23 09:36 Source: patient, EMS, RN notes reviewed and old records reviewed Mode of arrival: EMS History of Present Illness HPI Narrative: 52-year-old male with a past medical history of anemia, chronic constipation, depression, encephalopathy, HTN, hemiplegia, HLD, HTN, Parkinson's, schizophrenia, bed-bound, presenting to the ED from [facility] for right-sided facial swelling, abdominal distension, & right hip pain x today. No reported injury or fall. Patient reports abdominal discomfort. Patient with known buttock wound. History limited due to patient's baseline mental status. MD complaint: other Onset (ago): unknown Related Data Home Medications Medication Instructions Recorded Confirmed acetaminophen 325 mg tablet 650 mg PO Q4H PRN Fever Or Pain 01/09/21 12/31/22 ascorbic acid (vitamin C) 500 mg 500 mg PO DAILY 01/09/21 12/31/22 tablet (Vitamin C) aspirin 81 mg tablet,delayed 81 mg PO DAILY 01/09/21 12/31/22 release bisacodyl 10 mg rectal suppository 10 mg MO DAILY 01/09/21 12/31/22 docusate sodium 100 mg capsule 200 mg PO DAILY 01/09/21 12/31/22 ferrous sulfate 325 mg (65 mg 325 mg PO DAILY 01/09/21 12/31/22 iron) tablet lithium carbonate 300 mg capsule 300 mg PO BEDTIME 01/09/21 12/31/22 sennosides 8.6 mg tablet (senna) 8.6 mg PO DAILY PRN Constipation 01/09/21 12/31/22 sennosides 8.6 mg tablet (senna) 17.2 mg PO BEDTIME 01/09/21 12/31/22 simvastatin 20 mg tablet 20 mg PO BEDTIME 01/09/21 12/31/22 famotidine 40 mg tablet 40 mg PO BEDTIME 05/07/21 12/31/22 omeprazole 40 mg PO DAILY 05/07/21 12/31/22 food supplemt, lactose-reduced ea PO 12/31/22 12/31/22 (Ensure Active Heart Health oral liquid) lactulose 10 gram/15 mL oral 20 g PO BID 02/13/23 02/13/23 solution levetiracetam 500 mg tablet 500 mg PO BID 12/31/22 12/31/22 (Keppra) lorazepam 2 mg tablet 2 mg PO BID PRN 12/31/22 12/31/22 morphine 30 mg capsule,extended 30 mg PO DAILY 12/31/22 12/31/22 release 24 hr multiphase nicotine 21 mg/24 hr daily 1 patch transdermal DAILY 12/31/22 12/31/22 transdermal patch polyethylene glycol 3350 17 17 g PO DAILY 12/31/22 12/31/22 gram/dose oral powder (Miralax) Previous Rx's Medication Instructions Recorded polyethylene glycol 3350 17 17 g PO DAILY #510 grams 01/08/21 gram/dose oral powder (Miralax) levetiracetam 500 mg tablet 500 mg PO BID #60 tabs 04/25/21 nystatin 100,000 unit/mL oral 200,000 unit PO QID #400 mL 05/14/21 suspension amoxicillin 875 mg-potassium 1 tab PO BID 7 days #14 tabs 02/15/23 clavulanate 125 mg tablet Allergies Allergy/AdvReac Type Severity Reaction Status Date / Time wool Allergy Unknown Unknown Uncoded 04/19/21 23:44 Review of Systems Review of Systems: ROS limited secondary to patient's baseline mental status/confusion Yes all other systems are reviewed and are negative Constitutional: Constitutional: Reports as per [facility] Past Medical History Attestation statement: The following information was validated with the patient. Medical History Anemia Astigmatism, bilateral Bilateral cataracts Chronic constipation Constipation Constipation Contracture, right hip Depressive disorder Disorder of the autonomic nervous system, unspecified Dysarthria and anarthria Encephalopathy Essential (primary) hypertension Extrapyramidal and movement disorder Fever Hemiplegia Hyperlipidemia Hypertension MDD (major depressive disorder) Muscle weakness Myopia, bilateral Parkinson disease Presbyopia Schizophrenia Seizure Seizures SIRS (systemic inflammatory response syndrome) Tachycardia Toxic encephalitis Toxic encephalopathy Social History Social History Household Members: Other Housing: Shelter Do you presently have visiting nurse or other home services: No Alcohol intake: unknown Patient Tobacco Use Status: Current everyday Tobacco user Tobacco use type: Cigarette Cigarettes Per Day: 20 Advance Directives: Yes Advance Directives on File: Yes Advance Directives Date on File: 05/15/21 service: No Current occupational status: disabled Physical Exam Vital Signs: Vital Signs: Last Vital Signs Temp 98.2 F 02/15/23 14:24 Pulse 71 02/15/23 14:24 Resp 18 02/15/23 14:24 BP 128/92 H 02/15/23 14:24 Pulse Ox 97 02/15/23 14:24 O2 Del Method Room Air 02/15/23 14:24 BMI result Body Mass Index 26.5 Const: General: cooperative, healthy appearing and no acute distress Orientation/consciousness: oriented to person and oriented to place HEENT: Other: Slight left-sided facial swelling noted. No erythema or tenderness, no fluctuance/induration. Poor dentition. No gingival erythema or abscess Head: Yes normal to inspection and Yes atraumatic Ears: hearing grossly normal bilaterally, external ears normal and TM's normal bilaterally General nose exam: Normal external nose present Mouth: Normal oral and palatal mucosa present Throat: Yes posterior oropharynx normal, Yes tonsils normal, No uvula midline and No uvular edema Eyes: General: appearance normal, both eyes and all related structures EOM: EOMs intact bilaterally Neck: Neck: Yes normal visual inspection, Yes no lymphadenopathy and Yes no meningeal signs Resp: Effort & Inspection: normal respiratory effort and no respiratory distress Auscultation: clear to auscultation bilaterally Cardio: Rate: regular rate Heart sounds: S1 normal heart sound present and S2 normal heart sound present GI: Inspection: Yes normal to inspection and Yes distended (mildly) Palpation (GI): Soft to palpation, Tenderness to palpation present (GI) (Diffusely) with no rebound tenderness, no guarding and not rigid Skin: Other: + sacral wound with scant clear drainage, clear margins, no surrounding erythema, fluctuance/induration. No odor Rashes: no rashes Neuro: General: oriented to person, oriented to place, tone normal and no meningeal signs Extrem: Other: Right hip without noted deformity/erythema or warmth General: Yes normal to inspection Course Course Course Narrative: -labs reassuring. ESR/CRP chronically elevated -UA contaminated will wait on culture prior to antibiotic initiation XR chest 1V IMPRESSION: 1.? Right PICC with tip terminating at the junction of the right subclavian/brachiocephalic vein. 2.? No acute cardiopulmonary process. 3.? Prominent gaseous distention and stool in the visualized colon. This appears similar if not mildly increased compared to the previous study. CT facial bones w IV con IMPRESSION: - There is soft tissue swelling involving the left greater than right upper lip and possibly the left greater then right perimandibular soft tissues with assessment limited by artifact. There is no discrete peripherally enhancing fluid collection to suggest a soft tissue abscess. There is periapical lucency surrounding the roots of the residual mandibular and maxillary dentition that should be correlated with dental exam to exclude a periapical abscess. Multiple dental caries as well. ? - The tongue and floor of mouth are not well assessed due to motion artifact and soft tissue swelling in these areas would be difficult to exclude and should be correlated clinically. ? - Elongated styloid processes bilaterally that can be correlated for clinical signs of [place] syndrome. >> no appreciable intraoral abscess/fluctuance. Will initiate patient on Augmentin. -Performed manual disimpaction with some success. Patient not tolerating procedure well, refused further disimpaction at this time, will try again in a little while CT abdomen pelvis w IV con IMPRESSION: Limited study. Severe amount of stool within the rectal vault and colon, consistent with fecal impaction. Bilateral decubitus ulcers extending to the ischial tuberosities, with associated sclerosis in this region, similar compared with July 2022. No abscess identified. Question old fracture deformity of the right acetabulum. Chronic, severe subluxation of the right hip, with moderate amount of fluid in the right hip joint capsule. Associated arthritis. Anasarca. Trace bilateral pleural fluid with associated atelectasis. Additional findings, as above. -[id number]--patient continues to refuse manual disimpaction. Will try enema and MiraLax -case discussed with Dr. Moreira who performed manual disimpaction at bedside with success. Large amount of stool was removed. At the end patient was passing flatus and soft stool. Recommended bowel regimen Patient is safe for discharge back to [facility] Results discussed with patient including worrisome signs and symptoms and strict return precautions, and when to return to the emergency department. They verbalized understanding and feel safe for discharge at this time. Medications Administered Discontinued Medications Generic Name Dose Route Start Last Admin Trade Name Freq PRN Reason Stop Dose Admin Amoxicillin/Clavulanate Potassium 875 mg 02/15/23 18:05 02/15/23 18:23 Amoxicillin/Potassium Clav 875 Mg Tablet PO 02/15/23 18:06 875 mg ONCE ONE Administration Iohexol 85 ml 02/15/23 11:58 02/15/23 11:58 Iohexol 350 Mg/Ml 100 Ml Infus..Btl IV 02/15/23 11:59 85 ml ONCE ONE Administration Mineral Oil 133 ml 02/15/23 16:20 02/15/23 16:31 Mineral Oil Enema 133 Ml Enema MO 02/15/23 16:21 133 ml ONCE ONE Administration Mineral Oil 133 ml 02/15/23 17:10 02/15/23 17:28 Mineral Oil Enema 133 Ml Enema MO 02/15/23 17:11 133 ml ONCE ONE Administration Polyethylene Glycol 17 gm 02/15/23 16:20 02/15/23 16:31 Polyethylene Glycol 3350 17 Gm Powd.Pack PO 02/15/23 16:21 17 gm ONCE ONE Administration Medical Decision Making Medical Decision Making MDM Narrative: 52-year-old male with a past medical history of anemia, chronic constipation, depression, encephalopathy, HTN, hemiplegia, HLD, HTN, Parkinson's, schizophrenia, bed-bound, presenting to the ED from [facility] for right-sided facial swelling, abdominal distension, & right hip pain x today. No reported injury or fall. On exam vital signs stable, NAD, nontoxic appearing, A&O x2, confused at baseline, minimal left-sided facial swelling noted without appreciable infection or intra oral abscess. Abdomen soft with mild distention, diffusely tender. Right hip without appreciable deformity. Concern for obstruction vs constipation vs ?Facial edema/underlying abscess vs normal anatomy. Low suspicion for septic joint/arthritis or fracture or mastoiditis Plan: Labs, UA, CXR, facial CT, CT AP Please refer to course for remaining clinical decision making, interpretation of labs/imaging results, and discussions with consultants and/or family members. Differential Diagnosis Differential Diagnoses: The differential diagnosis associated with the presentation includes As above Admission/Observation Consideration of admission/observation: Escalation of care including admission/observation considered Lab Data [facility] Lab Attestation statement: I reviewed the patient's lab results. 02/15/23 10:03 02/15/23 10:03 Labs: Lab Results 02/15/23 02/15/23 02/15/23 Range/Units 10:03 10:03 10:03 WBC 6.8 (4.8-10.8) X10*3/uL RBC 4.00 L (4.60-5.80) X10*6/uL Hgb 11.0 L (14.0-18.0) g/dl Hct 34.8 L (42.0-52.0) % MCV 87.0 (80.0-98.0) fL MCH 27.5 (27.0-33.0) pg MCHC 31.6 (31.0-36.0) g/dl RDW 17.2 H (11.0-16.0) % Plt Count 214 (160-400) X10*3/uL MPV 10.1 (9.4-12.4) fL Immature Gran % (Auto) 0.4 (0.0-0.4) % Neut % (Auto) 75.3 H (45-73) % Lymph % (Auto) 16.5 L (20-40) % [place] % (Auto) 5.6 (2-11) % Eos % (Auto) 1.6 (0-4) % Baso % (Auto) 0.6 (0-2) % Lymph # (Auto) 1.1 L (1.2-4.9) X10*3/uL [place] # (Auto) 0.4 (0.1-1.2) X10*3/uL Eos # (Auto) 0.1 (0.0-0.4) X10*3/uL Baso # (Auto) 0.0 (0.0-0.2) X10*3/uL Abs Immat Gran (auto) 0.03 (0.00-0.03) X10*3/uL Absolute Neuts (auto) 5.1 (2.0-8.3) x10*3/uL Absolute Nucleated RBC 0.000 (0.0-0.012) X10*3/uL Nucleated RBC % (auto) 0.0 (0.0-0.2) /100WBC ESR 43 H (0-15) MM/HR Sodium 141 (135-145) mmol/L Potassium 3.9 (3.3-5.1) mmol/L Chloride 111 H (96-108) mmol/L Carbon Dioxide 25 (22-29) mmol/L Anion Gap 9 L (12-20) BUN 13 (9-16) mg/dL Creatinine 0.65 (0.5-1.4) mg/dL Estim Creat Clear Calc 137.2 Estimated GFR > 60 Random Glucose 102 (60-115) mg/dL Calcium 8.6 D (8.4-10.2) mg/dL Magnesium 1.9 (1.6-2.6) mg/dL Total Bilirubin 0.3 (0.0-1.0) mg/dL Direct Bilirubin < 0.2 (0.0-0.5) mg/dL AST 13 (5-37) U/L ALT 9 (0-40) U/L Alkaline Phosphatase 117 (39-117) U/L C-Reactive Protein 0.82 H (< or = 0.50) mg/dL Total Protein 6.2 L (6.5-8.0) g/dL Albumin 3.2 L (3.5-5.0) g/dL Lipase 10 (8-78) U/L Urine Color Urine Appearance Urine pH (5.0-9.0) Ur Specific [place] (1.005-1.025) Urine Protein (Neg-Trace) mg/dL Urine Glucose (UA) (Negative) mg/dL Urine Ketones (Negative) mg/dL Urine Blood (Negative) Urine Nitrite (Negative) Ur Leukocyte Esterase (Negative) Urine RBC (0-2) /HPF Urine WBC (0-5) /HPF Ur Squamous Epith Cells (0-2) /HPF Urine Bacteria (None Seen) Hyaline Casts (0-2) /LPF COVID-19 (VINICIO) (Negative) COVID-19 Clin Com 02/15/23 02/15/23 Range/Units 10:03 10:09 WBC (4.8-10.8) X10*3/uL RBC (4.60-5.80) X10*6/uL Hgb (14.0-18.0) g/dl Hct (42.0-52.0) % MCV (80.0-98.0) fL MCH (27.0-33.0) pg MCHC (31.0-36.0) g/dl RDW (11.0-16.0) % Plt Count (160-400) X10*3/uL MPV (9.4-12.4) fL Immature Gran % (Auto) (0.0-0.4) % Neut % (Auto) (45-73) % Lymph % (Auto) (20-40) % [place] % (Auto) (2-11) % Eos % (Auto) (0-4) % Baso % (Auto) (0-2) % Lymph # (Auto) (1.2-4.9) X10*3/uL [place] # (Auto) (0.1-1.2) X10*3/uL Eos # (Auto) (0.0-0.4) X10*3/uL Baso # (Auto) (0.0-0.2) X10*3/uL Abs Immat Gran (auto) (0.00-0.03) X10*3/uL Absolute Neuts (auto) (2.0-8.3) x10*3/uL Absolute Nucleated RBC (0.0-0.012) X10*3/uL Nucleated RBC % (auto) (0.0-0.2) /100WBC ESR (0-15) MM/HR Sodium (135-145) mmol/L Potassium (3.3-5.1) mmol/L Chloride (96-108) mmol/L Carbon Dioxide (22-29) mmol/L Anion Gap (12-20) BUN (9-16) mg/dL Creatinine (0.5-1.4) mg/dL Estim Creat Clear Calc Estimated GFR Random Glucose (60-115) mg/dL Calcium (8.4-10.2) mg/dL Magnesium (1.6-2.6) mg/dL Total Bilirubin (0.0-1.0) mg/dL Direct Bilirubin (0.0-0.5) mg/dL AST (5-37) U/L ALT (0-40) U/L Alkaline Phosphatase (39-117) U/L C-Reactive Protein (< or = 0.50) mg/dL Total Protein (6.5-8.0) g/dL Albumin (3.5-5.0) g/dL Lipase (8-78) U/L Urine Color Yellow Urine Appearance Cloudy Urine pH 6.0 (5.0-9.0) Ur Specific [place] 1.020 (1.005-1.025) Urine Protein 30 (1+) H (Neg-Trace) mg/dL Urine Glucose (UA) Negative (Negative) mg/dL Urine Ketones Trace (Negative) mg/dL Urine Blood Negative (Negative) Urine Nitrite Negative (Negative) Ur Leukocyte Esterase Negative (Negative) Urine RBC 3-5 H (0-2) /HPF Urine WBC 6-10 H (0-5) /HPF Ur Squamous Epith Cells 6-10 (0-2) /HPF Urine Bacteria None Seen (None Seen) Hyaline Casts 3-5 (0-2) /LPF COVID-19 (VINICIO) Negative (Negative) COVID-19 Clin Com See Note Radiology Impression Discussion of test interpretation with radiology: I have reviewed the radiologist's reading. External Record Review External record reviewed: Inpatient record, Office record, Outpatient record, Prior outpatient labs, Prior outpatient radiology, Primary care record and Outside ED record Discharge Plan Discharge Clinical Impression: Dental caries, Fecal impaction Patient Disposition: Xfer [facility] Transfer Details: [facility] Instructions: Fecal Impaction (ED), Tooth Extraction (DC) Additional Instructions: You have diffuse dental caries, no appreciable abscess on CT or exam. Augmentin is an antibiotic please take as prescribed Additionally had a large fecal impaction. you should be on a bowel regimen. WE RECOMMEND YOU TAKE MIRALAX TWICE A DAY, METAMUCIL, AND COLACE. PATIENT WOULD ALSO BENEFIT FROM REGULAR ENEMAS. If patient develops worsening facial swelling, is not passing bowel movements or flatus he needs to return to the emergency department. Prescriptions: New amoxicillin-pot clavulanate 875-125 mg tablet 1 tab PO BID 7 Days Qty: 14 0RF No Action famotidine 40 mg Tablet 40 mg PO BEDTIME omeprazole 40 mg PO DAILY nystatin 100,000 unit/mL Suspension 200,000 unit PO QID Qty: 400 0RF Protocol: Apply to: Apply to: thrush polyethylene glycol 3350 [Miralax] 17 gram/dose powder 17 g PO DAILY Qty: 510 0RF sennosides [senna] 8.6 mg Tablet 8.6 mg PO DAILY PRN (Reason: Constipation) acetaminophen 325 mg Tablet 650 mg PO Q4H PRN (Reason: Fever Or Pain) bisacodyl 10 mg Suppository 10 mg MO DAILY ascorbic acid (vitamin C) [Vitamin C] 500 mg Tablet 500 mg PO DAILY sennosides [senna] 8.6 mg Tablet 17.2 mg PO BEDTIME simvastatin 20 mg Tablet 20 mg PO BEDTIME aspirin 81 mg Tablet,Delayed Release (Dr/Ec) 81 mg PO DAILY docusate sodium 100 mg Capsule 200 mg PO DAILY ferrous sulfate 325 mg (65 mg iron) Tablet 325 mg PO DAILY lithium carbonate 300 mg Capsule 300 mg PO BEDTIME levetiracetam 500 mg Tablet 500 mg PO BID Qty: 60 0RF Ensure Active Heart Health Liquid PO nicotine 21 mg/24 hr patch 24 hour 1 patch transdermal DAILY levetiracetam [Keppra] 500 mg tablet 500 mg PO BID lactulose 10 gram/15 mL solution 20 g PO BID lorazepam 2 mg tablet 2 mg PO BID PRN polyethylene glycol 3350 [Miralax] 17 gram/dose powder 17 g PO DAILY morphine 30 mg capsule, ER multiphase 24 hr 30 mg PO DAILY Referrals: Edson Meredith DO [Primary Care Provider] - Interventions: ED Discharge Assessment Last Done: 02/15/23 19:26 Discharge Date/Time: 02/15/23 19:26
[2023-02-15 09:47] VITALS: BP 130/82; BP 133/85; PULSE 90; PULSE 91; RESP 18; TEMP 36.7; O2SAT 96; BMI 26.5
--- NOTE | 2023-02-15 09:59 | PC.NURSE ---
PICC line flushes no S?S of infiltration doses not draw
[2023-02-15 10:07] LABS: MANUAL DIFF FLAG NO
--- NOTE | 2023-02-15 10:10 | PC.NURSE ---
Patient straight cathed for urine with PCT AJ and PCT Molly at bedside
[2023-02-15 10:14] LABS: Basophils Percent Auto 0.6 % (0-2); Eosinophils Absolute Auto 0.1 X10*3/uL (0.0-0.4); Eosinophils Percent Auto 1.6 % (0-4); Hematocrit 34.8 % (42.0-52.0); Imm Gran Abs Auto 0.03 X10*3/uL (0.00-0.03); Imm Gran Pct Auto 0.4 % (0.0-0.4); Lymphocytes Absolute Auto 1.1 X10*3/uL (1.2-4.9); Lymphocytes Percent Auto 16.5 % (20-40); Mean Corpuscular HGB Conc 31.6 g/dl (31.0-36.0); Mean Corpuscular Hemoglobin 27.5 pg (27.0-33.0); Mean Platelet Volume 10.1 fL (9.4-12.4); Monocytes Absolute Auto 0.4 X10*3/uL (0.1-1.2); Monocytes Percent Auto 5.6 % (2-11); Neutrophils Absolute Auto 5.1 x10*3/uL (2.0-8.3); Neutrophils Percent Auto 75.3 % (45-73); Platelet Count 214 X10*3/uL (160-400); Red Cell Distribution Width 17.2 % (11.0-16.0); White Blood Count 6.8 X10*3/uL (4.8-10.8)
[2023-02-15 10:16] LABS: Appearance Urine Cloudy; Color Urine Yellow; Glucose Urine UA Negative (Negative); Leukocyte Esterase Urine Negative (Negative); Nitrite Urine Negative (Negative); UMIC TRIGGER UACC YES; Urine Blood Negative (Negative); Urine Ketones Trace mg/dL (Negative); Urine Protein 30 (1+) mg/dL (Neg-Trace)
[2023-02-15 10:22] LABS: COVID-19 Test Negative (Negative); IDNOW Serial# BCCEAD1C
[2023-02-15 10:27] LABS: Bacteria Urine None Seen (None Seen); UACC Culture Trigger YES
[2023-02-15 10:36] LABS: Alanine Aminotransferase 9 U/L (0-40); Albumin Level 3.2 g/dL (3.5-5.0); Alkaline Phosphatase 117 U/L (39-117); Anion Gap 9 (12-20); Aspartate Amino Transferase 13 U/L (5-37); Bilirubin Direct < 0.2 mg/dL (0.0-0.5); Bilirubin Total 0.3 mg/dL (0.0-1.0); Blood Urea Nitrogen 13 mg/dL (9-16); C Reactive Protein 0.82 mg/dL (< or = 0.50); Calcium 8.6 mg/dL (8.4-10.2); Carbon Dioxide 25 mmol/L (22-29); Chloride 111 mmol/L (96-108); Creatinine Clr Calc Pharmacy 137.2; Estimated Glomerular Filt Rate > 60; Glucose Random 102 mg/dL (60-115); Lipase 10 U/L (8-78); Magnesium 1.9 mg/dL (1.6-2.6); Potassium 3.9 mmol/L (3.3-5.1); Sodium 141 mmol/L (135-145); Total Protein 6.2 g/dL (6.5-8.0)
--- NOTE | 2023-02-15 10:50 | PC.NURSE ---
ED radiology at bedside performing portable chest x-ray will CTM
[2023-02-15 10:55] LABS: Erythrocyte Sedimentation Rate 43 MM/HR (0-15)
--- NOTE | 2023-02-15 11:09 | PC.NURSE ---
Patient at CT
[2023-02-15 11:38] VITALS: BP 125/80; PULSE 69; RESP 13; TEMP 36.7; O2SAT 94
[2023-02-15] MEDS: iohexoL 350 MG/ML 100 ML INFUS..BTL 85 ML IV (11:58)
[2023-02-15 14:24] VITALS: BP 128/92; PULSE 71; RESP 18; TEMP 36.8; O2SAT 97
--- NOTE | 2023-02-15 15:21 | PC.NURSE ---
Provider and PCT at bedside disimpacting patient of stool will CTM
[2023-02-15] MEDS: Mineral OiL enema 133 ML ENEMA PR ×2 (16:31→17:28)
[2023-02-15] MEDS: polyethylene glycoL 3350 17 GM POWD.PACK PO (16:31)
--- NOTE | 2023-02-15 16:50 | PC.NURSE ---
Patient tolerated enema and po miralax will CTM
--- NOTE | 2023-02-15 17:18 | PM.CNGS ---
History of Present Illness Consult details Consult date: 02/15/23 Narrative: 52M referred by the ED for fecal impaction. He has multiple medical problems, including schizophrenia, depression, contractures, and has known chronic constipation. He is a resident of [facility] and is bedbound. He was sent to the ED because of left facial swelling and abdominal distension. He had a CT scan showing large amounts of stool in the colon, especically in the rectum c/w fecal impaction so I was consulted. The patient is minimally communicative so no review of systems nor details of history are available from him. He is also known to have decubitus ulcers. Review of Systems Review of Systems: Yes Unobtainable due to mental status PMFSH Past Medical History Medical History Anemia Astigmatism, bilateral Bilateral cataracts Chronic constipation Constipation Constipation Contracture, right hip Depressive disorder Disorder of the autonomic nervous system, unspecified Dysarthria and anarthria Encephalopathy Essential (primary) hypertension Extrapyramidal and movement disorder Fever Hemiplegia Hyperlipidemia Hypertension MDD (major depressive disorder) Muscle weakness Myopia, bilateral Parkinson disease Presbyopia Schizophrenia Seizure Seizures SIRS (systemic inflammatory response syndrome) Tachycardia Toxic encephalitis Toxic encephalopathy Social History Social History Household Members: Other Housing: Custodial Do you presently have visiting nurse or other home services: No Alcohol intake: unknown Patient Tobacco Use Status: Current everyday Tobacco user Tobacco use type: Cigarette Cigarettes Per Day: 20 Advance Directives: Yes Advance Directives on File: Yes Advance Directives Date on File: 05/15/21 service: No Current occupational status: disabled Meds Allergies Allergy/AdvReac Type Severity Reaction Status Date / Time wool Allergy Unknown Unknown Uncoded 04/19/21 23:44 Home Medications Medication Instructions Recorded Confirmed Last Taken Type acetaminophen 325 mg tablet 650 mg PO Q4H PRN Fever Or Pain 01/09/21 12/31/22 Unknown History ascorbic acid (vitamin C) 500 mg 500 mg PO DAILY 01/09/21 12/31/22 04/19/21 History tablet (Vitamin C) aspirin 81 mg tablet,delayed 81 mg PO DAILY 01/09/21 12/31/22 04/19/21 History release bisacodyl 10 mg rectal suppository 10 mg MO DAILY 01/09/21 12/31/2221 History docusate sodium 100 mg capsule 200 mg PO DAILY 01/09/21 12/31/22 04/19/21 History ferrous sulfate 325 mg (65 mg 325 mg PO DAILY 01/09/21 12/31/22 04/19/21 History iron) tablet lithium carbonate 300 mg capsule 300 mg PO BEDTIME 01/09/21 12/31/22 04/18/21 History sennosides 8.6 mg tablet (senna) 8.6 mg PO DAILY PRN Constipation 01/09/21 12/31/22 01/07/21 History sennosides 8.6 mg tablet (senna) 17.2 mg PO BEDTIME 01/09/21 12/31/22 04/18/21 History simvastatin 20 mg tablet 20 mg PO BEDTIME 01/09/21 12/31/22 04/18/21 History famotidine 40 mg tablet 40 mg PO BEDTIME 05/07/21 12/31/22 Unknown History omeprazole 40 mg PO DAILY 05/07/21 12/31/22 Unknown History food supplemt, lactose-reduced ea PO 12/31/22 12/31/22 Unknown History (Ensure Active Heart Health oral liquid) lactulose 10 gram/15 mL oral 20 g PO BID 12/31/22 12/31/22 Unknown History solution levetiracetam 500 mg tablet 500 mg PO BID 12/31/22 12/31/22 Unknown History (Keppra) lorazepam 2 mg tablet 2 mg PO BID PRN 12/31/22 12/31/22 Unknown History morphine 30 mg capsule,extended 30 mg PO DAILY 12/31/22 12/31/22 Unknown History release 24 hr multiphase nicotine 21 mg/24 hr daily 1 patch transdermal DAILY 12/31/22 12/31/22 Unknown History transdermal patch polyethylene glycol 3350 17 17 g PO DAILY 12/31/22 12/31/22 Unknown History gram/dose oral powder (Miralax) Physical Exam Vital Signs: Vital Signs: Last Vital Signs Temp 98.2 F 02/15/23 14:24 Pulse 71 02/15/23 14:24 Resp 18 02/15/23 14:24 BP 128/92 H 02/15/23 14:24 Pulse Ox 97 02/15/23 14:24 O2 Del Method Room Air 02/15/23 14:24 BMI result Body Mass Index 26.5 Const: Other: has some verbal output, answers some simple questions General: no acute distress Resp: Effort & Inspection: normal respiratory effort Cardio: Rate: regular rate GI: Other: full contracture at the right hip, only the right side of the abdomen is palpable - some distension, no guarding rectal exam - very large amounts of hard stools filling the rectal vault Back/Spine/Pelvis: Other: decub ulcer, right buttock, stage 2-3 Extrem: Other: full contracture of right hip Results Labs 02/15/23 10:03 02/15/23 10:03 Labs: Abnormal lab results 02/15/23 02/15/23 02/15/23 Range/Units 10:03 10:03 10:03 RBC 4.00 L (4.60-5.80) X10*6/uL Hgb 11.0 L (14.0-18.0) g/dl Hct 34.8 L (42.0-52.0) % RDW 17.2 H (11.0-16.0) % Neut % (Auto) 75.3 H (45-73) % Lymph % (Auto) 16.5 L (20-40) % Lymph # (Auto) 1.1 L (1.2-4.9) X10*3/uL ESR 43 H (0-15) MM/HR Chloride 111 H (96-108) mmol/L Anion Gap 9 L (12-20) C-Reactive Protein 0.82 H (< or = 0.50) mg/dL Total Protein 6.2 L (6.5-8.0) g/dL Albumin 3.2 L (3.5-5.0) g/dL Urine Protein (Neg-Trace) mg/dL Urine RBC (0-2) /HPF Urine WBC (0-5) /HPF 02/15/23 Range/Units 10:09 RBC (4.60-5.80) X10*6/uL Hgb (14.0-18.0) g/dl Hct (42.0-52.0) % RDW (11.0-16.0) % Neut % (Auto) (45-73) % Lymph % (Auto) (20-40) % Lymph # (Auto) (1.2-4.9) X10*3/uL ESR (0-15) MM/HR Chloride (96-108) mmol/L Anion Gap (12-20) C-Reactive Protein (< or = 0.50) mg/dL Total Protein (6.5-8.0) g/dL Albumin (3.5-5.0) g/dL Urine Protein 30 (1+) H (Neg-Trace) mg/dL Urine RBC 3-5 H (0-2) /HPF Urine WBC 6-10 H (0-5) /HPF Short CBC 02/15/23 Range/Units 10:03 WBC 6.8 (4.8-10.8) X10*3/uL Hgb 11.0 L (14.0-18.0) g/dl Hct 34.8 L (42.0-52.0) % Plt Count 214 (160-400) X10*3/uL BMP 02/15/23 10:03 Sodium 141 Potassium 3.9 Chloride 111 H Carbon Dioxide 25 BUN 13 Creatinine 0.65 Calcium 8.6 D Liver Function 02/15/23 Range/Units 10:03 Total Bilirubin 0.3 (0.0-1.0) mg/dL Direct Bilirubin < 0.2 (0.0-0.5) mg/dL AST 13 (5-37) U/L ALT 9 (0-40) U/L Alkaline Phosphatase 117 (39-117) U/L Albumin 3.2 L (3.5-5.0) g/dL Urine 02/15/23 Range/Units 10:09 Urine Color Yellow Urine Appearance Cloudy Urine pH 6.0 (5.0-9.0) Ur Specific [place] 1.020 (1.005-1.025) Urine Protein 30 (1+) H (Neg-Trace) mg/dL Urine Glucose (UA) Negative (Negative) mg/dL All other labs normal. Laboratory Results WBC 6.8 X10*3/uL (4.8-10.8) 02/15/23 10:03 RBC 4.00 X10*6/uL (4.60-5.80) L 02/15/23 10:03 Hgb 11.0 g/dl (14.0-18.0) L 02/15/23 10:03 Hct 34.8 % (42.0-52.0) L 02/15/23 10:03 MCV 87.0 fL (80.0-98.0) 02/15/23 10:03 MCH 27.5 pg (27.0-33.0) 02/15/23 10:03 MCHC 31.6 g/dl (31.0-36.0) 02/15/23 10:03 RDW 17.2 % (11.0-16.0) H 02/15/23 10:03 Plt Count 214 X10*3/uL (160-400) 02/15/23 10:03 MPV 10.1 fL (9.4-12.4) 02/15/23 10:03 Immature Gran % (Auto) 0.4 % (0.0-0.4) 02/15/23 10:03 Neut % (Auto) 75.3 % (45-73) H 02/15/23 10:03 Lymph % (Auto) 16.5 % (20-40) L 02/15/23 10:03 [place] % (Auto) 5.6 % (2-11) 02/15/23 10:03 Eos % (Auto) 1.6 % (0-4) 02/15/23 10:03 Baso % (Auto) 0.6 % (0-2) 02/15/23 10:03 Lymph # (Auto) 1.1 X10*3/uL (1.2-4.9) L 02/15/23 10:03 [place] # (Auto) 0.4 X10*3/uL (0.1-1.2) 02/15/23 10:03 Eos # (Auto) 0.1 X10*3/uL (0.0-0.4) 02/15/23 10:03 Baso # (Auto) 0.0 X10*3/uL (0.0-0.2) 02/15/23 10:03 Abs Immat Gran (auto) 0.03 X10*3/uL (0.00-0.03) 02/15/23 10:03 Absolute Neuts (auto) 5.1 x10*3/uL (2.0-8.3) 02/15/23 10:03 Absolute Nucleated RBC 0.000 X10*3/uL (0.0-0.012) 02/15/23 10:03 Nucleated RBC % (auto) 0.0 /100WBC (0.0-0.2) 02/15/23 10:03 ESR 43 MM/HR (0-15) H 02/15/23 10:03 Sodium 141 mmol/L (135-145) 02/15/23 10:03 Potassium 3.9 mmol/L (3.3-5.1) 02/15/23 10:03 Chloride 111 mmol/L (96-108) H 02/15/23 10:03 Carbon Dioxide 25 mmol/L (22-29) 02/15/23 10:03 Anion Gap 9 (12-20) L 02/15/23 10:03 BUN 13 mg/dL (9-16) 02/15/23 10:03 Creatinine 0.65 mg/dL (0.5-1.4) 02/15/23 10:03 Estim Creat Clear Calc 137.2 02/15/23 10:03 Estimated GFR > 60 02/15/23 10:03 Random Glucose 102 mg/dL (60-115) 02/15/23 10:03 Calcium 8.6 mg/dL (8.4-10.2) D 02/15/23 10:03 Magnesium 1.9 mg/dL (1.6-2.6) 02/15/23 10:03 Total Bilirubin 0.3 mg/dL (0.0-1.0) 02/15/23 10:03 Direct Bilirubin < 0.2 mg/dL (0.0-0.5) 02/15/23 10:03 AST 13 U/L (5-37) 02/15/23 10:03 ALT 9 U/L (0-40) 02/15/23 10:03 Alkaline Phosphatase 117 U/L (39-117) 02/15/23 10:03 C-Reactive Protein 0.82 mg/dL (< or = 0.50) H 02/15/23 10:03 Total Protein 6.2 g/dL (6.5-8.0) L 02/15/23 10:03 Albumin 3.2 g/dL (3.5-5.0) L 02/15/23 10:03 Lipase 10 U/L (8-78) 02/15/23 10:03 Urine Color Yellow 02/15/23 10:09 Urine Appearance Cloudy 02/15/23 10:09 Urine pH 6.0 (5.0-9.0) 02/15/23 10:09 Ur Specific [place] 1.020 (1.005-1.025) 02/15/23 10:09 Urine Protein 30 (1+) mg/dL (Neg-Trace) H 02/15/23 10:09 Urine Glucose (UA) Negative mg/dL (Negative) 02/15/23 10:09 Urine Ketones Trace mg/dL (Negative) 02/15/23 10:09 Urine Blood Negative (Negative) 02/15/23 10:09 Urine Nitrite Negative (Negative) 02/15/23 10:09 Ur Leukocyte Esterase Negative (Negative) 02/15/23 10:09 Urine RBC 3-5 /HPF (0-2) H 02/15/23 10:09 Urine WBC 6-10 /HPF (0-5) H 02/15/23 10:09 Ur Squamous Epith Cells 6-10 /HPF (0-2) 02/15/23 10:09 Urine Bacteria None Seen (None Seen) 02/15/23 10:09 Hyaline Casts 3-5 /LPF (0-2) 02/15/23 10:09 COVID-19 (VINICIO) Negative (Negative) 02/15/23 10:03 COVID-19 Clin Com See Note 02/15/23 10:03 Impressions Chest X-Ray 02/15/23 10:53 IMPRESSION: 1. Right PICC with tip terminating at the junction of the right subclavian/brachiocephalic vein. 2. No acute cardiopulmonary process. 3. Prominent gaseous distention and stool in the visualized colon. This appears similar if not mildly increased compared to the previous study. Abdomen/Pelvis CT 02/15/23 11:58 IMPRESSION: Limited study. Severe amount of stool within the rectal vault and colon, consistent with fecal impaction. Bilateral decubitus ulcers extending to the ischial tuberosities, with associated sclerosis in this region, similar compared with July 2022. No abscess identified. Question old fracture deformity of the right acetabulum. Chronic, severe subluxation of the right hip, with moderate amount of fluid in the right hip joint capsule. Associated arthritis. Anasarca. Trace bilateral pleural fluid with associated atelectasis. Additional findings, as above. Face CT 02/15/23 11:58 IMPRESSION: - There is soft tissue swelling involving the left greater than right upper lip and possibly the left greater then right perimandibular soft tissues with assessment limited by artifact. There is no discrete peripherally enhancing fluid collection to suggest a soft tissue abscess. There is periapical lucency surrounding the roots of the residual mandibular and maxillary dentition that should be correlated with dental exam to exclude a periapical abscess. Multiple dental caries as well. - The tongue and floor of mouth are not well assessed due to motion artifact and soft tissue swelling in these areas would be difficult to exclude and should be correlated clinically. - Elongated styloid processes bilaterally that can be correlated for clinical signs of [place] syndrome. Assessment and Plan (1) Fecal impaction: Status: Inactive Plan He had large amounts of hard stools on digital exam. I had to do extensive, gentle manual disimpaction, and tremendously large amounts of very hard stools were removed. At the end, he was passing large amounts of flatus and much softer stools, suggesting adequate disimpaction. His abdomen was significantly softer as well. He will need a good bowel regimen of Miralax twice a day, Metamucil and Colace.He does has chronic constipation likely due to narcotic use. He should benefit from regular enemas as well. I have discussed the above with the ED staff. Time Spent With Patient Time: Total time managing care of this patient today ____ minutes. Procedures Date of Service Date of Service: 02/15/23
[2023-02-15] MEDS: Amoxicillin/Potassium Clav 875 MG TABLET PO (18:23)
== END 2023-02-15 19:26 | disposition skilled nursing facility (03) ==
PROVIDERS: Physician Assistant; Emergency Provider Emergency Medicine Emergency Medical Services; PCP Hospitalist
DX: K56.41 Fecal impaction (principal); K02.9 Dental caries, unspecified; Z20.822 Contact with and (suspected) exposure to COVID-19; I10 Essential (primary) hypertension; E78.5 Hyperlipidemia, unspecified; F17.210 Nicotine dependence, cigarettes, uncomplicated; Z79.02 Long term (current) use of antithrombotics/antiplatelets; Z79.899 Other long term (current) drug therapy
CPT/HCPCS: 51701; 70487; 71045; 74177; 80048; 80076; 81001; 83690; 83735; 85025; 85652; 86140; 87086; 87635; 99283; 99284; Q9967

== ENCOUNTER 2023-07-26 09:58 | Emergency (ER) | payer MEDICAID, SELFPAY ==
[2023-07-26] VITALS (10 sets, daily range): BP systolic 0–170; BP diastolic 0–103; PULSE 0–160; RESP 0–26; TEMP 35.1; O2SAT 0–73; BMI 33.8
--- NOTE | ~2023-07-26 | CT_ITS ---
EXAMINATION: CT HEAD WITHOUT CONTRAST CLINICAL INFORMATION: AMS. COMPARISON: CT brain 04/22/2021 TECHNIQUE: Contiguous axial imaging was performed from the skull base to vertex without intravenous administration of contrast. This CT examination was performed using dose optimization techniques as appropriate, variously including the following: *Automated exposure control *Adjustment of mA and/or kV according to patient size (this includes techniques or standardized protocols for targeted exams where dose is matched to indication/reason for exam; i.e. extremities or head) *Use of iterative reconstruction technique DLP: 727 mGy-cm FINDINGS: There is no acute intra-axial, extra-axial bleed, masses or midline shift. There is no acute infarction evolution. There is no edema. There is diffuse periventricular hypodensity in both cerebral hemispheres without mass effect. The lateral ventricles are symmetrical but moderately enlarged. Deleon to white matter difference is maintained normal. Bone windows reveal no calvarial abnormality. The paranasal sinuses and mastoid air cells are well-aerated the small polyp or retention cyst right maxillary sinus the TM joints are symmetrical and normal. The mastoid air cells are clear.. The optic globes, optic nerve and the periorbital soft tissues are normal. CT/CT head/brain wo IV con IMPRESSION: No acute intracranial process seen.
--- NOTE | ~2023-07-26 | XR_ITS ---
EXAMINATION: XR CHEST CLINICAL INFORMATION: SOB. COMPARISON: Chest AP upright 02/15/2023 TECHNIQUE: Frontal view of the chest was obtained. FINDINGS: There is complete opacification of left lung likely from total collapse and/or pleural effusion. There is mild [id number] ipsilateral mediastinal shift. The right lung is clear. Tip of endotracheal tube is 6.7 cm above the lalo. The heart is shifted to the left and not visualized.) Artery is within normal limits. No gross bony abnormality seen. XR/XR chest 1V IMPRESSION: 1. Complete opacification of left lung likely from total lung collapse and/or pleural effusion. There is mild [id number] ipsilateral mediastinal shift. 2. The right lung is clear. 3. Tip of endotracheal tube in satisfactory position.
--- NOTE | 2023-07-26 10:06 | ECG_ITS ---
Test Reason : UNRESPONSIVE Blood Pressure : / mmHG Vent. Rate : 170 BPM Atrial Rate : 170 BPM P-R Int : 128 ms QRS Dur : 088 ms QT Int : 292 ms P-R-T Axes : 075 078 068 degrees QTc Int : 491 ms Sinus tachycardia with Premature supraventricular complexes Nonspecific ST and T wave abnormality Abnormal ECG When compared with ECG of 03-AUG-2022 12:02, Premature supraventricular complexes are now Present Vent. rate has increased BY 75 BPM T wave inversion no longer evident in Inferior leads T wave inversion no longer evident in Anterolateral leads ST now depressed in Lateral leads Referred By: Efrain Riddle Electronically Signed By:LUIZ SCHRADER
[2023-07-26] MEDS: Piperacillin Sodium/Tazobactam 3.375 GM in 0.9 % Sodium Chloride 50 ML IV (10:20)
[2023-07-26 10:25] LABS: MANUAL DIFF FLAG NO
[2023-07-26 10:27] LABS: Basophils Absolute Auto 0.1 X10*3/uL (0.0-0.2); Basophils Percent Auto 0.3 % (0-2); Hematocrit 44.6 % (42.0-52.0); Hemoglobin 13.9 g/dl (14.0-18.0); Imm Gran Abs Auto 0.09 X10*3/uL (0.00-0.03); Imm Gran Pct Auto 0.5 % (0.0-0.4); Lymphocytes Absolute Auto 1.9 X10*3/uL (1.2-4.9); Lymphocytes Percent Auto 11.1 % (20-40); Mean Corpuscular HGB Conc 31.2 g/dl (31.0-36.0); Mean Corpuscular Hemoglobin 27.6 pg (27.0-33.0); Mean Corpuscular Volume 88.5 fL (80.0-98.0); Mean Platelet Volume 10.9 fL (9.4-12.4); Monocytes Absolute Auto 0.5 X10*3/uL (0.1-1.2); Monocytes Percent Auto 3.1 % (2-11); Neutrophils Absolute Auto 14.6 x10*3/uL (2.0-8.3); Platelet Count 289 X10*3/uL (160-400); Red Blood Count 5.04 X10*6/uL (4.60-5.80); Red Cell Distribution Width 16.3 % (11.0-16.0); White Blood Count 17.2 X10*3/uL (4.8-10.8)
[2023-07-26 10:31] LABS: Ammonia 79 umol/L (13-55)
[2023-07-26 10:32] LABS: VBG Base Excess -9.2 mmol/L; VBG HCO3 19 mmol/L (22-26); VBG pCO2 50 mmHg; VBG pH 7.18 (7.32-7.43); VBG pO2 31 mmHg
[2023-07-26 10:36] LABS: INTERNATIONAL NORM RATIO 1.2 (0.9-1.1); Lactic Acid 3.3 mmol/L (0.5-2.0); Prothrombin Time 14.1 SEC (11.1-13.3)
[2023-07-26 10:41] LABS: Alanine Aminotransferase 9 U/L (0-40); Albumin Level 3.9 g/dL (3.5-5.0); Alkaline Phosphatase 138 U/L (39-117); Anion Gap 17 (12-20); Aspartate Amino Transferase 21 U/L (5-37); Bilirubin Total 0.3 mg/dL (0.0-1.0); Blood Urea Nitrogen 20 mg/dL (9-16); Calcium 9.5 mg/dL (8.4-10.2); Carbon Dioxide 19 mmol/L (22-29); Chloride 106 mmol/L (96-108); Estimated Glomerular Filt Rate > 60; Glucose Random 134 mg/dL (60-115); Magnesium 2.2 mg/dL (1.6-2.6); Potassium 3.5 mmol/L (3.3-5.1); Sodium 138 mmol/L (135-145); Total Protein 8.2 g/dL (6.5-8.0)
[2023-07-26 10:43] LABS: Venous Blood Gas Refer to POC result
[2023-07-26 10:43] LABS: B Type Natriuretic Peptide 102 pg/mL (<100)
[2023-07-26 10:47] LABS: Troponin-I High Sensitivity 25.1 ng/L (<3.5-35.0)
--- NOTE | 2023-07-26 11:06 | PC.NURSE ---
CALLED [facility]ESSAGE AT BOTH [employer]BERS REGARDING PTS CRITICAL CONDITION [phone] AND [phone]
[2023-07-26 11:08] LABS: Influenza A PCR NEGATIVE (Negative); Influenza B PCR NEGATIVE (Negative); Resp Syncy Virus RNA Qual PCR NEGATIVE (Negative); SARS COV2 PCR INHOUSE NEGATIVE (Negative)
--- NOTE | 2023-07-26 11:23 | ED_ITS ---
HPI - Altered Mental Status General Chief Complaint: Altered Mental Status Stated Complaint: AMS,LOW O2 SATS PER EMS Time Seen by Provider: 07/26/23 10:08 Source: EMS and old records reviewed Mode of arrival: EMS Limitations: altered mental status History of Present Illness HPI narrative: 52 yo male with hx of HTN, HLD, schizophrenia, seizures, pneumonia just had teeth pulled yesterday was found altered in bed this AM with sats in 30s per EMS - EMS had him on NRB with sats in 30s, tachycardic en route. The patient is FULL CODE. No other history provided at this time. Last known well before bed per EMS Was hypoxic entire EMS route. BS normal MD complaint: altered mental status Onset (ago): hour(s) (several) Timing confirmed by: caregiver Severity: severe Consistency of symptoms: getting Worse (EMS notes he has worsened) Context: other (recent dental procedure) Associated symptoms: other (unknown) Treatments prior to arrival: oxygen Related Data Home Medications Medication Instructions Recorded Confirmed acetaminophen 325 mg tablet 650 mg PO Q4H PRN Fever Or Pain 01/09/21 12/31/22 ascorbic acid (vitamin C) 500 mg 500 mg PO DAILY 01/09/21 12/31/22 tablet (Vitamin C) aspirin 81 mg tablet,delayed 81 mg PO DAILY 01/09/21 12/31/22 release bisacodyl 10 mg rectal suppository 10 mg KS DAILY 01/09/21 12/31/22 docusate sodium 100 mg capsule 200 mg PO DAILY 01/09/21 12/31/22 ferrous sulfate 325 mg (65 mg 325 mg PO DAILY 01/09/21 12/31/22 iron) tablet lithium carbonate 300 mg capsule 300 mg PO BEDTIME 01/09/21 12/31/22 sennosides 8.6 mg tablet (senna) 8.6 mg PO DAILY PRN Constipation 01/09/21 12/31/22 sennosides 8.6 mg tablet (senna) 17.2 mg PO BEDTIME 01/09/21 12/31/22 simvastatin 20 mg tablet 20 mg PO BEDTIME 01/09/21 12/31/22 famotidine 40 mg tablet 40 mg PO BEDTIME 05/07/21 12/31/22 omeprazole 40 mg PO DAILY 05/07/21 12/31/22 food supplemt, lactose-reduced ea PO 12/31/22 12/31/22 (Ensure Active Heart Health oral liquid) lactulose 10 gram/15 mL oral 20 g PO BID 12/31/22 12/31/22 solution levetiracetam 500 mg tablet 500 mg PO BID 12/31/22 12/31/22 (Keppra) lorazepam 2 mg tablet 2 mg PO BID PRN 12/31/22 12/31/22 morphine 30 mg capsule,extended 30 mg PO DAILY 12/31/22 12/31/22 release 24 hr multiphase nicotine 21 mg/24 hr daily 1 patch transdermal DAILY 12/31/22 12/31/22 transdermal patch polyethylene glycol 3350 17 17 g PO DAILY 12/31/22 12/31/22 gram/dose oral powder (Miralax) Previous Rx's Medication Instructions Recorded polyethylene glycol 3350 17 17 g PO DAILY #510 grams 01/08/21 gram/dose oral powder (Miralax) levetiracetam 500 mg tablet 500 mg PO BID #60 tabs 04/25/21 nystatin 100,000 unit/mL oral 200,000 unit PO QID #400 mL 05/14/21 suspension amoxicillin 875 mg-potassium 1 tab PO BID 7 days #14 tabs 02/15/23 clavulanate 125 mg tablet Allergies Allergy/AdvReac Type Severity Reaction Status Date / Time wool Allergy Unknown Unknown Uncoded 04/19/21 23:44 Review of Systems 2 Review of Systems: ROS unable to be obtained due to altered mental status PMFSH Past Medical History Source: old records reviewed Medical History Contracture, right hip Tachycardia Constipation Seizure Constipation SIRS (systemic inflammatory response syndrome) Fever Myopia, bilateral Essential (primary) hypertension Disorder of the autonomic nervous system, unspecified Astigmatism, bilateral Bilateral cataracts Anemia Presbyopia Hemiplegia Toxic encephalopathy Dysarthria and anarthria Extrapyramidal and movement disorder MDD (major depressive disorder) Chronic constipation Encephalopathy Toxic encephalitis Hypertension Hyperlipidemia Muscle weakness Parkinson disease Seizures Depressive disorder Schizophrenia Social History Social History Household Members: Other Housing: Longterm Do you presently have visiting nurse or other home services: No Alcohol intake: unknown Patient Tobacco Use Status: Current everyday Tobacco user Tobacco use type: Cigarette Cigarettes Per Day: 20 Advance Directives: Yes Advance Directives on File: Yes Advance Directives Date on File: 05/15/21 service: No Current occupational status: disabled Physical Exam ED Vital Signs: Vital Signs - 24 hr 07/26/23 10:00 07/26/23 10:24 07/26/23 10:52 Pulse Rate 0 L Respiratory Rate 6 L 6 L 26 H Blood Pressure 141/84 H 133/84 Pulse Oximetry 34 L 21 L Oxygen Delivery Method Non-Rebreather Mask Mechanical Ventilation 07/26/23 15:04 07/26/23 15:22 07/26/23 15:54 Pulse Rate 96 0 L Respiratory Rate 0 L Blood Pressure 65/45 L 61/48 L 0/0 L Pulse Oximetry 71 L 72 L 0 L Oxygen Delivery Method BMI result Body Mass Index 33.8 Appearance: unresponsive slumping over severe distress Eyes: minimally responsive pupils on arrival 4mm ENT: material in mouth - healing sutures on bottom teeth Neck: Normal inspection. Neck supple. CVS: tachycardic heart rate and rhythm. Pulses normal. Respiratory: severe respiratory distress poor effort Breath sounds coarse throughout and diminished on left side Abdomen: Soft and no distention Skin: Skin hot and diaphoretic Extremities: No lower extremity edema. contracted Neuro: no purposeful movements no response to painful or verbal stimuli Course Course Course Narrative: Dr. Rodriguez and Dionisio at bedside - bronchoscopy was done as last ditch effort due to hypoxia - multiple secretions suctioned out but the patient still remained hypoxic. I did aspirate in 5th intercostal space with 20G needle to see if PTX but no air was aspirated - removed wire as patient coded after bronchoscopy. 3 cycles of CPR PE did get ROSC patient still remains in 60s on vent and HR in 170s, BP low and requiring pressors was on levophed. He is fixed dilated and pupils blown he has not had any purposeful movements and he is not breathing on his own at times then has some agonal respirations. 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 Dr. Meredith involved who is his jail provider was notified and he agrees and wants to make patient COLOR MAKING SUPERVISOR he would extubate the patient. Mirela Stephen legal guardian aware discussed events and agrees with Dr. Meredith and myself. I am unable to reach his daughter who is listed as next of kin. Dr. 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 I was able to reach his son Edson who had limited information but is trying to reach his sister. Attempts to reach daughter Jazmyne x 2, and cousin Keven but no call backs. Reevaluation(s) Reevaluation #1: we have given morphine and ativan to alleviate any discomfort at this time attempting to get morphine drip but having a hard time - pharmacy involved Reevaluation #2: no pupillary response, no corneal reflex, no painful response to stimuli on morphine gtt now for comfort given plan for COLOR MAKING SUPERVISOR will extubate the patient - no family has called back for hours extubated on morphine drip - lost pulses within 5 minutes, given morphine and ativan for comfort and guppy breathing, suctioned no gag reflex no corneal reflex he has no response to painful stimuli. He went to asystole after 5 minutes off of ventilator, no cardiac activity on US, absent heart sounds, time of 345pm not a ME case i did reach the son again he is aware of and will talk to [facility]. He was also able to get a hold of the sister Jazmyne she tells me she was at work but did not call back yet. She is aware of her father's . Medications Administered Generic Name Dose Route Start Last Admin Trade Name Freq PRN Reason Stop Dose Admin Morphine Sulfate 100 mg in 100 mls @ 0 mls/hr 07/26/23 11:30 07/26/23 15:54 Morphine Sulfate/Ns IVCONT 0 mg/hr .Q0M CHRISTELLE 0 mls/hr Infusion Protocol Per Protocol Discontinued Medications Generic Name Dose Route Start Last Admin Trade Name Freq PRN Reason Stop Dose Admin Acetaminophen 650 mg 07/26/23 10:07/26/23 11:55 Acetaminophen Supp 650 Mg Supp.Rect KS 07/26/23 10:06 Not Given ONCE ONE Piperacillin Sod/Tazobactam 50 mls @ 100 mls/hr 07/26/23 10:07/26/23 11:57 Sod 3.375 gm/ Sodium Chloride IV 07/26/23 10:34 Infused ONCE ONE Infusion Sodium Chloride 1,000 mls @ 999 mls/hr 07/26/23 10:15 07/26/23 11:56 Ns IV 07/26/23 11:15 Not Given .Q1H1M CHRISTELLE Sodium Chloride 1,000 mls @ 999 mls/hr 07/26/23 10:15 07/26/23 11:56 Ns IV 07/26/23 11:15 Not Given .Q1H1M CHRISTELLE Lorazepam 1 mg 07/26/23 14:44 07/26/23 15:25 Lorazepam 2 Mg/Ml Vial IVPUSH 07/26/23 14:45 1 mg STAT STA Administration Lorazepam 2 mg 07/26/23 15:48 07/26/23 15:43 Lorazepam 2 Mg/Ml Vial IVPUSH 07/26/23 15:49 2 mg ONCE ONE Administration Morphine Sulfate 4 mg 07/26/23 13:29 07/26/23 13:39 Morphine Sulfate 4 Mg/Ml Cartridge IVPUSH 07/26/23 13:30 4 mg ONCE ONE Administration Protocol Medical Decision Making Medical Decision Making MDM Narrative: 52 yo male with hx of HTN, HLD, schizophrenia, seizures, pneumonia here with c/o AMS, hypoxia to 30% for unknown amount of time ( last seen several hours ago) concern for aspiration intubated on arrival and ICU consulted for possible bronchoscopy persistent hypoxia despite all interventions without neurologic function and no improvement. He had cardiac arrest as well but did get ROSC. He is not on sedation and has no response to painful or tactile stimuli his pupils are blown. At this time will try to reach family, Dr. Meredith, guardian as this is futile. EMS confirms last time seen normal before bed. Differential Diagnosis Differential Diagnoses: The differential diagnosis associated with the presentation includes aspiration, PTX, pericardial effusion, PE Admission/Observation Consideration of admission/observation: Escalation of care including admission/observation considered planned admit given distress Consult Healthcare Provider Management of the patient was discussed with: Loan [employer] Manager (ICU did bronch patient in hopes to improve but no improvement of sats went from 50 to low 70s at one point) Lab Data [facility] Lab Attestation statement: I reviewed the patient's lab results. 07/26/23 10:21 07/26/23 10:12 Labs: Lab Results 07/26/23 07/26/23 07/26/23 Range/Units 10:05 10:12 10:21 WBC 17.2 H (4.8-10.8) X10*3/uL RBC 5.04 D (4.60-5.80) X10*6/uL Hgb 13.9 L D (14.0-18.0) g/dl Hct 44.6 D (42.0-52.0) % MCV 88.5 (80.0-98.0) fL MCH 27.6 (27.0-33.0) pg MCHC 31.2 (31.0-36.0) g/dl RDW 16.3 H (11.0-16.0) % Plt Count 289 D (160-400) X10*3/uL MPV 10.9 (9.4-12.4) fL Immature Gran % (Auto) 0.5 H (0.0-0.4) % Neut % (Auto) 85.0 H (45-73) % Lymph % (Auto) 11.1 L (20-40) % [place] % (Auto) 3.1 (2-11) % Eos % (Auto) 0.0 (0-4) % Baso % (Auto) 0.3 (0-2) % Lymph # (Auto) 1.9 (1.2-4.9) X10*3/uL [place] # (Auto) 0.5 (0.1-1.2) X10*3/uL Eos # (Auto) 0.0 (0.0-0.4) X10*3/uL Baso # (Auto) 0.1 (0.0-0.2) X10*3/uL Abs Immat Gran (auto) 0.09 H (0.00-0.03) X10*3/uL Absolute Neuts (auto) 14.6 H (2.0-8.3) x10*3/uL Absolute Nucleated RBC 0.000 (0.0-0.012) X10*3/uL Nucleated RBC % (auto) 0.0 (0.0-0.2) /100WBC PT 14.1 H (11.1-13.3) SEC INR 1.2 H (0.9-1.1) VBG pH (7.32-7.43) VBG pCO2 mmHg VBG pO2 mmHg VBG HCO3 (22-26) mmol/L VBG O2 Saturation % VBG Base Excess mmol/L Sodium 138 (135-145) mmol/L Potassium 3.5 (3.3-5.1) mmol/L Chloride 106 (96-108) mmol/L Carbon Dioxide 19 L (22-29) mmol/L Anion Gap 17 (12-20) BUN 20 H (9-16) mg/dL Creatinine 0.96 (0.5-1.4) mg/dL Estim Creat Clear Calc TNP Estimated GFR > 60 POC Glucose 136 H (60-115) mg/dL Random Glucose 134 H (60-115) mg/dL Lactic Acid 3.3 H* (0.5-2.0) mmol/L Calcium 9.5 D (8.4-10.2) mg/dL Magnesium 2.2 (1.6-2.6) mg/dL Total Bilirubin 0.3 (0.0-1.0) mg/dL AST 21 (5-37) U/L ALT 9 (0-40) U/L Alkaline Phosphatase 138 H (39-117) U/L Ammonia 79 H (13-55) umol/L Troponin I High Sens 25.1 (<3.5-35.0) ng/L B-Natriuretic Peptide 102 H (<100) pg/mL Total Protein 8.2 H (6.5-8.0) g/dL Albumin 3.9 (3.5-5.0) g/dL [place] 0.20 L (0.60-1.20) mmol/L Influenza Type A (PCR) NEGATIVE (Negative) Influenza Type B (PCR) NEGATIVE (Negative) RSV RNA Qual (PCR) NEGATIVE (Negative) SARS-CoV-2 RNA (RT-PCR) NEGATIVE (Negative) 07/26/23 Range/Units 10:23 WBC (4.8-10.8) X10*3/uL RBC (4.60-5.80) X10*6/uL Hgb (14.0-18.0) g/dl Hct (42.0-52.0) % MCV (80.0-98.0) fL MCH (27.0-33.0) pg MCHC (31.0-36.0) g/dl RDW (11.0-16.0) % Plt Count (160-400) X10*3/uL MPV (9.4-12.4) fL Immature Gran % (Auto) (0.0-0.4) % Neut % (Auto) (45-73) % Lymph % (Auto) (20-40) % [place] % (Auto) (2-11) % Eos % (Auto) (0-4) % Baso % (Auto) (0-2) % Lymph # (Auto) (1.2-4.9) X10*3/uL [place] # (Auto) (0.1-1.2) X10*3/uL Eos # (Auto) (0.0-0.4) X10*3/uL Baso # (Auto) (0.0-0.2) X10*3/uL Abs Immat Gran (auto) (0.00-0.03) X10*3/uL Absolute Neuts (auto) (2.0-8.3) x10*3/uL Absolute Nucleated RBC (0.0-0.012) X10*3/uL Nucleated RBC % (auto) (0.0-0.2) /100WBC PT (11.1-13.3) SEC INR (0.9-1.1) VBG pH 7.18 L* (7.32-7.43) VBG pCO2 50 mmHg VBG pO2 31 mmHg VBG HCO3 19 L (22-26) mmol/L VBG O2 Saturation 30.0 % VBG Base Excess -9.2 mmol/L Sodium (135-145) mmol/L Potassium (3.3-5.1) mmol/L Chloride (96-108) mmol/L Carbon Dioxide (22-29) mmol/L Anion Gap (12-20) BUN (9-16) mg/dL Creatinine (0.5-1.4) mg/dL Estim Creat Clear Calc Estimated GFR POC Glucose (60-115) mg/dL Random Glucose (60-115) mg/dL Lactic Acid (0.5-2.0) mmol/L Calcium (8.4-10.2) mg/dL Magnesium (1.6-2.6) mg/dL Total Bilirubin (0.0-1.0) mg/dL AST (5-37) U/L ALT (0-40) U/L Alkaline Phosphatase (39-117) U/L Ammonia (13-55) umol/L Troponin I High Sens (<3.5-35.0) ng/L B-Natriuretic Peptide (<100) pg/mL Total Protein (6.5-8.0) g/dL Albumin (3.5-5.0) g/dL [place] (0.60-1.20) mmol/L Influenza Type A (PCR) (Negative) Influenza Type B (PCR) (Negative) RSV RNA Qual (PCR) (Negative) SARS-CoV-2 RNA (RT-PCR) (Negative) Independent Interpretation I performed an independent interpretation of an: EKG and Plain X-Ray (whiteout left lung) Interpretation: Rate: 170 Rhythm: sinus tachy [place]: mpr,a; Normal P waves. Normal BRAYAN. Normal QRS complex. ST T wave : no MONA, nonspecific ST T wave changes qTC: normal prior studies: changed The study has been interpreted contemporaneously by me. . Radiology Impression Discussion of test interpretation with radiology: I have reviewed the radiologist's reading. Independent Historian Clinical information obtained from an independent historian. History obtained from or confirmed by: EMS and Other (Dr. Meredith and legal guardian Lisandra) External Record Review External record reviewed: Inpatient record Procedures Procedure Narrative Procedure Narrative: lung sliding on US noted , no pericardial effusion - heart in unusual high and up in left position easily palpated through ribs Intubation Time out performed: Yes sedative: Etomidate Mg Given: 20 paralytic: Rocuronium Mg Given: 50 Laryngoscope: fiber optic video scope ET Tube Size: 7.5 ET Tube Uncuffed: Yes Tube Secured Depth (cm): 23 Tube Secured Location: lips Tube Placement Confirmation: visualized tube passing through cords, no breath sounds over epigastrium and confirmation by capnometry Patient Tolerated Procedure: well and no complications Intubation Complications: none Additional Comments: easily intubated thick secretion seen on first pass suctioned Critical Care Time Critical Care Time Critical Care Time: Yes Total Critical Care Time: 120 Attestation: repeat assessments, discussions, ICU consult, termination of care, CPR, cardiac arrest care, post ROSC care I attest to this time spent taking care of the patient Discharge Plan Discharge Clinical Impression: Collapse of left lung, Respiratory arrest, Cardiac arrest due to respiratory disorder Patient Disposition: Date/Time: 07/26/23 15:45
[2023-07-26 11:51] LABS: Glucose, Whole Blood 136 mg/dL (60-115)
[2023-07-26 12:17] LABS: Reflex Lactate? Lactic Acid Added
--- NOTE | 2023-07-26 12:42 | PC.NURSE ---
Pt arrived via EMS at 1000, pt on non-rebreather, sating 30%. Pt is not responsive at this time, placed on monitor Hr 160-180, IVx2 placed in bilat AC, [place] labs drawn. dr. Almodovar at bedside, RSI kit pulled, etomidate 20 mg, Rocc 50mg given at 1003 intubated with 7.5 tube, 23cm at the lip. Vitals maintained HR 173, BP 141/84 O2 94% w. ambu bagging, Cap 29. At 1012 pt O2 dropped to 34% while continue to bag. Md at bedside, ICU consulted for bronch. Resp unable to get pt O2 above 40%. Lactic returned at 3.3, piptaz started. Attempted OG tube with no luck d/t continued coiling, attempted by 2RN. Dr. joel at bedside to complete bronch, BP dropped to 106/68 O2 25-45% HR steadily dropped until loss of pulse. Levophed started at 1055 at 4mcg/kg/min, per Dr. Joel estimated weight of 50kg used for medication. Pulse check done at 1058 no pulse found, CPR started at 1058 and bronch ended. at 1059 1 EPi given, Levo stopped. Pt remained in PEA at pulse check. 1103 second epi given, CPR resumed, 1105 third epi given, CPR maintained, at 1106 soft carotid pulse felt, U/S showing cardiac activity, Levo restarted at at 4mcg/kg/min, attempted to place chest tube, which was evacuated d/t heart/lunch placement. Dr. Meredith consulted regarding code status, POC given pt current status. VENEER REDRIER status agreed upon. Attempted multiple times to contact family with no eval, Legal guardian called multiple times, she did return our call, stating I am okay with whatever double doctor discussion is made . Resp attempting to ween down vent settings at 1203, noted pt was breathing over went, fixed pupils noted, head CT ordered, pt brought on vent to CT. Pt continuing to sat in the 60-70's HR 130's, currently VENEER REDRIER status maintained.
[2023-07-26] MEDS: Morphine Sulfate 4 MG/ML CARTRIDGE IVPUSH (13:39)
[2023-07-26] MEDS: Morphine Sulfate/NS 100 MG/100 ML PLAST..BAG IVCONT (15:04)
[2023-07-26] MEDS: LORazepam 2 MG/ML VIAL 1 MG IVPUSH (15:25)
[2023-07-26] MEDS: LORazepam 2 MG/ML VIAL IVPUSH (15:43)
--- NOTE | 2023-07-26 15:54 | PC.NURSE ---
PT WAS EXTUBATED AT [address] CAMACHO, RESPIRATORY THERAPIST MONSE AT BEDSIDE. MEDICATED CHARTED, NO COORDINATED THEN NO CARDIAC ACTIVITY ON US, TIME OF WAS 1545.
--- NOTE | 2023-07-26 16:20 | PC.NURSE ---
organ bank called for donation, Nannette denied pt for donation/tissue donation Ref #[id number].
--- NOTE | 2023-08-16 12:41 | PM.CCN ---
Critical Care Event Note Summary Date of Service: 07/26/23 Code activated: Yes Narrative: Late note for procedure performed on 07/26/2023. Notified by emergency room physician regarding patient refractory hypoxic with O2 saturation in 60% despite maximum ventilatory support with request for emergent bedside bronchoscopy for possible secretion clearance. Emergent bedside bronchoscopy with flexible bronchoscope performed through the ET tube with patient intubated prior. Bronchoscope advanced to the 1st lalo with visualization of large burden of thick secretions, particularly in the left mainstem bronchus. Secretion clearance attempted with clearance of central bronchi to subsegmental bronchi level, however with no significant improvement in patient's oxygenation. Secondary to continuing deterioration of patient hemodynamics procedure aborted and CPR measures started by emergency room provider. Critical Care Time (minutes): 0
== END 2023-07-26 17:20 | disposition expired ==
PROVIDERS: Physician Assistant; Emergency Provider Emergency Medicine; PCP Hospitalist
DX: J98.19 Other pulmonary collapse (principal); R09.2 Respiratory arrest; I46.8 Cardiac arrest due to other underlying condition; R09.02 Hypoxemia; R00.0 Tachycardia, unspecified; Z20.822 Contact with and (suspected) exposure to COVID-19; Z20.828 Contact with and (suspected) exposure to other viral communicable diseases; I10 Essential (primary) hypertension; E78.5 Hyperlipidemia, unspecified; G20 Parkinson's disease; D64.9 Anemia, unspecified; F20.9 Schizophrenia, unspecified; F32.9 Major depressive disorder, single episode, unspecified; F17.210 Nicotine dependence, cigarettes, uncomplicated; Z51.5 Encounter for palliative care; Z87.01 Personal history of pneumonia (recurrent)
CPT/HCPCS: 0241U; 31500; 31624; 36415; 51702; 70450; 71045; 80053; 80178; 82140; 82803; 82947; 83605; 83735; 83880; 84484; 85025; 85610; 87040; 92950; 93005; 94002; 96365; 96366; 96367; 96374; 96375; 96376; 99284; 99285; 99291; 99292; J0171; J2060; J2270; J2543

== ENCOUNTER → 2023-07-26 10:39 | Outpatient (BNV) | payer MEDICAID, SELFPAY | PROVIDERS: Emergency Provider Emergency Medicine; PCP Hospitalist; Visit Provider Internal Medicine Pulmonary Disease | DX: J96.01 Acute respiratory failure with hypoxia (principal) | CPT/HCPCS: 31624 ==